=== PATIENT | male | born 1955 | race African-American/Black ===

== ENCOUNTER 2021-05-31 16:57 | Emergency (ER) | payer SELFPAY ==
--- OUTSIDE RECORDS SUMMARY | 2021-05-31 16:58 | XMS REPORT | Continuity of Care Document ---
:1955 Author Organization [facility] t Address [address] [place] [address] Care Team Providers Name Role Phone Brielle An Attending Clinician Problems This patient has no known problems. Allergies, Adverse Reactions, Alerts This patient has no known allergies or adverse reactions. Medications This patient has no known medications. Procedures This patient has no known procedures. Encounters Start End Encounter Admission Attending Care Care Encounter Source Date/Time Date/Time Type Type Clinicians Facility Department ID 2020-11-25 2020-11-25 Office JOHANNY Owens [id number] 09:11:35 09:46:46 Visit [facility] [id number] [place] [id number] Sheila [id number] nal 044 Office [address] [facility] Results This patient has no known results.
[2021-05-31] MEDS ORDERED: cloNIDine HCL 0.1 MG TAB ONE ×2 (18:03→19:19)
[2021-05-31] MEDS ORDERED: lisinopriL 20 MG TAB ONE (18:03)
[2021-05-31 19:25] LABS: SARS-COV-2 RT PCR POSITIVE (NEGATIVE)
--- NOTE | 2021-05-31 19:40 | EDPHYS ---
Physician Documentation [facility] Name: Don Connolly Age: 65 yrs Sex: Male : 1955 Arrival Date: 05/31/2021 Time: 16:59 Bed 24 Private MD: ED Physician Curt Anaya HPI: 05/31 19:36 This 65 yrs old Black Male presents to ER via Ambulatory with complaints of Cough. jr8 19:36 The patient or guardian reports cough, that is intermittent, described as moderate, jr8 with no sputum. Onset: The symptoms/episode began/occurred gradually. Severity of symptoms: At their worst the symptoms were moderate, in the emergency department the symptoms are unchanged. Modifying factors: The symptoms are alleviated by nothing, the symptoms are aggravated by exertion. Associated signs and symptoms: Pertinent positives: fever. The patient has not experienced similar symptoms in the past. The patient has not recently seen a physician. Historical: - Allergies: 17:08 No Known Allergies; jl7 - PMHx: 17:08 Hypertensive disorder; jl7 - Immunization history:: Adult Immunizations unknown, Client reports receiving the 2nd dose of the Covid vaccine, Date received: December 23, 2020 [employer]. - Social history:: Smoking status: Patient denies any tobacco usage or history of. ROS: 19:36 Constitutional: Positive for fever. jr8 19:36 Respiratory: Positive for cough, Negative for shortness of breath, sputum production, wheezing. 19:36 All other systems are negative. Exam: 19:36 Constitutional: This is a well developed, well nourished patient who is awake, alert, jr8 and in no acute distress. Eyes: Pupils equal round and reactive to light, extra-ocular motions intact. Lids and lashes normal. Conjunctiva and sclera are non-icteric and not injected. Cornea within normal limits. Periorbital areas with no swelling, redness, or edema. ENT: Nares patent. No nasal discharge, no septal abnormalities noted. Tympanic membranes are normal and external auditory canals are clear. Oropharynx with no redness, swelling, or masses, exudates, or evidence of obstruction, uvula midline. Mucous membranes moist. Neck: Trachea midline, no thyromegaly or masses palpated, and no cervical lymphadenopathy. Supple, full range of motion without nuchal rigidity, or vertebral point tenderness. No Meningismus. Cardiovascular: Regular rate and rhythm with a normal S1 and S2. No gallops, murmurs, or rubs. Normal PMI, no JVD. No pulse deficits. Respiratory: Lungs have equal breath sounds bilaterally, clear to auscultation and percussion. No rales, rhonchi or wheezes noted. No increased work of breathing, no retractions or nasal flaring. Abdomen/GI: Soft, non-tender, with normal bowel sounds. No distension or tympany. No guarding or rebound. No evidence of tenderness throughout. Back: No spinal tenderness. No costovertebral tenderness. Full range of motion. Skin: Warm, dry with normal turgor. Normal color with no rashes, no lesions, and no evidence of cellulitis. MS/ Extremity: Pulses equal, no cyanosis. Neurovascular intact. Full, normal range of motion. Neuro: Awake and alert, GCS 15, oriented to person, place, time, and situation. Cranial nerves II-XII grossly intact. Motor strength 5/5 in all extremities. Sensory grossly intact. Vital Signs: 17:06 BP 221 / 135; Pulse 100; Resp 19; Temp 100; Pulse Ox 94% ; Weight 140.61 kg; Height 5 jl7 ft. 11 in. (180.34 cm); Pain 0/10; 17:37 BP 233 / 139; Pulse 99; Resp 32; Temp 100(O); Pulse Ox 95% on R/A; Weight 140 kg; ld1 Height 5 ft. 9 in. (175.26 cm); Pain 5/10; 18:00 BP 229 / 136; Pulse 94; Resp 23; Pulse Ox 94% on R/A; ld1 18:15 BP 225 / 134; Pulse 95; Resp 31; Pulse Ox 93% on R/A; ld1 18:38 BP 232 / 123; Pulse 97; Resp 27; Pulse Ox 93% on R/A; ld1 17:37 Body Mass Index 45.58 (140.00 kg, 175.26 cm) ld1 MDM: 19:24 Patient medically screened. jr8 19:36 Data reviewed: vital signs, nurses notes, lab test result(s). Data interpreted: Pulse jr8 oximetry: on room air is 95 %. Interpretation: acceptable. Counseling: I had a detailed discussion with the patient and/or guardian regarding: the historical points, exam findings, and any diagnostic results supporting the discharge/admit diagnosis, lab results, the need for outpatient follow up, a family practitioner, to return to the emergency department if symptoms worsen or persist or if there are any questions or concerns that arise at home. ED course: Patient has persistent elevated blood pressure which she is noncompliant with his medications. Patient denies chest pain, shortness of breath, headache, dizziness, visual changes. Patient has been medicated 3 times her blood pressure medicine here. Blood pressure is now starting to decrease. Counseled patient and about need for continued compliance with blood pressure medicine. As far as his cough and fever patient has Covid 19. [address] patient on therapy for this. Needs to follow-up with primary care in the next couple days. Discussed with them that they need to continue to watch his respiratory status and if he gets worse to come back for further evaluation. Patient and good with this plan at this time.. 05/31 19:25 Order name: COVID-19/FLU A+B; Complete Time: 19:27 EDMS Administered Medications: 17:43 Drug: Lisinopril 20 mg Route: PO; ld1 18:17 Follow up: Response: No adverse reaction ld1 17:43 Drug: cloNIDine 0.1 mg Route: PO; ld1 18:17 Follow up: Response: No adverse reaction ld1 18:59 Drug: cloNIDine 0.2 mg Route: PO; ld1 19:37 Follow up: Response: No adverse reaction ld1 19:20 Drug: Tylenol 1000 mg Route: PO; ld1 19:37 Follow up: Response: No adverse reaction ld1 Disposition: 06/01 07:18 Co-signature as Attending Physician, Curt Anaya MD I agree with the assessment and kdr plan of care. Disposition Summary: 05/31/21 19:39 Discharge Ordered Location: Home jr8 Problem: new jr8 Symptoms: have improved jr8 Condition: Stable jr8 Diagnosis - Essential (primary) hypertension jr8 - SARS-associated coronavirus as the cause of diseases classified elsewhere jr8 Followup: jr8 - With: Private Physician - When: 2 - 3 days - Reason: Recheck today's complaints, Continuance of care, Re-evaluation by your physician Discharge Instructions: - Discharge Summary Sheet jr8 - Hypertension, Adult jr8 - COVID-19 jr8 Forms: - Medication Reconciliation Form jr8 - Thank You Letter jr8 - Antibiotic Education jr8 - Prescription Opioid Use jr8 Prescriptions: - ivermectin 3 mg Oral tablet - take 6 tablet by ORAL route once daily for 3 days; 18 tablet; Refills: 0, jr8 Product Selection Permitted Signatures: Dispatcher [employer] EDMS Curt Anaya MD MD kdr Roszak, Josh, PA PA jr8 Mookie Cotto RN RN jl7 Leydi Pablo RN RN ld1 Corrections: (The following items were deleted from the chart) 05/31 18:34 17:20 CORONAVIRUS+MR.LAB.BRZ ordered. EDMS EDMS 18:35 17:20 Influenza Screen (A \T\ B)+BA.LAB.BRZ ordered. EDMS EDMS
--- NOTE | 2021-05-31 19:40 | ER ---
Nurse's Notes [facility] Name: Don Connolly Age: 65 yrs Sex: Male : 1955 Arrival Date: 05/31/2021 Time: 16:59 Bed 24 Private MD: Diagnosis: Essential (primary) hypertension;SARS-associated coronavirus as the cause of diseases classified elsewhere Presentation: 05/31 17:06 Chief complaint: Patient states: Body aches and cough x 2 days; hx of htn and has not jl7 taken meds in about 3 days. Coronavirus screen: Client denies travel out of the [place] in the last 14 days. cough unrelated to allergies, muscle pain, Client presents with at least one sign or symptom that may indicate coronavirus-19. Standard/surgical mask placed on the client. Provider contacted for isolation considerations. Ebola Screen: No symptoms or risks identified at this time. Initial Sepsis Screen: Does the patient meet any 2 criteria? No. Patient's initial sepsis screen is negative. Does the patient have a suspected source of infection? No. Patient's initial sepsis screen is negative. Risk Assessment: Do you want to hurt yourself or someone else? Patient reports no desire to harm self or others. Onset of symptoms was May 29, 2021. Care prior to arrival: None. 17:06 Method Of Arrival: Ambulatory [facility] 17:06 Acuity: JITENDRA 2 jl7 Historical: - Allergies: 17:08 No Known Allergies; jl7 - PMHx: 17:08 Hypertensive disorder; jl7 - Immunization history:: Adult Immunizations unknown, Client reports receiving the 2nd dose of the Covid vaccine, Date received: December 23, 2020 [employer]. - Social history:: Smoking status: Patient denies any tobacco usage or history of. Screenin:37 Abuse screen: Denies threats or abuse. Denies injuries from another. Nutritional ld1 screening: No deficits noted. Tuberculosis screening: No symptoms or risk factors identified. Fall Risk None identified. Assessment: 17:37 General: Appears in no apparent distress. comfortable, Behavior is calm, cooperative, ld1 appropriate for age. Pain: Complains of pain in right upper quadrant and left upper quadrant Pain does not radiate. Pain currently is 5 out of 10 on a pain scale. Quality of pain is described as squeezing, Pain began 1 day ago. Is intermittent. Neuro: Level of Consciousness is awake, alert, obeys commands, Oriented to person, place, time, situation. Cardiovascular: Capillary refill < 3 seconds Patient's skin is warm and dry. Rhythm is sinus rhythm. Respiratory: Reports cough that is non-productive, Airway is patent Respiratory effort is even, unlabored, Respiratory pattern is regular, symmetrical. GI: Abdomen is non-distended, obese, Reports upper abdominal pain. : No signs and/or symptoms were reported regarding the genitourinary system. EENT: No signs and/or symptoms were reported regarding the EENT system. Derm: No signs and/or symptoms reported regarding the dermatologic system. Musculoskeletal: No signs and/or symptoms reported regarding the musculoskeletal system. 19:00 Reassessment: Patient appears in no apparent distress at this time. No changes from ld1 previously documented assessment. Patient and/or family updated on plan of care and expected duration. Pain level reassessed. Patient is alert, oriented x 3, equal unlabored respirations, skin warm/dry/pink. Vital Signs: 17:06 BP 221 / 135; Pulse 100; Resp 19; Temp 100; Pulse Ox 94% ; Weight 140.61 kg; Height 5 jl7 ft. 11 in. (180.34 cm); Pain 0/10; 17:37 BP 233 / 139; Pulse 99; Resp 32; Temp 100(O); Pulse Ox 95% on R/A; Weight 140 kg; ld1 Height 5 ft. 9 in. (175.26 cm); Pain 5/10; 18:00 BP 229 / 136; Pulse 94; Resp 23; Pulse Ox 94% on R/A; ld1 18:15 BP 225 / 134; Pulse 95; Resp 31; Pulse Ox 93% on R/A; ld1 18:38 BP 232 / 123; Pulse 97; Resp 27; Pulse Ox 93% on R/A; ld1 17:37 Body Mass Index 45.58 (140.00 kg, 175.26 cm) ld1 ED Course: 16:59 Patient arrived in ED. as 17:08 Triage completed. jl7 17:08 Arm band placed on right wrist. jl7 17:33 Leydi Pablo RN is Primary Nurse. ld1 17:36 Curt Anaya MD is Attending Physician. kdr 17:37 Patient has correct armband on for positive identification. Placed in gown. Bed in low ld1 position. Call light in reach. Side rails up X2. youth nutritional monitor on. Pulse ox on. NIBP on. Door closed. Noise minimized. Warm blanket given. 17:37 No provider procedures requiring assistance completed. ld1 19:23 Erik Estrella PA is PHCP. jr8 20:00 Patient did not have IV access during this emergency room visit. ld1 Administered Medications: 17:43 Drug: Lisinopril 20 mg Route: PO; ld1 18:17 Follow up: Response: No adverse reaction ld1 17:43 Drug: cloNIDine 0.1 mg Route: PO; ld1 18:17 Follow up: Response: No adverse reaction ld1 18:59 Drug: cloNIDine 0.2 mg Route: PO; ld1 19:37 Follow up: Response: No adverse reaction ld1 19:20 Drug: Tylenol 1000 mg Route: PO; ld1 19:37 Follow up: Response: No adverse reaction ld1 Outcome: 19:39 Discharge ordered by . jr8 19:45 Discharged to home ambulatory. ld1 19:45 Condition: stable 19:45 Discharge instructions given to patient, Instructed on discharge instructions, follow ld1 up and referral plans. medication usage, Demonstrated understanding of instructions, follow-up care, medications. 20:00 Patient left the ED. ld1 Signatures: Curt Anaya MD MD kdr Martinez, Amelia as Erik Estrella PA PA jr8 Mookie Cotto RN RN jl7 Leydi Pablo RN RN ld1 Corrections: (The following items were deleted from the chart) 18:34 18:17 CORONAVIRUS+MR.LAB.BRZ drawn and sent. ld1 EDMS 18:35 18:17 Influenza Screen (A \T\ B)+BA.LAB.BRZ drawn and sent. ld1 EDMS
[2021-05-31] MEDS ORDERED: ACETAMINOPHEN 500 MG TAB ONE (19:55)
[2021-05-31 20:05] VITALS: TEMP 100
[2021-05-31 20:11] VITALS: O2SAT 93
[2021-05-31 20:13] VITALS: BP 232/123
== END 2021-05-31 20:00 | disposition home or self-care (01) ==
LOC: ER 16:57
DX: U07.1 COVID-19 (principal); I10 Essential (primary) hypertension
CPT/HCPCS: 0240U; 99284

== ENCOUNTER 2023-04-08 09:52 | Inpatient (IN) | payer OTHER ==
--- OUTSIDE RECORDS SUMMARY | 2023-04-08 10:21 | XMS REPORT | Continuity of Care Document ---
:[address] [facility] t Address [address] [place] [address] [place] [id number] Care Team Providers Name Role Phone Rubina An Primary Care Physician MILLER CANO K.HBrendon Attending Clinician Unavailable Rachael MYRICK, Miller K.H. Attending Clinician Doctor Unassigned, [place] Attending Clinician Unavailable RUBINA FRANCISCO Attending Clinician Unavailable Vaccine, [facility] Family [facility] Attending Clinician Unavailable Carlito Lane MD Attending Clinician [address] L[address] Attending Clinician Unavailable Ayaan MYRICK, Saranya Attending Clinician Pob, [facility] Lab Main Attending Clinician Unavailable JOURDAN COYLE Attending Clinician Unavailable Nurse, [facility] Pob Immunization Attending Clinician Unavailable Jourdan Coyle DO Attending Clinician Barry HEALTH INSPECTOR FOODTaina DUKE Attending Clinician Rubina An Attending Clinician Flora MONTENEGRO, Peg Mera Attending Clinician Unavailable Cindy ARRIETA, Karoline Pinzon Attending Clinician Manuel Akers DO Attending Clinician Therapy, Ang [facility] Covid Attending Clinician Unavailable Vanita Shetty Attending Clinician RADHA CARRANZA Attending Clinician Unavailable PATRICIA BILLY Attending Clinician Unavailable OBED LOUIS Attending Clinician Unavailable MILLER CANO Admitting Clinician Unavailable Manuel Akers DO Admitting Clinician Payers Payer Name Policy Type Policy Number Effective Date Expiration Date S yemi [employer] [id number] 2020 00:00:00 GROUP AND PENSION [id number] 2018 ADMINISTRATORS 00:00:00 Problems Condition Condition Condition Status Onset Resolution Last Treating Co mments Source Name Details Category Date Date Treatment Clinician Date Paroxysmal Paroxysmal Disease Active [facility] atrial atrial 9-19 [facility] [place] 00 Medical RVR RVR Branch Acute on Acute on Disease Active [facility] chronic chronic 9-19 [place] congestive congestive [place] Me dical heart heart Branch failure failure Troponin I Troponin I Disease Active [facility] above above 9-19 [place] range 00 [facility] COVID-19 COVID-19 Disease Active [facility] virus virus 9-19 [place] [place] infection [place] Morbid Morbid Disease Active [facility] obesity obesity 9-18 [place] of with body with body 00:[place] mass index mass index 00 Me dical of of Branch 40.0-49.9 40.0-49.9 Hypertensi Hypertensi Disease Active [facility] ve ve 9-18 [facility] [place] emergency emergency [place] [facility] [place] Rash Rash Disease Active [facility] 2-21 ity of 00:00: [place] 00 Medical Branch Uncontroll Uncontroll Disease Active 2017-10 [facility] ed ed 0-05 it[facility] of hypertensi hypertensi [place] CANALES CANALES Disease Active 2017-10 Univers (dyspnea (dyspnea 0-05 ity of on on 00:00: [place] exertion) exertion) [address] [facility] brianne Branch Abnormal Abnormal Disease Active 2017-10 Unive rs EKG EKG 0-05 ity of 00:00: [place] 00 Medical Branch Bilateral Bilateral Disease Active 2017-10 Uni vers lower lower 0-05 ity of extremity extremity 00:00: [facility] s edema edema Medical Branch History of History of Disease Active 2017-10 U nivers asbestosis asbestosis 0-05 it y of 00:00: [place] [facility] Snoring Snoring Disease Active 2017-10 Univers 0-05 ity of 00:00: [place] [facility] Obesity Obesity Disease Active 2017-10 Univers (BMI (BMI 0-05 ity of 30-39.9) 30-39.9) 00:00: [place] [facility] Allergies, Adverse Reactions, Alerts Allergy Allergy Status Severity Reaction(s) Onset Inactive Treating Comm ents Source Name Type Date Date Clinician NO KNOWN Drug Active Univers ALLERGIE Class ity of S [facility] Social History Social Habit Start Date Stop Date Quantity Comments Source History SDOH University o f Alcohol Frequency [place] M edical Branch History SDOH University o f Alcohol Std [place] Medical Drinks Branch History SDOH University o f Alcohol Binge [place] Medic al Branch Exposure to 2023-02-22 2023-03-04 Not sure [facility] SARS-CoV-2 00:00:00 14:11:00 [facility] (event) Branch Tobacco use and 2023-03-04 2023-03-04 Smokeless tobacco Un iversity of exposure 00:00:00 00:00:00 non-user [facility] Alcohol intake 2023-03-04 2023-03-04 Current drinker Unive rsity of 00:00:00 00:00:00 of alcohol [facility] (finding) Branch Alcohol Comment 2018-07-25 2018-07-25 socially Universit y of 00:00:00 00:00:00 [facility] Sex Ass[birth year] Universit y of 00:00:00 00:00:00 [facility] Smoking Status Start Date Stop Date Source Never smoked tobacco [facility] Medications Ordered Filled Start Stop Current Ordering Indication Dosage Frequency Signature Comments Components Source Medication Medication Date Date Medication? Clinician (SIG) Name Name apixaban 0 Yes 5mg Take 1 Univers (ELIQUIS) 5 5-15 tablet by ity of mg tablet 15:03: mouth in [facility] the Medical morning Branch and 1 tablet in the evening. apixaban Yes 5mg Take 1 Univers (ELIQUIS) 5 5-15 tablet by [facility] mg tablet 15:03[facility] Branch and 1 tablet in the evening. apixaban 2022-0 Yes 5mg Take 1 Univers (ELIQUIS) 5 5-15 tablet by ity of mg tablet 15:03: [place] the Medical morning Branch and 1 tablet in the evening. atorvastati 2022-0 Yes [id number] 40mg Take 1 Univers n 40 mg 5-15 tablet by ity of tablet 00:00: mouth at [place] 00 bedtime. Medical Branch carvediloL 2022-0 Yes [id number] 25mg Take 1 U nivers 25 mg 5-15 tablet by ity of tablet 00:00: mouth in [place] 00 the Medical morning Branch and 1 tablet in the evening. Take with meals. lisinopriL 2022-0 Yes [id number] 40mg Take 1 U nivers 40 mg 5-15 tablet by ity of tablet 00:00: mouth in [place] 00 the Medical morning. Branch spironolact 2022-0 Yes [id number] 25mg Take 1 Univers one 25 mg 5-15 tablet by ity o f tablet 00:00: mouth [place] 00 every Medical morning. Branch amLODIPine 2022-0 Yes [id number] 10mg Take 1 U nivers 10 mg 5-15 tablet by ity of tablet 00:00: mouth in [place] 00 the Medical morning. Branch isosorbide 2022-0 Yes [id number] 30mg Take 1 U nivers mononitrate 5-15 tablet by ity of 30 mg 24 hr 00:00: [place] 00 the Medical morning. Branch hydrALAZINE 2022-0 Yes [id number] 50mg Take 1 Univers 50 mg 5-15 tablet by ity of tablet 00:00: mouth [place] 00 every 8 Medical (eight) Branch hours. atorvastati 2022-0 Yes [id number] 40mg Take 1 Univers n 40 mg 5-15 tablet by ity of tablet 00:00: mouth at [place] 00 bedtime. Medical Branch carvediloL 2022-0 Yes [id number] 25mg Take 1 U nivers 25 mg 5-15 tablet by ity of tablet 00:00: mouth in [place] 00 the Medical morning Branch and 1 tablet in the evening. Take with meals. lisinopriL 2023-0 Yes [id number] 40mg Take 1 U nivers 40 mg 5-15 tablet by ity of tablet 00:00: mouth in [place] 00 the Medical morning. Branch spironolact 3-0 Yes [id number] 25mg Take 1 Univers one 25 mg 5-15 tablet by ity o f tablet 00:00: mouth [place] 00 every Medical morning. Branch amLODIPine 3-0 Yes [id number] 10mg Take 1 U nivers 10 mg 5-15 tablet by ity of tablet 00:00: mouth in [place] 00 the Medical morning. Branch isosorbide 3-0 Yes [id number] 30mg Take 1 U nivers mononitrate 5-15 tablet by ity of 30 mg 24 hr 00:00: [place] 00 the Medical morning. Branch hydrALAZINE 3-0 Yes [id number] 50mg Take 1 Univers 50 mg 5-15 tablet by ity of tablet 00:00: mouth [place] 00 every 8 Medical (eight) Branch hours. atorvastati 3-0 Yes [id number] 40mg Take 1 Univers n 40 mg 5-15 tablet by ity of tablet 00:00: mouth at [place] 00 bedtime. Medical Branch carvediloL 3-0 Yes [id number] 25mg Take 1 U nivers 25 mg 5-15 tablet by ity of tablet 00:00: mouth in [place] 00 the Medical morning Branch and 1 tablet in the evening. Take with meals. lisinopriL 3-0 Yes [id number] 40mg Take 1 U nivers 40 mg 5-15 tablet by ity of tablet 00:00: mouth in [place] 00 the Medical morning. Branch spironolact 3-0 Yes [id number] 25mg Take 1 Univers one 25 mg 5-15 tablet by ity o f tablet 00:00: mouth [place] 00 every Medical morning. Branch amLODIPine 3-0 Yes [id number] 10mg Take 1 U nivers 10 mg 5-15 tablet by ity of tablet 00:00: mouth in [place] 00 the Medical morning. Branch isosorbide 3-0 Yes [id number] 30mg Take 1 U nivers mononitrate 5-15 tablet by ity of 30 mg 24 hr 00:00: [place] 00 the Medical morning. Branch hydrALAZINE 0 Yes [id number] 50mg Take 1 Univers 50 mg 5-15 tablet by ity of tablet 00:00: mouth [place] 00 every 8 Medical (eight) Branch hours. ATORVASTATI 2021-10 Yes [id number] 40mg TAKE 1 Univers N 40 mg 2-30 TABLET BY ity of tablet 00:00: [facility] [place] BEDTIME Medical Branch SPIRONOLACT 2021-10 Yes [id number] TAKE 1 Univers ONE 25 mg 2-30 TABLET BY ity o f tablet 00:00: MOUTH [place] DAILY Medical Branch LISINOPRIL 2021-10 Yes [id number] 40mg TAKE 1 U nivers 40 mg 2-30 TABLET BY ity of tablet 00:00: [facility] DAILY Medical Branch CARVEDILOL 2021-10 Yes [id number] TAKE 1 U nivers 25 mg 2-30 TABLET BY ity of tablet 00:00: [facility] TWICE Medical DAILY WITH Branch MEALS ATORVASTATI 2021-10 Yes [id number] 40mg TAKE 1 Univers N 40 mg 2-30 TABLET BY ity of tablet 00:00: [facility] [place] BEDTIME Medical Branch SPIRONOLACT 2021-10 Yes [id number] TAKE 1 Univers ONE 25 mg 2-30 TABLET BY ity o f tablet 00:00: [facility] DAILY Medical Branch LISINOPRIL 2021-10 Yes [id number] 40mg TAKE 1 U nivers 40 mg 2-30 TABLET BY ity of tablet 00:00: [facility] DAILY Medical Branch CARVEDILOL 2021-10 Yes [id number] TAKE 1 U nivers 25 mg 2-30 TABLET BY ity of tablet 00:00: MOUTH [place] TWICE Medical DAILY WITH Branch MEALS ATORVASTATI 2021-10 Yes [id number] 40mg TAKE 1 Univers N 40 mg 2-30 TABLET BY ity of tablet 00:00: [facility] [place] BEDTIME Medical Branch SPIRONOLACT 2021-10 Yes [id number] TAKE 1 Univers ONE 25 mg 2-30 TABLET BY ity o f tablet 00:00: [facility] DAILY Medical Branch LISINOPRIL 2021-10 Yes [id number] 40mg TAKE 1 U nivers 40 mg 2-30 TABLET BY ity of tablet 00:00: [facility] DAILY Medical Branch CARVEDILOL 2021-10 Yes [id number] TAKE 1 U nivers 25 mg 2-30 TABLET BY ity of tablet 00:00: [facility] TWICE Medical DAILY WITH Branch MEALS ATORVASTATI 2021-10 Yes [id number] 40mg TAKE 1 Univers N 40 mg 2-30 TABLET BY ity of tablet 00:00: [place] [facility] 00 BEDTIME Medical Branch SPIRONOLACT 2021-10 Yes [id number] TAKE 1 Univers ONE 25 mg 2-30 TABLET BY ity o f tablet 00:00: [facility] 00 DAILY Medical Branch LISINOPRIL 2021-10 Yes [id number] 40mg TAKE 1 U nivers 40 mg 2-30 TABLET BY ity of tablet 00:00: [facility] DAILY Medical Branch CARVEDILOL 2021-10 Yes [id number] TAKE 1 U nivers 25 mg 2-30 TABLET BY ity of tablet 00:00: [facility] 00 TWICE Medical DAILY WITH Branch MEALS SPIRONOLACT 2021-10- No [id number] TAKE 1 Univers ONE 25 mg 2-30 05-15 TABLET BY ity of tablet 00:00: 00:00 [facility] 00 :00 DAILY Medical Branch LISINOPRIL 2021-10- No [id number] 40mg TAKE 1 Univers 40 mg 2-30 05-15 TABLET BY ity of tablet 00:00: 00:00 [facility] 00 :00 DAILY Medical Branch CARVEDILOL 2021-10- No [id number] TAKE 1 Univers 25 mg 2-30 05-15 TABLET BY ity of tablet 00:00: 00:00 [facility] 00 :00 TWICE Medical DAILY WITH Branch MEALS ATORVASTATI 2021-10- No [id number] 40mg TAKE 1 Univers N 40 mg 2-30 05-15 TABLET BY ity of tablet 00:00: 00:00 [place] [facility] 00 :00 BEDTIME Medical Branch SPIRONOLACT 2021-10- No [id number] TAKE 1 Univers ONE 25 mg 2-30 05-15 TABLET BY ity of tablet 00:00: 00:00 [facility] 00 :00 DAILY Medical Branch LISINOPRIL 2021-10- No [id number] 40mg TAKE 1 Univers 40 mg 2-30 05-15 TABLET BY ity of tablet 00:00: 00:00 [facility] 00 :00 DAILY Medical Branch CARVEDILOL 2021-10- No [id number] TAKE 1 Univers 25 mg 2-30 05-15 TABLET BY ity of tablet 00:00: 00:00 [facility] 00 :00 TWICE Medical DAILY WITH Branch MEALS ATORVASTATI 2021-10- No [id number] 40mg TAKE 1 Univers N 40 mg 2-30 05-15 TABLET BY ity of tablet 00:00: 00:00 [facility] [place] 00 :00 BEDTIME Medical Branch SPIRONOLACT 2021-10- No [id number] TAKE 1 Univers ONE 25 mg 2-30 05-15 TABLET BY ity of tablet 00:00: 00:00 [facility] 00 :00 DAILY Medical Branch LISINOPRIL 2021-10- No [id number] 40mg TAKE 1 Univers 40 mg 2-30 05-15 TABLET BY ity of tablet 00:00: 00:00 [facility] 00 :00 DAILY Medical Branch CARVEDILOL 2021-10- No [id number] TAKE 1 Univers 25 mg 2-30 05-15 TABLET BY ity of tablet 00:00: 00:00 [facility] 00 :00 TWICE Medical DAILY WITH Branch MEALS ATORVASTATI 2021-10- No [id number] 40mg TAKE 1 Univers N 40 mg 2-30 05-15 TABLET BY ity of tablet 00:00: 00:00 [facility] [place] 00 :00 BEDTIME Medical Branch lisinopriL 2021-10 Yes [id number] 40mg TAKE 1 U nivers 40 mg 2-01 TABLET BY ity of tablet 00:00: [facility] DAILY Medical Branch spironolact 2021-10 Yes TAKE 1 Univ ers one 25 mg 2-01 TABLET BY ity o f tablet 00:00: MOUTH [place] 00 DAILY Medical Branch atorvastati 2021-10 Yes [id number] 40mg TAKE 1 Univers n 40 mg 2-01 TABLET BY ity of tablet 00:00: [place] [facility] 00 BEDTIME Medical Branch carvediloL 2021-10 Yes [id number] TAKE 1 U nivers 25 mg 2-01 TABLET BY ity of tablet 00:00: MOUTH [place] TWICE Medical DAILY WITH Branch MEALS lisinopriL 2021-10 Yes [id number] 40mg TAKE 1 U nivers 40 mg 2-01 TABLET BY ity of tablet 00:00: MOUTH [place] 00 DAILY Medical Branch spironolact 2021-10 Yes TAKE 1 Univ ers one 25 mg 2-01 TABLET BY ity o f tablet 00:00: MOUTH [place] DAILY Medical Branch atorvastati 2021-10 Yes [id number] 40mg TAKE 1 Univers n 40 mg 2-01 TABLET BY ity of tablet 00:00: MOUTH AT [place] 00 BEDTIME Medical Branch carvediloL 2021-10 Yes [id number] TAKE 1 U nivers 25 mg 2-01 TABLET BY ity of tablet 00:00: MOUTH [place] 00 TWICE Medical DAILY WITH Branch MEALS isosorbide 2021-10 Yes [id number] 30mg TAKE 1 U nivers mononitrate 1-29 TABLET BY ity of 30 mg 24 hr 00:00: MOUTH [place] tablet 00 DAILY Medical Branch amLODIPine 2021-10 Yes [id number] 10mg TAKE 1 U nivers 10 mg 1-29 TABLET BY ity of tablet 00:00: MOUTH [place] DAILY Medical Branch isosorbide 2021-10 Yes [id number] 30mg TAKE 1 U nivers mononitrate 1-29 TABLET BY ity of 30 mg 24 hr 00:00: MOUTH [place] tablet 00 DAILY Medical Branch amLODIPine 2021-10 Yes [id number] 10mg TAKE 1 U nivers 10 mg 1-29 TABLET BY ity of tablet 00:00: MOUTH [place] DAILY Medical Branch isosorbide 2021-10 Yes [id number] 30mg TAKE 1 U nivers mononitrate 1-29 TABLET BY ity of 30 mg 24 hr 00:00: MOUTH [place] tablet 00 DAILY Medical Branch amLODIPine 2021-10 Yes [id number] 10mg TAKE 1 U nivers 10 mg 1-29 TABLET BY ity of tablet 00:00: MOUTH [place] 00 DAILY Medical Branch isosorbide 2021-10 Yes [id number] 30mg TAKE 1 U nivers mononitrate 1-29 TABLET BY ity of 30 mg 24 hr 00:00: MOUTH [place] tablet 00 DAILY Medical Branch amLODIPine 2021-10 Yes [id number] 10mg TAKE 1 U nivers 10 mg 1-29 TABLET BY ity of tablet 00:00: MOUTH [place] DAILY Medical Branch isosorbide 2021-10 Yes [id number] 30mg TAKE 1 U nivers mononitrate 1-29 TABLET BY ity of 30 mg 24 hr 00:00: MOUTH [place] tablet 00 DAILY Medical Branch amLODIPine 2021-10 Yes [id number] 10mg TAKE 1 U nivers 10 mg 1-29 TABLET BY ity of tablet 00:00: MOUTH [place] 00 DAILY Medical Branch isosorbide 2021-10 Yes [id number] 30mg TAKE 1 U nivers mononitrate 1-29 TABLET BY ity of 30 mg 24 hr 00:00: MOUTH [place] tablet 00 DAILY Medical Branch amLODIPine 2021-10 Yes [id number] 10mg TAKE 1 U nivers 10 mg 1-29 TABLET BY ity of tablet 00:00: MOUTH [place] 00 DAILY Medical Branch isosorbide 2021-2022- No [id number] 30mg TAKE 1 Univers mononitrate 1-29 05-15 TABLET BY it y of 30 mg 24 hr 00:00: 00:00 [place]TH [place] 00 :00 DAILY Medical Branch amLODIPine 2021-10- No [id number] 10mg TAKE 1 Univers 10 mg 1-29 05-15 TABLET BY ity of tablet 00:00: 00:00 MOUTH [place] 00 :00 DAILY Medical Branch isosorbide 2021-2022- No [id number] 30mg TAKE 1 Univers mononitrate 1-29 05-15 TABLET BY it y of 30 mg 24 hr 00:00: 00:00 [place]TH [place] 00 :00 DAILY Medical Branch amLODIPine 2021-2022- No [id number] 10mg TAKE 1 Univers 10 mg 1-29 05-15 TABLET BY ity of tablet 00:00: 00:00 MOUTH [place] 00 :00 DAILY Medical Branch isosorbide 2021-3- No [id number] 30mg TAKE 1 Univers mononitrate 1-29 05-15 TABLET BY it y of 30 mg 24 hr 00:00: 00:00 [place]OUTH [place] 00 :00 DAILY Medical Branch amLODIPine 2021-2022- No [id number] 10mg TAKE 1 Univers 10 mg 1-29 05-15 TABLET BY ity of tablet 00:00: 00:00 MOUTH [place] 00 :00 DAILY Medical Branch ISOSORBIDE 2-0 Yes [id number] 30mg TAKE 1 U nivers MONONITRATE 5-23 TABLET BY ity of 30 mg 24 hr 00:00: MOUTH [place] tablet 00 DAILY Medical Branch LISINOPRIL 2021-0 Yes [id number] 40mg TAKE 1 U nivers 40 mg 5-23 TABLET BY ity of tablet 00:00: MOUTH [place] DAILY Medical Branch SPIRONOLACT 2021-0 Yes TAKE 1 Univ ers ONE 25 mg 5-23 TABLET BY ity o f tablet 00:00: MOUTH [place] DAILY Medical Branch ATORVASTATI 2021-0 Yes [id number] 40mg TAKE 1 Univers N 40 mg 5-23 TABLET BY ity of tablet 00:00: MOUTH AT [place] BEDTIME Medical Branch CARVEDILOL 2021-0 Yes [id number] TAKE 1 U nivers 25 mg 5-23 TABLET BY ity of tablet 00:00: MOUTH [place] TWICE Medical DAILY WITH Branch MEALS AMLODIPINE 2021-0 Yes [id number] 10mg TAKE 1 U nivers 10 mg 5-23 TABLET BY ity of tablet 00:00: MOUTH [place] DAILY Medical Branch ISOSORBIDE 2021-0 Yes [id number] 30mg TAKE 1 U nivers MONONITRATE 5-23 TABLET BY ity of 30 mg 24 hr 00:00: MOUTH [place] tablet 00 DAILY Medical Branch LISINOPRIL 2021-0 Yes [id number] 40mg TAKE 1 U nivers 40 mg 5-23 TABLET BY ity of tablet 00:00: MOUTH [place] DAILY Medical Branch SPIRONOLACT 2021-0 Yes TAKE 1 Univ ers ONE 25 mg 5-23 TABLET BY ity o f tablet 00:00: MOUTH [place] DAILY Medical Branch ATORVASTATI 2021-0 Yes [id number] 40mg TAKE 1 Univers N 40 mg 5-23 TABLET BY ity of tablet 00:00: MOUTH AT [place] BEDTIME Medical Branch CARVEDILOL 2021-0 Yes [id number] TAKE 1 U nivers 25 mg 5-23 TABLET BY ity of tablet 00:00: MOUTH [place] 00 TWICE Medical DAILY WITH Branch MEALS AMLODIPINE 2021-0 Yes [id number] 10mg TAKE 1 U nivers 10 mg 5-23 TABLET BY ity of tablet 00:00: MOUTH [place] 00 DAILY Medical Branch ISOSORBIDE 2021-0 Yes [id number] 30mg TAKE 1 U nivers MONONITRATE 5-23 TABLET BY ity of 30 mg 24 hr 00:00: MOUTH [place] tablet 00 DAILY Medical Branch LISINOPRIL 0 Yes [id number] 40mg TAKE 1 U nivers 40 mg 5-23 TABLET BY ity of tablet 00:00: [facility] DAILY Medical Branch SPIRONOLACT 0 Yes TAKE 1 Univ ers ONE 25 mg 5-23 TABLET BY ity o f tablet 00:00: [facility] 00 DAILY Medical Branch ATORVASTATI 2021-0 Yes [id number] 40mg TAKE 1 Univers N 40 mg 5-23 TABLET BY ity of tablet 00:00: [facility] 00 BEDTIME Medical Branch CARVEDILOL 0 Yes [id number] TAKE 1 U nivers 25 mg 5-23 TABLET BY ity of tablet 00:00: [facility] 00 TWICE Medical DAILY WITH Branch MEALS AMLODIPINE Yes [id number] 10mg TAKE 1 U nivers 10 mg 5-23 TABLET BY ity of tablet 00:00: [facility] 00 DAILY Medical Branch LISINOPRIL 2021-0 2021- No [id number] 40mg TAKE 1 Univers 40 mg 5-23 12- TABLET BY ity of tablet 00:00: 00:00 [facility] 00 :00 DAILY Medical Branch SPIRONOLACT 2021-0 2021- No TAKE 1 Uni vers ONE 25 mg 5-23 12- TABLET BY ity of tablet 00:00: 00:00 [facility] 00 : DAILY Medical Branch ATORVASTATI 2021-0 2021- No [id number] 40mg TAKE 1 Univers N 40 mg 5-23 12- TABLET BY ity of tablet 00:00: 00:00 [place] [facility] 00 :00 BEDTIME Medical Branch CARVEDILOL 2021-0 2021- No [id number] TAKE 1 Univers 25 mg 5-23 12- TABLET BY ity of tablet 00:00: 00:00 [facility] 00 :00 TWICE Medical DAILY WITH Branch MEALS ISOSORBIDE 2021-0 2021- No [id number] 30mg TAKE 1 [facility] MONONITRATE 5-23 11-29 TABLET BY it y of 30 mg 24 hr 00:00: 00:[place] 00 :00 DAILY Medical Branch AMLODIPINE 2021-0 2021- No [id number] 10mg TAKE 1 Univers 10 mg 5-23 11-29 TABLET BY ity of tablet 00:00: 00:00 [facility] 00 :00 DAILY Medical Branch hydrALAZINE 2-0 Yes [id number] 50mg Take 1 Univers 50 mg 1-04 tablet by ity of tablet 00:00: mouth [place] 00 every 8 Medical (eight) Branch hours. hydrALAZINE 2-0 Yes [id number] 50mg Take 1 Univers 50 mg 1-04 tablet by ity of tablet 00:00: mouth [place] 00 every 8 Medical (eight) Branch hours. hydrALAZINE 2-0 Yes [id number] 50mg Take 1 Univers 50 mg 1-04 tablet by ity of tablet 00:00: mouth [place] 00 every 8 Medical (eight) Branch hours. hydrALAZINE 2021-0 Yes [id number] 50mg Take 1 Univers 50 mg 1-04 tablet by ity of tablet 00:00: mouth [place] 00 every 8 Medical (eight) Branch hours. hydrALAZINE 2021-0 Yes [id number] 50mg Take 1 Univers 50 mg 1-04 tablet by ity of tablet 00:00: mouth [place] 00 every 8 Medical (eight) Branch hours. hydrALAZINE 2021-0 Yes [id number] 50mg Take 1 Univers 50 mg 1-04 tablet by ity of tablet 00:00: mouth [place] 00 every 8 Medical (eight) Branch hours. hydrALAZINE 2021-0 Yes [id number] 50mg Take 1 Univers 50 mg 1-04 tablet by ity of tablet 00:00: mouth [place] 00 every 8 Medical (eight) Branch hours. hydrALAZINE 2021-0 Yes [id number] 50mg Take 1 Univers 50 mg 1-04 tablet by ity of tablet 00:00: mouth [place] 00 every 8 Medical (eight) Branch hours. hydrALAZINE 2-0 Yes [id number] 50mg Take 1 Univers 50 mg 1-04 tablet by ity of tablet 00:00: mouth [place] 00 every 8 Medical (eight) Branch hours. hydrALAZINE 2-0 Yes [id number] 50mg Take 1 [facility] 50 mg 1-04 tablet by ity of tablet 00:00: mouth [place] 00 every 8 Medical (eight) Branch hours. hydrALAZINE 2-0 Yes [id number] 50mg Take 1 [facility] 50 mg 1-04 tablet by ity of tablet 00:00: mouth [place] 00 every 8 Medical (eight) Branch hours. hydrALAZINE 2-0 Yes [id number] 50mg Take 1 [facility] 50 mg 1-04 tablet by ity of tablet 00:00: mouth [place] 00 every 8 Medical (eight) Branch hours. hydrALAZINE 0 Yes [id number] 50mg Take 1 [facility] 50 mg 1-04 tablet by ity of tablet 00:00: mouth [place] 00 every 8 Medical (eight) Branch hours. hydrALAZINE 0 3- No [id number] 50mg Take 1 Univers 50 mg 1-04 05-15 tablet by ity of tablet 00:00: 00:00 mouth [place] 00 :00 every 8 Medical (eight) Branch hours. hydrALAZINE 2021-0 3- No [id number] 50mg Take 1 Univers 50 mg 1-04 05-15 tablet by ity of tablet 00:00: 00:00 mouth [place] 00 :00 every 8 Medical (eight) Branch hours. hydrALAZINE 3- No [id number] 50mg Take 1 Univers 50 mg 1-04 05-15 tablet by ity of tablet 00:00: 00:00 mouth [place] 00 :00 every 8 Medical (eight) Branch hours. spironolact 2020-10 Yes 25mg Take 25 mg Univers one 25 mg 2-21 by mouth ity of tablet 00:00: every [place] 00 morning. Medical Branch spironolact 2020-10 Yes 25mg Take 25 mg Univers one 25 mg 2-21 by mouth ity of tablet 00:00: every [place] 00 morning. Medical Branch spironolact 2020-10 Yes 25mg Take 25 mg Univers one 25 mg 2-21 by mouth ity of tablet 00:00: every [place] 00 morning. Medical Branch spironolact 2020-10 Yes 25mg Take 25 mg Univers one 25 mg 2-21 by mouth ity of tablet 00:00: every [place] 00 morning. Medical Branch spironolact 2020-10- No 25mg Take 25 mg Univers one 25 mg 2-21 -23 by mouth ity o f tablet 00:00: 00:00 every [place] 00 :00 morning. Medical Branch carvediloL 2020-10 Yes [id number] 25mg Take 1 U nivers 25 mg 1-11 tablet by ity of tablet 00:00: mouth 2 [place] 00 (two) Medical times Branch daily with meals. amLODIPine 2020-10 Yes [id number] 10mg Take 1 U nivers 10 mg 1-11 tablet by ity of tablet 00:00: mouth [place] 00 daily. Medical Branch atorvastati 2020-10 Yes [id number] 40mg Take 1 Univers n 40 mg 1-11 tablet by ity of tablet 00:00: mouth at [place] 00 bedtime. Medical Branch isosorbide 2020-10 Yes [id number] 30mg Take 1 U nivers mononitrate 1-11 tablet by ity of 30 mg 24 hr 00:00: mouth [place] tablet 00 daily. Medical Branch lisinopriL 2020-10 Yes [id number] 40mg Take 1 U nivers 40 mg 1-11 tablet by ity of tablet 00:00: mouth [place] 00 daily. Medical Branch carvediloL 2020-10 Yes [id number] 25mg Take 1 U nivers 25 mg 1-11 tablet by ity of tablet 00:00: mouth 2 [place] 00 (two) Medical times Branch daily with meals. amLODIPine 2020-10 Yes [id number] 10mg Take 1 U nivers 10 mg 1-11 tablet by ity of tablet 00:00: mouth [place] 00 daily. Medical Branch atorvastati 2020-10 Yes [id number] 40mg Take 1 Univers n 40 mg 1-11 tablet by ity of tablet 00:00: mouth at [place] 00 bedtime. Medical Branch isosorbide 2020-10 Yes [id number] 30mg Take 1 U nivers mononitrate 1-11 tablet by ity of 30 mg 24 hr 00:00: mouth [place] tablet 00 daily. Medical Branch lisinopriL 2020-10 Yes [id number] 40mg Take 1 U nivers 40 mg 1-11 tablet by ity of tablet 00:00: mouth [place] 00 daily. Medical Branch carvediloL 2020-10 Yes [id number] 25mg Take 1 U nivers 25 mg 1-11 tablet by ity of tablet 00:00: mouth 2 [place] 00 (two) Medical times Branch daily with meals. amLODIPine 2020-10 Yes [id number] 10mg Take 1 U nivers 10 mg 1-11 tablet by ity of tablet 00:00: mouth [place] 00 daily. Medical Branch atorvastati 2020-10 Yes [id number] 40mg Take 1 Univers n 40 mg 1-11 tablet by ity of tablet 00:00: mouth at [place] 00 bedtime. Medical Branch isosorbide 2020-10 Yes [id number] 30mg Take 1 U nivers mononitrate 1-11 tablet by ity of 30 mg 24 hr 00:00: mouth [place] tablet 00 daily. Medical Branch lisinopriL 2020-10 Yes [id number] 40mg Take 1 U nivers 40 mg 1-11 tablet by ity of tablet 00:00: mouth [place] 00 daily. Medical Branch carvediloL 2020-10 Yes [id number] 25mg Take 1 U nivers 25 mg 1-11 tablet by ity of tablet 00:00: mouth 2 [place] 00 (two) Medical times Branch daily with meals. amLODIPine 2020-10 Yes [id number] 10mg Take 1 U nivers 10 mg 1-11 tablet by ity of tablet 00:00: mouth [place] 00 daily. Medical Branch atorvastati 2020-10 Yes [id number] 40mg Take 1 Univers n 40 mg 1-11 tablet by ity of tablet 00:00: mouth at [place] 00 bedtime. Medical Branch isosorbide 2020-10 Yes [id number] 30mg Take 1 U nivers mononitrate 1-11 tablet by ity of 30 mg 24 hr 00:00: mouth [place] tablet 00 daily. Medical Branch lisinopriL 2020-10 Yes [id number] 40mg Take 1 U nivers 40 mg 1-11 tablet by ity of tablet 00:00: mouth [place] 00 daily. Medical Branch carvediloL 2020-10- No [id number] 25mg Take 1 Univers 25 mg 1-11 05-23 tablet by ity of tablet 00:00: 00:00 mouth 2 [place] 00 :00 (two) Medical times Branch daily with meals. amLODIPine 2020-10- No [id number] 10mg Take 1 Univers 10 mg 1-11 05-23 tablet by ity of tablet 00:00: 00:00 mouth [place] 00 :00 daily. Medical Branch atorvastati 2020-10- No [id number] 40mg Take 1 Univers n 40 mg 1-11 05-23 tablet by ity of tablet 00:00: 00:00 mouth at [place] 00 :00 bedtime. Medical Branch isosorbide 2020-10- No [id number] 30mg Take 1 Univers mononitrate 10-31 tablet by it y of 30 mg 24 hr 00:00[place] :00 daily. [facility] lisinopriL 2020-10- No [id number] 40mg Take 1 Univers 40 mg 10-31 tablet by ity of tablet 00:00: 00:00 mouth [place] 00 :00 daily. Medical Branch apixaban 2020-10- No 5mg Take 1 Univer s (ELIQUIS) 5 10-25 tablet by it y of mg tablet 00:00: 05:59 [place] (two[place] Medical times Branch daily for 90 days. Indication s: PAF apixaban 2020-10- No 5mg Take 1 Univer s (ELIQUIS) 5 10-25 tablet by it y of mg tablet 00:00: 05:59 [place] :[place] (two) Medical times Branch daily for 90 days. Indication s: PAF aspirin 81 2020-0 Yes [id number] 81mg Take 1 U nivers mg EC 9-23 tablet by ity of tablet 00:00: mouth [place] 00 daily. Medical Branch aspirin 81 2020-0 Yes [id number] 81mg Take 1 U nivers mg EC 9-23 tablet by ity of tablet 00:00: mouth [place] 00 daily. Medical Branch aspirin 81 0 Yes [id number] 81mg Take 1 U nivers mg EC 9-23 tablet by ity of tablet 00:00: mouth [place] 00 daily. Medical Branch aspirin 81 2020-0 Yes [id number] 81mg Take 1 U nivers mg EC 9-23 tablet by ity of tablet 00:00: mouth [place] 00 daily. Medical Branch aspirin 81 2020-0 Yes [id number] 81mg Take 1 U nivers mg EC 9-23 tablet by ity of tablet 00:00: mouth [place] 00 daily. Medical Branch aspirin 81 2020-0 Yes [id number] 81mg Take 1 U nivers mg EC 9-23 tablet by ity of tablet 00:00: mouth [place] 00 daily. Medical Branch aspirin 81 2020-0 Yes [id number] 81mg Take 1 U nivers mg EC 9-23 tablet by ity of tablet 00:00: mouth [place] 00 daily. Medical Branch aspirin 81 2020-0 Yes [id number] 81mg Take 1 U nivers mg EC 9-23 tablet by ity of tablet 00:00: mouth [place] 00 daily. Medical Branch aspirin 81 2020-0 Yes [id number] 81mg Take 1 U nivers mg EC 9-23 tablet by ity of tablet 00:00: mouth [place] 00 daily. Medical Branch aspirin 81 2020-0 Yes [id number] 81mg Take 1 U nivers mg EC 9-23 tablet by ity of tablet 00:00: mouth [place] 00 daily. Medical Branch aspirin 81 2020-0 Yes [id number] 81mg Take 1 U nivers mg EC 9-23 tablet by ity of tablet 00:00: mouth [place] 00 daily. Medical Branch aspirin 81 2020-0 Yes [id number] 81mg Take 1 U nivers mg EC 9-23 tablet by ity of tablet 00:00: mouth [place] 00 daily. Medical Branch aspirin 81 2020-0 Yes [id number] 81mg Take 1 U nivers mg EC 9-23 tablet by ity of tablet 00:00: mouth [place] 00 daily. Medical Branch aspirin 81 2020-0 Yes [id number] 81mg Take 1 U nivers mg EC 9-23 tablet by ity of tablet 00:00: mouth [place] 00 daily. Medical Branch aspirin 81 2020-0 Yes [id number] 81mg Take 1 U nivers mg EC 9-23 tablet by ity of tablet 00:00: mouth [place] 00 daily. Medical Branch aspirin 81 2020-0 Yes [id number] 81mg Take 1 U nivers mg EC 9-23 tablet by ity of tablet 00:00: mouth [place] 00 daily. Medical Branch cholecalcif 2021- No [id number] 2000U Take 2 Univers mg, 9-23 -21 tablets by ity of vitamin D3, 00:00: 00:[place] 25 mcg 00 :00 daily. Medical (1,000 Branch unit) tablet cholecalcif 2021- No [id number] 2000U Take 2 Univers mg, 9-23 -21 tablets by ity of vitamin D3, 00:00: 00:00 [place] 25 mcg 00 :00 daily. Medical (1,000 Branch unit) tablet Immunizations Ordered Filled Immunization Date Status Comments [facility] e Immunization Name Name SARS-COV-2 COVID-19 2022-07-13 Completed Unive rsity of JEANIE-SUCROSE 00:00:00 [place] Medica l VACCINE 12 YRS+, Branch BIVALENT 0.3ML, IM, (PFIZER LEON TOP) SARS-COV-2 COVID-19 2022-07-13 Completed Unive rsity of JEANIE-SUCROSE 00:00:00 [place] Medica l VACCINE 12 YRS+, Branch BIVALENT 0.3ML, IM, (PFIZER LEON TOP) SARS-COV-2 COVID-19 2022-07-13 Completed Unive rsity of JEANIE-SUCROSE 00:00:00 [place] [facility] VACCINE 12 YRS+, Branch BIVALENT 0.3ML, IM, (PFIZER LEON TOP) SARS-COV-2 COVID-19 2022-07-13 Completed Unive rsity of JEANIE-SUCROSE 00:00:00 [place] [facility]ica l VACCINE 12 YRS+, Branch BIVALENT 0.3ML, IM, (PFIZER LEON TOP BOOSTER) SARS-COV-2 COVID-19 2022-07-13 Completed Unive rsity of JEANIE-SUCROSE 00:00:00 [place] [facility] l VACCINE 12 YRS+, Branch BIVALENT 0.3ML, IM, (PFIZER LEON TOP BOOSTER) SARS-COV-2 COVID-19 2022-07-13 Completed Unive rsity of JEANIE-SUCROSE 00:00:00 [place] Medica l VACCINE 12 YRS+, Branch BIVALENT 0.3ML, IM, (PFIZER LEON TOP BOOSTER) SARS-COV-2 COVID-19 2022-07-13 Completed Unive rsity of JEANIE-SUCROSE 00:00:00 [place] Medica l VACCINE 12 YRS+, Branch BIVALENT 0.3ML, IM, (PFIZER LEON TOP BOOSTER) SARS-COV-2 COVID-19 2022-07-13 Completed Unive rsity of JEANIE-SUCROSE 00:00:00 [place] Medica l VACCINE 12 YRS+, Branch BIVALENT 0.3ML, IM, (PFIZER LEON TOP BOOSTER) SARS-COV-2 COVID-19 2022-07-13 Completed Unive rsity of JEANIE-SUCROSE 00:00:00 [place] Medica l VACCINE 12 YRS+, Branch BIVALENT 0.3ML, IM, (PFIZER LEON TOP BOOSTER) SARS-COV-2 COVID-19 2022-07-13 Completed Unive rsity of JEANIE-SUCROSE 00:00:00 [place] Medica l VACCINE 12 YRS+, Branch BIVALENT 0.3ML, IM, (PFIZER LEON TOP BOOSTER) SARS-COV-2 COVID-19 2022-07-13 Completed Unive rsity of JEANIE-SUCROSE 00:00:00 [place] Medica l VACCINE 12 YRS+, Branch BIVALENT 0.3ML, IM, (PFIZER LEON TOP) SARS-COV-2 COVID-19 2021-08-25 Completed Unive rsity of PFIZER VACCINE 00:00:00 [facility] Branch SARS-COV-2 COVID-19 2021-08-25 Completed Unive rsity of PFIZER VACCINE 00:00:00 [facility] Branch SARS-COV-2 COVID-19 2021-08-25 Completed Unive rsity of PFIZER VACCINE 00:00:00 [facility] Branch SARS-COV-2 COVID-19 2021-08-25 Completed Unive rsity of PFIZER VACCINE 00:00:00 [facility] Branch SARS-COV-2 COVID-19 2021-08-25 Completed Unive rsity of PFIZER VACCINE 00:00:00 [facility] Branch SARS-COV-2 COVID-19 2021-08-25 Completed Unive rsity of PFIZER VACCINE 00:00:00 [facility] Branch SARS-COV-2 COVID-19 2021-08-25 Completed Unive rsity of PFIZER VACCINE 00:00:00 [facility] Branch SARS-COV-2 COVID-19 2021-08-25 Completed Unive rsity of PFIZER VACCINE 00:00:00 [facility] Branch SARS-COV-2 COVID-19 2021-08-25 Completed Unive rsity of PFIZER VACCINE 00:00:00 [facility] Branch SARS-COV-2 COVID-19 2021-08-25 Completed Unive rsity of PFIZER VACCINE 00:00:00 [facility] Branch SARS-COV-2 COVID-19 2021-08-25 Completed Unive rsity of PFIZER VACCINE 00:00:00 [facility] Branch SARS-COV-2 COVID-19 2021-08-25 Completed Unive rsity of PFIZER VACCINE 00:00:00 [facility] Branch SARS-COV-2 COVID-19 2021-08-25 Completed Unive rsity of PFIZER VACCINE 00:00:00 [facility] Branch SARS-COV-2 COVID-19 2021-08-25 Completed Unive rsity of PFIZER VACCINE 00:00:00 [facility] Branch SARS-COV-2 COVID-19 2021-08-25 Completed Unive rsity of PFIZER VACCINE 00:00:00 [facility] Branch SARS-COV-2 COVID-19 2021-08-25 Completed Unive rsity of PFIZER VACCINE 00:00:00 [facility] Branch SARS-COV-2 COVID-19 2020-12-23 Completed Unive rsity of PFIZER VACCINE 00:00:00 [facility] Branch SARS-COV-2 COVID-19 2020-12-23 Completed Unive rsity of PFIZER VACCINE 00:00:00 [facility] Branch SARS-COV-2 COVID-19 2020-12-23 Completed Unive rsity of PFIZER VACCINE 00:00:00 [facility] Branch SARS-COV-2 COVID-19 2020-12-23 Completed Unive rsity of PFIZER VACCINE 00:00:00 [facility] Branch SARS-COV-2 COVID-19 2020-12-23 Completed Unive rsity of PFIZER VACCINE 00:00:00 [facility] Branch SARS-COV-2 COVID-19 2020-12-23 Completed Unive rsity of PFIZER VACCINE 00:00:00 [facility] Branch SARS-COV-2 COVID-19 2020-12-23 Completed Unive rsity of PFIZER VACCINE 00:00:00 [facility] Branch SARS-COV-2 COVID-19 2020-12-23 Completed Unive rsity of PFIZER VACCINE 00:00:00 [facility] Branch SARS-COV-2 COVID-19 2020-12-23 Completed Unive rsity of PFIZER VACCINE 00:00:00 [facility] Branch SARS-COV-2 COVID-19 2020-12-23 Completed Unive rsity of PFIZER VACCINE 00:00:00 [facility] Branch SARS-COV-2 COVID-19 2020-12-23 Completed Unive rsity of PFIZER VACCINE 00:00:00 [facility] Branch SARS-COV-2 COVID-19 2020-12-23 Completed Unive rsity of PFIZER VACCINE 00:00:00 [facility] Branch SARS-COV-2 COVID-19 2020-12-23 Completed Unive rsity of PFIZER VACCINE 00:00:00 [facility] Branch SARS-COV-2 COVID-19 2020-12-23 Completed Unive rsity of PFIZER VACCINE 00:00:00 [facility] Branch SARS-COV-2 COVID-19 2020-12-23 Completed Unive rsity of PFIZER VACCINE 00:00:00 [facility] Branch SARS-COV-2 COVID-19 2020-12-23 Completed Unive rsity of PFIZER VACCINE 00:00:00 [facility] Branch SARS-COV-2 COVID-19 2020-12-02 Completed Unive rsity of PFIZER VACCINE 00:00:00 [facility] Branch SARS-COV-2 COVID-19 2020-12-02 Completed Unive rsity of PFIZER VACCINE 00:00:00 [facility] Branch SARS-COV-2 COVID-19 2020-12-02 Completed Unive rsity of PFIZER VACCINE 00:00:00 [facility] Branch SARS-COV-2 COVID-19 2020-12-02 Completed Unive rsity of PFIZER VACCINE 00:00:00 [facility] Branch SARS-COV-2 COVID-19 2020-12-02 Completed Unive rsity of PFIZER VACCINE 00:00:00 [facility] Branch SARS-COV-2 COVID-19 2020-12-02 Completed Unive rsity of PFIZER VACCINE 00:00:00 [facility] Branch SARS-COV-2 COVID-19 2020-12-02 Completed Unive rsity of PFIZER VACCINE 00:00:00 [facility] Branch SARS-COV-2 COVID-19 2020-12-02 Completed Unive rsity of PFIZER VACCINE 00:00:00 [facility] Branch SARS-COV-2 COVID-19 2020-12-02 Completed Unive rsity of PFIZER VACCINE 00:00:00 [facility] Branch SARS-COV-2 COVID-19 2020-12-02 Completed Unive rsity of PFIZER VACCINE 00:00:00 [facility] Branch SARS-COV-2 COVID-19 2020-12-02 Completed Unive rsity of PFIZER VACCINE 00:00:00 [facility] [place] [facility] SARS-COV-2 COVID-19 2020-12-02 Completed Unive rsity of PFIZER VACCINE 00:00:00 [facility] [place] [facility] SARS-COV-2 COVID-19 2020-12-02 Completed Unive rsity of PFIZER VACCINE 00:00:00 [facility] [place] [facility] SARS-COV-2 COVID-19 2020-12-02 Completed Unive rsity of PFIZER VACCINE 00:00:00 [facility] [place] [facility] SARS-COV-2 COVID-19 2020-12-02 Completed Unive rsity of PFIZER VACCINE 00:00:00 [facility] [place] [facility] SARS-COV-2 COVID-19 2020-12-02 Completed Unive rsity of PFIZER VACCINE 00:00:00 [facility] [place] [facility] Vital Signs Vital Name Observation Time Observation Value Comments Source Systolic blood 2023-03-04 19:37:00 138 mm[Hg] Univer sity of pressure [facility] Diastolic blood 2023-03-04 19:37:00 84 mm[Hg] Unive rsity of [facility] Heart rate 2023-03-04 19:37:00 87 /min Universi ty of [facility] Respiratory rate 2023-03-04 19:37:00 19 /min Univ ersity of [facility] Body height 2023-03-04 19:37:00 180.3 cm Universi ty of [facility] Body weight 2023-03-04 19:37:00 148.825 kg Universi ty [facility] BMI 2023-03-04 19:37:00 45.76 kg/m2 Universi ty [facility] Oxygen saturation in 2023-03-04 19:37:00 95 /min University of Arterial blood by [facility] Pulse oximetry Branch Systolic blood 2021-11-10 15:27:00 123 mm[Hg] Univer sity of pressure [facility] Diastolic blood 2021-11-10 15:27:00 68 mm[Hg] Unive rsity of pressure [facility] Heart rate 2021-11-10 15:27:00 73 /min Universi ty of [facility] Body height 2021-11-10 15:27:00 180.3 cm Universi ty of [facility] Body weight 2021-11-10 15:27:00 138.347 kg Universi ty [facility] BMI 2021-11-10 15:27:00 42.54 kg/m2 Universi ty [facility] Procedures Procedure Date / Time Performing Clinician Source Performed HB ECG ROUTINE & RHYTHM 2023-03-04 19:40:15 Miller Cano [facility] ASSIGNMENT OF BENEFITS 2023-03-04 19:12:42 [facility] 2022-08-27 06:01:00 Doctor Gonzáles, [facility] [place] SARS-COV-2 COVID-19 2022-07-13 19:27:[address] [facility] JEANIE-SUCROSE VACCINE 12 [facility] YRS+, BIVALENT 0.3ML, IM, (PFIZER LEON TOP BOOSTER) DME/SUPPLY JUSTIFICATION 2021-11-10 06:01:00 Doctor Eliecer [facility] [place] Encounters Start End Encounter Admission Attending Care Care Encounter Source Date/Time Date/Time Type Type Clinicians Facility Department ID 2021-08-21 Emergency [facility] [id number] Univers 23:37:17 ity [facility] 2023-03-04 2023-03-04 Outpatient R RACHAEL [facility] [id number] Univers 14:00:00 15:55:42 SENDIL fransisca [facility] 2023-03-04 2023-03-04 Office Rachael RIEMPERATRIZ 1.2.840.114 [id number] Univers 14:00:00 15:55:42 Visit Miller ROBERT [id number] ity of [id number] [phone] In dical [facility] 059 Branch BUILDING 2023-03-04 2023-03-04 Orders Doctor SALGUERO 1.2.840.114 [id number] Univers 00:00:00 00:00:00 Only Unassigned, LEOPOLDO [id number] ity of [facility] [id number] Di[place] as [phone] [address] 2023-01-18 2023-01-18 Outpatient R RACHAEL [facility] [id number] Univers 09:00:00 09:00:00 SENDIL fransisca [facility] 2022-10-26 2022-10-26 Telephone Rachael [facility] [id number] Univers 00:00:00 00:00:00 Miller ROBERT [id number] ity of [facility] [id number] [phone] In dicmn NAL 9 [facility] 2022-10-19 2022-10-19 [facility] 1.2.840.114 [id number] Univers 00:00:00 00:00:00 Miller ROBERT [id number] ity of [facility] [id number] [phone] In dicmn NAL [address] [place] [address] 2022-09-20 2022-09-20 [facility] 1.2.840.114 [id number] Univers 00:00:00 00:00:00 [place] ROBERT [id number] [place]y [id number] [phone] [address] 2022-09-16 2022-09-16 [facility] 1.2.840.114 [id number] Univers 00:00:00 00:00:00 Miller ROBERT [id number] ity of [facility] [id number] [phone] [address] 2022-08-27 2022-08-27 Orders Doctor JOSE M 1.2.840.114 [id number] Univers 00:00:00 00:00:00 Only Unassigned, LEOPOLDO [id number] ity of [place] [facility] 4.2.7.2.686 Diogo as [phone] [place] [address] Branch 2022-07-13 2022-07-13 Imm/Inj Vaccine, Adc Family Medicine [facility] 1.2.840.114 [id number] Univers 14:00:00 14:10:[address] [id number] ity of [facility] [id number] [phone] In dical NAL 044 [facility] 2022-07-13 2022-07-13 Outpatient R HIPOLITOKENDRATONJA [facility] [id number] Univers 14:00:00 14:00:00 PETER ity [facility] 2022-03-12 2022-03-12 Refill Rachael [facility] 1.2.840.114 [id number] Univers 00:00:00 00:00:00 Sendcyndie ROBERT [id number] ity [id number] [id number] In dical NAL 059 [facility] 2022-01-21 2022-01-21 Telephone JOSE M Cano [id number] Univers 00:00:00 00:00:00 Sendcyndie MINA [id number] ity [facility] [id number] Di[place] as [phone] [address] 2022-01-19 2022-01-19 [facility] [id number] Univers 10:00:00 10:00:00 SENDIL ity [facility] 2022-01-19 2022-01-19 [facility] [id number] Univers 10:00:00 10:00:00 [facility]-11[facility]10 2021-11-10 [facility] [id number] Univers 09:00:00 09:52:02 SENDIL [facility] [place] [facility] 2021-11-10 2021-11-10 [facility] 1.2.840.114 [id number] Univers 09:00:00 09:52:02 Visit Miller ROBERT 350.1.13.10 ity [facility] 4[place]7.2.[place] [phone] In dical NAL 059 [facility] 2021-11-10 2021-11-10 Orders Doctor SALGUERO 1.2.840.114 [id number] Univers 00:00:00 00:00:00 Only UnassignedLEOPOLDO [id number] ity of [place] [facility] 4.2.7.2.686 Di[place] as [phone] [address] 2021-10-24 2021-10-24 Telephone [facility] 1.2.041.721 [id number] Univers 00:00:00 00:00:00 Sendcyndie ROBERT 350.1.13.10 it[place] of [place] 4[place] [phone] [facility] 059 [facility] 2021-10-24 2021-10-24 [facility] [id number] Univers 00:00:00 00:00:00 Saranya ROBERT [id number] ity [place] 4[place] [phone] [address] 2021-10-05 2021-10-05 [facility] [id number] Univers 14:47:27 23:59:00 SENDIL ity of [facility] 2021-10-05 2021-10-05 [facility] 1.2.840.114 [id number] Univers 14:47:27 23:59:00 Encounter Miller ROBERT 350.1.13.10 it[place] 4[place] [phone] [facility] 843 [facility] 2021-09-27 2021-09-27 [facility] 1.2.084.935 [id number] Univers 00:00:00 00:00:00 Miller ROBERT [id number] ity of [place] 4[place] [phone] In dicmn NAL 059 [facility] 2021-09-24 2021-09-24 Refill [facility] 1.2.840.114 [id number] Univers 00:00:00 00:00:00 Sendcyndie ROBERT 350.1.13.10 ity of [place] 4[place] [phone] In dical NAL 059 [facility] 2021-08-31 2021-08-31 Outpatient R RACHAEL [facility] [id number] Univers 14:00:00 14:32:22 SENDIL ity [facility] 2021-08-31 2021-08-31 [facility] 1.2.840.114 [id number] Univers 13:45:53 14:32:22 Visit Miller ROBERT 350.1.13.10 ity [facility] 4[place].2.[place] [phone] In dical NAL [address] [place] [address] 2021-08-31 2021-08-31 Outpatient R RACHAEL [facility] [id number] Univers 14:00:00 14:00:00 SENDIL [facility] [place] [facility] 2021-08-30 2021-08-30 Telephone [facility] [id number] Univers 00:00:00 00:00:00 Sendil Marty ROBERT 350.1.13.10 ity [place] [phone] In dical NAL [address] [place] [address] 2021-08-25 2021-08-25 Logging Assistant Jeny, Adc Lab Main [facility] 1.2.8 [id number] Univers 14:17:20 14:32:20 Visit Miller Cano 350.1.13. 10 ity [facility] 4[place]2.7.[place] [id number] In dical NAL 353 [facility] 2021-08-25 2021-08-25 Outpatient R RACHAEL [facility] [id number] Univers 14:15:00 14:15:00 [facility] 2021-08-25 2021-08-25 Outpatient R JONNA [facility] [id number] Univers 10:40:00 10:21:07 [facility] 2021-08-25 2021-08-25 Imm/Inj Nurse, Adc Pob Immunization [facility] 1.2.840.114 [id number] Univers 10:20:41 10:21:07 Visit Jourdan Coyle 350.1.13 .10 ity of [place] 4[place] [phone] In dical NAL 421 [facility] 2021-08-25 2021-08-25 Telephone JOSE M Cano [id number] Univers 00:00:00 00:00:00 Sendcyndie MINA 350.1.13.10 ity of H[facility]PITAL 4.2.7.2.686 Diogo as [phone] [facility] [address] [place] 2021-08-25 2021-08-25 Orders Doctor JOSE M 1.2.840.114 [id number] Univers 00:00:00 00:00:00 Only Unassigned, LEOPOLDO 350.1.13.10 ity of [place] [facility] 4.2.7.2.686 Diogo as [phone] [facility] [address] [place] 2021-08-02 2021-08-02 Office Rachael [facility] 1.2.840.114 [id number] Univers 13:38:33 14:09:24 Visit Miller ROEBRT 350.1.13.10 ity [place] [phone] In dical NAL 059 [facility] 2021-08-02 2021-08-02 Outpatient R RACHAEL [facility] [id number] Univers 13:30:00 14:09:24 SENDIL itlissette [facility] 2021-08-02 2021-08-02 Outpatient R RACHAEL [facility] [id number] Univers 13:30:00 13:30:00 SENDIL itlissette [facility] 2021-08-02 2021-08-02 Patient Barry [facility] [id number] [facility] 00:00:00 00:00:00 Outreach Taina Robert [id number] [id number] [phone] Me dical nal 059 [facility] 2021-08-02 2021-08-02 Patient Barry [facility] [id number] Univers 00:00:00 00:00:00 Outreach Taina Robert [id number] [facility] [id number] [phone] [facility] 059 [facility] 2021-07-27 2021-07-27 Office Maryam [facility] [id number] Univers 10:49:45 13:13:58 Visit Rubina Hannah [facility] [id number] i ty of [place] [id number] [place] as Bro?Blea [phone] [facility] 044 [facility] Office [facility] 2021-07-27 2021-07-27 Outpatient R MARYAM [facility] [id number] Univers 11:00:00 11:00:00 RUBINA gongora [facility] 2021-07-27 2021-07-27 Orders Doctor JOSE M [id number] Univers 00:00:00 00:00:00 Only Unassigned, LEOPOLDO [id number] ity of [place] [facility] [id number] Diogo as [phone] [facility] [address] 2021-07-14 2021-07-14 Transition Gail Hines 1.2.840.114 [id number] Univers 00:00:00 00:00:00 of Care Peg Cain [id number] i [id number] [phone] [facility] [address] 2021-07-08 2021-07-12 [facility] Karoline White [facility] 1.2.840. [id number] Univers 12:53:00 16:30:00 Encounter Manuel Akers [id number] [place]y [id number] [phone] [facility] [address] 2021-06-13 2021-06-13 Nurse Therapy, Everette Zarate [facility] 1.2. [id number] Univers 11:24:52 12:24:52 Visit Vanita Nolen [id number] ity of [place] [id number] Diogo as Bro?Blea [phone] [address] Medical Office Building 2021-06-13 2021-06-13 Outpatient R [facility] [id number] Univers 11:30:00 11:30:00 ity [facility] 2021-06-13 2021-06-13 Orders Doctor JOSE M 1.2.840.114 [id number] Univers 00:00:00 00:00:00 Only Unassigned, LEOPOLDO [id number] ity of [facility] [id number] [place] as [phone] [address] 2021-06-11 2021-06-11 Outpatient R [facility] [id number] Univers 17:30:00 [facility]05 2021-06-05 Outpatient R [facility] [id number] Univers 09:10:00 09:10:00 [facility] 2020-12-23 2020-12-23 [facility] [id number] Univers 10:15:00 10:15:00 RADHA [facility] 2020-12-02 2020-12-02 Outpatient [facility] [id number] Univers 10:20:00 10:20:00 PATRICIA [facility] 2020-11-25 2020-11-25 [facility] 1.2.840.114 [id number] 09:11:35 09:46:46 Visit Rubina Paul [id number] [place] [id number] Sheila [phone] n[place] [address] 2020-11-25 2020-11-25 [facility] [id number] Univers 09:00:00 09:00:00 RUBINA [facility] 2020-05-05 2020-05-05 Outpatient [facility] [id number] Univers 14:00:00 14:00:00 MILLER gongora [facility] 2020-05-03 2020-05-03 Outpatient Margarette LOUIS [facility] [id number] [facility] 13:15:00 13:15:00 OBED [facility] Results This patient has no known results.
[2023-04-08 10:40] LABS: Absolute Lymphocytes (CBC) 0.9 K/uL (0.7-4.9); Hematocrit 38.4 % (39.6-49.0); Lymphocytes % 11.6 % (15.3-44.8); MCV 92.2 fL (80-100); MPV 8.1 fL (7.6-11.3); RBC Red Blood Cell Count 4.17 M/uL (4.33-5.43)
[2023-04-08] MEDS ORDERED: CEFAZOLIN SODIUM 1 GM/VIAL ONE (10:54)
[2023-04-08] MEDS ORDERED: VANCOMYCIN 1 GM/VIAL ONE (10:55)
[2023-04-08] MEDS ORDERED: MORPHINE 4 MG/ML SYR ONE (10:55)
[2023-04-08] MEDS ORDERED: NA CHLORIDE 0.9% 250 ML ONE (10:55)
[2023-04-08] MEDS ORDERED: ONDANSETRON 4 MG/2 ML VIAL ONE (10:55)
[2023-04-08] MEDS ORDERED: FAMOTIDINE 20 MG/2 ML VIAL IV ONE (10:56)
[2023-04-08] MEDS ORDERED: NA CHLORIDE 0.9% 100 ML ONE (10:56)
[2023-04-08] MEDS ORDERED: NA CHLORIDE 0.9% 1,000 ML ONE (10:56)
[2023-04-08 10:59] LABS: SARS-CoV-2 Antigen Rapid Res Negative (Negative)
--- NOTE | 2023-04-08 11:00 | RAD REPORT ---
EXAM DESCRIPTION: USExtrem Venous W Compress Bil04/08/2023 10:54 am CLINICAL HISTORY: Leg swelling COMPARISON: none FINDINGS: The common femoral, superficial femoral, greater saphenous, popliteal and posterior tibial veins bilaterally are compressible and demonstrate augmentation. Doppler demonstrates good flow. Edema within subcutaneous tissues Grayscale, color and spectral analysis performed on all vessels IMPRESSION: No evidence of deep venous thrombosis involving either lower extremity.
[2023-04-08 11:01] LABS: Bilirubin Direct 0.5 mg/dL (0-0.2); Bilirubin Indirect, Calculated 1.5 mg/dL (0.2-0.8); Magnesium 2.4 mg/dL (1.6-2.4); Potassium 4.2 mEq/L (3.5-5.1); Protein, Total 7.9 g/dL (6.4-8.2); Troponin High Sensitivity 12.9 pg/mL (<58.9)
[2023-04-08 11:03] LABS: Protime INR 1.73
--- NOTE | 2023-04-08 11:45 | RAD REPORT ---
EXAM DESCRIPTION: Ana Single View04/08/2023 11:39 am CLINICAL HISTORY: Shortness of breath COMPARISON: 2011 FINDINGS: The lungs appear clear of acute infiltrate. The heart is moderately enlarged IMPRESSION: No acute abnormalities displayed
--- NOTE | 2023-04-08 12:35 | ER ---
Nurse's Notes [facility] Name: Don Connolly Age: 67 yrs Sex: Male : 1955 Arrival Date: 04/08/2023 Time: 09:52 Bed 13 Private MD: Diagnosis: Obesity, unspecified;Cellulitis and acute lymphangitis of other parts of limb-left lower extremity;Dyspnea, unspecified;Chronic atrial fibrillation;retirement (current) use of anticoagulants Presentation: 04/08 10:04 Chief complaint: Patient states: SOB this morning and increased ever leg swelling. aa5 Coronavirus screen: shortness of breath. Ebola Screen: Patient denies travel to an Ebola-affected area in the 21 days before illness onset. Initial Sepsis Screen: Does the patient meet any 2 criteria? HR > 90 bpm. Does the patient have a suspected source of infection? No. Patient's initial sepsis screen is negative. Risk Assessment: Do you want to hurt yourself or someone else? Patient reports no desire to harm self or others. Onset of symptoms was April 08, 2023. 10:04 Acuity: JITENDRA 3 aa5 10:04 Method Of Arrival: Ambulatory aa5 Triage Assessment: 10:10 General: Appears uncomfortable, Behavior is calm, cooperative, appropriate for age. bp Pain: Complains of pain in right foot. EENT: No deficits noted. Neuro: No deficits noted. Cardiovascular: Rhythm is sinus rhythm. Respiratory: Reports shortness of breath Onset: The symptoms/episode began/occurred at an unknown time. the patient has mild shortness of breath. GI: No signs and/or symptoms were reported involving the gastrointestinal system. : No signs and/or symptoms were reported regarding the genitourinary system. Derm: No deficits noted. Musculoskeletal: Swelling present in right foot and left foot. Historical: - Allergies: 10:04 No Known Allergies; aa5 - PMHx: 10:04 Hypertensive disorder; aa5 - Immunization history:: Adult Immunizations unknown. - Social history:: Smoking status: Patient denies any tobacco usage or history of. Screenin:40 [facility] ED Fall Risk Assessment (Adult) History of falling in the last 3 months, bp including since admission No falls in past 3 months (0 pts). Abuse screen: Denies threats or abuse. Denies injuries from another. Nutritional screening: No deficits noted. Tuberculosis screening: No symptoms or risk factors identified. Assessment: 10:10 General: SEE TRIAGE NOTE. bp 11:01 Reassessment: PT RETURNED FROM CT. bp 11:36 Reassessment: Patient appears in no apparent distress at this time. Patient is alert, bp oriented x 3, equal unlabored respirations, skin warm/dry/pink. Pain: Denies pain. Cardiovascular: Rhythm is sinus rhythm. Respiratory: Airway is patent Respiratory effort is even, unlabored, Breath sounds are coarse. 13:00 Reassessment: ADMIT INITIATED. bp Vital Signs: 10:04 BP 107 / 72; Pulse 95; Resp 20 S; Temp 98(O); Pulse Ox 96% on R/A; Weight 145.15 kg aa5 (R); Height 5 ft. 11 in. (R); 11:35 BP 122 / 62; Pulse 84; Resp 17; Pulse Ox 97% ; bp 13:00 BP 113 / 62; Pulse 95; Resp 19; Pulse Ox 96% ; bp 14:12 BP 108 / 80; Pulse 78; Resp 20; Pulse Ox 97% ; bp 10:04 Body Mass Index 44.63 (145.15 kg, 180.34 cm) aa5 ED Course: 09:56 Patient arrived in ED. im 09:57 Ovidio Perez MD is Attending Physician. matthew 10:04 Arm band placed on Patient placed in an exam room, on a stretcher. aa5 10:05 Jaun Infante, LAN is Primary Nurse. bp 10:05 Triage completed. aa5 10:23 US Extremity Venous W Compression Ever Sent. bp 10:25 Inserted saline lock: 20 gauge in right antecubital area, using aseptic technique. bp 10:40 Patient has correct armband on for positive identification. Bed in low position. Call bp light in reach. Side rails up X2. Adult w/ patient. 10:56 US Extremity Venous W Compression Ever In Process Unspecified. EDMS 11:41 XRAY Chest (1 view) In Process Unspecified. EDMS 12:34 Angelito Villarreal MD is Hospitalizing Provider. matthew 12:52 Raul Beckett MD is Hospitalizing Provider. matthew 14:12 No provider procedures requiring assistance completed. Patient admitted, IV remains in bp place. Administered Medications: 11:01 Drug: NS 0.9% IV 1000 ml Route: IV; Rate: 1 bolus; Site: right antecubital; bp 14:13 Follow up: IV Status: Completed infusion; IV Intake: 1000ml bp 11:01 Drug: morphine IVP or IV 2 mg Route: IVP; Infused Over: 4 mins; Site: right antecubital;bp 13:13 Follow up: Response: No adverse reaction bp 11:01 Drug: morphine IVP or IV 2 mg Route: IVP; Infused Over: 4 mins; Site: right antecubital;bp 13:13 Follow up: Response: No adverse reaction bp 11:01 Drug: Ondansetron IVP 4 mg Route: IVP; Site: right antecubital; bp 13:13 Follow up: Response: No adverse reaction bp 11:01 Drug: ceFAZolin IVPB 2 grams Route: IVPB; Infused Over: 30 mins; Site: right bp antecubital; 13:12 Follow up: IV Status: Completed infusion; IV Intake: 100ml bp 11:01 Drug: vancoMYCIN IVPB 2 grams Route: IVPB; Rate: calculated rate; Site: right bp antecubital; 13:12 Follow up: IV Status: Completed infusion; IV Intake: 250ml bp 11:01 Drug: Famotidine IVP 20 mg Route: IVP; Site: right antecubital; bp 13:12 Follow up: Response: No adverse reaction bp Medication: 14:13 VIS not applicable for this client. bp Intake: 13:12 IV: 250ml; Total: 250ml. bp 13:12 IV: 100ml; Total: 350ml. bp 14:13 IV: 1000ml; Total: 1350ml. bp Outcome: 12:35 Decision to Hospitalize by Provider. matthew 14:12 Admitted to Med/surg accompanied by tech, via wheelchair, room 230, Report called to bp ASIA MONTENEGRO 14:12 Condition: stable 14:12 Instructed on the need for admit. 14:35 Patient left the ED. bp Signatures: Dispatcher [employer] EDOvidio Ferrara MD MD cha Calderon, Audri, RN RN aaJaun Nino, RN RN bp Brittany Saleh
--- NOTE | 2023-04-08 12:35 | EDPHYS ---
Physician Documentation [facility] Name: Don Connolly Age: 67 yrs Sex: Male : 1955 Arrival Date: 04/08/2023 Time: 09:52 Bed 13 Private MD: ED Physician Ovidio Perez HPI: 04/08 12:29 This 67 yrs old Black Male presents to ER via Ambulatory with complaints of Breathing matthew Difficulty, Foot Pain. 12:29 The patient has shortness of breath with light activity. Onset: The symptoms/episode matthew began/occurred 2 day(s) ago. Duration: The symptoms are continuous, and are steadily getting worse. The patient's shortness of breath is aggravated by nothing. Associated signs and symptoms: Pertinent positives: non-productive cough. Severity of symptoms: At their worst the symptoms were moderate in the emergency department the symptoms are unchanged. The patient has experienced similar episodes in the past. Historical: - Allergies: 10:04 No Known Allergies; aa5 - PMHx: 10:04 Hypertensive disorder; aa5 - Immunization history:: Adult Immunizations unknown. - Social history:: Smoking status: Patient denies any tobacco usage or history of. ROS: 12:30 Constitutional: Negative for fever, chills, and weight loss, Eyes: Negative for injury, matthew pain, redness, and discharge, ENT: Negative for injury, pain, and discharge, Neck: Negative for injury, pain, and swelling, Cardiovascular: Negative for chest pain, palpitations, and edema, Abdomen/GI: Negative for abdominal pain, nausea, vomiting, diarrhea, and constipation, Back: Negative for injury and pain, : Negative for injury, bleeding, discharge, and swelling, Skin: Negative for injury, rash, and discoloration, Neuro: Negative for headache, weakness, numbness, tingling, and seizure, Psych: Negative for depression, anxiety, suicide ideation, homicidal ideation, and hallucinations, Allergy/Immunology: Negative for hives, rash, and allergies, Endocrine: Negative for neck swelling, polydipsia, polyuria, polyphagia, and marked weight changes, Hematologic/Lymphatic: Negative for swollen nodes, abnormal bleeding, and unusual bruising. 12:30 Respiratory: Positive for shortness of breath. 12:30 MS/extremity: Positive for erythema, pain, of the lateral aspect of left calf, left lateral ankle, left calf, left Achilles, medial aspect of left calf, left reed and anterior aspect of left ankle. Exam: 12:30 Constitutional: This is a well developed, well nourished patient who is awake, alert, matthew and in no acute distress. Head/Face: Normocephalic, atraumatic. Eyes: Pupils equal round and reactive to light, extra-ocular motions intact. Lids and lashes normal. Conjunctiva and sclera are non-icteric and not injected. Cornea within normal limits. Periorbital areas with no swelling, redness, or edema. ENT: Nares patent. No nasal discharge, no septal abnormalities noted. Tympanic membranes are normal and external auditory canals are clear. Oropharynx with no redness, swelling, or masses, exudates, or evidence of obstruction, uvula midline. Mucous membranes moist. Neck: Trachea midline, no thyromegaly or masses palpated, and no cervical lymphadenopathy. Supple, full range of motion without nuchal rigidity, or vertebral point tenderness. No Meningismus. Chest/axilla: Normal chest wall appearance and motion. Nontender with no deformity. No lesions are appreciated. Cardiovascular: Regular rate and rhythm with a normal S1 and S2. No gallops, murmurs, or rubs. Normal PMI, no JVD. No pulse deficits. Respiratory: Lungs have equal breath sounds bilaterally, clear to auscultation and percussion. No rales, rhonchi or wheezes noted. No increased work of breathing, no retractions or nasal flaring. Abdomen/GI: Soft, non-tender, with normal bowel sounds. No distension or tympany. No guarding or rebound. No evidence of tenderness throughout. Back: No spinal tenderness. No costovertebral tenderness. Full range of motion. Male : Normal genitalia with no discharge or lesions. Neuro: Awake and alert, GCS 15, oriented to person, place, time, and situation. Cranial nerves II-XII grossly intact. Motor strength 5/5 in all extremities. Sensory grossly intact. Cerebellar exam normal. Normal gait. Psych: Awake, alert, with orientation to person, place and time. Behavior, mood, and affect are within normal limits. 12:30 Musculoskeletal/extremity: ROM: intact in all extremities, full active range of motion, full passive range of motion, Circulation is intact in all extremities. Sensation intact. DVT Exam: pain, swelling, tenderness, that is moderate, of the left leg, of the lateral aspect of left calf, left lateral ankle, left calf, left Achilles, medial aspect of left calf, left medial ankle, left reed and anterior aspect of left ankle. 12:30 Skin: cellulitis, that is moderate, on the lateral aspect of left calf, left lateral ankle, left calf, left Achilles, medial aspect of left calf, left medial ankle, left reed and anterior aspect of left ankle. 12:35 ECG was reviewed by the Attending Physician. matthew Vital Signs: 10:04 BP 107 / 72; Pulse 95; Resp 20 S; Temp 98(O); Pulse Ox 96% on R/A; Weight 145.15 kg aa5 (R); Height 5 ft. 11 in. (R); 11:35 BP 122 / 62; Pulse 84; Resp 17; Pulse Ox 97% ; bp 13:00 BP 113 / 62; Pulse 95; Resp 19; Pulse Ox 96% ; bp 14:12 BP 108 / 80; Pulse 78; Resp 20; Pulse Ox 97% ; bp 10:04 Body Mass Index 44.63 (145.15 kg, 180.34 cm) aa5 MDM: 09:57 Patient medically screened. [facility] 12:32 Antibiotic administration: ancef, vanco. Differential Diagnosis sepsis. Immunization matthew status: Pneumococcal vaccine: within last 5 years. Influenza vaccine: within last 5 years. Data reviewed: vital signs, nurses notes, EMS record, lab test result(s), EKG, radiologic studies, doppler, plain films. Consideration of Admission/Observation Patient was admitted/placed on observation. Escalation of care including admission/observation considered. I considered the following discharge prescriptions or medication management in the emergency department Medications were administered in the Emergency Department. See MAR. Test considered but Not performed: CT: no ct chest ro pe. Care significantly affected by the following chronic conditions: Diabetes, Hypertension, Obesity. 04/08 10:09 Order name: Basic Metabolic Panel; Complete Time: 11:56 [facility] 04/08 10:09 Order name: CBC with Diff; Complete Time: :56 [facility] 04/08 10:09 Order name: LFT's; Complete Time: 11:56 [facility] 04/08 10:09 Order name: Magnesium; Complete Time: :56 [facility] 04/08 10:09 Order name: NT PRO-BNP; Complete Time: 11:56 [facility] 04/08 10:09 Order name: PT-INR; Complete Time: 11:56 [facility] 04/08 10:09 Order name: Troponin HS; Complete Time: 11:56 [facility] 04/08 10:09 Order name: Lipase; Complete Time: 11:56 [facility] 04/08 10:09 Order name: Blood Culture Adult (2) [facility] 04/08 10:09 Order name: Lactate w/ 2H reflex if indic.; Complete Time: 11:56 [facility] 04/08 10:09 Order name: Urinalysis w/ reflexes [facility] 04/08 10:09 Order name: SARS RAPID; Complete Time: 11:56 [facility] 04/08 10:09 Order name: Flu; Complete Time: 11:56 [facility] 04/08 10:09 Order name: XRAY Chest (1 view); Complete Time: 11:56 [facility] 04/08 10:09 Order name: US Extremity Venous W Compression Adriano; Complete Time: 11:56 [facility] 04/08 10:09 Order name: EKG; Complete Time: 10:10 [facility] 04/08 13:26 Order name: [facility] 04/08 10:09 Order name: Cardiac monitoring; Complete Time: 10:23 [facility] 04/08 10:09 Order name: EKG - Nurse/Tech; Complete Time: 11:28 [facility] 04/08 10:09 Order name: IV Saline Lock; Complete Time: 10:23 [facility] 04/08 10:09 Order name: Labs collected and sent; Complete Time: 10:22 [facility] 04/08 10:09 Order name: O2 Per Protocol; Complete Time: 10:22 [facility] 04/08 10:09 Order name: O2 Sat Monitoring; Complete Time: 10:22 [facility] EC:35 Rate is 81 beats/min. Rhythm is irregularly irregular. QRS [place] is Normal. DE interval matthew is normal. QRS interval is normal. QT interval is normal. No Q waves. T waves are Normal. No ST changes noted. Clinical impression: Abnormal EKG without significant change, Atrial Fibrillation, and No evidence of ischemia. Interpreted by me. Reviewed by me. Administered Medications: 11:01 Drug: NS 0.9% IV 1000 ml Route: IV; Rate: 1 bolus; Site: right antecubital; bp 14:13 Follow up: IV Status: Completed infusion; IV Intake: 1000ml bp 11:01 Drug: morphine IVP or IV 2 mg Route: IVP; Infused Over: 4 mins; Site: right antecubital;bp 13:13 Follow up: Response: No adverse reaction bp 11:01 Drug: morphine IVP or IV 2 mg Route: IVP; Infused Over: 4 mins; Site: right antecubital;bp 13:13 Follow up: Response: No adverse reaction bp 11:01 Drug: Ondansetron IVP 4 mg Route: IVP; Site: right antecubital; bp 13:13 Follow up: Response: No adverse reaction bp 11:01 Drug: ceFAZolin IVPB 2 grams Route: IVPB; Infused Over: 30 mins; Site: right bp antecubital; 13:12 Follow up: IV Status: Completed infusion; IV Intake: 100ml bp 11:01 Drug: vancoMYCIN IVPB 2 grams Route: IVPB; Rate: calculated rate; Site: right bp antecubital; 13:12 Follow up: IV Status: Completed infusion; IV Intake: 250ml bp 11:01 Drug: Famotidine IVP 20 mg Route: IVP; Site: right antecubital; bp 13:12 Follow up: Response: No adverse reaction bp Disposition Summary: 04/08/23 12:35 Hospitalization Ordered Hospitalization Status: Inpatient Admission matthew 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
[2023-04-08] MEDS ORDERED: HYDROCODONE/APAP 10/325 TAB PO PRN (13:23)
[2023-04-08] MEDS ORDERED: ACETAMINOPHEN 325 MG TABLET PO PRN (13:23)
[2023-04-08] MEDS ORDERED: ONDANSETRON 4 MG/2 ML VIAL IV PRN (14:40)
--- NOTE | 2023-04-08 14:44 | P.HP ---
Certification for Inpatient Patient admitted to: Inpatient With expected LOS: >2 Midnights Patient will require the following post-hospital care: None Practitioner: I am a practitioner with admitting privileges, knowledge of patient current condition, hospital course, and medical plan of care. Services: Services provided to patient in accordance with Admission requirements found in Title 42 Section 412.3 of the Code of Federal Regulations <Jamie Bolanos - Last Filed: 04/08/23 16:41> Patient History Date of Service: 04/08/23 Reason for admission: LLE cellulitis History of Present Illness: Patient is a 67-year-old male with a past medical history significant for hypertension, morbid obesity, A-fib, hyperlipidemia who presents with complaint of left lower extremity swelling\redness\pain onset 3 days ago. Patient rated pain as sharp in quality. Patient reported associated signs and symptoms of dizziness. Patient denies any other signs and symptoms. Symptoms are aggravated or relieved by nothing. Patient decided to present to the hospital for medical evaluation. - Past Medical/Surgical History -: HTN -: HLD -: Afib -: Morbid Obeisty Past Surgical History: Reviewed- Non-Contributory - Family History Family History: Reviewed- Non-Contributory - Social History Smoking Status: Never smoker Alcohol use: Yes CD- Drugs: No Caffeine use: Yes Place of Residence: Home <Jamie Bolanos - Last Filed: 04/08/23 16:41> Date of Service: 04/09/23 <Raul Beckett - Last Filed: 04/09/23 05:29> Allergies No Known Allergies Allergy (Verified 05/08/12 05:40) Home Medications: Amlodipine Besylate 10 mg PO DAILY 04/08/23 Apixaban [Eliquis] 5 mg PO DAILY 04/08/23 Atorvastatin Calcium 40 mg PO BEDTIME 04/08/23 Carvedilol [Coreg] 25 mg PO BID 04/08/23 Hydralazine HCl 50 mg PO TID 04/08/23 Isosorbide Mononitrate [Isosorbide Mononitrate ER] 30 mg PO DAILY 04/08/23 Lisinopril [Zestril] 40 mg PO DAILY 04/08/23 Spironolactone 25 mg PO DAILY 04/08/23 Review of Systems General: Unremarkable Eyes: Unremarkable ENT: Unremarkable Respiratory: Unremarkable Cardiovascular: Unremarkable Gastrointestinal: Unremarkable Genitourinary: Unremarkable Musculoskeletal: Leg Pain, Pedal edema Integumentary: Other (LLE redness) Neurological: Unremarkable Lymphatics: Unremarkable <Jamie Bolanos - Last Filed: 04/08/23 16:41> Physical Examination - Physical Exam General: Alert, In no apparent distress, Oriented x3, Cooperative HEENT: Atraumatic, PERRLA, Mucous membr. moist/pink, EOMI, Sclerae nonicteric Neck: Supple, 2+ carotid pulse no bruit, No LAD, Without JVD or thyroid abnormality Respiratory: Clear to auscultation bilaterally, Normal air movement Cardiovascular: No edema, Normal S1 S2, Edema, Irregular heart rate/rhythm Capillary refill: <2 Seconds Gastrointestinal: Normal bowel sounds, Soft and benign, Non-distended, No tenderness Musculoskeletal: No tenderness, Swelling Integumentary: No rashes Neurological: Normal gait, Normal speech, Normal strength at 5/5 x4 extr, Normal tone, Normal affect Lymphatics: No axilla or inguinal lymphadenopathy - Studies Laboratory Data (last 24 hrs) 04/08/23 10:25: PT 19.0 H, INR 1.73 04/08/23 10:25: WBC 7.80, Hgb 12.3 L, Hct 38.4 L, Plt Count 284 04/08/23 10:25: Sodium 136, Potassium 4.2, BUN 21 H, Creatinine 1.58 H, Glucose 114 H, Magnesium 2.4, Total Bilirubin 2.0 H, AST 12 L, ALT 13 L, Alkaline Phosphatase 56, Lipase 16 Microbiology Data (last 24 hrs): 04/08/23 10:25 Nasopharnyx Influenza Type A Antigen Screen - Final 04/08/23 10:25 Nasopharnyx Influenza Type B Antigen Screen - Final <Luis MiguelRejishashi Smallwood - Last Filed: 04/08/23 16:41> - Studies Laboratory Data (last 24 hrs) 04/08/23 10:25: PT 19.0 H, INR 1.73 04/08/23 10:25: WBC 7.80, Hgb 12.3 L, Hct 38.4 L, Plt Count 284 04/08/23 10:25: Sodium 136, Potassium 4.2, BUN 21 H, Creatinine 1.58 H, Glucose 114 H, Magnesium 2.4, Total Bilirubin 2.0 H, AST 12 L, ALT 13 L, Alkaline Phosphatase 56, Lipase 16 Microbiology Data (last 24 hrs): 04/08/23 10:25 Nasopharnyx Influenza Type A Antigen Screen - Final 04/08/23 10:25 Nasopharnyx Influenza Type B Antigen Screen - Final <Raul Beckett - Last Filed: 04/09/23 05:29> Assessment and Plan - Plan --Left lower extremity cellulitis. Left lower extremity Doppler negative for DVT. Blood cultures pending. Continue antibiotics. -- Acute pain. We will manage pain with current pain medication regimen. --Atrial fibrillation. Continue Eliquis. -- Elevated BNP. Echocardiogram pending for further evaluation. Continue supportive care. --Hyperlipidemia. Continue statin. --Hypertension. Stable. Continue home medications. --Morbid obesity. Likely secondary to excess calories intake. Patient counseled on weight reduction, diet and excise therapy. --CKD 3A. Baseline functions unknown. We will continue to monitor renal functions. --Anemia of chronic disease. H&H stable. We will Continue to monitor hemoglobin and transfuse if less than 7.0. --DVT prophylaxis with Eliquis. Discharge Plan: Home Plan to discharge in: Greater than 2 days - Advance Directives Does patient have a Living Will: No Does patient have a Durable POA for Healthcare: No - Code Status/Comfort Care Code Status Assessed: Yes Physician Review: Patient Assessed, Agree with Above Assessment and Plan Critical Care: No <Jamie Bolanos - Last Filed: 04/08/23 16:41> Date of Service: 04/08/23 patient will be treated for cellulitis with IV antibiotics. Will continue to m onitor patient's hemodynamics and improvement with antibiotic therapy. Will consult Infectious Disease as well. Patient will be admitted for inpatient hospitalization for treatment of his cellulitis. <Raul Beckett - Last Filed: 04/09/23 05:29>
[2023-04-08 15:23] LABS: Magnesium 2.4 mg/dL (1.6-2.4); Phosphorus 3.2 mg/dL (2.5-4.9)
[2023-04-08] MEDS: CLINDAMYCIN 900MG/D5W 900 MG/50 ML IVPB IV SCH ×2 (17:09→23:41)
[2023-04-08] MEDS: ATORVASTATIN 40 MG TAB PO SCH (20:34)
[2023-04-08] MEDS: HYDRALAZINE HCL 25 MG TABLET PO SCH (20:35)
[2023-04-08] MEDS: APIXABAN 5 MG TABLET PO SCH (20:35)
[2023-04-08] MEDS: carvediloL 25 MG TAB PO SCH (20:35)
[2023-04-08] MEDS ORDERED: HOME MED 1 EA UNK (Hydralazine Hcl [Hydralazine Hcl] 50 MG Tablet) PO SCH (21:00)
[2023-04-09 03:40] LABS: Absolute Lymphocytes (CBC) 1.6 K/uL (0.7-4.9); Hematocrit 34.5 % (39.6-49.0); Lymphocytes % 23.6 % (15.3-44.8); MCV 92.4 fL (80-100); MPV 8.2 fL (7.6-11.3); RBC Red Blood Cell Count 3.74 M/uL (4.33-5.43)
[2023-04-09 04:00] LABS: Albumin 2.7 g/dL (3.4-5.0); Bilirubin Total 1.2 mg/dL (0.2-1.0); Potassium 4.1 mEq/L (3.5-5.1); Protein, Total 7.1 g/dL (6.4-8.2)
[2023-04-09] MEDS: CLINDAMYCIN 900MG/D5W 900 MG/50 ML IVPB IV SCH ×2 (05:04→12:03)
[2023-04-09] MEDS ORDERED: PNEUMOCOCCAL VACCINE 0.5 ML IMVAC ONE ×2 (08:00→17:00)
[2023-04-09] MEDS: HYDRALAZINE HCL 25 MG TABLET PO SCH ×3 (09:40→21:48)
[2023-04-09] MEDS: ASPIRIN 81 MG CHEWABLE TABLET PO SCH (09:40)
[2023-04-09] MEDS: SPIRONOLACTONE 25 MG TABLET PO SCH (09:40)
[2023-04-09] MEDS: APIXABAN 5 MG TABLET PO SCH ×2 (09:41→21:48)
[2023-04-09] MEDS: ISOSORBIDE MONO SR 30 MG TAB PO SCH (09:41)
[2023-04-09] MEDS: carvediloL 25 MG TAB PO SCH ×2 (09:42→21:49)
[2023-04-09] MEDS: AMLODIPINE 10 MG TAB PO SCH (09:42)
--- NOTE | 2023-04-09 10:37 | P.CNS ---
Date of Consult: 04/09/23 Reason for Consult: LLE Cellulitis Chief Complaint: LLE cellulitis History of Present Illness: Patient is a 67-year-old male with a past medical history significant for hypertension, morbid obesity, Atrial fibrillation and hyperlipidemia who presented to the ED with complaints of left lower extremity swelling, redness and pain which began 3 days ago. Patient decided to present to the hospital for medical evaluation and ID was consulted for LLE Cellulitis. Allergies No Known Allergies Allergy (Verified 05/08/12 05:40) Home medications list reviewed: Yes Home Medications: Amlodipine Besylate 10 mg PO DAILY 04/08/23 Apixaban [Eliquis] 5 mg PO DAILY 04/08/23 Atorvastatin Calcium 40 mg PO BEDTIME 04/08/23 Carvedilol [Coreg] 25 mg PO BID 04/08/23 Hydralazine HCl 50 mg PO TID 04/08/23 Isosorbide Mononitrate [Isosorbide Mononitrate ER] 30 mg PO DAILY 04/08/23 Lisinopril [Zestril] 40 mg PO DAILY 04/08/23 Spironolactone 25 mg PO DAILY 04/08/23 - Past Medical/Surgical History Diabetic: No -: HTN -: HLD -: Afib -: Morbid Obeisty - Social History Smoking Status: Never smoker Alcohol use: Yes CD- Drugs: No Caffeine use: Yes Place of Residence: Home Review of Systems 10-point ROS is otherwise unremarkable Musculoskeletal: Leg Pain (left ankle pain) Integumentary: As per HPI Physical Examination Temp Pulse Resp BP Pulse Ox 97.3 F 75 16 137/83 100 04/09/23 08:00 04/09/23 09:42 04/09/23 08:00 04/09/23 09:42 04/09/23 08:00 General: Alert, In no apparent distress, Oriented x3, Obese HEENT: Atraumatic, Normocephalic Neck: Supple, JVD not distended Respiratory: Clear to auscultation bilaterally, Normal air movement Cardiovascular: Normal pulses, Edema (BLE non-pitting), Irregular heart rate/rhythm Gastrointestinal: Normal bowel sounds, No tenderness Musculoskeletal: No clubbing Integumentary: Warmth (LLE), Other (onychomycosis) Neurological: Normal speech, Normal tone, Normal affect Laboratory Data - Reviewed Microbiology Data - Reviewed Medications List Reviewed: Yes Imagings Data: - XR Chest 04/08: FINDINGS: The lungs appear clear of acute infiltrate. The heart is moderately enlarged. IMPRESSION: No acute abnormalities displayed Conclusions/Impression: Problem List Hypertension Hyperlipidemia Atrial Fibrillation Morbid Obesity Anemia Cellulitis, Left Lower Extremity Cellulitis of LLE - Venous study 04/08: "No evidence of deep venous thrombosis involving either lower extremity." - No leukocytosis. Afebrile. - No known drug allergies - Currently on Clindamycin Recommendations - Started patient on Doxycycline (04/09) - Continue antibiotic therapy for 10 days total - Please keep left leg elevated - Follow up with PCP in 1-2 weeks ID will follow patient as needed. Case discussed with Yu Aragon
--- NOTE | 2023-04-09 18:19 | P.PN ---
Subjective Date of Service: 04/09/23 Chief Complaint: LLE cellulitis No acute events overnight. He reports that his left lower extremity is still quite painful. He grades his pain a 78/10 in severity. He states this is mildly improved compared to admission. He denies any fevers, chills, chest pain, palpitations, or shortness of breath. Review of Systems 10-point ROS is otherwise unremarkable Musculoskeletal: Leg Pain (left lower extremity) Physical Examination - Vital Signs Temperature: 97.6 F Blood Pressure: 100/57 Pulse: 62 Respirations: 16 Pulse Ox (%): 96 - Physical Exam General: Alert, In no apparent distress, Oriented x3 HEENT: Atraumatic, Sclerae nonicteric Neck: JVD not distended Respiratory: Clear to auscultation bilaterally, Normal air movement Cardiovascular: Regular rate/rhythm, Normal S1 S2, No gallops, No rubs, No murmurs, Edema (1+ LLE pitting edema) Gastrointestinal: Normal bowel sounds, Soft and benign, Non-distended, No tenderness, No rebound, No guarding Musculoskeletal: No clubbing Integumentary: Tenderness/swelling (LLE), Erythema (LLE), Warmth (LLE) Neurological: Normal speech, Normal affect Assessment And Plan - Plan # Nonpurulent Left Lower Extremity Cellulitis - Does not currently meet sepsis criteria - Bilateral lower extremity Doppler = "No evidence of deep venous thrombosis involving either lower extremity." - Lactate = 1.2 - Infectious Diseases consulted - recommendations appreciated - Currently on IV clindamycin - Anticipate discharge tomorrow if cellulitis continues to improve # KDIGO Stage I Acute Kidney Injury - improved - Creatinine = 1.58 -> 1.27 - Urinalysis = pending - Monitor creatinine and urine output - If worsening, obtain renal ultrasound - Renally dose medications' # Hyperbilirubinemia - improving - Possibly due to infection. Denies abdominal pain. Levels improving. Monitor. # Chronic Atrial Fibrillation - Chest x-ray = "no acute abnormalities displayed." - Continue home carvedilol, apixaban # Hypertension - Continue home amlodipine, hydralazine, carvedilol, isosorbide mononitrate, spironolactone # Hyperlipidemia - Continue home atorvastatin # Morbid Obesity - BMI 44.6 kg/m2 - Lifestyle modifications Angelito Villarreal M.D.
[2023-04-09 19:25] VITALS: BMI 44.6
[2023-04-09] MEDS: DOXYCYCLINE 100 MG CAP PO SCH (21:48)
[2023-04-09] MEDS: ATORVASTATIN 40 MG TAB PO SCH (21:51)
[2023-04-09] MEDS ORDERED: MORPHINE 2 MG/ML SYR IV PRN (22:57)
[2023-04-10 06:26] LABS: Absolute Lymphocytes (CBC) 1.5 K/uL (0.7-4.9); Lymphocytes % 26.5 % (15.3-44.8); MCV 92.6 fL (80-100); MPV 7.5 fL (7.6-11.3); RBC Red Blood Cell Count 3.88 M/uL (4.33-5.43)
[2023-04-10 06:45] LABS: Magnesium 2.3 mg/dL (1.6-2.4); Phosphorus 3.7 mg/dL (2.5-4.9); Potassium 4.6 mEq/L (3.5-5.1); Protein, Total 7.8 g/dL (6.4-8.2)
--- NOTE | 2023-04-10 08:07 | P.DS ---
Admission Date: 04/08/23 Discharge Date: 04/10/23 Disposition: ROUTINE DISCHARGE Discharge Condition: GOOD Reason for Admission: LLE cellulitis Consultations: 1. Infectious Diseases Hospital Course: DIAGNOSES: # Nonpurulent Left Lower Extremity Cellulitis - improved # KDIGO Stage I Acute Kidney Injury - improved # Hyperbilirubinemia - improving # Chronic Atrial Fibrillation # Hypertension # Hyperlipidemia # Morbid Obesity - BMI 44.6 kg/m2 HOSPITAL COURSE: Mr. Don Connolly is a pleasant 67 year old male with a past medical history significant for chronic atrial fibrillation, hypertension, and hyperlipidemia who was admitted to the [facility] on 04/08/2023 for left lower extremity cellulitis. He was admitted to the Medicine service. Upon further evaluation, he was found to have an acute kidney injury as well as left lower extremity nonpurulent cellulitis. Bilateral lower extremity Doppler revealed, "no evidence of deep v enous thrombosis involving either lower extremity." He was started on IV fluids and IV antibiotics. Infectious Diseases was consulted and he was evaluated by Dr. Wells. It was recommended that he be transitioned to PO doxycycline. Over the course of his hospitalization, his symptoms improved significantly. He stated that he felt well this morning and would like to be discharged home. On 04/10/2023, he was seen on morning rounds and deemed medically stable for discharge. He was discharged with instructions to schedule follow-up appointments with his PCP ([facility]). He was provided a prescription for doxycycline. He was given the opportunity to ask questions and reported no further questions. Furthermore, all questions were answered to the best of my ability. A copy of this discharge summary will be sent to the above providers to facilitate continuity of care. Today, I personally spent 25 minutes on his case, of which greater than 50% of the time was spent in patient education, counseling, and coordination of care as described above. - Physical Exam General: Alert, In no apparent distress, Oriented x3 HEENT: Atraumatic, Sclerae nonicteric Neck: JVD not distended Respiratory: Clear to auscultation bilaterally, Normal air movement Cardiovascular: Regular rate/rhythm, No murmurs, Edema (1+ LLE pitting edema) Gastrointestinal: Normal bowel sounds, Soft, Non-distended, No tenderness Musculoskeletal: No clubbing Integumentary: Minimal left lower extremity tenderness/swelling, erythema, and warmth Neurological: Normal speech, Normal affect Vital Signs/Physical Exam: Temp Pulse Resp BP Pulse Ox 97.6 F 73 18 117/67 97 04/10/23 04:00 04/10/23 04:00 04/10/23 04:00 04/10/23 04:00 04/10/23 04:00 Laboratory Data at Discharge: WBC 5.60 thou/uL (4.3-10.9) 04/10/23 06:16 Hgb 11.4 g/dL (13.6-17.9) L 04/10/23 06:16 Hct 36.0 % (39.6-49.0) L 04/10/23 06:16 Plt Count 285 thou/uL (152-406) 04/10/23 06:16 PT 19.0 SECONDS (9.5-12.5) H 04/08/23 10:25 INR 1.73 04/08/23 10:25 Sodium 140 mEq/L (136-145) 04/10/23 06:16 Potassium 4.6 mEq/L (3.5-5.1) 04/10/23 06:16 BUN 25 mg/dL (7-18) H 04/10/23 06:16 Creatinine 1.26 mg/dL (0.70-1.30) 04/10/23 06:16 Glucose 105 mg/dL (74-106) 04/10/23 06:16 Phosphorus 3.7 mg/dL (2.5-4.9) 04/10/23 06:16 Magnesium 2.3 mg/dL (1.6-2.4) 04/10/23 06:16 Total Bilirubin 1.0 mg/dL (0.2-1.0) 04/10/23 06:16 AST 14 U/L (15-37) L 04/10/23 06:16 ALT 11 U/L (16-61) L 04/10/23 06:16 Alkaline Phosphatase 61 U/L (45-117) 04/10/23 06:16 Triglycerides 63 mg/dL (<150) 04/09/23 02:44 Cholesterol 108 mg/dL (<200) 04/09/23 02:44 HDL Cholesterol 41 mg/dL (40-60) 04/09/23 02:44 Cholesterol/HDL Ratio 2.63 04/09/23 02:44 Lipase 16 U/L (13-75) 04/08/23 10:25 Home Medications: Amlodipine Besylate 10 mg PO DAILY 04/08/23 Apixaban [Eliquis] 5 mg PO DAILY 04/08/23 Atorvastatin Calcium 40 mg PO BEDTIME 04/08/23 Carvedilol [Coreg] 25 mg PO BID 04/08/23 Hydralazine HCl 50 mg PO TID 04/08/23 Isosorbide Mononitrate [Isosorbide Mononitrate ER] 30 mg PO DAILY 04/08/23 Lisinopril [Zestril] 40 mg PO DAILY 04/08/23 Spironolactone 25 mg PO DAILY 04/08/23 Aspirin Chewable [Aspirin Chewable*] 81 mg PO DAILY tab.chew 04/10/23 Doxycycline Hyclate 100 mg PO BID 9 Days #18 tab 04/10/23 New Medications: Doxycycline Hyclate 100 mg PO BID 9 Days #18 tab Physician Discharge Instructions: 1. Please call and schedule a follow-up appointment with your PCP (BERNY Dalton) in 3-5 days Diet: AHA Activity: Ad ciarra Followup: Leila Dalton FNP [Primary Care Provider] - Time spent managing pt's care (in minutes): 25
[2023-04-10] MEDS: ASPIRIN 81 MG CHEWABLE TABLET PO SCH (08:42)
[2023-04-10] MEDS: SPIRONOLACTONE 25 MG TABLET PO SCH (08:43)
[2023-04-10] MEDS: HYDRALAZINE HCL 25 MG TABLET PO SCH (08:43)
[2023-04-10] MEDS: AMLODIPINE 10 MG TAB PO SCH (08:43)
[2023-04-10] MEDS: APIXABAN 5 MG TABLET PO SCH (08:43)
[2023-04-10] MEDS: DOXYCYCLINE 100 MG CAP PO SCH (08:43)
[2023-04-10] MEDS: ISOSORBIDE MONO SR 30 MG TAB PO SCH (08:43)
[2023-04-10] MEDS: carvediloL 25 MG TAB PO SCH (08:43)
[2023-04-10 08:44] VITALS: BP 128/87
[2023-04-10 08:52] VITALS: TEMP 98.7
[2023-04-10 09:34] VITALS: O2SAT 96
--- NOTE | 2023-04-10 19:16 | EKG ---
Test Date: 2023-04-08 Test Time: 11:03:56 Elevator Technician: BLAISE MEASUREMENT RESULTS: Intervals: Rate: 81 DE: QRSD: 130 QT: 390 QTc: 453 [place]: P: DE: QRS: -39 T: -50 INTERPRETIVE STATEMENTS: Atrial fibrillation Left axis deviation Nonspecific intraventricular block T wave abnormality, consider inferolateral ischemia or digitalis effect Abnormal ECG Compared to ECG 10/23/2015 20:14:10 Left-axis deviation now present T-wave abnormality now present Sinus rhythm no longer present Left ventricular hypertrophy no longer present ST (T wave) deviation no longer present Possible ischemia still present Electronically Signed On 04-10-23 19:11:50 CDT by Jamar Ferguson
--- NOTE | 2023-04-11 07:07 | ECHO ---
HEIGHT: 5 ft 11 in WEIGHT: 320 lb 0 oz DATE OF STUDY: 04/09/[address]: Jamie Bolanos 2-DIMENSIONAL: YES M.MODE: YES DOPPLER: YES COLOR FLOW: YES TDS: PORTABLE: YES DEFINITY: BUBBLE STUDY: DIAGNOSIS: ELEVATED BNP CARDIAC HISTORY: CATHERIZATION: NO SURGERY: NO PROSTHETIC VALVE: NO PACEMAKER: NO MEASUREMENTS (cm) DIASTOLIC (NORMALS) SYSTOLIC (NORMALS) IVSd 1.2 (0.6-1.2) LA Diam 4.3 (1.9-4.0) LVEF 50% LVIDd 5.4 (3.5-5.7) LVIDs 4.6 (2.0-3.5) %FS 15% LVPWd 1.4 (0.6-1.2) Ao Diam 2.9 (2.0-3.7) 2 DIMENSIONAL ASSESSMENT: RIGHT ATRIUM: NOT WELL SEEN LEFT ATRIUM: ENLARGED RIGHT VENTRICLE: NOT WELL SEEN LEFT VENTRICLE: LEFT VENTRICULAR HYPERTROPHY TRICUSPID VALVE: TRACE TRICUSPID REGURGITATION MITRAL VALVE: MILD MITRAL REGURGITATION PULMONIC VALVE: NOT WELL SEEN AORTIC VALVE: NORMAL PERICARDIAL EFFUSION: NONE AORTIC ROOT: NORMAL LEFT VENTRICULAR WALL MOTION: NOT WELL SEEN DOPPLER/COLOR FLOW: SEE BELOW COMMENTS: 1. POOR WINDOWS 2. OVERALL LEFT VENTRICULAR EJECTION FRACTION APPEARS NORMAL BUT WINDOWS ARE POOR, RECOMMEND CONTRAST ECHOCARDIOGRAM. TECHNOLOGIST: MARÍA MYERS
== END 2023-04-10 09:41 | disposition home or self-care (01) | DRG 603 ==
LOC: ER 09:52 → ERHOLD 13:22 → 2ND 14:16
PROVIDERS: ADMIT Hospitalist; ATTEND Internal Medicine
DX: L03.116 Cellulitis of left lower limb (principal); N17.9 Acute kidney failure, unspecified; I48.19 Other persistent atrial fibrillation; Z68.41 Body mass index [BMI] 40.0-44.9, adult; E80.6 Other disorders of bilirubin metabolism; I12.9 Hypertensive chronic kidney disease with stage 1 through stage 4 chronic kidney disease, or unspecified chronic kidney disease; N18.31 Chronic kidney disease, stage 3a; D63.8 Anemia in other chronic diseases classified elsewhere; E78.5 Hyperlipidemia, unspecified; R52 Pain, unspecified; E66.01 Morbid (severe) obesity due to excess calories; Z71.3 Dietary counseling and surveillance; Z79.01 Long term (current) use of anticoagulants; Z79.899 Other long term (current) drug therapy
CPT/HCPCS: 36415; 71045; 80048; 80053; 80061; 80076; 83036; 83605; 83690; 83735; 83880; 84100; 84145; 84484; 85025; 85610; 87040; 87804; 87811; 93005; 93306; 93970; 96361; 96365; 96366; 96368; 96375; 99285; J0690; J2270; J2405; J7030; J7050

== ENCOUNTER 2023-08-10 20:22 | Inpatient (IN) | payer OTHER ==
--- OUTSIDE RECORDS SUMMARY | 2023-08-10 20:28 | XMS REPORT | Continuity of Care Document ---
:1955 Author Organization [facility] t Address [address] [place] [address] [place] [id number] Care Team Providers Name Role Phone Rubina An Primary Care Physician Delia Cano MD Attending Clinician Rubina An Attending Clinician [facility] - Clear Attending Clinician Unavailable Paul Montenegro MD Attending Clinician PAUL MONTENEGRO Attending Clinician Unavailable Lab, Ang - Db Attending Clinician Unavailable RUBINA FRANCISCO Attending Clinician Unavailable Kenzie Alanis Attending Clinician KENZIE JUARES Attending Clinician Unavailable Doctor Unassigned, [place] Attending Clinician Unavailable DELIA CANO.HBrendon Attending Clinician Unavailable Vaccine, [facility] Family [facility] Attending Clinician Unavailable Carlito Lane MD Attending Clinician [address] Attending Clinician Unavailable Ayaan MYRICK, Saranya Attending Clinician Pob, Adc Lab Main Attending Clinician Unavailable JOURDAN COYLE Attending Clinician Unavailable Nurse, Adc Pob Immunization Attending Clinician Unavailable Jourdan Coyle DO Attending Clinician Taina Reddy LMSW Attending Clinician Flora MONTENEGRO, Peg Mera Attending Clinician Unavailable Cindy SPEECH LANGUAGE PATHOLOGY ASSISTANT, Karoline Pinzon Attending Clinician Manuel Akers DO Attending Clinician Therapy, Ang U[facility] Covid Attending Clinician Unavailable Vanita Shetty Attending Clinician RADHA CARRANZA Attending Clinician Unavailable PATRICIA BILYL Attending Clinician Unavailable OBED [place] Attending Clinician Unavailable PAUL MONTENEGRO Admitting Clinician Unavailable DELIA CANO Admitting Clinician Unavailable Manuel Akers DO Admitting Clinician Payers Payer Name Policy Type Policy Number Effective Date Expiration Date S yemi [employer] [id number] 2020 00:00:00 GROUP AND PENSION [id number] 2018 ADMINISTRATORS 00:00:00 Problems Condition Condition Condition Status Onset Resolution Last Treating Co mments Source Name Details Category Date Date Treatment Clinician Date Hospital Hospital Disease Active [facility]ive rs discharge discharge 6- [place] Cellulitis Cellulitis Disease Active U nivers of left of left 6 ity of lower lower 00:00: [place] extremity extremity 00 [facility] Branch Paroxysmal Paroxysmal Disease Active U nivers atrial atrial 07-09 [place] fibrillati fibr[place] 00 Medical RVR RVR Branch Acute on Acute on Disease Active [place] chronic chronic 9 [place] of diastolic diastolic 00:[place] [...] 40.0-49.9 40.0-49.9 Hypertensi Hypertensi Disease Active U masha ve ve 9-18 [place] emergency emergency [place] Rash Rash Disease Active Univers 2-21 ity of 00:00: [place] 00 Medical Branch Uncontroll Uncontroll Disease Active 2017-10 U nivers ed ed 0-05 ity of hypertensi hypertensi [place] CANALES CANALES Disease Active 2017-10 Univers (dyspnea (dyspnea 0-05 ity of on on 00:00: [place] exertion) exertion) 00 [facility]rianne Branch Abnormal Abnormal Disease Active 2017-10 Unive rs EKG EKG 0-05 ity of 00:00: [place] 00 Medical Branch Bilateral Bilateral Disease Active 2017-10 Uni vers lower lower 0-05 [place] extremity extremity [place] 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 asbestosis 0-05 it y of 00:00: [place] 00 Medical Branch Snoring Snoring Disease Active 2017-10 Univers 0-05 ity of 00:00: [place] 00 Medical Branch Obesity Obesity Disease Active 2017-10 Univers (BMI (BMI 0-05 ity of 30-39.9) 30-39.9) 00:00: [place] 00 Medical Branch Allergies, Adverse Reactions, Alerts Allergy Allergy Status Severity Reaction(s) Onset Inactive Treating Comm ents Source Name Type Date Date Clinician NO KNOWN Drug Active Univers ALLERGIE Class ity of S [facility] Social History Social Habit Start Date Stop Date Quantity Comments Source Gender identity Universit y of [facility] Sexual orientation Univer sity of [facility] History SDHI University o f Alcohol Frequency [facility] edical Branch History SDOH University o f Alcohol Std Drinks [place] [facility] [place] History SDHI University o f Alcohol Binge [place] [facility] Alcohol intake 2023-05-05 2023-05-05 Ex-drinker University of 00:00:00 00:00:00 (finding) [facility] Exposure to 2023-02-22 2023-03-04 Not sure University of SARS-CoV-2 (event) 00:00:00 14:11:00 [facility] History of Social 2023-03-04 2023-03-04 Univers ity of function 00:00:00 00:00:00 [facility] Tobacco use and 2023-03-04 2023-03-04 Smokeless Universit y of exposure 00:00:00 00:00:00 tobacco non-user [facility] Alcohol Comment 2018-07-25 2018-07-25 socially Universit y of 00:00:00 00:00:00 [facility] Sex [birth year] Universit y of 00:00:00 00:00:00 [facility] Smoking Status Start Date Stop Date Source Never smoked tobacco [facility] [place] [facility] Medications Ordered Filled Start Stop Current Ordering Indication Dosage Frequency Signature Comments Components Source Medication Medication Date Date Medication? Clinician (SIG) Name Name ISOSORBIDE 2022-0 Yes [id number] 30mg TAKE 1 U nivers MONONITRATE 8-10 TABLET BY ity of 30 mg 24 hr 00:00: [place] 00 THE Medical MORNING Branch HYDRALAZINE 2022-0 Yes [id number] 50mg TAKE 1 Univers 50 mg 8-10 TABLET BY ity of tablet 00:00: MOUTH [place] 00 EVERY 8 Medical HOURS Branch isosorbide 2022-0 Yes [id number] 30mg Take 1 U nivers mononitrate 8-10 tablet by ity of 30 mg 24 hr 00:00: [place] 00 the Medical morning. Branch hydrALAZINE 2022-0 Yes [id number] 50mg Take 1 Univers 50 mg 8-10 tablet by ity of tablet 00:00: mouth [place] 00 every 8 Medical (eight) Branch hours. isosorbide 2022-0 Yes [id number] 30mg Take 1 U nivers mononitrate 8-10 tablet by ity of 30 mg 24 hr 00:00: [place] 00 the Medical morning. Branch hydrALAZINE 2022-0 Yes [id number] 50mg Take 1 Univers 50 mg 8-10 tablet by ity of tablet 00:00: mouth [place] 00 every 8 Medical (eight) Branch hours. isosorbide 3-0 Yes [id number] 30mg Take 1 U nivers mononitrate 8-10 tablet by ity of 30 mg 24 hr 00:00: [place] 00 the Medical morning. Branch hydrALAZINE 2022-0 Yes [id number] 50mg Take 1 Univers 50 mg 8-10 tablet by ity of tablet 00:00: mouth [place] 00 every 8 Medical (eight) Branch hours. ISOSORBIDE 2022-0 2022- No [id number] 30mg TAKE 1 Univers MONONITRATE 8-10 08-10 TABLET BY it y of 30 mg 24 hr 00:00: 00:00 [place]TH [place] 00 :00 THE Medical MORNING Branch HYDRALAZINE 2022-0 2022- No [id number] 50mg TAKE 1 Univers 50 mg 8-10 08-10 TABLET BY ity of tablet 00:00: 00:00 MOUTH [place] 00 :00 EVERY 8 Medical HOURS Branch ISOSORBIDE 2022-0 2022- No [id number] 30mg TAKE 1 Univers MONONITRATE 8-10 08-10 TABLET BY it y of 30 mg 24 hr 00:00: 00:00 [place] tablet 00 :00 THE Medical MORNING Branch HYDRALAZINE 2022-0 2022- No [id number] 50mg TAKE 1 Univers 50 mg 8-10 08-10 TABLET BY ity of tablet 00:00: 00:00 MOUTH [place] 00 :00 EVERY 8 Medical HOURS Branch isosorbide 2022-0 2022- No [id number] 30mg Take 1 Univers mononitrate 8-10 08-10 tablet by it y of 30 mg 24 hr 00:00: 00:00 mouth [place] 00 :00 the Medical morning. Branch hydrALAZINE 2022-0 2022- No [id number] 50mg Take 1 Univers 50 mg 8-10 08-10 tablet by ity of tablet 00:00: 00:00 mouth [place] 00 :00 every 8 Medical (eight) Branch hours. furosemide 2022-0 Yes [id number] 40mg Take 1 Univers (LASIX) 40 7-16 tablet by ity of mg tablet 00:00: [place] the [place] morning. Branch potassium 3-0 Yes [id number] 10meq Take 1 Univers chloride 10 7-16 tablet by ity of mEq CR 00:00: mouth in [place] tablet 00 the Medical morning. Branch furosemide 3-0 Yes [id number] 40mg Take 1 Univers (LASIX) 40 7-16 tablet by ity of mg tablet 00:00: [place] the Medical morning. Branch potassium 3-0 Yes [id number] 10meq Take 1 Univers chloride 10 7-16 tablet by ity of mEq CR 00:00: mouth in [place] tablet 00 the Medical morning. Branch furosemide 3-0 Yes [id number] 40mg Take 1 Univers (LASIX) 40 7-16 tablet by ity of mg tablet 00:00: [place] the [place] morning. Branch potassium 3-0 Yes [id number] 10meq Take 1 Univers chloride 10 7-16 tablet by ity of mEq CR 00:00: mouth in [place] tablet 00 the Medical morning. Branch furosemide 2022-0 Yes [id number] 40mg Take 1 Univers (LASIX) 40 7-16 tablet by ity of mg tablet 00:00: [place] the Medical morning. Branch potassium 3-0 Yes [id number] 10meq Take 1 Univers chloride 10 7-16 tablet by ity of mEq CR 00:00: mouth in [place] tablet 00 the Medical morning. Branch furosemide 2022-0 Yes [id number] 40mg Take 1 Univers (LASIX) 40 7-16 tablet by ity of mg tablet 00:00: [place] the Medical morning. Branch potassium 3-0 Yes [id number] 10meq Take 1 Univers chloride 10 7-16 tablet by ity of mEq CR 00:00: mouth in [place] tablet 00 the Medical morning. Branch furosemide 2022-0 Yes [id number] 40mg Take 1 Univers (LASIX) 40 7-16 tablet by ity of mg tablet 00:00: [place] the Medical morning. Branch potassium 3-0 Yes [id number] 10meq Take 1 Univers chloride 10 7-16 tablet by ity of mEq CR 00:00: mouth in [place] tablet 00 the Medical morning. Branch furosemide 3-0 Yes [id number] 40mg Take 1 Univers (LASIX) 40 7-16 tablet by ity of mg tablet 00:00: [place] the Medical morning. Branch potassium 3-0 Yes [id number] 10meq Take 1 Univers chloride 10 7-16 tablet by ity of mEq CR 00:00: mouth in [place] tablet 00 the Medical morning. Branch furosemide 3-0 Yes [id number] 40mg Take 1 Univers (LASIX) 40 7-16 tablet by ity of mg tablet 00:00: [place] the Medical morning. Branch potassium 3-0 Yes [id number] 10meq Take 1 Univers chloride 10 7-16 tablet by ity of mEq CR 00:00: mouth in [place] tablet 00 the Medical morning. Branch furosemide 3-0 Yes [id number] 40mg Take 1 Univers (LASIX) 40 7-16 tablet by ity of mg tablet 00:00: [place] the Medical morning. Branch potassium 3-0 Yes [id number] 10meq Take 1 Univers chloride 10 7-16 tablet by ity of mEq CR 00:00: mouth in [place] tablet 00 the Medical morning. Branch furosemide 3-0 Yes [id number] 40mg Take 1 Univers (LASIX) 40 7-16 tablet by ity of mg tablet 00:00: [place] the Medical morning. Branch potassium 3-0 Yes [id number] 10meq Take 1 Univers chloride 10 7-16 tablet by ity of mEq CR 00:00: mouth in [place] tablet 00 the Medical morning. Branch furosemide 2022-0 Yes [id number] 40mg Take 1 Univers (LASIX) 40 7-16 tablet by ity of mg tablet 00:00: [place] the Medical morning. Branch potassium 3-0 Yes [id number] 10meq Take 1 Univers chloride 10 7-16 tablet by ity of mEq CR 00:00: mouth in [place] tablet 00 the Medical morning. Branch furosemide 3-0 Yes [id number] 40mg Take 1 Univers (LASIX) 40 7-16 tablet by ity of mg tablet 00:00: [place] the Medical morning. Branch potassium 3-0 Yes [id number] 10meq Take 1 Univers chloride 10 7-16 tablet by ity of mEq CR 00:00: mouth in [place] tablet 00 the Medical morning. Branch econazole 3-0 Yes [id number] Apply Univ ers nitrate 1 % 7-14 daily x 4 ity of cream 00:00: weeks Medical Branch econazole 3-0 Yes [id number] Apply Univ ers nitrate 1 % 7-14 daily x 4 ity of cream 00:00: weeks Medical Branch econazole 3-0 Yes [id number] Apply Univ ers nitrate 1 % 7-14 daily x 4 ity of cream 00:00: weeks Medical Branch econazole 2023-0 Yes [id number] Apply Univ ers nitrate 1 % 7-14 daily x 4 ity of cream 00:00: [facility] Branch econazole 3-0 Yes [id number] Apply Univ ers nitrate 1 % 7-14 daily x 4 ity of cream 00:00: [facility] Branch econazole 3-0 Yes [id number] Apply Univ ers nitrate 1 % 7-14 daily x 4 ity of cream 00:00: [facility] Branch econazole 3-0 Yes [id number] Apply Univ ers nitrate 1 % 7-14 daily x 4 ity of cream 00:00: [place] [facility] econazole 2022-0 Yes [id number] Apply Univ ers nitrate 1 % 7-14 daily x 4 ity of cream 00:00: [place] [facility] econazole 2022-0 Yes [id number] Apply Univ ers nitrate 1 % 7-14 daily x 4 ity of cream 00:00: [facility] Branch econazole 2022-0 Yes [id number] Apply Univ ers nitrate 1 % 7-14 daily x 4 ity of cream 00:00: [facility] Branch econazole 3-0 Yes [id number] Apply Univ ers nitrate 1 % 7-14 daily x 4 ity of cream 00:00: [place] [facility] econazole 3-0 Yes [id number] Apply Univ ers nitrate 1 % 7-14 daily x 4 ity of cream 00:00: [place] [facility] econazole 3-0 Yes [id number] Apply Univ ers nitrate 1 % 7-14 daily x 4 ity of cream 00:00: [place] [facility] econazole 3-0 Yes [id number] Apply Univ ers nitrate 1 % 7-14 daily x 4 ity of cream 00:00: [place] [facility] furosemide 3-0 Yes [id number] BID for 5 Univers (LASIX) 40 6-30 days, then ity of mg tablet 00:00: daily [place] [facility] potassium 3-0 Yes [id number] 10meq Take 1 Univers chloride 10 6-30 tablet by ity of mEq CR 00:00: mouth in [place] [facility] 00 the Medical morning. Branch furosemide 2022-0 Yes [id number] BID for 5 Univers (LASIX) 40 6-30 days, then ity of mg tablet 00:00: daily [place] [facility] potassium 2022-0 Yes [id number] 10meq Take 1 Univers chloride 10 6-30 tablet by ity of mEq CR 00:00: mouth in [place] tablet 00 the Medical morning. [place] furosemide 2022-0 Yes [id number] BID for 5 Univers (LASIX) 40 6-30 days, then ity of mg tablet 00:00: daily [place] 00 [facility] potassium 2022-0 Yes [id number] 10meq Take 1 Univers chloride 10 6-30 tablet by ity of mEq CR 00:00: mouth in [place] tablet 00 the Medical morning. [place] furosemide 2022-0 Yes [id number] BID for 5 Univers (LASIX) 40 6-30 days, then ity of mg tablet 00:00: daily [place] 00 [facility] potassium 2022-0 Yes [id number] 10meq Take 1 Univers chloride 10 6-30 tablet by ity of mEq CR 00:00: mouth in [place] tablet 00 the Medical morning. [place] furosemide 2022-0 Yes [id number] BID for 5 Univers (LASIX) 40 6-30 days, then ity of mg tablet 00:00: daily [place] 00 [facility] potassium 2022-0 Yes [id number] 10meq Take 1 Univers chloride 10 6-30 tablet by ity of mEq CR 00:00: mouth in [place] tablet 00 the Medical morning. [place] furosemide 2022-0 Yes [id number] BID for 5 Univers (LASIX) 40 6-30 days, then ity of mg tablet 00:00: daily [place] 00 [facility] potassium 2022-0 Yes [id number] 10meq Take 1 Univers chloride 10 6-30 tablet by ity of mEq CR 00:00: mouth in [place] tablet 00 the Medical morning. [place] furosemide 2022-0 3- No [id number] BID for 5 Univers (LASIX) 40 6-30 07-16 days, then it y of mg tablet 00:00: 00:00 daily [place] 00 :00 [facility] potassium 2022-0 2023- No [id number] 10meq Take 1 Univers chloride 10 6-30 07-16 tablet by it y of mEq CR 00:00: 00:00 mouth in [place] tablet 00 :00 the Medical morning. Branch furosemide 2022-0 3- No [id number] BID for 5 Univers (LASIX) 40 6-30 07-16 days, then it y of mg tablet 00:00: 00:00 daily [place] 00 :00 Medical Branch potassium 2022-0 2022- No [id number] 10meq Take 1 Univers chloride 10 6-30 -16 tablet by it y of mEq CR 00:00: 00:00 mouth in [place] tablet 00 :00 the Medical morning. Branch furosemide 2022-2022- No [id number] BID for 5 Univers (LASIX) 40 6-30 07-16 days, then it y of mg tablet 00:00: 00:00 daily [place] 00 :00 Medical Branch potassium 2022-0 2022- No [id number] 10meq Take 1 Univers chloride 10 6-30 -16 tablet by it y of mEq CR 00:00: 00:00 mouth in [place] tablet 00 :00 the Medical morning. Branch furosemide 2022-0 2022- No [id number] 40mg Take 1 Univers (LASIX) 40 6-30 06-30 tablet by ity of mg tablet 00:00: 00:00 mouth in [place] [facility] as 00 :00 the Medical morning. Branch furosemide 2022-2022- No [id number] 40mg Take 1 Univers (LASIX) 40 6-30 06-30 tablet by ity of mg tablet 00:00: 00:00 mouth in [facility] as 00 :00 the Medical morning. Branch apixaban 5 3-0 Yes 5mg Take 1 Unive rs mg tablet 6-26 tablet by ity o f 09:43: mouth in [place] [address] the Medical morning Branch and 1 tablet in the evening. apixaban 5 3-0 Yes 5mg Take 1 Unive rs mg tablet 6-26 tablet by ity o f 09:43: mouth in [place] [address] the Medical morning Branch and 1 tablet in the evening. apixaban 5 2023-0 Yes 5mg Take 1 Unive rs mg tablet 6-26 tablet by ity o f 09:43: mouth in [place] [address] the Medical morning Branch and 1 tablet in the evening. apixaban 5 2023-0 Yes 5mg Take 1 Unive rs mg tablet 6-26 tablet by ity o f 09:43: mouth in [place] [address] the Medical morning Branch and 1 tablet in the evening. apixaban 5 2023-0 Yes 5mg Take 1 Unive rs mg tablet 6-26 tablet by ity o f 09:43: mouth in [place] [address] the Medical morning Branch and 1 tablet in the evening. apixaban 5 2023-0 Yes 5mg Take 1 Unive rs mg tablet 6-26 tablet by ity o f 09:43: mouth in [place] [address] the Medical morning Branch and 1 tablet in the evening. apixaban 5 2023-0 Yes 5mg Take 1 Unive rs mg tablet 6-26 tablet by ity o f 09:43: mouth in [place] [address] the Medical morning Branch and 1 tablet in the evening. apixaban 5 2023-0 Yes 5mg Take 1 Unive rs mg tablet 6-26 tablet by ity o f 09:43: mouth in [place] [address] the Medical morning Branch and 1 tablet in the evening. apixaban 5 2023-0 Yes 5mg Take 1 Unive rs mg tablet 6-26 tablet by ity o f 09:43: mouth in [place] [address] the Medical morning Branch and 1 tablet in the evening. apixaban 5 2023-0 Yes 5mg Take 1 Unive rs mg tablet 6-26 tablet by ity o f 09:43: mouth in [place] [address] the Medical morning Branch and 1 tablet in the evening. apixaban 5 2023-0 Yes 5mg Take 1 Unive rs mg tablet 6-26 tablet by ity o f 09:43: mouth in [place] [address] the Medical morning Branch and 1 tablet in the evening. apixaban 5 2023-0 Yes 5mg Take 1 Unive rs mg tablet 6-26 tablet by ity o f 09:43: mouth in [place] [address] the Medical morning Branch and 1 tablet in the evening. apixaban 5 2023-0 Yes 5mg Take 1 Unive rs mg tablet 6-26 tablet by ity o f 09:43: mouth in [place] [address] the Medical morning Branch and 1 tablet in the evening. apixaban 5 2023-0 Yes 5mg Take 1 Unive rs mg tablet 6-26 tablet by ity o f 09:43: mouth in [place] [address] the Medical morning Branch and 1 tablet in the evening. apixaban 5 2023-0 Yes 5mg Take 1 Unive rs mg tablet 6-26 tablet by ity o f 09:43: mouth in [place] [address] the Medical morning Branch and 1 tablet in the evening. apixaban 5 2023-0 Yes 5mg Take 1 Unive rs mg tablet 6-26 tablet by ity o f 09:43: mouth in [place] [address] the Medical morning Branch and 1 tablet in the evening. apixaban 5 2023-0 Yes 5mg Take 1 Unive rs mg tablet 6-26 tablet by ity o f 09:43: mouth in [place] [address] the Medical morning Branch and 1 tablet in the evening. apixaban 5 2023-0 Yes 5mg Take 1 Unive rs mg tablet 6-26 tablet by ity o f 09:43: mouth in [place] [address] the Medical morning Branch and 1 tablet in the evening. apixaban 5 2023-0 Yes 5mg Take 1 Unive rs mg tablet 6-26 tablet by ity o f 09:43: mouth in [place] [address] the Medical morning Branch and 1 tablet in the evening. apixaban 5 2023-0 Yes 5mg Take 1 Unive rs mg tablet 6-26 tablet by ity o f 09:43: mouth in [place] [address] the Medical morning Branch and 1 tablet in the evening. apixaban 5 2023-0 Yes 5mg Take 1 Unive rs mg tablet 6-26 tablet by ity o f 09:43: mouth in [place] [address] the Medical morning Branch and 1 tablet in the evening. apixaban 5 2023-0 Yes 5mg Take 1 Unive rs mg tablet 6-26 tablet by ity o f 09:43: mouth in [place] [address] the Medical morning Branch and 1 tablet in the evening. apixaban 5 2023-0 Yes 5mg Take 1 Unive rs mg tablet 6-26 tablet by ity o f 09:43: mouth in [place] [address] the Medical morning [place] and 1 tablet in the evening. apixaban 5 2023-0 Yes 5mg Take 1 Unive rs mg tablet 6-26 tablet by ity o f 09:43: mouth in [place] [address] the Medical morning Branch and 1 tablet in the evening. apixaban 5 2023-0 Yes 5mg Take 1 Unive rs mg tablet 6-26 tablet by ity o f 09:43: mouth in [place] [address] [facility] morning Branch and 1 tablet in the evening. furosemide 2023-0 Yes [id number] 20mg Take 1 Univers (LASIX) 20 6-26 tablet by ity of mg tablet 00:00: mouth in [facility] 00 the Medical morning. Branch furosemide 2023-0 Yes [id number] 20mg Take 1 Univers (LASIX) 20 6-26 tablet by ity of mg tablet 00:[place] the [place] morning. Branch furosemide 3-0 Yes [id number] 20mg Take 1 Univers (LASIX) 20 6-26 tablet by ity of mg tablet 00:00[place] the Medical morning. Branch furosemide 3-0 Yes [id number] 20mg Take 1 Univers (LASIX) 20 6-26 tablet by ity of mg tablet 00:00[place] the Medical morning. Branch furosemide 2022-0 Yes [id number] 20mg Take 1 Univers (LASIX) 20 6-26 tablet by ity of mg tablet 00:00[place] the Medical morning. Branch furosemide 2022-0 2023- No [id number] 20mg Take 1 Univers (LASIX) 20 6-26 06-30 tablet by ity of mg tablet 00:00: 00:00 mouth in [place] 00 :00 the Medical morning. Branch furosemide 2022-0 2023- No [id number] 20mg Take 1 Univers (LASIX) 20 6-26 06-30 tablet by ity of mg tablet 00:00: 00:00 mouth in [place] 00 :00 the Medical morning. Branch doxycycline 2023-0 Yes 100mg Take 1 Uni vers hyclate 100 6-21 capsule by it y of mg capsule 00:00: mouth in [place] 00 the Medical morning Branch and 1 capsule in the evening. doxycycline 2023-0 Yes 100mg Take 1 Uni vers hyclate 100 6-21 capsule by it y of mg capsule 00:00: mouth in [place] 00 the Medical morning Branch and 1 capsule in the evening. doxycycline 2023-0 Yes 100mg Take 1 Uni vers hyclate 100 6-21 capsule by it y of mg capsule 00:00: mouth in [place] 00 the Medical morning Branch and 1 capsule in the evening. doxycycline 2023-0 Yes 100mg Take 1 Uni vers hyclate 100 6-21 capsule by it y of mg capsule 00:00: mouth in [place] 00 the Medical morning Branch and 1 capsule in the evening. doxycycline 2023-0 Yes 100mg Take 1 Uni vers hyclate 100 6-21 capsule by it y of mg capsule 00:00: mouth in [place] 00 the Medical morning Branch and 1 capsule in the evening. doxycycline 2023-0 Yes 100mg Take 1 Uni vers hyclate 100 6-21 capsule by it y of mg capsule 00:00: mouth in [place] 00 the Medical morning Branch and 1 capsule in the evening. doxycycline 2023-0 Yes 100mg Take 1 Uni vers hyclate 100 6-21 capsule by it y of mg capsule 00:00: mouth in [place] 00 the Medical morning Branch and 1 capsule in the evening. doxycycline 2023-0 Yes 100mg Take 1 Uni vers hyclate 100 6-21 capsule by it y of mg capsule 00:00: mouth in [place] 00 the Medical morning Branch and 1 capsule in the evening. doxycycline 2023-0 Yes 100mg Take 1 Uni vers hyclate 100 6-21 capsule by it y of mg capsule 00:00: mouth in [place] 00 the Medical morning Branch and 1 capsule in the evening. doxycycline 2023-0 Yes 100mg Take 1 Uni vers hyclate 100 6-21 capsule by it y of mg capsule 00:00: mouth in [place] 00 the Medical morning Branch and 1 capsule in the evening. doxycycline 2023-0 Yes 100mg Take 1 Uni vers hyclate 100 6-21 capsule by it y of mg capsule 00:00: mouth in [place] 00 the Medical morning Branch and 1 capsule in the evening. doxycycline 2023-0 Yes 100mg Take 1 Uni vers hyclate 100 6-21 capsule by it y of mg capsule 00:00: mouth in [place] 00 the Medical morning Branch and 1 capsule in the evening. doxycycline 2023-0 Yes 100mg Take 1 Uni vers hyclate 100 6-21 capsule by it y of mg capsule 00:00: mouth in [place] 00 the Medical morning Branch and 1 capsule in the evening. doxycycline 2023-0 Yes 100mg Take 1 Uni vers hyclate 100 6-21 capsule by it y of mg capsule 00:00: mouth in [place] 00 the Medical morning Branch and 1 capsule in the evening. doxycycline 2023-0 Yes 100mg Take 1 Uni vers hyclate 100 6-21 capsule by it y of mg capsule 00:00: mouth in [place] 00 the Medical morning Branch and 1 capsule in the evening. doxycycline 2023-0 Yes 100mg Take 1 [facility] hyclate 100 6-21 capsule by it y of mg capsule 00:00: mouth in [place] 00 the Medical morning Branch and 1 capsule in the evening. doxycycline 2023-0 Yes 100mg Take 1 [facility] vers hyclate 100 6-21 capsule by it y of mg capsule 00:00: mouth in [place] 00 the Medical morning Branch and 1 capsule in the evening. doxycycline 2023-0 Yes 100mg Take 1 [facility] vers hyclate 100 6-21 capsule by it y of mg capsule 00:00: mouth in [place] 00 the Medical morning Branch and 1 capsule in the evening. doxycycline 2023-0 Yes 100mg Take 1 [facility] vers hyclate 100 6-21 capsule by it y of mg capsule 00:00: mouth in [place] 00 the Medical morning Branch and 1 capsule in the evening. doxycycline 2023-0 Yes 100mg Take 1 [facility] vers hyclate 100 6-21 capsule by it y of mg capsule 00:00: mouth in [place] 00 the Medical morning Branch and 1 capsule in the evening. doxycycline 2023-0 Yes 100mg Take 1 [facility] vers hyclate 100 6-21 capsule by it y of mg capsule 00:00: mouth in [place] 00 the Medical morning Branch and 1 capsule in the evening. doxycycline 2023-0 Yes 100mg Take 1 [facility] vers hyclate 100 6-21 capsule by it y of mg capsule 00:00: mouth in [place] 00 the Medical morning Branch and 1 capsule in the evening. doxycycline 2023-0 Yes 100mg Take 1 [facility] vers hyclate 100 6-21 capsule by it y of mg capsule 00:00: mouth in [place] 00 the Medical morning Branch and 1 capsule in the evening. doxycycline 2023-0 Yes 100mg Take 1 [facility] vers hyclate 100 6-21 capsule by it y of mg capsule 00:00: mouth in [place] 00 the Medical morning Branch and 1 capsule in the evening. apixaban 2023-0 Yes 5mg Take 1 [facility] (ELIQUIS) 5 5-15 tablet by [facility] mg tablet 15:03: mouth [place] 01 the Medical morning Branch and 1 tablet in the evening. apixaban 2023-0 Yes 5mg Take 1 [facility] (ELIQUIS) 5 5-15 tablet by [facility] mg tablet 15:03: mouth in [place] 01 the Medical morning Branch and 1 tablet in the evening. apixaban 2023-0 Yes 5mg Take 1 [facility] (ELIQUIS) 5 5-15 tablet by ity of mg tablet 15:03: mouth in [facility] 01 the Medical morning Branch and 1 tablet in the evening. apixaban 2022-0 Yes 5mg Take 1 [facility] (ELIQUIS) 5 5-15 tablet by ity of mg tablet 15:03: mouth in [facility] s 01 the Medical morning Branch and 1 tablet in the evening. apixaban 2022-0 Yes 5mg Take 1 [facility] (ELIQUIS) 5 5-15 tablet by ity of mg tablet 15:03: mouth in [facility] 01 the Medical morning Branch and 1 tablet in the evening. atorvastati 2022-0 Yes [id number] 40mg Take 1 [facility] n 40 mg 5-15 tablet by it[facility] of tablet 00:00: mouth at [place] 00 bedtime. Medical Branch carvediloL 2022-0 Yes [id number] 25mg Take 1 [facility] n[facility] 25 mg 5-15 tablet by it[facility] of tablet 00:00: mouth in [place] 00 the Medical morning Branch and 1 tablet in the evening. Take with meals. lisinopriL 2022-0 Yes [id number] 40mg Take 1 [facility] n[facility] 40 mg 5-15 tablet by it[facility] of tablet 00:00: mouth in [place] 00 the Medical morning. Branch spironolact 2022-0 Yes [id number] 25mg Take 1 [facility] one 25 mg 5-15 tablet by ity o f tablet 00:00: mouth [place] 00 every Medical morning. Branch amLODIPine 2022-0 Yes [id number] 10mg Take 1 [facility] nivers 10 mg 5-15 tablet by it[facility] of tablet 00:00: mouth in [place] 00 the Medical morning. Branch isosorbide 2022-0 Yes [id number] 30mg Take 1 [facility] nivers mononitrate 5-15 tablet by ity of 30 mg 24 hr 00:00: mouth in [place] tablet 00 the Medical morning. Branch hydrALAZINE 2022-0 Yes [id number] 50mg Take 1 [facility] 50 mg 5-15 tablet by it[facility] of tablet 00:00: mouth [place] 00 every 8 Medical (eight) Branch hours. atorvastati 2022-0 Yes [id number] 40mg Take 1 [facility] n 40 mg 5-15 tablet by ity of tablet 00:00: mouth at [place] [address] bedtime. Medical Branch carvediloL 2022-0 Yes [id number] 25mg Take 1 [facility] n[facility] 25 mg 5-15 tablet by it[facility] of tablet 00:00: mouth in [place] 00 the Medical morning Branch and 1 tablet in the evening. Take with meals. lisinopriL 3-0 Yes [id number] 40mg Take 1 [facility] n[facility] 40 mg 5-15 tablet by it[facility] of tablet 00:00: mouth in [place] 00 the Medical morning. Branch spironolact 3-0 Yes [id number] 25mg Take 1 [facility] one 25 mg 5-15 tablet by ity o f tablet 00:00: mouth [place] 00 every Medical morning. Branch amLODIPine 2022-0 Yes [id number] 10mg Take 1 [facility] nivers 10 mg 5-15 tablet by it[facility] of tablet 00:00: mouth in [place] 00 the Medical morning. Branch isosorbide 3-0 Yes [id number] 30mg Take 1 [facility] nivers mononitrate 5-15 tablet by ity of 30 mg 24 hr 00:00: mouth in [place] tablet 00 the Medical morning. Branch hydrALAZINE 2022-0 Yes [id number] 50mg Take 1 [facility] 50 mg 5-15 tablet by it[facility] of tablet 00:00: mouth [place] 00 every 8 Medical (eight) Branch hours. atorvastati 2022-0 Yes [id number] 40mg Take 1 [facility] n 40 mg 5-15 tablet by it[facility] of tablet 00:00: mouth at [place] 00 bedtime. Medical Branch carvediloL 2022-0 Yes [id number] 25mg Take 1 [facility] nivers 25 mg 5-15 tablet by ity of tablet 00:00: mouth in [place] 00 the Medical morning Branch and 1 tablet in the evening. Take with meals. lisinopriL 3-0 Yes [id number] 40mg Take 1 [facility] nivers 40 mg 5-15 tablet by ity of tablet 00:00: mouth in [place] 00 the Medical morning. Branch spironolact 3-0 Yes [id number] 25mg Take 1 [facility] one 25 mg 5-15 tablet by ity o f tablet 00:00: mouth [place] 00 every Medical morning. Branch amLODIPine 3-0 Yes [id number] 10mg Take 1 [facility] nivers 10 mg 5-15 tablet by ity of tablet 00:00: mouth in [place] 00 the Medical morning. Branch isosorbide 3-0 Yes [id number] 30mg Take 1 [facility] nivers mononitrate 5-15 tablet by ity of 30 mg 24 hr 00:00: mouth in [place] tablet 00 the Medical morning. Branch hydrALAZINE 2022-0 Yes [id number] 50mg Take 1 [facility] 50 mg 5-15 tablet by ity of tablet 00:00: mouth [place] 00 every 8 Medical (eight) Branch hours. atorvastati 3-0 Yes [id number] 40mg Take 1 [facility] n 40 mg 5-15 tablet by ity of tablet 00:00: mouth at [place] 00 bedtime. Medical Branch carvediloL 2022-0 Yes [id number] 25mg Take 1 [facility] nivers 25 mg 5-15 tablet by ity of tablet 00:00: mouth in [place] 00 the Medical morning Branch and 1 tablet in the evening. Take with meals. lisinopriL 2022-0 Yes [id number] 40mg Take 1 [facility] nivers 40 mg 5-15 tablet by ity of tablet 00:00: mouth in [place] 00 the Medical morning. Branch spironolact 2022-0 Yes [id number] 25mg Take 1 [facility] one 25 mg 5-15 tablet by ity o f tablet 00:00: mouth [place] 00 every Medical morning. Branch amLODIPine 2022-0 Yes [id number] 10mg Take 1 [facility] nivers 10 mg 5-15 tablet by ity of tablet 00:00: mouth in [place] 00 the Medical morning. Branch isosorbide 2022-0 Yes [id number] 30mg Take 1 [facility] nivers mononitrate 5-15 tablet by ity of 30 mg 24 hr 00:00: mouth in [place] tablet 00 the Medical morning. Branch hydrALAZINE 2022-0 Yes [id number] 50mg Take 1 [facility] 50 mg 5-15 tablet by ity of tablet 00:00: mouth [place] 00 every 8 Medical (eight) Branch hours. atorvastati 3-0 Yes [id number] 40mg Take 1 [facility] n 40 mg 5-15 tablet by ity of tablet 00:00: mouth at [place] [address] bedtime. Medical Branch carvediloL 3-0 Yes [id number] 25mg Take 1 [facility] nivers 25 mg 5-15 tablet by ity of tablet 00:00: mouth in [place] 00 the Medical morning Branch and 1 tablet in the evening. Take with meals. lisinopriL 2023-0 Yes [id number] 40mg Take 1 [facility] nivers 40 mg 5-15 tablet by it[facility] of tablet 00:00: mouth in [place] 00 the Medical morning. Branch spironolact 3-0 Yes [id number] 25mg Take 1 [facility] one 25 mg 5-15 tablet by ity o f tablet 00:00: mouth [place] 00 every Medical morning. Branch amLODIPine 3-0 Yes [id number] 10mg Take 1 [facility] nivers 10 mg 5-15 tablet by ity of tablet 00:00: mouth in [place] 00 the Medical morning. Branch isosorbide 3-0 Yes [id number] 30mg Take 1 [facility] nivers mononitrate 5-15 tablet by ity of 30 mg 24 hr 00:00: mouth in [place] tablet 00 the Medical morning. Branch hydrALAZINE 3-0 Yes [id number] 50mg Take 1 [facility] 50 mg 5-15 tablet by ity of tablet 00:00: mouth [place] 00 every 8 Medical (eight) Branch hours. atorvastati 3-0 Yes [id number] 40mg Take 1 [facility] n 40 mg 5-15 tablet by ity of tablet 00:00: mouth at [place] 00 bedtime. Medical Branch carvediloL 3-0 Yes [id number] 25mg Take 1 [facility] nivers 25 mg 5-15 tablet by ity of tablet 00:00: mouth in [place] 00 the Medical morning Branch and 1 tablet in the evening. Take with meals. lisinopriL 3-0 Yes [id number] 40mg Take 1 [facility] nivers 40 mg 5-15 tablet by ity of tablet 00:00: mouth in [place] 00 the Medical morning. Branch spironolact 3-0 Yes [id number] 25mg Take 1 [facility] one 25 mg 5-15 tablet by ity o f tablet 00:00: mouth [place] 00 every Medical morning. Branch amLODIPine 3-0 Yes [id number] 10mg Take 1 [facility] nivers 10 mg 5-15 tablet by ity of tablet 00:00: mouth in [place] 00 the Medical morning. Branch isosorbide 3-0 Yes [id number] 30mg Take 1 [facility] nivers mononitrate 5-15 tablet by ity of 30 mg 24 hr 00:00: mouth in [place] tablet 00 the Medical morning. Branch hydrALAZINE 2022-0 Yes [id number] 50mg Take 1 [facility] 50 mg 5-15 tablet by ity of tablet 00:00: mouth [place] 00 every 8 Medical (eight) Branch hours. atorvastati 3-0 Yes [id number] 40mg Take 1 [facility] n 40 mg 5-15 tablet by ity of tablet 00:00: mouth at [place] 00 bedtime. Medical Branch carvediloL 3-0 Yes [id number] 25mg Take 1 [facility] nivers 25 mg 5-15 tablet by ity of tablet 00:00: mouth in [place] 00 the Medical morning Branch and 1 tablet in the evening. Take with meals. lisinopriL 3-0 Yes [id number] 40mg Take 1 [facility] nivers 40 mg 5-15 tablet by ity of tablet 00:00: mouth in [place] 00 the Medical morning. Branch spironolact 2022-0 Yes [id number] 25mg Take 1 [facility] one 25 mg 5-15 tablet by ity o f tablet 00:00: mouth [place] 00 every Medical morning. Branch amLODIPine 2022-0 Yes [id number] 10mg Take 1 [facility] nivers 10 mg 5-15 tablet by ity of tablet 00:00: mouth in [place] 00 the Medical morning. Branch isosorbide 3-0 Yes [id number] 30mg Take 1 [facility] nivers mononitrate 5-15 tablet by ity of 30 mg 24 hr 00:00: mouth in [place] tablet 00 the Medical morning. Branch hydrALAZINE 2022-0 Yes [id number] 50mg Take 1 [facility] 50 mg 5-15 tablet by ity of tablet 00:00: mouth [place] 00 every 8 Medical (eight) Branch hours. atorvastati 3-0 Yes [id number] 40mg Take 1 [facility] n 40 mg 5-15 tablet by ity of tablet 00:00: mouth at [place] [address] bedtime. Medical Branch carvediloL 3-0 Yes [id number] 25mg Take 1 [facility] nivers 25 mg 5-15 tablet by ity of tablet 00:00: mouth in [place] 00 the Medical morning Branch and 1 tablet in the evening. Take with meals. lisinopriL 3-0 Yes [id number] 40mg Take 1 [facility] nivers 40 mg 5-15 tablet by ity of tablet 00:00: mouth in [place] 00 the Medical morning. Branch spironolact 3-0 Yes [id number] 25mg Take 1 [facility] one 25 mg 5-15 tablet by ity o f tablet 00:00: mouth [place] 00 every Medical morning. Branch amLODIPine 3-0 Yes [id number] 10mg Take 1 [facility] nivers 10 mg 5-15 tablet by ity of tablet 00:00: mouth in [place] 00 the Medical morning. Branch isosorbide 3-0 Yes [id number] 30mg Take 1 [facility] nivers mononitrate 5-15 tablet by ity of 30 mg 24 hr 00:00: mouth in [place] tablet 00 the Medical morning. Branch hydrALAZINE 3-0 Yes [id number] 50mg Take 1 [facility] 50 mg 5-15 tablet by ity of tablet 00:00: mouth [place] 00 every 8 Medical (eight) Branch hours. atorvastati 3-0 Yes [id number] 40mg Take 1 [facility] n 40 mg 5-15 tablet by ity of tablet 00:00: mouth at [place] 00 bedtime. Medical Branch carvediloL 3-0 Yes [id number] 25mg Take 1 [facility] nivers 25 mg 5-15 tablet by ity of tablet 00:00: mouth in [place] 00 the Medical morning Branch and 1 tablet in the evening. Take with meals. lisinopriL 3-0 Yes [id number] 40mg Take 1 [facility] nivers 40 mg 5-15 tablet by ity of tablet 00:00: mouth in [place] 00 the Medical morning. Branch spironolact 3-0 Yes [id number] 25mg Take 1 [facility] one 25 mg 5-15 tablet by ity o f tablet 00:00: mouth [place] 00 every Medical morning. Branch amLODIPine 3-0 Yes [id number] 10mg Take 1 [facility] nivers 10 mg 5-15 tablet by ity of tablet 00:00: mouth in [place] 00 the Medical morning. Branch isosorbide 3-0 Yes [id number] 30mg Take 1 [facility] nivers mononitrate 5-15 tablet by ity of 30 mg 24 hr 00:00: mouth in [place] tablet 00 the Medical morning. Branch hydrALAZINE 3-0 Yes [id number] 50mg Take 1 [facility] 50 mg 5-15 tablet by ity of tablet 00:00: mouth [place] 00 every 8 Medical (eight) Branch hours. atorvastati 2022-0 Yes [id number] 40mg Take 1 [facility] n 40 mg 5-15 tablet by ity of tablet 00:00: mouth at [place] 00 bedtime. Medical Branch carvediloL 2022-0 Yes [id number] 25mg Take 1 [facility] nivers 25 mg 5-15 tablet by ity of tablet 00:00: mouth in [place] 00 the Medical morning Branch and 1 tablet in the evening. Take with meals. lisinopriL 3-0 Yes [id number] 40mg Take 1 [facility] nivers 40 mg 5-15 tablet by ity of tablet 00:00: mouth in [place] 00 the Medical morning. Branch spironolact 2022-0 Yes [id number] 25mg Take 1 [facility] one 25 mg 5-15 tablet by ity o f tablet 00:00: mouth [place] 00 every Medical morning. Branch amLODIPine 2022-0 Yes [id number] 10mg Take 1 [facility] nivers 10 mg 5-15 tablet by ity of tablet 00:00: mouth in [place] 00 the Medical morning. Branch isosorbide 2022-0 Yes [id number] 30mg Take 1 [facility] nivers mononitrate 5-15 tablet by ity of 30 mg 24 hr 00:00: mouth in [place] tablet 00 the Medical morning. Branch hydrALAZINE 2022-0 Yes [id number] 50mg Take 1 [facility] 50 mg 5-15 tablet by ity of tablet 00:00: mouth [place] 00 every 8 Medical (eight) Branch hours. atorvastati 2022-0 Yes [id number] 40mg Take 1 [facility] n 40 mg 5-15 tablet by ity of tablet 00:00: mouth at [place] [address] bedtime. Medical Branch carvediloL 2022-0 Yes [id number] 25mg Take 1 [facility] nivers 25 mg 5-15 tablet by ity of tablet 00:00: mouth in [place] 00 the Medical morning Branch and 1 tablet in the evening. Take with meals. lisinopriL 3-0 Yes [id number] 40mg Take 1 [facility] nivers 40 mg 5-15 tablet by ity of tablet 00:00: mouth in [place] 00 the Medical morning. Branch spironolact 3-0 Yes [id number] 25mg Take 1 [facility] one 25 mg 5-15 tablet by ity o f tablet 00:00: mouth [place] 00 every Medical morning. Branch amLODIPine 3-0 Yes [id number] 10mg Take 1 [facility] nivers 10 mg 5-15 tablet by ity of tablet 00:00: mouth in [place] 00 the Medical morning. Branch isosorbide 3-0 Yes [id number] 30mg Take 1 U nivers mononitrate 5-15 tablet by ity of 30 mg 24 hr 00:00: mouth in [place] tablet 00 the Medical morning. Branch hydrALAZINE 2022-0 Yes [id number] 50mg Take 1 [facility] 50 mg 5-15 tablet by ity of tablet 00:00: mouth [place] 00 every 8 Medical (eight) Branch hours. atorvastati 3-0 Yes [id number] 40mg Take 1 [facility] n 40 mg 5-15 tablet by ity of tablet 00:00: mouth at [place] 00 bedtime. Medical Branch carvediloL 2022-0 Yes [id number] 25mg Take 1 [facility] nivers 25 mg 5-15 tablet by ity of tablet 00:00: mouth in [place] 00 the Medical morning Branch and 1 tablet in the evening. Take with meals. lisinopriL 2022-0 Yes [id number] 40mg Take 1 [facility] nivers 40 mg 5-15 tablet by ity of tablet 00:00: mouth in [place] 00 the Medical morning. Branch spironolact 2022-0 Yes [id number] 25mg Take 1 [facility] one 25 mg 5-15 tablet by ity o f tablet 00:00: mouth [place] 00 every Medical morning. Branch amLODIPine 2022-0 Yes [id number] 10mg Take 1 [facility] nivers 10 mg 5-15 tablet by ity of tablet 00:00: mouth in [place] 00 the Medical morning. Branch isosorbide 3-0 Yes [id number] 30mg Take 1 [facility] nivers mononitrate 5-15 tablet by ity of 30 mg 24 hr 00:00: mouth in [place] tablet 00 the Medical morning. Branch hydrALAZINE 3-0 Yes [id number] 50mg Take 1 [facility] 50 mg 5-15 tablet by ity of tablet 00:00: mouth [place] 00 every 8 Medical (eight) Branch hours. atorvastati 3-0 Yes [id number] 40mg Take 1 [facility] n 40 mg 5-15 tablet by ity of tablet 00:00: mouth at [place] [address] bedtime. Medical Branch carvediloL 3-0 Yes [id number] 25mg Take 1 [facility] nivers 25 mg 5-15 tablet by ity of tablet 00:00: mouth in [place] 00 the Medical morning Branch and 1 tablet in the evening. Take with meals. lisinopriL 3-0 Yes [id number] 40mg Take 1 [facility] nivers 40 mg 5-15 tablet by ity of tablet 00:00: mouth in [place] 00 the Medical morning. Branch spironolact 3-0 Yes [id number] 25mg Take 1 [facility] one 25 mg 5-15 tablet by ity o f tablet 00:00: mouth [place] 00 every Medical morning. Branch amLODIPine 2022-0 Yes [id number] 10mg Take 1 [facility] nivers 10 mg 5-15 tablet by ity of tablet 00:00: mouth in [place] 00 the Medical morning. Branch isosorbide 3-0 Yes [id number] 30mg Take 1 [facility] nivers mononitrate 5-15 tablet by ity of 30 mg 24 hr 00:00: mouth in [place] tablet 00 the Medical morning. Branch hydrALAZINE 2022-0 Yes [id number] 50mg Take 1 [facility] 50 mg 5-15 tablet by ity of tablet 00:00: mouth [place] 00 every 8 Medical (eight) Branch hours. atorvastati 2022-0 Yes [id number] 40mg Take 1 [facility] n 40 mg 5-15 tablet by ity of tablet 00:00: mouth at [place] [address] bedtime. Medical Branch carvediloL 2022-0 Yes [id number] 25mg Take 1 [facility] nivers 25 mg 5-15 tablet by ity of tablet 00:00: mouth in [place] 00 the Medical morning Branch and 1 tablet in the evening. Take with meals. lisinopriL 3-0 Yes [id number] 40mg Take 1 [facility] nivers 40 mg 5-15 tablet by ity of tablet 00:00: mouth in [place] 00 the Medical morning. Branch spironolact 3-0 Yes [id number] 25mg Take 1 [facility] one 25 mg 5-15 tablet by ity o f tablet 00:00: mouth [place] 00 every Medical morning. Branch amLODIPine 2022-0 Yes [id number] 10mg Take 1 [facility] nivers 10 mg 5-15 tablet by ity of tablet 00:00: mouth in [place] 00 the Medical morning. Branch isosorbide 2022-0 Yes [id number] 30mg Take 1 [facility] nivers mononitrate 5-15 tablet by ity of 30 mg 24 hr 00:00: mouth in [place] tablet 00 the Medical morning. Branch hydrALAZINE 2022-0 Yes [id number] 50mg Take 1 [facility] 50 mg 5-15 tablet by ity of tablet 00:00: mouth [place] 00 every 8 Medical (eight) Branch hours. atorvastati 2022-0 Yes [id number] 40mg Take 1 [facility] n 40 mg 5-15 tablet by ity of tablet 00:00: mouth at [place] 00 bedtime. Medical Branch carvediloL 2022-0 Yes [id number] 25mg Take 1 [facility] n[facility] 25 mg 5-15 tablet by ity of tablet 00:00: mouth in [place] 00 the Medical morning Branch and 1 tablet in the evening. Take with meals. lisinopriL 2022-0 Yes [id number] 40mg Take 1 [facility] n[facility] 40 mg 5-15 tablet by it[facility] of tablet 00:00: mouth in [place] 00 the Medical morning. Branch spironolact 2022-0 Yes [id number] 25mg Take 1 [facility] one 25 mg 5-15 tablet by ity o f tablet 00:00: mouth [place] 00 every Medical morning. Branch amLODIPine 2022-0 Yes [id number] 10mg Take 1 [facility] nivers 10 mg 5-15 tablet by it[facility] of tablet 00:00: mouth in [place] 00 the Medical morning. Branch isosorbide 2022-0 Yes [id number] 30mg Take 1 [facility] nivers mononitrate 5-15 tablet by ity of 30 mg 24 hr 00:00: mouth in [place] tablet 00 the Medical morning. Branch hydrALAZINE 2022-0 Yes [id number] 50mg Take 1 [facility] 50 mg 5-15 tablet by ity of tablet 00:00: mouth [place] 00 every 8 Medical (eight) Branch hours. atorvastati 3-0 Yes [id number] 40mg Take 1 [facility] n 40 mg 5-15 tablet by it[facility] of tablet 00:00: mouth at [place] [address] bedtime. Medical Branch carvediloL 3-0 Yes [id number] 25mg Take 1 [facility] n[facility] 25 mg 5-15 tablet by it[facility] of tablet 00:00: mouth in [place] 00 the Medical morning Branch and 1 tablet in the evening. Take with meals. lisinopriL 3-0 Yes [id number] 40mg Take 1 [facility] n[facility] 40 mg 5-15 tablet by ity of tablet 00:00: mouth in [place] 00 the Medical morning. Branch spironolact 3-0 Yes [id number] 25mg Take 1 [facility] one 25 mg 5-15 tablet by ity o f tablet 00:00: mouth [place] 00 every Medical morning. Branch amLODIPine 2022-0 Yes [id number] 10mg Take 1 [facility] n[facility] 10 mg 5-15 tablet by ity of tablet 00:00: mouth in [place] 00 the Medical morning. Branch isosorbide 3-0 Yes [id number] 30mg Take 1 [facility] nivers mononitrate 5-15 tablet by ity of 30 mg 24 hr 00:00: mouth in [place] tablet 00 the Medical morning. Branch hydrALAZINE 2022-0 Yes [id number] 50mg Take 1 [facility] 50 mg 5-15 tablet by ity of tablet 00:00: mouth [place] 00 every 8 Medical (eight) Branch hours. atorvastati 2022-0 Yes [id number] 40mg Take 1 [facility] n 40 mg 5-15 tablet by ity of tablet 00:00: mouth at [place] 00 bedtime. Medical Branch carvediloL 2022-0 Yes [id number] 25mg Take 1 [facility] 25 mg 5-15 tablet by [facility] of tablet 00:00: mouth in [place] 00 the Medical morning Branch and 1 tablet in the evening. Take with meals. lisinopriL 3-0 Yes [id number] 40mg Take 1 [facility] 40 mg 5-15 tablet by [facility] of tablet 00:00: mouth in [place] 00 the Medical morning. Branch spironolact 3-0 Yes [id number] 25mg Take 1 [facility] one 25 mg 5-15 tablet by it[facility] o f tablet 00:00: mouth [place] 00 every Medical morning. Branch amLODIPine 3-0 Yes [id number] 10mg Take 1 [facility] n[facility] 10 mg 5-15 tablet by [facility] of tablet 00:00: mouth in [place] 00 the Medical morning. Branch isosorbide 3-0 Yes [id number] 30mg Take 1 [facility] nivers mononitrate 5-15 tablet by it[facility] of 30 mg 24 hr 00:00: mouth in [place] tablet 00 the Medical morning. Branch hydrALAZINE 2022-0 Yes [id number] 50mg Take 1 [facility] 50 mg 5-15 tablet by it[facility] of tablet 00:00: mouth [place] 00 every 8 Medical (eight) Branch hours. atorvastati 2022-0 Yes [id number] 40mg Take 1 [facility] n 40 mg 5-15 tablet by [facility] of tablet 00:00: mouth at [place] 00 bedtime. Medical Branch carvediloL 2022-0 Yes [id number] 25mg Take 1 [facility] 25 mg 5-15 tablet by [facility] of tablet 00:00: mouth in [place] 00 the Medical morning Branch and 1 tablet in the evening. Take with meals. lisinopriL 2022-0 Yes [id number] 40mg Take 1 [facility] n[facility] 40 mg 5-15 tablet by [facility] of tablet 00:00: mouth in [place] 00 the Medical morning. Branch spironolact 2022-0 Yes [id number] 25mg Take 1 [facility] one 25 mg 5-15 tablet by it[facility] o f tablet 00:00: mouth [place] 00 every Medical morning. Branch amLODIPine 2022-0 Yes [id number] 10mg Take 1 [facility] 10 mg 5-15 tablet by [facility] of tablet 00:00: mouth in [place] 00 the Medical morning. Branch isosorbide 2022-0 Yes [id number] 30mg Take 1 [facility] nivers mononitrate 5-15 tablet by ity of 30 mg 24 hr 00:00: mouth in [place] tablet 00 the Medical morning. Branch hydrALAZINE 2022-0 Yes [id number] 50mg Take 1 [facility] 50 mg 5-15 tablet by ity of tablet 00:00: mouth [place] 00 every 8 Medical (eight) Branch hours. atorvastati 3-0 Yes [id number] 40mg Take 1 [facility] n 40 mg 5-15 tablet by ity of tablet 00:00: mouth at [place] [address] bedtime. Medical Branch carvediloL 2022-0 Yes [id number] 25mg Take 1 [facility] 25 mg 5-15 tablet by [facility] of tablet 00:00: mouth in [place] 00 the Medical morning Branch and 1 tablet in the evening. Take with meals. lisinopriL 2023-0 Yes [id number] 40mg Take 1 [facility] 40 mg 5-15 tablet by [facility] of tablet 00:00: mouth in [place] 00 the Medical morning. Branch spironolact 3-0 Yes [id number] 25mg Take 1 [facility] one 25 mg 5-15 tablet by ity o f tablet 00:00: mouth [place] 00 every Medical morning. Branch amLODIPine 2022-0 Yes [id number] 10mg Take 1 [facility] 10 mg 5-15 tablet by [facility] of tablet 00:00: mouth in [place] 00 the Medical morning. Branch isosorbide 3-0 Yes [id number] 30mg Take 1 [facility] nivers mononitrate 5-15 tablet by it[facility] of 30 mg 24 hr 00:00: mouth in [place] tablet 00 the Medical morning. Branch hydrALAZINE 2022-0 Yes [id number] 50mg Take 1 [facility] 50 mg 5-15 tablet by [facility] of tablet 00:00: mouth [place] 00 every 8 Medical (eight) Branch hours. atorvastati 2022-0 Yes [id number] 40mg Take 1 [facility] n 40 mg 5-15 tablet by it[facility] of tablet 00:00: mouth at [place] 00 bedtime. Medical Branch carvediloL 2022-0 Yes [id number] 25mg Take 1 [facility] 25 mg 5-15 tablet by [facility] of tablet 00:00: mouth in [place] 00 the Medical morning Branch and 1 tablet in the evening. Take with meals. lisinopriL 3-0 Yes [id number] 40mg Take 1 [facility] 40 mg 5-15 tablet by [facility] of tablet 00:00: mouth in [place] 00 the Medical morning. Branch spironolact 3-0 Yes [id number] 25mg Take 1 [facility] one 25 mg 5-15 tablet by it[facility] o f tablet 00:00: mouth [place] 00 every Medical morning. Branch amLODIPine 3-0 Yes [id number] 10mg Take 1 [facility] 10 mg 5-15 tablet by [facility] of tablet 00:00: mouth in [place] 00 the Medical morning. Branch isosorbide 3-0 Yes [id number] 30mg Take 1 [facility] nivers mononitrate 5-15 tablet by [facility] of 30 mg 24 hr 00:00: mouth in [place] tablet 00 the Medical morning. Branch hydrALAZINE 2022-0 Yes [id number] 50mg Take 1 [facility] 50 mg 5-15 tablet by [facility] of tablet 00:00: mouth [place] 00 every 8 Medical (eight) Branch hours. atorvastati 2022-0 Yes [id number] 40mg Take 1 [facility] n 40 mg 5-15 tablet by [facility] of tablet 00:00: mouth at [place] [address] bedtime. Medical Branch carvediloL 3-0 Yes [id number] 25mg Take 1 [facility] 25 mg 5-15 tablet by [facility] of tablet 00:00: mouth in [place] 00 the Medical morning Branch and 1 tablet in the evening. Take with meals. lisinopriL 3-0 Yes [id number] 40mg Take 1 [facility] 40 mg 5-15 tablet by [facility] tablet 00:00: mouth in [place] 00 the Medical morning. Branch spironolact 2022-0 Yes [id number] 25mg Take 1 [facility] one 25 mg 5-15 tablet by [facility] f tablet 00:00: mouth [place] 00 every Medical morning. Branch amLODIPine 2022-0 Yes [id number] 10mg Take 1 [facility] 10 mg 5-15 tablet by [facility] tablet 00:00: mouth in [place] 00 the Medical morning. Branch isosorbide 2022-0 Yes [id number] 30mg Take 1 [facility] mononitrate 5-15 tablet by [facility] 30 mg 24 hr 00:00: mouth in [place] tablet 00 the Medical morning. Branch hydrALAZINE 2022-0 Yes [id number] 50mg Take 1 [facility] 50 mg 5-15 tablet by [facility] tablet 00:00: mouth [place] 00 every 8 Medical (eight) Branch hours. atorvastati 2022-0 Yes [id number] 40mg Take 1 [facility] n 40 mg 5-15 tablet by [facility] tablet 00:00: mouth at [place] [address] bedtime. Medical Branch carvediloL 3-0 Yes [id number] 25mg Take 1 [facility] 25 mg 5-15 tablet by [facility] tablet 00:00: mouth in [place] 00 the Medical morning Branch and 1 tablet in the evening. Take with meals. lisinopriL 3-0 Yes [id number] 40mg Take 1 [facility] 40 mg 5-15 tablet by [facility] tablet 00:00: mouth in [place] 00 the Medical morning. Branch spironolact 2023-0 Yes [id number] 25mg Take 1 [facility] one 25 mg 5-15 tablet by [facility] f tablet 00:00: mouth [place] 00 every Medical morning. Branch amLODIPine 3-0 Yes [id number] 10mg Take 1 [facility] 10 mg 5-15 tablet by [facility] tablet 00:00: mouth in [place] 00 the Medical morning. Branch isosorbide 3-0 Yes [id number] 30mg Take 1 [facility] mononitrate 5-15 tablet by [facility] 30 mg 24 hr 00:00: mouth in [place] tablet 00 the Medical morning. Branch hydrALAZINE 3-0 Yes [id number] 50mg Take 1 [facility] 50 mg 5-15 tablet by [facility] tablet 00:00: mouth [place] 00 every 8 Medical (eight) Branch hours. atorvastati 3-0 Yes [id number] 40mg Take 1 [facility] n 40 mg 5-15 tablet by [facility] tablet 00:00: mouth at [place] 00 bedtime. Medical Branch carvediloL 3-0 Yes [id number] 25mg Take 1 [facility] 25 mg 5-15 tablet by [facility] tablet 00:00: mouth in [place] 00 the Medical morning Branch and 1 tablet in the evening. Take with meals. lisinopriL 3-0 Yes [id number] 40mg Take 1 [facility] 40 mg 5-15 tablet by [facility] tablet 00:00: mouth in [place] 00 the Medical morning. Branch spironolact 3-0 Yes [id number] 25mg Take 1 [facility] 25 mg 5-15 tablet by [facility] tablet 00:00: mouth [place] 00 every Medical morning. Branch amLODIPine 3-0 Yes [id number] 10mg Take 1 [facility] 10 mg 5-15 tablet by [facility] tablet 00:00: mouth in [place] 00 the Medical morning. Branch isosorbide 3-0 Yes [id number] 30mg Take 1 [facility] mononitrate 5-15 tablet by [facility] 30 mg 24 hr 00:00: mouth in [place] tablet 00 the Medical morning. Branch hydrALAZINE 3-0 Yes [id number] 50mg Take 1 [facility] 50 mg 5-15 tablet by [facility] tablet 00:00: mouth [place] 00 every 8 Medical (eight) Branch hours. atorvastati 2022-0 Yes [id number] 40mg Take 1 [facility] 40 mg 5-15 tablet by [facility] tablet 00:00: mouth at [place] 00 bedtime. Medical Branch carvediloL 2022-0 Yes [id number] 25mg Take 1 [facility] 25 mg 5-15 tablet by [facility] tablet 00:00: mouth in [place] 00 the Medical morning Branch and 1 tablet in the evening. Take with meals. lisinopriL 2022-0 Yes [id number] 40mg Take 1 [facility] 40 mg 5-15 tablet by [facility] tablet 00:00: mouth in [place] 00 the Medical morning. Branch spironolact 2022-0 Yes [id number] 25mg Take 1 [facility] 25 mg 5-15 tablet by [facility] f tablet 00:00: mouth [place] 00 every Medical morning. Branch amLODIPine 2022-0 Yes [id number] 10mg Take 1 [facility] 10 mg 5-15 tablet by [facility] tablet 00:00: mouth in [place] 00 the Medical morning. Branch isosorbide 2022-0 Yes [id number] 30mg Take 1 [facility] mononitrate 5-15 tablet by [facility] 30 mg 24 hr 00:00: mouth in [place] tablet 00 the Medical morning. Branch hydrALAZINE 2022-0 Yes [id number] 50mg Take 1 [facility] 50 mg 5-15 tablet by [facility] tablet 00:00: mouth [place] 00 every 8 Medical (eight) Branch hours. atorvastati 2022-0 Yes [id number] 40mg Take 1 [facility] n 40 mg 5-15 tablet by [facility] tablet 00:00: mouth at [place] 00 bedtime. Medical Branch carvediloL 2022-0 Yes [id number] 25mg Take 1 [facility] 25 mg 5-15 tablet by [facility] tablet 00:00: mouth in [place] 00 the Medical morning Branch and 1 tablet in the evening. Take with meals. lisinopriL 3-0 Yes [id number] 40mg Take 1 [facility] 40 mg 5-15 tablet by [facility] tablet 00:00: mouth in [place] 00 the Medical morning. Branch spironolact 2022-0 Yes [id number] 25mg Take 1 [facility] 25 mg 5-15 tablet by [facility] f tablet 00:00: mouth [place] 00 every Medical morning. Branch amLODIPine 2022-0 Yes [id number] 10mg Take 1 [facility] 10 mg 5-15 tablet by [facility] tablet 00:00: mouth in [place] 00 the Medical morning. Branch isosorbide 3-0 Yes [id number] 30mg Take 1 [facility] mononitrate 5-15 tablet by [facility] 30 mg 24 hr 00:00: mouth in [place] tablet 00 the Medical morning. Branch hydrALAZINE 2022-0 Yes [id number] 50mg Take 1 [facility] 50 mg 5-15 tablet by [facility] tablet 00:00: mouth [place] 00 every 8 Medical (eight) Branch hours. atorvastati 2022-0 Yes [id number] 40mg Take 1 [facility] n 40 mg 5-15 tablet by [facility] tablet 00:00: mouth at [place] [address] bedtime. Medical Branch carvediloL 2022-0 Yes [id number] 25mg Take 1 [facility] 25 mg 5-15 tablet by [facility] tablet 00:00: mouth in [place] 00 the Medical morning Branch and 1 tablet in the evening. Take with meals. lisinopriL 2022-0 Yes [id number] 40mg Take 1 [facility] 40 mg 5-15 tablet by [facility] tablet 00:00: mouth in [place] 00 the Medical morning. Branch spironolact 2022-0 Yes [id number] 25mg Take 1 [facility] 25 mg 5-15 tablet by [facility] f tablet 00:00: mouth [place] 00 every Medical morning. Branch amLODIPine 2022-0 Yes [id number] 10mg Take 1 [facility] 10 mg 5-15 tablet by [facility] tablet 00:00: mouth in [place] 00 the Medical morning. Branch isosorbide 2022-0 Yes [id number] 30mg Take 1 [facility] mononitrate 5-15 tablet by [facility] 30 mg 24 hr 00:00: mouth in [place] tablet 00 the Medical morning. Branch hydrALAZINE 3-0 Yes [id number] 50mg Take 1 [facility] 50 mg 5-15 tablet by [facility] tablet 00:00: mouth [place] 00 every 8 Medical (eight) Branch hours. atorvastati 3-0 Yes [id number] 40mg Take 1 [facility] n 40 mg 5-15 tablet by [facility] tablet 00:00: mouth at [place] [address] bedtime. Medical Branch carvediloL 2022-0 Yes [id number] 25mg Take 1 [facility] 25 mg 5-15 tablet by [facility] tablet 00:00: mouth in [place] 00 the Medical morning Branch and 1 tablet in the evening. Take with meals. lisinopriL 3-0 Yes [id number] 40mg Take 1 [facility] 40 mg 5-15 tablet by [facility] tablet 00:00: mouth in [place] 00 the Medical morning. Branch spironolact 2022-0 Yes [id number] 25mg Take 1 [facility] 25 mg 5-15 tablet by [facility] f tablet 00:00: mouth [place] 00 every Medical morning. Branch amLODIPine 2022-0 Yes [id number] 10mg Take 1 [facility] 10 mg 5-15 tablet by [facility] tablet 00:00: mouth in [place] 00 the Medical morning. Branch atorvastati 2022-0 Yes [id number] 40mg Take 1 [facility] n 40 mg 5-15 tablet by [facility] tablet 00:00: mouth at [place] [address] bedtime. Medical Branch carvediloL 2022-0 Yes [id number] 25mg Take 1 [facility] 25 mg 5-15 tablet by [facility] tablet 00:00: mouth in [place] the Medical morning Branch and 1 tablet in the evening. Take with meals. lisinopriL 3-0 Yes [id number] 40mg Take 1 [facility] 40 mg 5-15 tablet by [facility] tablet 00:00: mouth in [place] 00 the Medical morning. Branch spironolact 2022-0 Yes [id number] 25mg Take 1 [facility] 25 mg 5-15 tablet by [facility] o f tablet 00:00: mouth [place] 00 every Medical morning. Branch amLODIPine 2022-0 Yes [id number] 10mg Take 1 [facility] 10 mg 5-15 tablet by [facility] tablet 00:00: mouth in [place] 00 the Medical morning. Branch atorvastati 3-0 Yes [id number] 40mg Take 1 [facility] n 40 mg 5-15 tablet by [facility] tablet 00:00: mouth at [place] [address] bedtime. Medical Branch carvediloL 2022-0 Yes [id number] 25mg Take 1 [facility] 25 mg 5-15 tablet by [facility] tablet 00:00: mouth in [place] 00 the Medical morning Branch and 1 tablet in the evening. Take with meals. lisinopriL 2022-0 Yes [id number] 40mg Take 1 [facility] 40 mg 5-15 tablet by [facility] tablet 00:00: mouth in [place] 00 the Medical morning. Branch spironolact 2022-0 Yes [id number] 25mg Take 1 [facility] one 25 mg 5-15 tablet by [facility] o f tablet 00:00: mouth [place] 00 every Medical morning. Branch amLODIPine 2022-0 Yes [id number] 10mg Take 1 [facility] 10 mg 5-15 tablet by [facility] tablet 00:00: mouth in [place] 00 the Medical morning. Branch atorvastati 2022-0 Yes [id number] 40mg Take 1 [facility] n 40 mg 5-15 tablet by [facility] tablet 00:00: mouth at [place] [address] bedtime. Medical Branch carvediloL 2022-0 Yes [id number] 25mg Take 1 [facility] 25 mg 5-15 tablet by [facility] tablet 00:00: mouth in [place] 00 the Medical morning Branch and 1 tablet in the evening. Take with meals. lisinopriL 2022-0 Yes [id number] 40mg Take 1 [facility] 40 mg 5-15 tablet by [facility] tablet 00:00: mouth in [place] 00 the Medical morning. Branch spironolact 2022-0 Yes [id number] 25mg Take 1 [facility] one 25 mg 5-15 tablet by [facility] o f tablet 00:00: mouth [place] [address] every Medical morning. Branch amLODIPine 2022-0 Yes [id number] 10mg Take 1 [facility] 10 mg 5-15 tablet by [facility] tablet 00:00: mouth in [place] 00 the Medical morning. Branch isosorbide 2022-0 2022- No [id number] 30mg Take 1 [facility] mononitrate 5-15 08-10 tablet by it y of 30 mg 24 hr 00:00: 00:00 mouth in [place] tablet 00 :00 the Medical morning. Branch hydrALAZINE 2022-0 2022- No [id number] 50mg Take 1 [facility] 50 mg 5-15 08-10 tablet by [facility] tablet 00:00: 00:00 mouth [place] 00 :00 every 8 Medical (eight) Branch hours. isosorbide 2022022- No [id number] 30mg Take 1 [facility] mononitrate 5-15 08-10 tablet by it y of 30 mg 24 hr 00:00: 00:00 mouth in [place] tablet 00 :00 the Medical morning. Branch hydrALAZINE 2022- No [id number] 50mg Take 1 [facility] 50 mg 5-15 08-10 tablet by [facility] of tablet 00:00: 00:00 mouth [place] 00 :00 every 8 Medical (eight) Branch hours. isosorbide 2022- No [id number] 30mg Take 1 [facility] mononitrate 5-15 08-10 tablet by it y of 30 mg 24 hr 00:00: 00:00 mouth in [place] tablet 00 :00 the Medical morning. Branch hydrALAZINE 2022- No [id number] 50mg Take 1 [facility] 50 mg 5-15 08-10 tablet by [facility] of tablet 00:00: 00:00 mouth [place] 00 :00 every 8 Medical (eight) Branch hours. ATORVASTATI 2021-10 Yes [id number] 40mg TAKE 1 [facility] N 40 mg 2-30 TABLET BY [facility] of tablet 00:00: MOUTH AT [place] [address] BEDTIME Medical Branch SPIRONOLACT 2021-10 Yes [id number] TAKE 1 [facility] ONE 25 mg 2-30 TABLET BY ity o f tablet 00:00: MOUTH [place] DAILY Medical Branch LISINOPRIL 2021-10 Yes [id number] 40mg TAKE 1 [facility] 40 mg 2-30 TABLET BY ity of tablet 00:00: [facility] DAILY Medical Branch CARVEDILOL 2021-10 Yes [id number] TAKE 1 [facility] 25 mg 2-30 TABLET BY ity of tablet 00:00: MOUTH [place] 00 TWICE Medical DAILY WITH Branch MEALS ATORVASTATI 2021-10 Yes [id number] 40mg TAKE 1 [facility] N 40 mg 2-30 TABLET BY ity of tablet 00:00: MOUTH AT [place] [address] BEDTIME Medical Branch SPIRONOLACT 2021-10 Yes [id number] TAKE 1 [facility] ONE 25 mg 2-30 TABLET BY ity o f tablet 00:00: MOUTH [place] DAILY Medical Branch LISINOPRIL 2021-10 Yes [id number] 40mg TAKE 1 [facility] 40 mg 2-30 TABLET BY it[facility] of tablet 00:00: MOUTH [place] DAILY Medical Branch CARVEDILOL 2021-10 Yes [id number] TAKE 1 [facility] 25 mg 2-30 TABLET BY ity of tablet 00:00: [facility] TWICE Medical DAILY WITH Branch MEALS ATORVASTATI 2021-10 Yes [id number] 40mg TAKE 1 [facility] N 40 mg 2-30 TABLET BY ity of tablet 00:00: [facility] BEDTIME Medical Branch SPIRONOLACT 2021-10 Yes [id number] TAKE 1 [facility] ONE 25 mg 2-30 TABLET BY ity o f tablet 00:00: [facility] DAILY Medical Branch LISINOPRIL 2021-10 Yes [id number] 40mg TAKE 1 [facility] 40 mg 2-30 TABLET BY ity of tablet 00:00: [facility] DAILY Medical Branch CARVEDILOL 2021-10 Yes [id number] TAKE 1 [facility] 25 mg 2-30 TABLET BY ity of tablet 00:00: [facility] TWICE Medical DAILY WITH Branch MEALS ATORVASTATI 2021-10 Yes [id number] 40mg TAKE 1 [facility] N 40 mg 2-30 TABLET BY ity of tablet 00:00: [facility] BEDTIME Medical Branch SPIRONOLACT 2021-10 Yes [id number] TAKE 1 [facility] ONE 25 mg 2-30 TABLET BY ity o f tablet 00:00: [facility] DAILY Medical Branch LISINOPRIL 2021-10 Yes [id number] 40mg TAKE 1 [facility] 40 mg 2-30 TABLET BY ity of tablet 00:00: [facility] DAILY Medical Branch CARVEDILOL 2021-10 Yes [id number] TAKE 1 [facility] 25 mg 2-30 TABLET BY ity of tablet 00:00: [facility] TWICE Medical DAILY WITH Branch MEALS SPIRONOLACT 2021-10- No [id number] TAKE 1 [facility] ONE 25 mg 2-30 05-15 TABLET BY ity of tablet 00:00: 00:00 [facility] 00 :00 DAILY Medical Branch LISINOPRIL 2021-10- No [id number] 40mg TAKE 1 [facility] 40 mg 2-30 05-15 TABLET BY ity of tablet 00:00: 00:00 [facility] 00 :00 DAILY Medical Branch CARVEDILOL 2021-10- No [id number] TAKE 1 [facility] 25 mg 2-30 05-15 TABLET BY ity of tablet 00:00: 00:00 MOUTH [place] 00 :00 TWICE Medical DAILY WITH Branch MEALS ATORVASTATI 2021-10- No [id number] 40mg TAKE 1 [facility] N 40 mg 2-30 05-15 TABLET BY ity of tablet 00:00: 00:00 MOUTH AT [place] 00 :00 BEDTIME Medical Branch SPIRONOLACT 2021-10- No [id number] TAKE 1 [facility] ONE 25 mg 2-30 05-15 TABLET BY ity of tablet 00:00: 00:00 MOUTH [place] 00 :00 DAILY Medical Branch LISINOPRIL 2021-10- No [id number] 40mg TAKE 1 [facility] 40 mg 2-30 05-15 TABLET BY it[facility] of tablet 00:00: 00:00 MOUTH [place] 00 :00 DAILY Medical Branch CARVEDILOL 2021-10- No [id number] TAKE 1 [facility] 25 mg 2-30 05-15 TABLET BY it[facility] of tablet 00:00: 00:00 MOUTH [place] 00 :00 TWICE Medical DAILY WITH Branch MEALS ATORVASTATI 2021-10- No [id number] 40mg TAKE 1 [facility] N 40 mg 2-30 05-15 TABLET BY ity of tablet 00:00: 00:00 MOUTH AT [place] 00 :00 BEDTIME Medical Branch SPIRONOLACT 2021-10- No [id number] TAKE 1 [facility] ONE 25 mg 2-30 05-15 TABLET BY it[facility] of tablet 00:00: 00:00 MOUTH [place] 00 :00 DAILY Medical Branch LISINOPRIL 2021-10- No [id number] 40mg TAKE 1 [facility] 40 mg 2-30 05-15 TABLET BY it[facility] of tablet 00:00: 00:00 MOUTH [place] 00 :00 DAILY Medical Branch CARVEDILOL 2021-10- No [id number] TAKE 1 [facility] 25 mg 2-30 05-15 TABLET BY it[facility] of tablet 00:00: 00:00 MOUTH [place] 00 :00 TWICE Medical DAILY WITH Branch MEALS ATORVASTATI 2021-10- No [id number] 40mg TAKE 1 [facility] N 40 mg 2-30 05-15 TABLET BY ity of tablet 00:00: 00:00 MOUTH AT [place] 00 :00 BEDTIME Medical Branch SPIRONOLACT 2021-10- No [id number] TAKE 1 [facility] ONE 25 mg 2-30 05-15 TABLET BY ity of tablet 00:00: 00:00 MOUTH [place] 00 :00 DAILY Medical Branch LISINOPRIL 2021-10- No [id number] 40mg TAKE 1 [facility] 40 mg 2-30 05-15 TABLET BY ity of tablet 00:00: 00:00 MOUTH [place] 00 :00 DAILY Medical Branch CARVEDILOL 2021-10- No [id number] TAKE 1 [facility] 25 mg 2-30 05-15 TABLET BY ity of tablet 00:00: 00:00 MOUTH [place] 00 :00 TWICE Medical DAILY WITH Branch MEALS ATORVASTATI 2021-10- No [id number] 40mg TAKE 1 [facility] N 40 mg 2-30 05-15 TABLET BY ity of tablet 00:00: 00:00 MOUTH AT [place] 00 :00 BEDTIME Medical Branch lisinopriL 2021-10 Yes [id number] 40mg TAKE 1 [facility] 40 mg 2-01 TABLET BY ity of tablet 00:00: MOUTH [place] DAILY Medical Branch spironolact 2021-10 Yes TAKE 1 [facility] ers one 25 mg 2-01 TABLET BY ity o f tablet 00:00: MOUTH [place] DAILY Medical Branch atorvastati 2021-10 Yes [id number] 40mg TAKE 1 [facility] n 40 mg 2-01 TABLET BY ity of tablet 00:00: MOUTH AT [place] BEDTIME Medical Branch carvediloL 2021-10 Yes [id number] TAKE 1 [facility] 25 mg 2-01 TABLET BY ity of tablet 00:00: MOUTH [place] TWICE Medical DAILY WITH Branch MEALS lisinopriL 2021-10 Yes [id number] 40mg TAKE 1 [facility] 40 mg 2-01 TABLET BY ity of tablet 00:00: MOUTH [place] DAILY Medical Branch spironolact 2021-10 Yes TAKE 1 [facility] ers one 25 mg 2-01 TABLET BY ity o f tablet 00:00: MOUTH [place] DAILY Medical Branch atorvastati 2021-10 Yes [id number] 40mg TAKE 1 [facility] n 40 mg 2-01 TABLET BY ity of tablet 00:00: MOUTH AT [place] BEDTIME Medical Branch carvediloL 2021-10 Yes [id number] TAKE 1 [facility] 25 mg 2-01 TABLET BY it[facility] of tablet 00:00: MOUTH [place] 00 TWICE Medical DAILY WITH Branch MEALS isosorbide 2021-10 Yes [id number] 30mg TAKE 1 [facility] mononitrate 1-29 TABLET BY ity of 30 mg 24 hr 00:00: MOUTH [place] tablet 00 DAILY Medical Branch amLODIPine 2021-10 Yes [id number] 10mg TAKE 1 [facility] 10 mg 1-29 TABLET BY it[facility] of tablet 00:00: MOUTH [place] DAILY Medical Branch isosorbide 2021-10 Yes [id number] 30mg TAKE 1 [facility] mononitrate 1-29 TABLET BY ity of 30 mg 24 hr 00:00: MOUTH [place] tablet 00 DAILY Medical Branch amLODIPine 2021-10 Yes [id number] 10mg TAKE 1 [facility] 10 mg 1-29 TABLET BY ity of tablet 00:00: MOUTH [place] DAILY Medical Branch isosorbide 2021-10 Yes [id number] 30mg TAKE 1 [facility] mononitrate 1-29 TABLET BY ity of 30 mg 24 hr 00:00: MOUTH [place] tablet DAILY Medical Branch amLODIPine 2021-10 Yes [id number] 10mg TAKE 1 [facility] 10 mg 1-29 TABLET BY ity of tablet 00:00: MOUTH [place] DAILY Medical Branch isosorbide 2021-10 Yes [id number] 30mg TAKE 1 [facility] mononitrate 1-29 TABLET BY ity of 30 mg 24 hr 00:00: MOUTH [place] tablet 00 DAILY Medical Branch amLODIPine 2021-10 Yes [id number] 10mg TAKE 1 [facility] 10 mg 1-29 TABLET BY ity of tablet 00:00: MOUTH [place] DAILY Medical Branch isosorbide 2021-10 Yes [id number] 30mg TAKE 1 [facility] mononitrate 1-29 TABLET BY ity of 30 mg 24 hr 00:00: MOUTH [place] tablet 00 DAILY Medical Branch amLODIPine 2021-10 Yes [id number] 10mg TAKE 1 [facility] 10 mg 1-29 TABLET BY ity of tablet 00:00: MOUTH [place] DAILY Medical Branch isosorbide 2021-10 Yes [id number] 30mg TAKE 1 [facility] mononitrate 1-29 TABLET BY ity of 30 mg 24 hr 00:00: MOUTH [place] tablet 00 DAILY Medical Branch amLODIPine 2021-10 Yes [id number] 10mg TAKE 1 [facility] 10 mg 1-29 TABLET BY ity of tablet 00:00: MOUTH [place] 00 DAILY Medical Branch isosorbide 2021-10- No [id number] 30mg TAKE 1 [facility] mononitrate 1-29 05-15 TABLET BY it y of 30 mg 24 hr 00:00: 00:00 MOUTH [place] tablet 00 :00 DAILY Medical Branch amLODIPine 2021-10- No [id number] 10mg TAKE 1 [facility] 10 mg 1-29 05-15 TABLET BY ity of tablet 00:00: 00:00 MOUTH [place] 00 :00 DAILY Medical Branch isosorbide 2021-10- No [id number] 30mg TAKE 1 [facility] mononitrate 1-29 05-15 TABLET BY it y of 30 mg 24 hr 00:00: 00:00 MOUTH [place] tablet 00 :00 DAILY Medical Branch amLODIPine 2021-10- No [id number] 10mg TAKE 1 [facility] 10 mg 1-29 05-15 TABLET BY ity of tablet 00:00: 00:00 MOUTH [place] 00 :00 DAILY Medical Branch isosorbide 2021-10- No [id number] 30mg TAKE 1 [facility] mononitrate 1-29 05-15 TABLET BY it y of 30 mg 24 hr 00:00: 00:00 MOUTH [place] tablet 00 :00 DAILY Medical Branch amLODIPine 2021-10- No [id number] 10mg TAKE 1 [facility] 10 mg 1-29 05-15 TABLET BY ity of tablet 00:00: 00:00 MOUTH [place] 00 :00 DAILY Medical Branch isosorbide 2021-10- No [id number] 30mg TAKE 1 [facility] mononitrate 1-29 05-15 TABLET BY it y of 30 mg 24 hr 00:00: 00:00 MOUTH [place] tablet 00 :00 DAILY Medical Branch amLODIPine 2021-10- No [id number] 10mg TAKE 1 [facility] 10 mg 1-29 05-15 TABLET BY ity of tablet 00:00: 00:00 MOUTH [place] 00 :00 DAILY Medical Branch ISOSORBIDE Yes [id number] 30mg TAKE 1 [facility] MONONITRATE 5-23 TABLET BY ity of 30 mg 24 hr 00:00: MOUTH [place] tablet 00 DAILY Medical Branch LISINOPRIL Yes [id number] 40mg TAKE 1 [facility] 40 mg 5-23 TABLET BY ity of tablet 00:00: MOUTH [place] DAILY Medical Branch SPIRONOLACT 2021-0 Yes TAKE 1 [facility] ers ONE 25 mg 5-23 TABLET BY ity o f tablet 00:00: MOUTH [place] DAILY Medical Branch ATORVASTATI 2021-0 Yes [id number] 40mg TAKE 1 [facility] N 40 mg 5-23 TABLET BY ity of tablet 00:00: MOUTH AT [place] 00 BEDTIME Medical Branch CARVEDILOL 2021-0 Yes [id number] TAKE 1 [facility] 25 mg 5-23 TABLET BY ity of tablet 00:00: MOUTH [place] TWICE Medical DAILY WITH Branch MEALS AMLODIPINE 2021-0 Yes [id number] 10mg TAKE 1 [facility] 10 mg 5-23 TABLET BY ity of tablet 00:00: MOUTH [place] DAILY Medical Branch ISOSORBIDE 2021-0 Yes [id number] 30mg TAKE 1 [facility] MONONITRATE 5-23 TABLET BY ity of 30 mg 24 hr 00:00: MOUTH [place] tablet 00 DAILY Medical Branch LISINOPRIL 2021-0 Yes [id number] 40mg TAKE 1 [facility] 40 mg 5-23 TABLET BY ity of tablet 00:00: MOUTH [place] DAILY Medical Branch SPIRONOLACT 2021-0 Yes TAKE 1 [facility] ers ONE 25 mg 5-23 TABLET BY ity o f tablet 00:00: MOUTH [place] DAILY Medical Branch ATORVASTATI 2021-0 Yes [id number] 40mg TAKE 1 [facility] N 40 mg 5-23 TABLET BY ity of tablet 00:00: MOUTH AT [place] 00 BEDTIME Medical Branch CARVEDILOL 2021-0 Yes [id number] TAKE 1 [facility] 25 mg 5-23 TABLET BY ity of tablet 00:00: MOUTH [place] TWICE Medical DAILY WITH Branch MEALS AMLODIPINE 2021-0 Yes [id number] 10mg TAKE 1 [facility] 10 mg 5-23 TABLET BY ity of tablet 00:00: MOUTH [place] 00 DAILY Medical Branch ISOSORBIDE 2021-0 Yes [id number] 30mg TAKE 1 [facility] MONONITRATE 5-23 TABLET BY ity of 30 mg 24 hr 00:00: MOUTH [place] tablet 00 DAILY Medical Branch LISINOPRIL 2021-0 Yes [id number] 40mg TAKE 1 [facility] 40 mg 5-23 TABLET BY ity of tablet 00:00: MOUTH [place] 00 DAILY Medical Branch SPIRONOLACT Yes TAKE 1 [facility] ers ONE 25 mg 5-23 TABLET BY ity o f tablet 00:00: [facility] 00 DAILY Medical Branch ATORVASTATI Yes [id number] 40mg TAKE 1 [facility] N 40 mg 5-23 TABLET BY ity of tablet 00:00: [facility] AT [place] 00 BEDTIME Medical Branch CARVEDILOL Yes [id number] TAKE 1 [facility] nivers 25 mg 5-23 TABLET BY ity of tablet 00:00: MOUTH [place] 00 TWICE Medical DAILY WITH Branch MEALS AMLODIPINE Yes [id number] 10mg TAKE 1 [facility] 10 mg 5-23 TABLET BY ity of tablet 00:00: [facility] 00 DAILY Medical Branch LISINOPRIL 2021- No [id number] 40mg TAKE 1 [facility] 40 mg 5-23 - TABLET BY ity of tablet 00:00: 00:00 [facility] 00 : DAILY Medical Branch SPIRONOLACT 2021- No TAKE 1 [facility] vers ONE 25 mg 5-23 09-20 TABLET BY ity of tablet 00:00: 00:00 [facility] 00 :00 DAILY Medical Branch ATORVASTATI 0 2021- No [id number] 40mg TAKE 1 [facility] N 40 mg 5-23 09-20 TABLET BY ity of tablet 00:00: 00:00 [facility] 00 :00 BEDTIME Medical Branch CARVEDILOL 0 2021- No [id number] TAKE 1 [facility] 25 mg 5-23 09-20 TABLET BY ity of tablet 00:00: 00:00 [facility] 00 :00 TWICE Medical DAILY WITH Branch MEALS ISOSORBIDE 2021- No [id number] 30mg TAKE 1 [facility] MONONITRATE 5-23 -29 TABLET BY it y of 30 mg 24 hr 00:00: 00:00 MOUTH [place] [facility] tablet [facility] :00 DAILY Medical Branch AMLODIPINE 0 2021- No [id number] 10mg TAKE 1 [facility] 10 mg 5-23 -29 TABLET BY ity of tablet 00:00: 00:00 [facility] 00 :00 DAILY Medical Branch hydrALAZINE 0 Yes [id number] 50mg Take 1 [facility] 50 mg 1-04 tablet by ity of tablet 00:00: mouth [place] 00 every 8 Medical (eight) Branch hours. hydrALAZINE 2-0 Yes [id number] 50mg Take 1 [facility] 50 mg 1-04 tablet by [facility] of tablet 00:00: mouth [place] 00 every 8 Medical (eight) Branch hours. hydrALAZINE 2-0 Yes [id number] 50mg Take 1 [facility] 50 mg 1-04 tablet by [facility] of tablet 00:00: mouth [place] 00 every 8 Medical (eight) Branch hours. hydrALAZINE 2021-0 Yes [id number] 50mg Take 1 [facility] 50 mg 1-04 tablet by [facility] of tablet 00:00: mouth [place] 00 every 8 Medical (eight) Branch hours. hydrALAZINE 2021-0 Yes [id number] 50mg Take 1 [facility] 50 mg 1-04 tablet by [facility] of tablet 00:00: mouth [place] 00 every 8 Medical (eight) Branch hours. hydrALAZINE 2021-0 Yes [id number] 50mg Take 1 [facility] 50 mg 1-04 tablet by [facility] of tablet 00:00: mouth [place] 00 every 8 Medical (eight) Branch hours. hydrALAZINE 2021-0 Yes [id number] 50mg Take 1 [facility] 50 mg 1-04 tablet by [facility] of tablet 00:00: mouth [place] 00 every 8 Medical (eight) Branch hours. hydrALAZINE 2021-0 Yes [id number] 50mg Take 1 [facility] 50 mg 1-04 tablet by [facility] of tablet 00:00: mouth [place] 00 every 8 Medical (eight) Branch hours. hydrALAZINE 2021-0 Yes [id number] 50mg Take 1 [facility] 50 mg 1-04 tablet by [facility] of tablet 00:00: mouth [place] 00 every 8 Medical (eight) Branch hours. hydrALAZINE 2021-0 Yes [id number] 50mg Take 1 [facility] 50 mg 1-04 tablet by [facility] of tablet 00:00: mouth [place] 00 every 8 Medical (eight) Branch hours. hydrALAZINE 2-0 Yes [id number] 50mg Take 1 [facility] 50 mg 1-04 tablet by [facility]y of tablet 00:00: mouth [place] 00 every 8 Medical (eight) Branch hours. hydrALAZINE 2-0 Yes [id number] 50mg Take 1 [facility] 50 mg 1-04 tablet by ity of tablet 00:00: mouth [place] 00 every 8 Medical (eight) Branch hours. hydrALAZINE Yes [id number] 50mg Take 1 Univers 50 mg 1-04 tablet by ity of tablet 00:00: mouth [place] 00 every 8 Medical (eight) Branch hours. hydrALAZINE 2022- No [id number] 50mg Take 1 Univers 50 mg 1-04 05-15 tablet by ity of tablet 00:00: 00:00 mouth [place] 00 :00 every 8 Medical (eight) Branch hours. hydrALAZINE 2022- No [id number] 50mg Take 1 Univers 50 mg 1-04 05-15 tablet by ity of tablet 00:00: 00:00 mouth [place] 00 :00 every 8 Medical (eight) Branch hours. hydrALAZINE 2022- No [id number] 50mg Take 1 Univers 50 mg 1-04 05-15 tablet by ity of tablet 00:00: 00:00 mouth [place] 00 :00 every 8 Medical (eight) Branch hours. hydrALAZINE 2022- No [id number] 50mg Take 1 Univers 50 mg 1-04 05-15 tablet by ity of tablet 00:00: 00:00 mouth [place] 00 :00 every 8 Medical (eight) Branch hours. spironolact 2020-10 Yes 25mg Take 25 mg Univers one 25 mg 2-21 by mouth ity of tablet 00:00: every [place] 00 morning. Medical Branch spironolact 2020-10 Yes 25mg Take 25 mg Univers one 25 mg 2-21 by mouth ity of tablet 00:00: every [place] 00 morning. Medical Branch spironolact 2020-10 Yes 25mg Take 25 mg Univers one 25 mg 2-21 by mouth ity of tablet 00:00: every [place] 00 morning. Medical Branch spironolact 2020-10 Yes 25mg Take 25 mg Univers one 25 mg 2-21 by mouth ity of tablet 00:00: every [place] 00 morning. Medical Branch spironolact 2020-10- No 25mg Take 25 mg Univers one 25 mg 2-21 05-23 by mouth ity o f tablet 00:00: 00:00 every [place] 00 :00 morning. Medical Branch carvediloL 2020-10 Yes [id number] 25mg Take 1 U nivers 25 mg 1-11 tablet by ity of tablet 00:00: mouth 2 [place] 00 (two) Medical times Branch daily with meals. amLODIPine 2020-10 Yes [id number] 10mg Take 1 U nivers 10 mg 1-11 tablet by ity of tablet 00:00: mouth [place] 00 daily. Medical Branch atorvastati 2020-10 Yes [id number] 40mg Take 1 Univers n 40 mg 1-11 tablet by ity of tablet 00:00: mouth at [place] 00 bedtime. Medical Branch isosorbide 2020-10 Yes [id number] 30mg Take 1 U nivers mononitrate 1-11 tablet by ity of 30 mg 24 hr 00:00: mouth [place] tablet 00 daily. Medical Branch lisinopriL 2020-10 Yes [id number] 40mg Take 1 U nivers 40 mg 1-11 tablet by ity of tablet 00:00: mouth [place] 00 daily. Medical Branch carvediloL 2020-10 Yes [id number] 25mg Take 1 U nivers 25 mg 1-11 tablet by ity of tablet 00:00: mouth 2 [place] 00 (two) Medical times Branch daily with meals. amLODIPine 2020-10 Yes [id number] 10mg Take 1 U nivers 10 mg 1-11 tablet by ity of tablet 00:00: mouth [place] 00 daily. Medical Branch atorvastati 2020-10 Yes [id number] 40mg Take 1 Univers n 40 mg 1-11 tablet by ity of tablet 00:00: mouth at [place] 00 bedtime. Medical Branch isosorbide 2020-10 Yes [id number] 30mg Take 1 U nivers mononitrate 1-11 tablet by ity of 30 mg 24 hr 00:00: mouth [place] tablet 00 daily. Medical Branch lisinopriL 2020-10 Yes [id number] 40mg Take 1 U nivers 40 mg 1-11 tablet by ity of tablet 00:00: mouth [place] 00 daily. Medical Branch carvediloL 2020-10 Yes [id number] 25mg Take 1 U nivers 25 mg 1-11 tablet by ity of tablet 00:00: mouth 2 [place] 00 (two) Medical times Branch daily with meals. amLODIPine 2020-10 Yes [id number] 10mg Take 1 U nivers 10 mg 1-11 tablet by ity of tablet 00:00: mouth [place] 00 daily. Medical Branch atorvastati 2020-10 Yes [id number] 40mg Take 1 Univers n 40 mg 1-11 tablet by ity of tablet 00:00: mouth at [place] 00 bedtime. Medical Branch isosorbide 2020-10 Yes [id number] 30mg Take 1 U nivers mononitrate 1-11 tablet by ity of 30 mg 24 hr 00:00: mouth [place] tablet 00 daily. Medical Branch lisinopriL 2020-10 Yes [id number] 40mg Take 1 U nivers 40 mg 1-11 tablet by ity of tablet 00:00: mouth [place] 00 daily. Medical Branch carvediloL 2020-10 Yes [id number] 25mg Take 1 U nivers 25 mg 1-11 tablet by ity of tablet 00:00: mouth 2 [place] 00 (two) Medical times Branch daily with meals. amLODIPine 2020-10 Yes [id number] 10mg Take 1 U nivers 10 mg 1-11 tablet by ity of tablet 00:00: mouth [place] 00 daily. Medical Branch atorvastati 2020-10 Yes [id number] 40mg Take 1 Univers n 40 mg 1-11 tablet by ity of tablet 00:00: mouth at [place] 00 bedtime. Medical Branch isosorbide 2020-10 Yes [id number] 30mg Take 1 U nivers mononitrate 1-11 tablet by ity of 30 mg 24 hr 00:00: mouth [place] tablet 00 daily. Medical Branch lisinopriL 2020-10 Yes [id number] 40mg Take 1 U nivers 40 mg 1-11 tablet by ity of tablet 00:00: mouth [place] 00 daily. Medical Branch carvediloL 2020-10- No [id number] 25mg Take 1 Univers 25 mg 1-11 05-23 tablet by ity of tablet 00:00: 00:00 mouth 2 [place] 00 :00 (two) Medical times Branch daily with meals. amLODIPine 2020-10- No [id number] 10mg Take 1 Univers 10 mg 1-11 05-23 tablet by ity of tablet 00:00: 00:00 mouth [place] 00 :00 daily. Medical Branch atorvastati 2020-10- No [id number] 40mg Take 1 Univers n 40 mg 1-11 05-23 tablet by ity of tablet 00:00: 00:00 mouth at [place] 00 :00 bedtime. Medical Branch isosorbide 2020-10- No [id number] 30mg Take 1 Univers mononitrate 10-31 tablet by it y of 30 mg 24 hr 00:00: 00:00 [place] tablet 00 :00 daily. Medical Branch lisinopriL 2020-10- No [id number] 40mg Take 1 Univers 40 mg 10-31 [...] Indication s: PAF aspirin 81 2020-0 Yes [id number] 81mg Take 1 U nivers mg EC 9-23 tablet by ity of tablet 00:00: mouth [place] 00 daily. Medical Branch aspirin 81 2020-0 Yes [id number] 81mg Take 1 U nivers mg EC 9-23 tablet by ity of tablet 00:00: mouth [place] 00 daily. Medical Branch aspirin 81 2020-0 Yes [id number] 81mg Take 1 U nivers mg EC 9-23 tablet by ity of tablet 00:00: mouth [place] 00 daily. Medical Branch aspirin 81 2020-0 Yes [id number] 81mg Take 1 U nivers mg EC 9-23 tablet by ity of tablet 00:00: mouth [place] 00 daily. Medical Branch aspirin 81 2020-0 Yes [id number] 81mg Take 1 U nivers mg EC 9-23 tablet by ity of tablet 00:00: mouth [place] 00 daily. Medical Branch aspirin 81 2020-0 Yes [id number] 81mg Take 1 U nivers mg EC 9-23 tablet by ity of tablet 00:00: mouth [place] 00 daily. Medical Branch aspirin 81 2020-0 Yes [id number] 81mg Take 1 U nivers mg EC 9-23 tablet by ity of tablet 00:00: mouth [place] 00 daily. Medical Branch aspirin 81 2020-0 Yes [id number] 81mg Take 1 U nivers mg EC 9-23 tablet by ity of tablet 00:00: mouth [place] 00 daily. Medical Branch aspirin 81 2020-0 Yes [id number] 81mg Take 1 U nivers mg EC 9-23 tablet by ity of tablet 00:00: mouth [place] 00 daily. Medical Branch aspirin 81 2020-0 Yes [id number] 81mg Take 1 U nivers mg EC 9-23 tablet by ity of tablet 00:00: mouth [place] 00 daily. Medical Branch aspirin 81 2020-0 Yes [id number] 81mg Take 1 U nivers mg EC 9-23 tablet by ity of tablet 00:00: mouth [place] 00 daily. Medical Branch aspirin 81 2020-0 Yes [id number] 81mg Take 1 U nivers mg EC 9-23 tablet by ity of tablet 00:00: mouth [place] 00 daily. Medical Branch aspirin 81 2020-0 Yes [id number] 81mg Take 1 U nivers mg EC 9-23 tablet by ity of tablet 00:00: mouth [place] 00 daily. Medical Branch aspirin 81 2020-0 Yes [id number] 81mg Take 1 U nivers mg EC 9-23 tablet by ity of tablet 00:00: mouth [place] 00 daily. Medical Branch aspirin 81 2020-0 Yes [id number] 81mg Take 1 U nivers mg EC 9-23 tablet by ity of tablet 00:00: mouth [place] 00 daily. Medical Branch aspirin 81 2020-0 Yes [id number] 81mg Take 1 U nivers mg EC 9-23 tablet by ity of tablet 00:00: mouth [place] 00 daily. Medical Branch aspirin 81 2020-0 Yes [id number] 81mg Take 1 U nivers mg EC 9-23 tablet by ity of tablet 00:00: mouth [place] 00 daily. Medical Branch aspirin 81 2020-0 Yes [id number] 81mg Take 1 U nivers mg EC 9-23 tablet by ity of tablet 00:00: mouth [place] 00 daily. Medical Branch aspirin 81 2020-0 Yes [id number] 81mg Take 1 U nivers mg EC 9-23 tablet by ity of tablet 00:00: mouth [place] 00 daily. Medical Branch aspirin 81 2020-0 Yes [id number] 81mg Take 1 U nivers mg EC 9-23 tablet by ity of tablet 00:00: mouth [place] 00 daily. Medical Branch aspirin 81 2020-0 Yes [id number] 81mg Take 1 U nivers mg EC 9-23 tablet by ity of tablet 00:00: mouth [place] 00 daily. Medical Branch aspirin 81 2020-0 Yes [id number] 81mg Take 1 U nivers mg EC 9-23 tablet by ity of tablet 00:00: mouth [place] 00 daily. Medical Branch aspirin 81 2020-0 Yes [id number] 81mg Take 1 U nivers mg EC 9-23 tablet by ity of tablet 00:00: mouth [place] 00 daily. Medical Branch aspirin 81 2020-0 Yes [id number] 81mg Take 1 U nivers mg EC 9-23 tablet by ity of tablet 00:00: mouth [place] 00 daily. Medical Branch aspirin 81 2020-0 Yes [id number] 81mg Take 1 U nivers mg EC 9-23 tablet by ity of tablet 00:00: mouth [place] 00 daily. Medical Branch aspirin 81 2020-0 Yes [id number] 81mg Take 1 U nivers mg EC 9-23 tablet by ity of tablet 00:00: mouth [place] 00 daily. Medical Branch aspirin 81 2020-0 Yes [id number] 81mg Take 1 U nivers mg EC 9-23 tablet by ity of tablet 00:00: mouth [place] 00 daily. Medical Branch aspirin 81 2020-0 Yes [id number] 81mg Take 1 U nivers mg EC 9-23 tablet by ity of tablet 00:00: mouth [place] 00 daily. Medical Branch aspirin 81 2020-0 Yes [id number] 81mg Take 1 U nivers mg EC 9-23 tablet by ity of tablet 00:00: mouth [place] 00 daily. Medical Branch aspirin 81 2020-0 Yes [id number] 81mg Take 1 U nivers mg EC 9-23 tablet by ity of tablet 00:00: mouth [place] 00 daily. Medical Branch aspirin 81 2020-0 Yes [id number] 81mg Take 1 U nivers mg EC 9-23 tablet by ity of tablet 00:00: mouth [place] 00 daily. Medical Branch aspirin 81 2020-0 Yes [id number] 81mg Take 1 U nivers mg EC 9-23 tablet by ity of tablet 00:00: mouth [place] 00 daily. Medical Branch aspirin 81 2020-0 Yes [id number] 81mg Take 1 U nivers mg EC 9-23 tablet by ity of tablet 00:00: mouth [place] 00 daily. Medical Branch aspirin 81 2020-0 Yes [id number] 81mg Take 1 U nivers mg EC 9-23 tablet by ity of tablet 00:00: mouth [place] 00 daily. Medical Branch aspirin 81 2020-0 Yes [id number] 81mg Take 1 U nivers mg EC 9-23 tablet by ity of tablet 00:00: mouth [place] 00 daily. Medical Branch aspirin 81 2020-0 Yes [id number] 81mg Take 1 U nivers mg EC 9-23 tablet by ity of tablet 00:00: mouth [place] 00 daily. Medical Branch aspirin 81 2020-0 Yes [id number] 81mg Take 1 U nivers mg EC 9-23 tablet by ity of tablet 00:00: mouth [place] 00 daily. Medical Branch aspirin 81 2020-0 Yes [id number] 81mg Take 1 U nivers mg EC 9-23 tablet by ity of tablet 00:00: mouth [place] 00 daily. Medical Branch aspirin 81 2020-0 Yes [id number] 81mg Take 1 U nivers mg EC 9-23 tablet by ity of tablet 00:00: mouth [place] 00 daily. Medical Branch aspirin 81 2020-0 Yes [id number] 81mg Take 1 U nivers mg EC 9-23 tablet by ity of tablet 00:00: mouth [place] 00 daily. Medical Branch aspirin 81 2020-0 Yes [id number] 81mg Take 1 U nivers mg EC 9-23 tablet by ity of tablet 00:00: mouth [place] 00 daily. Medical Branch aspirin 81 2020-0 Yes [id number] 81mg Take 1 U nivers mg EC 9-23 tablet by ity of tablet 00:00: mouth [place] 00 daily. Medical Branch aspirin 81 2020-0 Yes [id number] 81mg Take 1 U nivers mg EC 9-23 tablet by ity of tablet 00:00: mouth [place] 00 daily. Medical Branch cholecalcif 2020-0 202- No [id number] Take 2 Univers mg, 07-13 tablets by ity of vitamin D3, 00:00: 00:00 [place] 25 mcg 00 :00 daily. Medical (1,000 Branch unit) tablet cholecalcif 2021- No [id number] Take 2 Univers mg, 07-13 tablets by ity of vitamin D3, 00:00: 00:00 [place] 25 mcg 00 :00 daily. Medical (1,000 Branch unit) tablet Vital Signs Vital Name Observation Time Observation Value Comments Source Systolic blood 2023-05-03 16:36:00 130 mm[Hg] Univer sity of [facility] Diastolic blood 2023-05-03 16:36:00 80 [facility]-03 16:36:00 72 /min Universi ty [facility] [place] [facility] Body temperature 2023-05-03 16:36:00 36.89 Laly [facility] Body height 2023-05-03 16:36:00 180.3 cm Universi ty [facility] [place] [facility] Body weight 2023-05-03 16:36:00 143.881 kg Universi ty [facility] [place] [facility] BMI 2023-05-03 16:36:00 44.24 kg/m2 Universi ty [facility] [place] [facility] Oxygen saturation in 2023-05-03 16:36:00 96 /min [facility] Arterial blood by [facility] Pulse oximetry Branch Systolic blood 2023-04-19 15:35:00 125 [facility]Hg[facility] 2023-04-19 15:35:00 79 mm[Hg] Unive rsity [facility] Heart rate 2023-04-19 15:35:00 81 /min Universi ty [facility] [place] [facility] Respiratory rate 2023-04-19 15:35:00 18 /min [facility] Body height 2023-04-19 15:35:00 180.3 cm Universi ty [facility] [place] [facility] Body weight 2023-04-19 15:35:00 147.238 kg Universi ty [facility] [place] [facility] BMI 2023-04-19 15:35:00 45.27 kg/m2 Universi ty of [place] [facility] Oxygen saturation in 2023-04-19 15:35:00 97 /min University of Arterial blood by [facility] Pulse oximetry Branch Systolic blood 2023-04-15 14:31:00 132 mm[Hg] Univer sity of pressure [place] [facility] Diastolic blood 2023-04-15 14:31:00 67 mm[Hg] Unive rsity of pressure [place] [facility] Heart rate 2023-04-15 14:31:00 75 /min Universi ty of [place] [facility] Body temperature 2023-04-15 14:31:00 36.89 Laly Univ ersity of [place] [facility] Body height 2023-04-15 14:31:00 180.3 cm Universi ty of [place] [facility] Body weight 2023-04-15 14:31:00 142.883 kg Universi ty of [place] [facility] BMI 2023-04-15 14:31:00 43.93 kg/m2 Universi ty of [place] [facility] Oxygen saturation in 2023-04-15 14:31:00 96 /min University of Arterial blood by [facility] Pulse oximetry Branch Systolic blood 2023-03-04 19:37:00 138 mm[Hg] Univer sity of pressure [place] [facility] Diastolic blood 2023-03-04 19:37:00 84 mm[Hg] Unive rsity of pressure [place] [facility] Heart rate 2023-03-04 19:37:00 87 /min Universi ty of [place] [facility] Respiratory rate 2023-03-04 19:37:00 19 /min Univ ersity of [place] [facility] Body height 2023-03-04 19:37:00 180.3 cm Universi ty of [place] [facility] Body weight 2023-03-04 19:37:00 148.825 kg Universi ty of [place] [facility] BMI 2023-03-04 19:37:00 45.76 kg/m2 Universi ty of [place] [facility] Oxygen saturation in 2023-03-04 19:37:00 95 /min University of Arterial blood by [facility] Pulse oximetry Branch Systolic blood 2021-11-10 15:27:00 123 mm[Hg] Univer sity of pressure [place] [facility] Diastolic blood 2021-11-10 15:27:00 68 mm[Hg] Unive rsity of pressure [place] [facility] Heart rate 2021-11-10 15:27:00 73 /min [facility] Body height 2021-11-10 15:27:00 180.3 cm [facility] Body weight 2021-11-10 15:27:00 138.347 kg [facility] BMI 2021-11-10 15:27:00 42.54 kg/m2 [facility] Procedures Procedure Date / Time Performing Clinician Source Performed BASIC METABOLIC PANEL 2023-05-03 17:46:00 Rubina Francisco [facility] (NA, K, CL, CO2, GLUCOSE, Medica l Branch BUN, CREATININE, CA) N-TERMINAL PRO-BNP 2023-05-03 17:46:00 Rubina Francisco [facility] RADIOLOGY DOCUMENTATION 2023-04-12 05:01:00 Doctor Unajohn, [facility] Name [facility] ECG ROUTINE & RHYTHM 2023-03-04 19:40:15 Delia Cano [facility] ASSIGNMENT OF BENEFITS 2023-03-04 19:12:42 Doctor Unassandre, [facility] MEDICATION CORRESPONDENCE 2022-08-27 06:01:00 Doctor Eliecer, [facility] SARS-COV-2 COVID-19 2022-07-13 19:27:21 Doctor Eliecer, [facility] JEANIE-SUCROSE VACCINE 12 [facility] YRS+, BIVALENT 0.3ML, IM, (PFIZER LEON TOP BOOSTER) DME/SUPPLY JUSTIFICATION 2021-11-10 06:01:00 Doctor Eliecer, [facility] Encounters Start End Encounter Admission Attending Care Care Encounter Source Date/Time Date/Time Type Type Clinicians Facility Department ID 2021-08-21 Emergency [facility] [id number] Univers 23:37:17 ity [facility] [place] [facility] 2023-05-30 2023-05-30 Telephone JOHANNY Cano [id number] [facility] 00:00:00 00:00:00 Delia ROBERT 350.1.13.[address] 4.2.7.2.686 Cara PARADA [id number] [place] [id number] [facility] 2023-05-30 2023-05-30 [facility] 1.2.840.114 [id number] Univers 00:00:00 00:00:00 Delia Ferguson VICKITON 350.1.13.10 ity [facility] 4.2.7.2.686 [place] [id number] [place] 088029 [facility] 2023-05-14 2023-05-14 [facility] [id number] Univers 00:00:00 00:00:00 Rubina A HEALTH 350.1.13.10 i ty of [place] 4.2.7.2.686 Diogo as BRO?BLEA [id number] [address] MEDICAL OFFICE BUILDING 2023-05-10 2023-05-10 Mitzi [facility] 1.2.884.145 [id number] Univers 00:00:00 00:00:00 Rubina A HEALTH 350.1.13.10 i ty of [place] 4.2.7.2.686 Diogo as BRO?BLEA [id number] [address] MEDICAL OFFICE [facility] 2023-05-08 2023-05-08 Raymond [facility] 1.2.840.114 [id number] Univers 00:00:00 00:00:00 (Out) Cardiology HEALTH 350.1.13.10 ity of - [place]2.[place] [id number] [place] [address] Branch OFFICE BUILDING 2023-05-06 2023-05-06 [facility] LEA Montenegro 1.2.840.114 [id number] Univers 10:36:00 23:59:00 Encounter Paul Casper 350.1.13.10 ity of BUILDING 4.2.7.2.686 [place] as [id number] [address] 2023-05-06 2023-05-06 Outpatient R MONI [facility] ACO [id number] Univers 00:00:00 23:59:00 PAUL gongora of [facility] 2023-05-06 2023-05-06 Telephone [facility] [id number] Univers 00:00:00 00:00:00 Rubina A HEALTH 350.1.13.10 i ty of [place] 4.2.7.2.686 Diogo as BRO?BLEA [id number] [address] OFFICE [facility] 2023-05-05 2023-05-05 Refill [facility] 1.2.840.114 [id number] Univers 00:00:00 00:00:00 Rubina A HEALTH 350.1.13.10 i ty of [place] 4.2.7.2.686 Diogo as BRO?BLEA [id number] [address] OFFICE [facility] 2023-05-03 2023-05-03 Manager Credit Lab, Ang - Db [facility] 1.2.840.1 [id number] Univers 13:30:00 13:30:00 Visit Roman Rubina Hannah HEALTH 350.1.13.10 ity of [place] 4.2.7.2.686 Diogo as BRO?BLEA [id number] [address] OFFICE [facility] 2023-05-03 2023-05-03 [facility] [id number] Univers 13:30:00 12:59:00 RUBINA ity of [facility] 2023-05-03 2023-05-03 Office [facility] 1.2.840.114 [id number] Univers 11:30:00 12:58:21 Visit Rubina Hannah HEALTH 350.1.13.10 i ty of [place] 4.2.7.2.686 Diogo as BRO?BLEA [id number] [address] OFFICE [facility] 2023-04-22 2023-04-22 Manager Credit Lab, Ang - Db [facility] 1.2.840.1 [id number] Univers 11:30:00 11:45:00 Visit Kenzie Juares HEALTH 350.1.13.10 ity of [place] 4.2.7.2.686 Diogo as BRO?BLEA [id number] [address] OFFICE [facility] 2023-04-22 2023-04-22 Outpatient R MOR [facility] [id number] Univers 11:30:00 11:30:00 KENZIE gongora [facility] [place] [facility] 2023-04-20 2023-04-20 Telephone [facility] [id number] Univers 00:00:00 00:00:00 Kenzie HEALTH 350.1.13.10 it y of [facility] 4.2.7.2.686 Diogo as BRO?BLEA [id number] [address] OFFICE [facility] 2023-04-19 2023-04-19 Outpatient R MOR [facility] [id number] Univers 10:30:00 10:57:29 KENZIE gongora [facility] [place] [facility] 2023-04-19 2023-04-19 Office [facility] 1.2.840.114 [id number] Univers 10:30:00 10:57:29 Visit Kenzie [facility] 350.1.13.10 it y of [facility] 4.2.7.2.686 Diogo as BRO?BLEA [id number] [address] OFFICE [facility] 2023-04-18 2023-04-18 Telephone Rachael [facility] 1.2.994.571 [id number] Univers 00:00:00 00:00:00 Delia COHENSAURABH 350.1.13.10 ity [address] [facility] 4.2.7.2.[place] PROF[place] [id number] Hi tracey [facility] 059 [facility] 2023-04-16 2023-04-16 Telephone [facility] 1.2.276.000 [id number] Univers 00:00:00 00:00:00 Kenzie HEALTH 350.1.13.10 it y of [facility] 4.2.7.2.686 Diogo as BRO?BLEA [id number] [address] OFFICE [facility] 2023-04-15 2023-04-15 Manager Credit Lab, Ang - Db [facility] 1.2.840.1 14 [id number] Univers 10:15:00 10:30:00 Visit Mor Kenzie HEALTH 350.1.13.10 ity of [place] 4.2.7.2.686 Diogo as BRO?BLEA [id number] Hi tracey BRANDON [address] [facility] OFFICE [facility] 2023-04-15 2023-04-15 Outpatient R MOR [facility] [id number] Univers 09:30:00 10:05:42 KENZIE ity [facility] [place] [facility] 2023-04-15 2023-04-15 Office [facility] 1.2.840.114 [id number] Univers 09:30:00 10:05:42 Visit Kenzie [facility] 350.1.13.10 it y of [place] 4.2.7.2.686 Diogo as BRO?BLEA [id number] [facility] 044 [facility] OFFICE [facility] 2023-04-12 2023-04-12 Orders Doctor SALGUERO 1.2.840.114 [id number] Univers 00:00:00 00:00:00 Only Unassigned, LEOPOLDO 350.1.13.10 ity of [place] [facility] 4.2.7.2.686 Diogo as [id number] [address] 2023-04-12 2023-04-12 Telephone [facility] [id number] Univers 00:00:00 00:00:00 Rubina A HEALTH 350.1.13.10 i ty of [place] 4.2.7.2.686 Diogo as BRO?BLEA [id number] [facility] 044 [facility] OFFICE [facility] 2023-03-04 2023-03-04 Outpatient R RACHAEL [facility] [id number] Univers 14:00:00 15:55:42 SENDIL ity [facility] [place] [facility] 2023-03-04 2023-03-04 Office [facility] 1.2.840.114 [id number] Univers 14:00:00 15:55:42 Visit Delia ROBERT 350.1.13.10 ity of [place] 4[place] [id number] Hi tracey [facility] 059 [facility] 2023-03-04 2023-03-04 Orders Doctor SALGUERO 1.2.840.114 [id number] Univers 00:00:00 00:00:00 Only Unassigned, LEOPOLDO 350.1.13.10 [facility] 4.2.7.2.686 [place] as [id number] [address] 2023-01-18 2023-01-18 Outpatient R RACHAEL [facility] [id number] Univers 09:00:00 09:00:00 SENDIL ity of [facility] 2022-10-26 2022-10-26 Telephone [facility] [id number] Univers 00:00:00 00:00:00 Sendil Marty ROBERT 350.1.13.10 ity of [place] [id number] [address] 2022-10-19 2022-10-19 [facility] 1.2.840.114 [id number] Univers 00:00:00 00:00:00 Delia ROBERT 350.1.13.10 ity of [place] 4[place]2.[place] [id number] Hi dicky NAL 9 [facility] 2022-09-20 2022-09-20 [facility] 1.2.840.114 [id number] Univers 00:00:00 00:00:00 Delia ROBERT 350.1.13.10 ity of [place] 4[place]7.2.[place] [id number] Hi dicky NAL 9 [facility] 2022-09-16 2022-09-16 Refill [facility] 1.2.840.114 [id number] Univers 00:00:00 00:00:00 Delia ROBERT 350.1.13.10 ity of [place] 4[place]2.7.2.[place] [id number] Hi dicky NAL 9 [facility] 2022-08-27 2022-08-27 Orders Doctor JOSE M 1.2.840.114 [id number] Univers 00:00:00 00:00:00 Only Unassigned, LEOPOLDO 350.1.13.10 ity of [place] [facility] 4.2.7.2.686 Diogo as [id number] [facility] 009 Branch 2022-07-13 2022-07-13 Imm/Inj Vaccine, [facility] 1.2.840.114 [id number] Univers 14:00:00 14:10:[address] 350.1.13.10 ity of [place] 4[place].2.[place] PROFESSIO [phone] Hi dical NAL 044 [facility] 2022-07-13 2022-07-13 Outpatient R BYRON [facility] [id number] Univers 14:00:00 14:00:00 CARLITO gongora [facility] 2022-03-12 2022-03-12 Refill Rachael [facility] 1.2.840.114 [id number] Univers 00:00:00 00:00:00 Sendil Marty ROBERT [id number] ity [id number] [phone] Hi dical NAL 059 [facility] 2022-01-21 2022-01-21 Telephone JOSE M Cano [id number] [id number] Univers 00:00:00 00:00:00 Sendil Marty MINA [id number] ity of [facility] [id number] Diogo as [phone] [facility] [address] [place] 2022-01-19 2022-01-19 Outpatient R RACHAEL [facility] [id number] Univers 10:00:00 10:00:00 SENDIL itlissette [facility] 2022-01-19 2022-01-19 Outpatient R RACHAEL [facility] [id number] Univers 10:00:00 10:00:00 SENDIL itlissette [facility] 2021-11-10 2021-11-10 Outpatient R RACHAEL [facility] [id number] Univers 09:00:00 09:52:02 SENDIL itlissette [facility] 2021-11-10 2021-11-10 Office Rachael KYEMPERATRIZ 1.2.840.114 [id number] Univers 09:00:00 09:52:02 Visit Delia ROBERT [id number] ity [facility] [place] [phone] [facility] 059 [facility] 2021-11-10 2021-11-10 Orders Doctor JOSE M 1.2.840.114 [id number] Univers 00:00:00 00:00:00 Only Unassigned, LEOPOLDO [id number] ity of [place] [facility] 4.2.7.2.686 Diogo as [phone] [address] 2021-10-24 2021-10-24 Telephone [facility] [id number] Univers 00:00:00 00:00:00 Delia ROBERT [id number] ity of [place] [phone] [place] 088029 [facility] 2021-10-24 2021-10-24 [facility] [id number] [facility] 00:00:00 00:00:00 Saranya ROBERT [id number] ity of [place] [phone] [place] 088029 [facility] 2021-10-05 2021-10-05 Outpatient R RACHAEL [facility] [id number] Univers 14:47:27 23:59:00 SENDIL ity of [facility] 2021-10-05 2021-10-05 [facility] 1.2.840.114 [id number] Univers 14:47:27 23:59:00 Encounter Delia ROBERT [id number] it[place] [phone] [facility] 843 [facility] 2021-09-27 2021-09-27 Telephone [facility] [id number] Univers 00:00:00 00:00:00 Sendil [facility] [id number] ity of [place] [phone] Hi dicky NAL [address] [place] [address] 2021-09-24 2021-09-24 [facility] 1.2.840.114 [id number] Univers 00:00:00 00:00:00 Sendil Marty ROBERT [id number] ity of [place] [phone] [facility] NAL [address] [place] [address] 2021-08-31 2021-08-31 [facility] [id number] Univers 14:00:00 14:32:22 SENDIL ity of [facility] 2021-08-31 2021-08-31 Office [facility] 1.2.840.114 [id number] Univers 13:45:53 14:32:22 Visit Delia ROBERT [id number] ity [facility] 4.[place].2.[place] [phone] [address] 2021-08-31 2021-08-31 [facility] [id number] Univers 14:00:00 14:00:00 SENDIL ity of [facility] 2021-08-30 2021-08-30 Telephone [facility] [id number] Univers 00:00:00 00:00:00 Delia ROBERT [id number] ity of [place] [phone] Hi dicky NAL [address] [place] [address] 2021-08-25 2021-08-25 Manager Credit Jeny, [facility] 1.2.8 40.114 [id number] Univers 14:17:20 14:32:20 Visit Delia Cano 350.1.13. 10 ity of [place] [phone] Me dical NAL 353 [facility] 2021-08-25 2021-08-25 Outpatient R RACHAEL [facility] [id number] Univers 14:15:00 14:15:00 SENDIL fransisca [facility] 2021-08-25 2021-08-25 Outpatient R JONNA [facility] [id number] Univers 10:40:00 10:21:07 JOURDAN gongora [facility] 2021-08-25 2021-08-25 Imm/Inj Nurse, Adc Pob Immunization [facility] 1.2.840.114 [id number] Univers 10:20:41 10:21:07 Visit Jourdan Coyle 350.1.13 .10 ity of [place] [phone] [facility] 421 [facility] 2021-08-25 2021-08-25 Telephone JOSE M Cano 1.2.319.290 [id number] Univers 00:00:00 00:00:00 Sendcyndie MINA 350.1.13.10 ity of [facility] 4.2.7.2.686 [place] as [phone] [facility] [address] [place] 2021-08-25 2021-08-25 Orders Doctor JOSE M 1.2.840.114 [id number] Univers 00:00:00 00:00:00 Only Unassigned, LEOPOLDO 350.1.13.10 ity of [place] [facility] 4.2.7.2.686 Diogo as [phone] [facility] [address] [place] 2021-08-02 2021-08-02 Office Rachael [facility] 1.2.840.114 [id number] Univers 13:38:33 14:09:24 Visit Delia ROBERT 350.1.13.10 ity of [place] [phone] Hi dicky NAL 059 [facility] 2021-08-02 2021-08-02 Outpatient R RACHAEL [facility] [id number] Univers 13:30:00 14:09:24 SENDIL itlissette [facility] 2021-08-02 2021-08-02 Outpatient R RACHAEL [facility] [id number] Univers 13:30:00 13:30:00 SENDIL ity of [facility] 2021-08-02 2021-08-02 Patient [facility] 1.2.840.114 [id number] Univers 00:00:00 00:00:00 Outreach Taina Robert 350.1.13.10 ity of [place] Profess[place] [phone] [place] [address]189 [facility] 2021-08-02 2021-08-02 Patient [facility] 1.2.840.114 [id number] Univers 00:00:00 00:00:00 Outreach Taina Robert 350.1.13.10 ity of [place] Profess[place] [phone] [address] 2021-07-27 2021-07-27 Office [facility] 1.2.840.114 [id number] Univers 10:49:45 13:13:58 Visit Rubina Hannah [facility] 350.1.13.10 i ty of [place] 4.2.7.2.686 [place] as Bro?Blea [phone] [address] Office [facility] 2021-07-27 2021-07-27 Outpatient [facility] [id number] Univers 11:00:00 11:00:00 RUBINA gongora of [facility] 2021-07-27 2021-07-27 Orders Doctor JOSE M 1.2.840.114 [id number] Univers 00:00:00 00:00:00 Only Unassigned, LEOPOLDO 350.1.13.10 ity of [place] [facility] 4.2.7.2.686 Di[place] as [phone] [facility] [address] [place] 2021-07-14 2021-07-14 Transition Gail Hines 1.2.840.114 [id number] Univers 00:00:00 00:00:00 of Care Peg Varghesey 350.1.13.10 i ty of [place] [id number] [facility] [address] 2021-07-08 2021-07-12 Hospital Karoline White [facility] 1.2.840. 114 [id number] Univers 12:53:00 16:30:00 Encounter Manuel Akers 350.1.13.10 ity of [place] [phone] [facility] [address] 2021-06-13 2021-06-13 Nurse Therapy, Everette Zarate [facility] 1.2. 840.114 [id number] Univers 11:24:52 12:24:52 [facility] 350.1.13.10 ity of [place] 4.2.7.2.686 [place] Bro?Blea [phone] [address] Medical Office [facility] 2021-06-13 2021-06-13 Outpatient R [facility] [id number] Univers 11:30:00 11:30:00 ity [facility] 2021-06-13 2021-06-13 Orders Doctor SALGUERO 1.2.840.114 [id number] Univers 00:00:00 00:00:00 Only Unassigned, LEOPOLDO 350.1.13.10 ity of [place] [facility] 4.2.7.2.686 Diogo as [phone] [facility] [address] 2021-06-11 2021-06-11 Outpatient R [facility] [id number] Univers 17:30:00 17:30:00 ity [facility] 2021-06-05 2021-06-05 Outpatient R [facility] [id number] Univers 09:10:00 09:10:00 ity [facility] 2020-12-23 2020-12-23 [facility] [id number] Univers 10:15:00 10:15:00 RADHA [facility] 2020-12-02 2020-12-02 Out[facility] [id number] Univers 10:20:00 10:20:00 PATRICIA [facility] 2020-11-25 2020-11-25 Office [facility] 1.2.840.114 [id number] 09:11:35 09:46:46 Visit Rubina Hannah NemeriX 350.1.13.10 [place] 4.2.7.2.686 karonfito [phone] nal [address] 2020-11-25 2020-11-25 Outpatient Margarette FRANCISCO, [facility] [id number] Univers 09:00:00 09:00:00 RUBINA [facility] 2020-05-05 2020-05-05 Outpatient Margarette CANO, [facility] [id number] Univers 14:00:00 14:00:00 MIRIANCYNDIE [facility] 2020-05-03 2020-05-03 Outpatient Margarette HERIBERTO, [facility] [id number] Univers 13:15:00 13:15:00 OBED [facility] Results Test Description Test Time Test Comments Results Result Comments Source BASIC METABOLIC PANEL (NA, K, CL, CO2, GLUCOSE, BUN, 2023-04 22:17:27 CREATININE, CA) Test Item Value Reference Range Interpretation Comme nts NA (test code = 3308348489) 142 mmol/L 135-145 K (test code = 0940312898) 4.4 mmol/L 3.5-5.0 CL (test code = 0025571286) 106 mmol/L 98-108 CO2 TOTAL (test code = 4841269404) 26 mmol/L 23-31 AGAP (test code = 7054737614) 10 2-16 BUN (test code = 5033870607) 25 mg/dL 7-23 H GLUCOSE (test code = 4209913571) 80 mg/dL 70-110 CREATININE (test code = 1.40 mg/dL 0.60-1.25 H 5649514512) CALCIUM (test code = 8943770056) 9.1 mg/dL 8.6-10.6 eGFR (test code = 4173008280) 50.9 mL/min/1.73m2 JUANITO (test code = JUANITO) Association of Glomerular Filtration Rate (GFR) and Staging of Kidney Disease* + +-------- + ------+| GFR (mL/min/1.73 m2) ?| With Kidney Damage ?| ?Without Kidney Damage+ +-- + +| ?>90 ?| ?Stage one ?| ? Normal ?+ +------- + -------+| ?60-89 ?| ?Stage two ?| ? Decreased GFR ? + +-------- + ------+| ?30-59 ?| ?Stage three ?| ? Stage three ? + +-------- + ------+| ?15-29 ?| ?Stage four ? | ? Stage four ?+ +------- + -------+| ?<15 (or dialysis) ? ?| ?Stage five ? | ? Stage five ?+ +------- + -------+ *Each stage assumes the associated GFR level has been in effect for at least three months. ?Stages 1 to 5, with or without kidney disease, indicate chronic kidney disease. Notes: Determination of stages one and two (with eGFR >59mL/min/1.73 m2) requires estimation of kidney damage for at least three months as defined by structural or functional abnormalities of the kidney, manifested by either:Pathological abnormalities or Markers of kidney damage (including abnormalities in the composition of the blood or urine or abnormalities in imaging tests). Lab Interpretation (test code = Abnormal 09193-9) [facility] [id number] 22:17:27 Test Item Value Reference Range Interpretation Comments NT-proBNP (test code = 435 pg/mL <=125 72217-0) JUANITO (test code = JUANITO) Result Indeterminate-Consid er causes of NT-proBNP elevation other than Heart failure such as acute coronary syndrome, pulmonary embolism, pulmonary hypertension, sepsis, stroke, and renal dysfunction. Lab Interpretation (test Abnormal code = 74034-1) [facility] MET[facility]OLIC PANEL (NA, K, CL, CO2, GLUCOSE, BUN, CREATININE, CA)2023-05-03 22:17:27 Test Item Value Reference Range Interpretation Comments NA (test code = 142 mmol/L 135-145 3999110077) K (test code = 4.4 mmol/L 3.5-5.0 6648806279) CL (test code = 106 mmol/L 98-108 0084002745) CO2 TOTAL (test code = 26 mmol/L 23-31 6254652118) AGAP (test code = 10 2-16 2782591660) BUN (test code = 25 mg/dL 7-23 H 0419143160) GLUCOSE (test code = 80 mg/dL 70-110 5602890710) CREATININE (test code = 1.40 mg/dL 0.60-1.25 H 4391035138) CALCIUM (test code = 9.1 mg/dL 8.6-10.6 6442371364) eGFR (test code = 50.9 mL/min/1.73m2 8118596451) JUANITO (test code = JUANITO) Association of Glomerular Filtration Rate (GFR) and Staging of Kidney Disease* + --+ --+ ------+| GFR (mL/min/1.73 m2) ?| With Kidney Damage ?| ?Without Kidney Damage+ --------+ --------+ +| ?>90 ?| ?Stage one ?| ? Normal ?+ ---+ ---+ -------+| ?60-89 ?| ?Stage two ?| ? Decreased GFR ? + --+ --+ ------+| ?30-59 ?| ?Stage three ?| ? Stage three ? + --+ --+ ------+| ?15-29 ?| ?Stage four ? | ? Stage four ?+ ---+ ---+ -------+| ?<15 (or dialysis) ? ?| ?Stage five ? | ? Stage five ?+ ---+ ---+ -------+ *Each stage assumes the associated GFR level has been in effect for at least three months. ?Stages 1 to 5, with or without kidney disease, indicate chronic kidney disease. Notes: Determination of stages one and two (with eGFR >59mL/min/1.73 m2) requires estimation of kidney damage for at least three months as defined by structural or functional abnormalities of the kidney, manifested by either:Pathological abnormalities or Markers of kidney damage (including abnormalities in the composition of the blood or urine or abnormalities in imaging tests). Lab Interpretation Abnormal (test code = 24568-0) [facility] [id number] 22:17:27 Test Item Value Reference Range Interpretation Comments NT-proBNP (test code = 435 pg/mL <=125 32583-4) JUANITO (test code = JUANITO) Result Indeterminate-Consid er causes of NT-proBNP elevation other than Heart failure such as acute coronary syndrome, pulmonary embolism, pulmonary hypertension, sepsis, stroke, and renal dysfunction. Lab Interpretation (test Abnormal code = 43760-5) [facility]"
[2023-08-10 21:14] LABS: Absolute Lymphocytes (CBC) 1.1 K/uL (0.7-4.9); Hematocrit 37.5 % (39.6-49.0); Lymphocytes % 12.5 % (15.3-44.8); MCV 95.3 fL (80-100); MPV 8.3 fL (7.6-11.3); Platelets 269 thou/uL (152-406); RBC Red Blood Cell Count 3.94 M/uL (4.33-5.43)
[2023-08-10] MEDS ORDERED: dilTIAZem HCL 25 MG/5 ML VIAL IV ONE (21:17)
[2023-08-10 21:19] LABS: Protime INR 1.46
[2023-08-10 21:45] LABS: Albumin 3.2 g/dL (3.4-5.0); Bilirubin Direct 0.4 mg/dL (0-0.2); Bilirubin Indirect, Calculated 1.5 mg/dL (0.2-0.8); Bilirubin Total 1.9 mg/dL (0.2-1.0); Magnesium 2.3 mg/dL (1.6-2.4); Potassium 3.7 mEq/L (3.5-5.1); Protein, Total 7.7 g/dL (6.4-8.2); Troponin High Sensitivity 26.9 pg/mL (<58.9)
--- NOTE | 2023-08-10 22:24 | ER ---
Nurse's Notes [facility] Name: Don Connolly Age: 67 yrs Sex: Male : 1955 Arrival Date: 08/10/2023 Time: 20:22 Bed 15 Private MD: Diagnosis: Heart failure, unspecified;Atrial Fibrillation with RVR;Essential (primary) hypertension Presentation: 08/10 20:42 Chief complaint: Patient states: he has been experiencing shortness of breath today. ap3 at the bedside reports the patient has also been "very sweaty". Coronavirus screen: At this time, the client does not indicate any symptoms associated with coronavirus-19. Ebola Screen: No symptoms or risks identified at this time. Initial Sepsis Screen: Does the patient meet any 2 criteria? HR > 90 bpm. Does the patient have a suspected source of infection? No. Patient's initial sepsis screen is negative. Risk Assessment: Do you want to hurt yourself or someone else? Patient reports no desire to harm self or others. Onset of symptoms was August 10, 2023. 20:42 Method Of Arrival: Wheelchair ap3 20:42 Acuity: JITENDRA 2 ap3 Triage Assessment: 20:44 General: Appears distressed, Behavior is calm, cooperative, appropriate for age. Pain: ap3 Denies pain. Neuro: Level of Consciousness is awake, alert, obeys commands, Oriented to person, place, time, situation. Cardiovascular:. Cardiovascular: Rhythm is atrial fibrillation with rapid ventricular response. Respiratory: Reports shortness of breath Onset: The symptoms/episode began/occurred today, the patient has moderate shortness of breath. Derm: Skin is diaphoretic. Historical: - Allergies: 20:44 No Known Allergies; ap3 - Home Meds: 20:44 Eliquis oral [Active]; ap3 - PMHx: 20:44 Hypertensive disorder; Atrial fibrillation; ap3 - Immunization history:: Client reports receiving the 2nd dose of the Covid vaccine, Flu vaccine is not up to date. - Social history:: Smoking status: Patient denies any tobacco usage or history of. Screenin:45 [facility] ED Fall Risk Assessment (Adult) History of falling in the last 3 months, ap3 including since admission No falls in past 3 months (0 pts). Abuse screen: Denies threats or abuse. Nutritional screening: No deficits noted. Tuberculosis screening: No symptoms or risk factors identified. Assessment: 20:45 Respiratory: Airway is patent. ap3 21:00 Cardiovascular: Rhythm is atrial fibrillation with rapid ventricular response. nw1 Respiratory: Respiratory effort is labored, Breath sounds are diminished. 23:43 Reassessment: Report attempted, called [id number] for Roman x2, no answer. Will call nw1 back and attempt report. Vital Signs: 20:30 BP 225 / 114; Pulse 118; Resp 19; Pulse Ox 93% ; nw1 20:42 BP 191 / 130; Pulse 126; Resp 22; Temp 98.4(O); Pulse Ox 99% ; Weight 145.15 kg; ap3 21:00 BP 184 / 107; Pulse 108; Resp 19; Pulse Ox 94% ; nw1 21:30 BP 159 / 91; Pulse 80; Pulse Ox 94% ; nw1 21:57 BP 177 / 107; Pulse 96; Pulse Ox 94% ; nw1 22:15 BP 154 / 96; Pulse 85; Resp 23; Pulse Ox 95% ; nw1 22:38 BP 175 / 96; Pulse 95; Resp 22; Pulse Ox 95% ; nw1 23:00 BP 205 / 129; Pulse 84; Resp 15; nw1 23:30 BP 169 / 87; Pulse 84; Resp 21; Pulse Ox 95% ; nw1 08/11 00:00 BP 173 / 98; Pulse 88; Resp 21; Pulse Ox 96% ; nw1 00:00 vs given in report to roman malloy ED Course: 08/10 20:23 Patient arrived in ED. ag3 20:36 Levi Eli DO is Attending Physician. ms3 20:42 Kathy An, RN is Primary Nurse. nw1 20:42 EKG done, by ED staff, reviewed by Levi Eli DO. ap3 20:44 Triage completed. ap3 20:45 Arm band placed on right wrist. ap3 20:45 Patient has correct armband on for positive identification. Bed in low position. Call ap3 light in reach. electro mechanical assembler on. Pulse ox on. NIBP on. 20:47 Inserted saline lock: 20 gauge in right antecubital area, using aseptic technique. km8 Blood collected. 20:58 Basic Metabolic Panel Sent. nw1 20:58 LFT's Sent. nw1 20:58 Magnesium Sent. nw1 20:58 NT PRO-BNP Sent. nw1 20:58 Troponin HS Sent. nw1 20:58 PT-INR Sent. nw1 21:26 Basic Metabolic Panel Sent. nw1 21:27 LFT's Sent. nw1 21:27 Magnesium Sent. nw1 22:12 XRAY Chest (1 view) In Process Unspecified. EDMS 22:23 Marlon Guthrie is Hospitalizing Provider. ms3 22:39 Provided Education on: plan of care and medication administration information. nw1 23:09 No provider procedures requiring assistance completed. nw1 08/11 00:02 pt being admitted. No discontinuation of IV warranted at this time. nw1 Administered Medications: 08/10 21:27 Drug: Diltiazem IVP 20 mg IVP once; Over 2 minutes Route: IVP; Site: left antecubital; nw1 23:09 Follow up: Response: No adverse reaction nw1 22:36 Drug: Furosemide IVP 40 mg IVP once; give over 2 minutes Route: IVP; Site: right nw antecubital; 23:09 Follow up: Response: No adverse reaction nw1 Medication: 22:00 VIS not applicable for this client. nw1 Output: 22:41 Urine: 900ml; Total: 900ml. nw1 23:45 Urine: 900ml; Total: 1800ml. nw1 08/11 00:00 Urine: 950ml; Total: 2750ml. nw1 Outcome: 08/10 22:23 Decision to Hospitalize by Provider. ms3 23:10 Condition: improved nw1 08/11 00:01 Admitted to Tele accompanied by [facility], room 225, Report called to Roman, 225 nurse nw1 Instructed on the need for admit, Demonstrated understanding of instructions, 00:07 Patient left the ED. nw1 Signatures: Dispatcher [employer] EDMS María Rollins, RN RN [email or web address] Anna Dennison ag3 Levi Eli DO DO ms3 Stephie Puga, LAN RN km8 Kathy nA, RN RN nw1
--- NOTE | 2023-08-10 22:24 | EDPHYS ---
Physician Documentation [facility] Name: Don Connolly Age: 67 yrs Sex: Male : 1955 Arrival Date: 08/10/2023 Time: 20:22 Bed 15 Private MD: ED Physician Levi Eli HPI: 08/10 22:23 This 67 yrs old Black Male presents to ER via Wheelchair with complaints of Shortness ms3 Of Breath. 22:23 67-year-old male with past medical history of hypertension and atrial fibrillation ms3 presents for shortness of breath, diaphoresis that has been ongoing all day. Patient denies pain, nausea, vomiting. Patient denies any alleviating or inciting factors. Historical: - Allergies: 20:44 No Known Allergies; ap3 - Home Meds: 20:44 Eliquis oral [Active]; ap3 - PMHx: 20:44 Hypertensive disorder; Atrial fibrillation; ap3 - Immunization history:: Client reports receiving the 2nd dose of the Covid vaccine, Flu vaccine is not up to date. - Social history:: Smoking status: Patient denies any tobacco usage or history of. ROS: 22:23 Constitutional: Negative for fever, and chills. Neck: Negative for injury, pain, and ms3 swelling, Cardiovascular: Negative for chest pain, and palpitations. 22:23 Respiratory: Positive for shortness of breath, 22:23 MS/extremity: Positive for swelling, 22:23 All other systems are negative, Exam: 22:23 Constitutional: This is a well developed, well nourished patient who is awake, alert, ms3 and in no acute distress. Head/Face: Normocephalic, atraumatic. Chest/axilla: Normal chest wall appearance and motion. Nontender with no deformity. Cardiovascular: Regular rate and rhythm with a normal S1 and S2. No gallops, murmurs, or rubs. Normal PMI, no JVD. No pulse deficits. Respiratory: Lungs have equal breath sounds bilaterally, clear to auscultation and percussion. No rales, rhonchi or wheezes noted. No increased work of breathing, no retractions or nasal flaring. Abdomen/GI: Soft, non-tender, with normal bowel sounds. No distension or tympany. No guarding or rebound. No evidence of tenderness throughout. Skin: Warm, dry with normal turgor. Normal color with no rashes, no lesions, and no evidence of cellulitis. 22:23 Cardiovascular: Edema: 2+ edema to level of left midcalf, left ankle, right midcalf and right ankle, 22:23 Musculoskeletal/extremity: 22:29 ECG was reviewed by the Attending Physician. ms3 Vital Signs: 20:30 BP 225 / 114; Pulse 118; Resp 19; Pulse Ox 93% ; nw1 20:42 BP 191 / 130; Pulse 126; Resp 22; Temp 98.4(O); Pulse Ox 99% ; Weight 145.15 kg; ap3 21:00 BP 184 / 107; Pulse 108; Resp 19; Pulse Ox 94% ; nw1 21:30 BP 159 / 91; Pulse 80; Pulse Ox 94% ; nw1 21:57 BP 177 / 107; Pulse 96; Pulse Ox 94% ; nw1 22:15 BP 154 / 96; Pulse 85; Resp 23; Pulse Ox 95% ; nw1 22:38 BP 175 / 96; Pulse 95; Resp 22; Pulse Ox 95% ; nw1 23:00 BP 205 / 129; Pulse 84; Resp 15; nw1 23:30 BP 169 / 87; Pulse 84; Resp 21; Pulse Ox 95% ; nw1 08/11 00:00 BP 173 / 98; Pulse 88; Resp 21; Pulse Ox 96% ; nw1 00:00 vs given in report to roman malloy MDM: 08/10 20:36 Patient medically screened. ms3 22:23 Differential diagnosis: CHF exacerbation, Myocardial Infarction pneumonia. Antibiotic ms3 administration: Not indicated. Data reviewed: vital signs, nurses notes, lab test result(s), EKG, radiologic studies, and as a result, I will admit patient. Consideration of Admission/Observation Patient was admitted/placed on observation. Management of patient was discussed with the following: Hospitalist: Discussed case with Donny Danielle NP on behalf of Dr Guthrie. I considered the following discharge prescriptions or medication management in the emergency department Medications were administered in the Emergency Department. See MAR. Independent interpretation of the following test(s) in the Emergency Department EKG: See my EKG interpretation above X-Ray: My interpretation is CXR image reviewed shows pulmonary edema. Historians other than the Patient: Spouse/Significant Other: Patient's . Care significantly affected by the following chronic conditions: Hypertension, Atrial Fibrillation. Counseling: I had a detailed discussion with the patient and/or guardian regarding the historical points, exam findings, and any diagnostic results supporting the discharge/admit diagnosis, lab results, radiology results, the need for further work-up and treatment in the hospital. Response to treatment: the patient's symptoms have markedly improved after treatment. ED course: Patient heart rate improved after 20 mg Cardizem IV. Patient's shortness of breath improved with decrease in patient's heart rate. Chest x-ray shows pulmonary edema and 40 mg Lasix IV ordered. Discussed case with Tressa Danielle, nurse practitioner and she accepts patient on behalf of Dr. Guthrie. 08/10 20:48 Order name: Basic Metabolic Panel; Complete Time: 21:49 ms3 08/10 20:48 Order name: CBC with Diff; Complete Time: 21:49 ms3 08/10 20:48 Order name: LFT's; Complete Time: 21:49 ms3 08/10 20:48 Order name: Magnesium; Complete Time: 21:49 ms3 08/10 20:48 Order name: NT PRO-BNP; Complete Time: 21:49 ms3 08/10 20:48 Order name: PT-INR; Complete Time: 21:49 ms3 08/10 20:48 Order name: Troponin HS; Complete Time: 21:49 ms3 08/10 20:48 Order name: XRAY Chest (1 view); Complete Time: 22:42 ms3 08/10 20:48 Order name: EKG; Complete Time: 20:49 ms3 08/10 22:55 Order name: CONS Physician Consult EDMS 08/10 20:48 Order name: Cardiac monitoring; Complete Time: 20:58 ms3 08/10 20:48 Order name: EKG - Nurse/Tech; Complete Time: 21:26 ms3 08/10 20:48 Order name: IV Saline Lock; Complete Time: 20:58 ms3 08/10 20:48 Order name: Labs collected and sent; Complete Time: 20:58 ms3 08/10 20:48 Order name: O2 Per Protocol; Complete Time: 20:58 ms3 08/10 20:48 Order name: O2 Sat Monitoring; Complete Time: 21:26 ms3 EC:29 Rate is 116 beats/min. Rhythm is irregularly irregular. Right axis deviation noted. QRS ms3 interval is prolonged. Clinical impression: Atrial fibrillation with RVR. Interpreted by me. Reviewed by me. Administered Medications: 21:27 Drug: Diltiazem IVP 20 mg IVP once; Over 2 minutes Route: IVP; Site: left antecubital; nw1 23:09 Follow up: Response: No adverse reaction nw1 22:36 Drug: Furosemide IVP 40 mg IVP once; give over 2 minutes Route: IVP; Site: right nw1 antecubital; 23:09 Follow up: Response: No adverse reaction nw1 Disposition: 22:29 Critical Care:. ms3 Disposition Summary: 08/10/23 22:23 Hospitalization Ordered Notes: Hospitalization Status: Inpatient Admission ms3 Provider: Marlon Guthrie ms3 Location: Telemetry/MedSurg (Inpatient) ms3 Condition: Stable ms3 Problem: new ms3 Symptoms: are unchanged ms3 Bed/Room Type: Standard ms3 Room Assignment: 225(08/10/23 23:01) mw Diagnosis - Heart failure, unspecified ms3 - Atrial Fibrillation with RVR ms3 - Essential (primary) hypertension ms3 Forms: - Medication Reconciliation Form ms3 - SBAR form ms3 - Leadership Thank You Letter ms3 Critical care time excluding procedures: 22:29 Critical care time: Bedside Care: 30 minutes, Consultation: 5 minutes, Family ms3 Intervention: 5 minutes. Total time: 40 minutes Signatures: Dispatcher [employer] Yulissa Delgado RN RN María Jacob RN RN ap3 Levi Eli DO DO ms3 Kathy An, LAN RN nw1 Corrections: (The following items were deleted from the chart) 23:01 22:23 ms3 mw
--- NOTE | 2023-08-10 22:33 | P.HP ---
Certification for Inpatient Patient admitted to: Inpatient With expected LOS: <2 Midnights Patient will require the following post-hospital care: None Practitioner: I am a practitioner with admitting privileges, knowledge of patient current condition, hospital course, and medical plan of care. Services: Services provided to patient in accordance with Admission requirements found in Title 42 Section 412.3 of the Code of Federal Regulations Patient History Date of Service: 08/10/23 Reason for admission: Shortness of breath History of Present Illness: 67-year-old male with hypertension, atrial fibrillation, presents to the emergency room with shortness of breath. Shortness of breath worse over the last 2 days. Reports associated bilateral lower extremity edema that is chronic. He denies palpitations, chest pain, dizziness, fever, nausea vomiting diarrhea. ER evaluation hypertensive urgencyBP 225 / 114; Pulse 118; Resp 19; Pulse Ox 93% ; patient was treated with diltiazem 20 mg IV push x1, EKG A-fib RVR rate 116 ST abnormality no STEMI laboratory evaluation no leukocytosis normocytic anemia 12.3 37.5, blood glucose 27 acute kidney injury unknown baseline BUN 20, creatinine 1.29, estimated GFR 62 hyperal albumin 3.2 elevated BNP 2890, troponin normal 26.9CXR IMPRESSION: Findings compatible with pulmonary edema or CHF. Plan to admit for A-fib RVR uncontrolled rate, acute on chronic heart failure, Allergies No Known Allergies Allergy (Verified 05/08/12 05:40) Home Medications: Amlodipine Besylate 10 mg PO DAILY 04/08/23 Apixaban [Eliquis] 5 mg PO DAILY 04/08/23 Atorvastatin Calcium 40 mg PO BEDTIME 04/08/23 Carvedilol [Coreg] 25 mg PO BID 04/08/23 Hydralazine HCl 50 mg PO TID 04/08/23 Isosorbide Mononitrate [Isosorbide Mononitrate ER] 30 mg PO DAILY 04/08/23 Lisinopril [Zestril] 40 mg PO DAILY 04/08/23 Spironolactone 25 mg PO DAILY 04/08/23 Aspirin Chewable [Aspirin Chewable*] 81 mg PO DAILY tab.chew 04/10/23 Doxycycline Hyclate 100 mg PO BID 9 Days #18 tab 04/10/23 - Past Medical/Surgical History Diabetic: No -: HTN -: HLD -: Afib -: Morbid Obeisty - Social History Alcohol use: Yes CD- Drugs: No Caffeine use: Yes Review of Systems 10-point ROS is otherwise unremarkable Physical Examination - Physical Exam General: Alert, In no apparent distress, Oriented x3, Acute distress HEENT: Atraumatic, Normocephalic, PERRLA Neck: Supple, 2+ carotid pulse no bruit Respiratory: Normal air movement, Diminished, Crackles/rales Cardiovascular: Normal pulses, Other (A-fib RVR rate 116, 3+ lower extremity edema), Edema, Irregular heart rate/rhythm Capillary refill: <2 Seconds Gastrointestinal: Normal bowel sounds, Soft and benign, Other (Obese) Musculoskeletal: No clubbing, No swelling Integumentary: No rashes, No breakdown Neurological: Normal speech, Normal strength at 5/5 x4 extr, Normal tone - Studies Laboratory Data (last 24 hrs) 08/10/23 08/10/23 08/10/23 20:56 20:56 20:56 WBC 9.10 Hgb 12.3 L Hct 37.5 L Plt Count 269 PT 16.1 H INR 1.46 Sodium 141 Potassium 3.7 BUN 20 H Creatinine 1.29 Glucose 127 H Magnesium 2.3 Total Bilirubin 1.9 H AST 19 ALT 15 L Alkaline Phosphatase 70 Assessment and Plan - Plan Assessment and plan Hypertensive urgency A-fib RVR Acute on chronic heart failure Elevated BNP. Cardiology consult, telemetry, diuretics, daily weight I& O Resume appropriate home meds, as needed antihypertensives BP 225 / 114; Pulse 118; Resp 19; Pulse Ox 93% ; patient was treated with diltiazem 20 mg IV push x1, EKG A-fib RVR rate 116 ST abnormality no STEMI elevated BNP 2890, troponin normal 26.9CXR IMPRESSION: Findings compatible with pulmonary edema or CHF. CKD 3A Trend kidney function BUN 20, creatinine 1.29, estimated GFR 62 Hyperlipidemia. Hypertension. Morbid obesity. Likely secondary to excess calories intake. Patient counseled on weight reduction, diet and excise therapy. Resume appropriate home meds Anemia of chronic disease. H&H stable. We will Continue to monitor hemoglobin and transfuse if less than 7.0. normocytic anemia 12.3 37.5, DVT prophylaxis with Eliquis. Diet cardiac Full code Discharge Plan: Home Plan to discharge in: 48 Hours - Advance Directives Does patient have a Living Will: No Does patient have a Durable POA for Healthcare: No - Code Status/Comfort Care Code Status: Full Code Physician Review: Patient Assessed, Agree with Above Assessment and Plan Critical Care: No Time Spent Managing Pts Care (In Minutes): 50
--- NOTE | 2023-08-10 22:37 | RAD REPORT ---
EXAM DESCRIPTION: RADChest Single View08/10/2023 10:11 pm CLINICAL HISTORY: DYSPNEA COMPARISON: Chest Single View dated 04/08/2023; CHEST SINGLE VIEW dated 05/08/2012 TECHNIQUE: Portable AP view of the chest. FINDINGS: Central interstitial prominence and perihilar streaky opacities with hazy opacification. S uggestion of trace bilateral effusions. No pneumothorax or effusion. Stable cardiomegaly. Mediastina l contours are unremarkable. IMPRESSION: Findings compatible with pulmonary edema or CHF.
[2023-08-10] MEDS ORDERED: FUROSEMIDE 100 MG/10 ML VIAL IV ONE (22:42)
[2023-08-11] MEDS ORDERED: ONDANSETRON 4 MG/2 ML VIAL IV PRN (00:14)
[2023-08-11] MEDS ORDERED: METOPROLOL TARTRATE 5 MG/5 ML INJ IV PRN (00:14)
[2023-08-11] MEDS ORDERED: ALPRAZOLAM 0.25 MG TABLET PO PRN (00:14)
[2023-08-11] MEDS: carvediloL 25 MG TAB PO SCH ×3 (00:55→20:10)
[2023-08-11] MEDS: APIXABAN 5 MG TABLET PO SCH ×2 (00:55→08:26)
[2023-08-11] MEDS: HYDRALAZINE HCL 25 MG TABLET PO SCH ×4 (00:55→20:11)
[2023-08-11 03:59] LABS: Absolute Lymphocytes (CBC) 1.1 K/uL (0.7-4.9); Hematocrit 36.8 % (39.6-49.0); Lymphocytes % 14.3 % (15.3-44.8); MPV 8.9 fL (7.6-11.3); Platelets 275 thou/uL (152-406); RBC Red Blood Cell Count 3.87 M/uL (4.33-5.43)
[2023-08-11 04:11] LABS: Magnesium 2.4 mg/dL (1.6-2.4); Potassium 3.5 mEq/L (3.5-5.1)
[2023-08-11] MEDS ORDERED: POTASSIUM 25 MEQ EFFERV TAB PO ONE (05:57)
[2023-08-11] MEDS: AMLODIPINE 10 MG TAB PO SCH (08:25)
[2023-08-11] MEDS: ACETAMINOPHEN 500 MG TAB PO PRN ×2 (08:25→20:10)
[2023-08-11] MEDS: ISOSORBIDE MONO SR 30 MG TAB PO SCH (08:26)
[2023-08-11] MEDS: ASPIRIN 81 MG CHEWABLE TABLET PO SCH (08:26)
[2023-08-11] MEDS: SPIRONOLACTONE 25 MG TABLET PO SCH (08:26)
--- NOTE | 2023-08-11 13:50 | EKG ---
Test Date: 2023-08-10 Test Time: 20:38:59 [employer] Manager: ALP MEASUREMENT RESULTS: Intervals: Rate: 116 NE: QRSD: 124 QT: 306 QTc: 425 [place]: P: NE: QRS: 245 T: 115 INTERPRETIVE STATEMENTS: Atrial fibrillation with rapid ventricular response Right superior axis deviation Nonspecific intraventricular conduction delay Nonspecific ST and T wave abnormality Abnormal ECG Compared to ECG 04/08/2023 11:03:56 Right superior axis now present Intraventricular conduction delay now present ST (T wave) deviation now present Left-axis deviation no longer present T-wave abnormality no longer present Possible ischemia no longer present Electronically Signed On 08-11-23 13:49:42 CDT by Jamar Ferguson
--- NOTE | 2023-08-11 14:07 | P.PN ---
Subjective Date of Service: 08/11/23 Chief Complaint: Shortness of breath Patient states he feels much better today. He has been tolerating room air. Lower extremity edema has improved. Blood pressure readings have also improved. Physical Examination - Vital Signs Temperature: 98.1 F Blood Pressure: 134/80 Pulse: 76 Respirations: 20 Pulse Ox (%): 95 - Studies Laboratory Data (last 24 hrs) 08/10/23 08/10/23 08/10/23 20:56 20:56 20:56 WBC 9.10 Hgb 12.3 L Hct 37.5 L Plt Count 269 PT 16.1 H INR 1.46 Sodium 141 Potassium 3.7 BUN 20 H Creatinine 1.29 Glucose 127 H Magnesium 2.3 Total Bilirubin 1.9 H AST 19 ALT 15 L Alkaline Phosphatase 70 Assessment And Plan - Plan Physical Exam General: Alert, In no apparent distress, Oriented x3. Obese. Neck: Supple, no elevated JVD. Respiratory: Normal air movement, Diminished, mild bibasilar crackles/rales Cardiovascular: Normal pulses, Other (A-fib RVR rate 116, 3+ lower extremity edema), Edema, Irregular heart rate/rhythm Capillary refill: <2 Seconds Gastrointestinal: Normal bowel sounds, Soft and benign, Obese abdomen. Musculoskeletal: No clubbing, No swelling Neurological: Normal speech, Normal strength at 5/5 x4 extr. Diagnosis Hypertensive urgency A-fib RVR Acute on chronic heart failure Elevated BNP. Continue IV Lasix, daily weight I& O Aggressive blood pressure control. Resume home antihypertensives. Hydralazine as needed for BP spikes. Continue Eliquis for A-fib anticoagulation. CKD 3A Trend kidney function BUN 20, creatinine 1.29, estimated GFR 62 Hyperlipidemia. Morbid obesity. Likely secondary to excess calories intake. Patient counseled on weight reduction, diet and excise therapy. Resume appropriate home meds DVT prophylaxis with Eliquis. Diet cardiac Full code Discharge Plan: Home
--- NOTE | 2023-08-11 14:50 | CON ---
Date of Consultation: 08/11/2023 Reason For Consultation: Shortness of breath. History Of Present Illness: A 67-year-old male, history of atrial fibrillation, diastolic heart fail ure, hypertension, dyslipidemia, presented to the emergency room with worsening shortness of breath, lower extremity edema. No orthopnea. No chest pain. No nausea, vomiting, diarrhea. Follows up benjamin Sanchez at [place]. Past Medical History: As outlined above in the HPI. Medications: Refer reconciliation sheet for detailed list. Allergies: NO KNOWN DRUG ALLERGIES. Family History: No premature coronary artery disease or cancer. Social History: He does not smoke or drink. Does not abuse any drugs. Review of Systems: All systems reviewed and they were negative except as mentioned in the HPI. Physical Examination: Vital Signs: Reviewed. Head and Neck: Pupils are equal, reactive to light. Intact eye movements. No JVD. No cervical lym phadenopathy. Neck: Supple. Thyroid is not enlarged. Lungs: Clear to auscultation bilaterally. No rhonchi, rales, or crackles. No accessory muscle use. Heart: Regular rate and rhythm. No extra sounds. Abdomen: Soft, nontender. Bowel sounds positive. No organomegaly. No masses or hernia. No rigidi ty or rebound. Extremities: No clubbing, cyanosis. Positive edema 1+. Neurologic: Alert, awake, oriented x3. No focal deficits appreciated. Lymph Nodes: No cervical or axillary lymphadenopathy. Investigations: Labs reviewed. BUN 16, creatinine 1.08. NT-proBNP is 3235. Hemoglobin is 12.1. Assessment/recommendation: 1.Acute on chronic congestive heart failure exacerbation, unknown ejection fraction. Obtain an echo tomorrow. Agree with IV diuresis. Apparently, he just received one dose in the emergency room. I will put him on Lasix 20 mg IV q.12 hours. Monitor BUN, creatinine, electrolytes, and obtain echo to anjali. 2.Atrial fibrillation, rate is controlled. Continue current management including anticoagulant. 3.Dyslipidemia. Continue statin. 4.Hypertension. Blood pressure is controlled. SR/MODL Voice ID: [id number] Report ID: [id number]
[2023-08-11] MEDS: FUROSEMIDE 20 MG/ 2ML VIAL IV SCH (16:34)
[2023-08-11] MEDS ORDERED: ATORVASTATIN 40 MG TAB PO SCH (21:00)
[2023-08-12 03:25] LABS: Absolute Lymphocytes (CBC) 1.5 K/uL (0.7-4.9); MCV 95.8 fL (80-100); MPV 8.6 fL (7.6-11.3); Platelets 266 thou/uL (152-406); RBC Red Blood Cell Count 3.65 M/uL (4.33-5.43)
[2023-08-12 03:33] LABS: Magnesium 2.5 mg/dL (1.6-2.4); Potassium 4.2 mEq/L (3.5-5.1)
[2023-08-12] MEDS ORDERED: lisinopriL 20 MG TAB PO SCH (09:00)
[2023-08-12] MEDS: SPIRONOLACTONE 25 MG TABLET PO SCH (09:23)
[2023-08-12] MEDS: carvediloL 25 MG TAB PO SCH (09:23)
[2023-08-12] MEDS: APIXABAN 5 MG TABLET PO SCH (09:24)
[2023-08-12] MEDS: AMLODIPINE 10 MG TAB PO SCH (09:24)
[2023-08-12] MEDS: HYDRALAZINE HCL 25 MG TABLET PO SCH (09:24)
[2023-08-12] MEDS: ASPIRIN 81 MG CHEWABLE TABLET PO SCH (09:25)
[2023-08-12] MEDS: FUROSEMIDE 20 MG/ 2ML VIAL IV SCH (09:25)
[2023-08-12] MEDS: ISOSORBIDE MONO SR 30 MG TAB PO SCH (09:29)
--- NOTE | 2023-08-12 11:08 | P.DS ---
Admission Date: 08/10/23 Discharge Date: 08/12/23 Disposition: ROUTINE DISCHARGE Reason for Admission: Shortness of breath Brief History of Present Illness: 67-year-old male with hypertension, atrial fibrillation, presented to the emergency room with shortness of breath. Shortness of breath worse over 2 days. He reported associated bilateral lower extremity edema that is chronic. He denied palpitations, chest pain, dizziness, fever, nausea vomiting diarrhea. ER evaluation hypertensive urgencyBP 225 / 114; Pulse 118; Resp 19; Pulse Ox 93% ; patient was treated with diltiazem 20 mg IV push x1, EKG A-fib RVR rate 116 ST abnormality no STEMI laboratory evaluation no leukocytosis normocytic anemia 12.3 37.5, blood glucose 27 acute kidney injury unknown baseline BUN 20, creatinine 1.29, estimated GFR 62 hyperal albumin 3.2 elevated BNP 2890, t roponin normal 26.9CXR IMPRESSION: Findings compatible with pulmonary edema or CHF. Patient admitted for further management of CHF exacerbation and rapid atrial fibrillation. Hospital Course: Diagnosis Hypertensive urgency A-fib RVR Acute on chronic heart failure Elevated BNP. Chronic kidney disease stage III Patient admitted to the medical floor and treated with IV Lasix for CHF exacerbation. His home antihypertensives were also resumed. Blood pressure was controlled on his home antihypertensives. Heart rate was also controlled. Continued Eliquis for A-fib anticoagulation. Patient respiratory status improved, he tolerated room air with ambulation. Vitals are stable, patient is deemed stable for discharge. Continued Aldactone and prescribed maintenance Lasix. Vital Signs/Physical Exam: Temp Pulse Resp BP Pulse Ox 97.0 F 81 18 139/85 97 08/12/23 08:00 08/12/23 09:25 08/12/23 08:00 08/12/23 09:25 08/12/23 08:00 General: Alert, In no apparent distress, Oriented x3, Obese HEENT: Mucous membr. moist/pink Neck: Supple, JVD not distended Respiratory: Clear to auscultation bilaterally, Normal air movement Cardiovascular: Normal S1 S2, Edema (1+ bilateral lower extremity pitting edema and lymphedema), Irregular heart rate/rhythm Gastrointestinal: Normal bowel sounds, Soft and benign, Non-distended, No tenderness Integumentary: No cyanosis Neurological: Normal strength at 5/5 x4 extr Laboratory Data at Discharge: WBC 6.80 thou/uL (4.3-10.9) 08/12/23 02:06 Hgb 11.5 g/dL (13.6-17.9) L 08/12/23 02:06 Hct 35.0 % (39.6-49.0) L 08/12/23 02:06 Plt Count 266 thou/uL (152-406) 08/12/23 02:06 PT 16.1 SECONDS (9.5-12.5) H 08/10/23 20:56 INR 1.46 08/10/23 20:56 Sodium 143 mEq/L (136-145) 08/12/23 02:06 Potassium 4.2 mEq/L (3.5-5.1) 08/12/23 02:06 BUN 31 mg/dL (7-18) H 08/12/23 02:06 Creatinine 1.53 mg/dL (0.70-1.30) H 08/12/23 02:06 Glucose 123 mg/dL (74-106) H 08/12/23 02:06 Magnesium 2.5 mg/dL (1.6-2.4) H 08/12/23 02:06 Total Bilirubin 1.9 mg/dL (0.2-1.0) H 08/10/23 20:56 AST 19 U/L (15-37) 08/10/23 20:56 ALT 15 U/L (16-61) L 08/10/23 20:56 Alkaline Phosphatase 70 U/L (45-117) 08/10/23 20:56 Home Medications: Amlodipine Besylate 10 mg PO DAILY 04/08/23 Apixaban [Eliquis] 5 mg PO DAILY 04/08/23 Atorvastatin Calcium 40 mg PO BEDTIME 04/08/23 Carvedilol [Coreg] 25 mg PO BID 04/08/23 Hydralazine HCl 50 mg PO TID 04/08/23 Isosorbide Mononitrate [Isosorbide Mononitrate ER] 30 mg PO DAILY 04/08/23 Lisinopril [Zestril] 40 mg PO DAILY 04/08/23 Spironolactone 25 mg PO DAILY 04/08/23 Doxycycline Hyclate 100 mg PO BID 9 Days #18 tab 04/10/23 Aspirin Chewable [Aspirin Chewable*] 81 mg PO DAILY #30 tab.chew 08/12/23 Furosemide [Lasix] 40 mg PO DAILY #30 tab 08/12/23 New Medications: Aspirin Chewable [Aspirin Chewable*] 81 mg PO DAILY #30 tab.chew Furosemide [Lasix] 40 mg PO DAILY #30 tab Diet: AHA Activity: Ad ciarra Followup: Jamar Ferguson MD [ACTIVE - CAN ADMIT] - (Within 1 to 2 months) Unknown,U [Primary Care Provider] - 1-2 Weeks (Call for appointment.) Time spent managing pt's care (in minutes): 32
[2023-08-15 13:01] VITALS: BP 139/85; TEMP 97; O2SAT 96; BMI 45.0
== END 2023-08-12 12:15 | disposition home or self-care (01) | DRG 291 ==
LOC: ER 20:22 → 2ND 22:51
PROVIDERS: ADMIT Internal Medicine; ATTEND Internal Medicine
DX: I13.0 Hypertensive heart and chronic kidney disease with heart failure and stage 1 through stage 4 chronic kidney disease, or unspecified chronic kidney disease (principal); I50.33 Acute on chronic diastolic (congestive) heart failure; N17.9 Acute kidney failure, unspecified; Z68.42 Body mass index [BMI] 45.0-49.9, adult; E66.01 Morbid (severe) obesity due to excess calories; N18.31 Chronic kidney disease, stage 3a; D63.1 Anemia in chronic kidney disease; D50.9 Iron deficiency anemia, unspecified; I16.0 Hypertensive urgency; I48.91 Unspecified atrial fibrillation; E78.5 Hyperlipidemia, unspecified; Z71.3 Dietary counseling and surveillance; Z79.01 Long term (current) use of anticoagulants; Z79.82 Long term (current) use of aspirin; Z79.899 Other long term (current) drug therapy
CPT/HCPCS: 36415; 71045; 80048; 80076; 83735; 83880; 84132; 84484; 85025; 85610; 93005; 99285; J1940

== ENCOUNTER 2023-10-14 23:35 | Inpatient (IN) | payer OTHER ==
--- OUTSIDE RECORDS SUMMARY | 2023-10-14 23:39 | XMS REPORT | Continuity of Care Document ---
Author Name Unknown Address [address] [facility] [address] [place] [address] Organization [facility] Address [address] [place] [address] Care Team Providers Care Soil Science Professor Name Role Phone Rubina An Attending Clinician Encounters Start Date/Time End Date/Time Encounter Type Admission Type Attending Clinicians Care Facility Care Department Encounter ID Source 2020-11-25 09:11:35 2020-11-25 09:46:46 Office Visit Rubina Owens [facility] Office [facility] [id number]
[2023-10-15 01:50] LABS: Hematocrit 41.1 % (39.6-49.0); Lymphocytes % 19.6 % (15.3-44.8); MCV 92.1 fL (80-100); MPV 8.4 fL (7.6-11.3); Platelets 295 thou/uL (152-406); RBC Red Blood Cell Count 4.46 M/uL (4.33-5.43)
[2023-10-15 02:02] LABS: Albumin 3.1 g/dL (3.4-5.0); Bilirubin Direct 0.5 mg/dL (0-0.2); Bilirubin Indirect, Calculated 1.2 mg/dL (0.2-0.8); Bilirubin Total 1.7 mg/dL (0.2-1.0); Magnesium 2.2 mg/dL (1.6-2.4); Potassium 3.7 mEq/L (3.5-5.1); Protein, Total 7.6 g/dL (6.4-8.2); Protime INR 1.45; Troponin High Sensitivity 47.4 pg/mL (<58.9)
[2023-10-15] MEDS ORDERED: ONDANSETRON 4 MG/2 ML VIAL ONE (02:09)
[2023-10-15] MEDS ORDERED: HYDRALAZINE HCL 20 MG/ML VIAL ONE (02:10)
[2023-10-15] MEDS ORDERED: MORPHINE 4 MG/ML SYR ONE (02:10)
[2023-10-15] MEDS ORDERED: FUROSEMIDE 40 MG/4 ML VIAL ONE ×3 (04:40→17:59)
[2023-10-15] MEDS ORDERED: dilTIAZem HCL 25 MG/5 ML VIAL IV ONE (04:40)
--- NOTE | 2023-10-15 04:45 | ER ---
Nurse's Notes [facility] Name: Don Connolly Age: 68 yrs Sex: Male : 1955 Arrival Date: 10/14/2023 Time: 23:35 Bed 19 Private MD: Diagnosis: Acute diastolic (congestive) heart failure;Pulmonary edema, acute generalized edema,;Chronic atrial fibrillation Presentation: 10/14 23:52 Chief complaint: Spouse and/or significant other states: shortness of breath, coughing, as6 generalized not feeling well that started . Coronavirus screen: At this time, the client does not indicate any symptoms associated with coronavirus-19. Ebola Screen: No symptoms or risks identified at this time. Initial Sepsis Screen: Does the patient meet any 2 criteria? No. Patient's initial sepsis screen is negative. Does the patient have a suspected source of infection? No. Patient's initial sepsis screen is negative. Risk Assessment: Do you want to hurt yourself or someone else? Patient reports no desire to harm self or others. Onset of symptoms was October 10, 2023. 23:52 Method Of Arrival: Wheelchair as6 23:52 Acuity: JITENDRA 3 as6 Historical: - Allergies: 23:55 No Known Allergies; as6 - PMHx: 23:55 Atrial fibrillation; Hypertensive disorder; Congestive heart failure; as6 - PSHx: 23:55 Appendectomy; as6 - Immunization history:: Adult Immunizations up to date. - Social history:: Smoking status: Patient denies any tobacco usage or history of. - Code Status:: Full code. Screenin/26 02:00 [facility] ED Fall Risk Assessment (Adult) History of falling in the last 3 months, la4 including since admission No falls in past 3 months (0 pts) Confusion or Disorientation No (0 pts) Intoxicated or Sedated No (0 pts) Impaired Gait No (0 pts) Mobility Assist Device Used No (0 pt) Altered Elimination No (0 pt) Score/Fall Risk Level 0 - 2 = Low Risk. Abuse screen: Denies threats or abuse. Denies injuries from another. Nutritional screening: No deficits noted. Tuberculosis screening: No symptoms or risk factors identified. Assessment: 03:50 Reassessment: No changes from previously documented assessment. Patient and/or family la4 updated on plan of care and expected duration. Pain level reassessed. No report given, pt found sitting on side of bed in room tachypneic and not on monitor. Changed into hospital gown, placed on monitor and supplemental O2 at 3LNC due to afib on monitor and elevated HR, tachypneic. Cardiovascular: Rhythm is atrial fibrillation. Respiratory: Airway is patent Respiratory effort is labored, Respiratory pattern is regular, symmetrical. 03:50 Neuro: No deficits noted. Hughes Agitation-Sedation Scale (RASS): 0 - Alert and Calm la4 Level of Consciousness is awake, alert, obeys commands, Oriented to person, place, time, situation. Respiratory: Breath sounds with wheezes bilaterally. GI: No deficits noted. : No deficits noted. 20:30 Reassessment: report given to LAN Carvalho. ha1 Vital Signs: 10/14 23:52 Pulse 95; Resp 20 S; Temp 97.9(O); Pulse Ox 95% on R/A; Weight 147.42 kg (R); Height 5 as6 ft. 11 in. (R); Pain 4/10; 23:56 BP 184 / 119; as6 10/15 02:00 BP 182 / 120; Pulse 106; Resp 22; Pulse Ox 100% ; la4 02:30 BP 163 / 88; Pulse 92; Resp 20; Pulse Ox 100% ; la4 02:30 BP 168 / 104; Pulse 107; Resp 23; Pulse Ox 100% ; Pain 2/10; la4 02:30 BP 163 / 88; Pulse 92; Pulse Ox 100% ; la4 03:00 BP 140 / 83; Pulse 94; Resp 20; Pulse Ox 99% ; la4 03:30 BP 156 / 97; Pulse 93; Resp 20; Pulse Ox 98% ; la4 03:30 BP 125 / 80; Pulse 67; Resp 24; Pulse Ox 99% ; la4 04:00 BP 127 / 87; Pulse 76; Pulse Ox 99% ; la4 04:30 BP 114 / 59; Pulse 74; Pulse Ox 93% ; la4 05:00 BP 160 / 86; Pulse 86; Pulse Ox 98% ; la4 06:58 BP 144 / 90; Pulse 84; Resp 22; Pulse Ox 97% on R/A; la4 10/14 23:52 Body Mass Index 45.33 (147.42 kg, 180.34 cm) as6 10/14 23:52 Pain Scale: Adult as6 02:30 Pain Scale: Adult la4 [place] Coma Score: 02:00 Eye Response: spontaneous(4). Motor Response: obeys commands(6). Verbal Response: la4 oriented(5). Total: 15. 03:30 Eye Response: spontaneous(4). Motor Response: obeys commands(6). Verbal Response: la4 oriented(5). Total: 15. 06:58 Eye Response: spontaneous(4). Motor Response: obeys commands(6). Verbal Response: la4 oriented(5). Total: 15. ED Course: 10/14 23:48 Patient arrived in ED. gm2 23:55 Triage completed. as6 23:55 Arm band placed on. as6 10/15 00:16 Jv Reyes MD is Attending Physician. sp4 00:33 XRAY Chest (1 view) In Process Unspecified. EDMS 01:09 Jovi Olivera, RN is Primary Nurse. la4 01:45 CT Abd/Pelvis - Without Contrast In Process Unspecified. EDMS 01:57 Troponin HS Sent. la4 01:57 PT-INR Sent. la4 01:57 NT PRO-BNP Sent. la4 01:57 Magnesium Sent. la4 01:57 LFT's Sent. la4 01:57 CBC with Diff Sent. la4 01:57 Basic Metabolic Panel Sent. la4 01:57 Lipase Sent. la4 01:57 Influenza Screen (a \T\ B) Sent. la4 02:00 Patient has correct armband on for positive identification. Bed in low position. Call la4 light in reach. Side rails up X2. Provided Education on: plan of care . 02:00 Pulse ox on. NIBP on. la4 02:00 No provider procedures requiring assistance completed. Inserted saline lock: 20 gauge la4 in right forearm, using aseptic technique. 04:41 Eugene Waldrop MD is Hospitalizing Provider. sp4 Administered Medications: 02:28 Drug: hydrALAZINE IVP 10 mg IVP once Route: IVP; Site: right forearm; la4 02:30 Follow up: BP 163 / 88; Pulse 92 bpm; Pulse Ox 100% la4 02:28 Drug: morphine IVP or IV 4 mg IVP once over 4 mins Route: IVP; Infused Over: 4 mins; la4 Site: right forearm; 02:30 Follow up: BP 168 / 104; Pulse 107 bpm; Resp 23 bpm; Pulse Ox 100% ; Pain /10 Adult; la4 Response: No adverse reaction; Pain is decreased 04:50 Follow up: Response: No adverse reaction; Pain is decreased la4 02:28 Drug: Ondansetron IVP 4 mg IVP once; over 2 minutes Route: IVP; Site: right forearm; la4 03:43 Follow up: Response: No adverse reaction; Nausea is decreased la4 04:50 Follow up: Response: No adverse reaction la4 04:49 Drug: Furosemide IVP 40 mg IVP once; give over 2 minutes Route: IVP; Site: right la4 forearm; 04:49 Drug: Diltiazem IVP 10 mg IVP once; Over 2 minutes Route: IVP; Site: right forearm; la4 04:49 Drug: Diltiazem PO 30 mg PO once Route: PO; la4 Medication: 02:00 VIS not applicable for this client. la4 Outcome: 04:44 Decision to Hospitalize by Provider. sp4 20:31 Admitted to Tele accompanied by tech, via stretcher, room 416, with chart, Report ha1 called to LAN Carvalho 20:31 Condition: stable 20:31 Discharge instructions given to patient, family, Instructed on the need for admit, Demonstrated understanding of instructions, 20:32 Patient left the ED. ha1 Signatures: Dispatcher [employer] EDMS Clark Vang RN RN as6 Jacki Boss RN RN ha1 Jv Reyes MD MD sp4 Sherly Cardoza gm2 Jovi Olivera RN RN la4 Corrections: (The following items were deleted from the chart) 03:48 02:00 BP 182 / 120; Pulse 106bpm; Resp 22bpm; Pulse Ox 100%; la4 la4 03:50 02:00 No provider procedures requiring assistance completed. la4 la4 03:50 02:00 Inserted saline lock: 20 gauge in right forearm, using aseptic technique. la4 la4
--- NOTE | 2023-10-15 04:45 | EDPHYS ---
Physician Documentation [facility] Name: Don Connolly Age: 68 yrs Sex: Male : 1955 Arrival Date: 10/14/2023 Time: 23:35 Bed 19 Private MD: ED Physician Jv Reyes HPI: 10/15 00:16 This 68 yrs old Black Male presents to ER via Wheelchair with complaints of Shortness sp4 Of Breath, Cough, Congestion. 04:29 8-year-old male presents with 1 week of shortness of breath, dyspnea on exertion, and sp4 also cough and congestion. Patient was admitted last time on 08/10/2023 for shortness of breath. History of hypertension, atrial fibrillation, additional history is morbid obesity.. 04:31 Patient's medications include amlodipine besylate 10 mg p.o. daily, apixaban 5 mg p.o. sp4 daily, atorvastatin 40 mg p.o. bedtime, Coreg 25 mg p.o. twice daily, hydralazine 50 mg p.o. 3 times daily, isosorbide mononitrate 30 mg p.o. daily, lisinopril 40 mg p.o. daily, Aldactone 25 mg p.o. daily, aspirin 81 mg daily, furosemide 40 mg p.o. daily.. Historical: - Allergies: 10/14 23:55 No Known Allergies; as6 - PMHx: 23:55 Atrial fibrillation; Hypertensive disorder; Congestive heart failure; as6 - PSHx: 23:55 Appendectomy; as6 - Immunization history:: Adult Immunizations up to date. - Social history:: Smoking status: Patient denies any tobacco usage or history of. - Code Status:: Full code. ROS: 10/15 04:33 Constitutional: Negative for fever, chills, and weight loss, positive dyspnea on sp4 exertion positive orthopnea positive cough and congestion All other systems are negative, Exam: 04:33 Constitutional: This is a well developed, well nourished patient who is awake, alert, sp4 and in no acute distress. Morbidly overweight male Head/Face: Normocephalic, atraumatic. Eyes: Pupils equal round and reactive to light, extra-ocular motions intact. Lids and lashes normal. Conjunctiva and sclera are not injected. Cornea within normal limits. Periorbital areas with no swelling, redness, or edema. ENT: Nares patent. No nasal discharge, no septal abnormalities noted. Tympanic membranes are normal and external auditory canals are clear. Oropharynx with no redness, swelling, or masses, exudates, or evidence of obstruction, uvula midline. Mucous membranes moist. Neck: Trachea midline, no thyromegaly or masses palpated, and no cervical lymphadenopathy. Supple, full range of motion without nuchal rigidity, or vertebral point tenderness. Chest/axilla: Normal chest wall appearance and motion. Nontender with no deformity. No lesions are appreciated. Cardiovascular: Regular rate and rhythm with a normal S1 and S2. No gallops, murmurs, or rubs. Normal PMI, no JVD. No pulse deficits. Respiratory: Lungs have equal breath sounds bilaterally, clear to auscultation and percussion. No rales, rhonchi or wheezes noted. No increased work of breathing, no retractions or nasal flaring. Abdomen/GI: Soft, non-tender, with normal bowel sounds. No distension or tympany. No guarding or rebound. No evidence of tenderness throughout. Back: No spinal tenderness. No costovertebral tenderness. Skin: Warm, dry with normal turgor. Normal color with no rashes, no lesions, and no evidence of cellulitis. MS/ Extremity: Pulses equal, no cyanosis. Neurovascular intact. Full, normal range of motion. Neuro: Awake and alert, GCS 15, oriented to person, place, time, and situation. Cranial nerves II-XII grossly intact. Motor strength 5/5 in all extremities. Sensory grossly intact. Psych: Awake, alert, with orientation to person, place and time. Behavior, mood, and affect are within normal limits 04:47 ECG was reviewed by the Attending Physician. EKG time 0 422. Atrial fibrillation sp4 with RVR, right superior axis deviation, no ST elevation or depression, heart rate 103 Vital Signs: 10/14 23:52 Pulse 95; Resp 20 S; Temp 97.9(O); Pulse Ox 95% on R/A; Weight 147.42 kg (R); Height 5 as6 ft. 11 in. (R); Pain 4/10; 23:56 BP 184 / 119; as6 10/15 02:00 BP 182 / 120; Pulse 106; Resp 22; Pulse Ox 100% ; la4 02:30 BP 163 / 88; Pulse 92; Resp 20; Pulse Ox 100% ; la4 02:30 BP 168 / 104; Pulse 107; Resp 23; Pulse Ox 100% ; Pain 2/10; la4 02:30 BP 163 / 88; Pulse 92; Pulse Ox 100% ; la4 03:00 BP 140 / 83; Pulse 94; Resp 20; Pulse Ox 99% ; la4 03:30 BP 156 / 97; Pulse 93; Resp 20; Pulse Ox 98% ; la4 03:30 BP 125 / 80; Pulse 67; Resp 24; Pulse Ox 99% ; la4 04:00 BP 127 / 87; Pulse 76; Pulse Ox 99% ; la4 04:30 BP 114 / 59; Pulse 74; Pulse Ox 93% ; la4 05:00 BP 160 / 86; Pulse 86; Pulse Ox 98% ; la4 06:58 BP 144 / 90; Pulse 84; Resp 22; Pulse Ox 97% on R/A; la4 10/14 23:52 Body Mass Index 45.33 (147.42 kg, 180.34 cm) as6 10/14 23:52 Pain Scale: Adult as6 02:30 Pain Scale: Adult la4 [place] Coma Score: 02:00 Eye Response: spontaneous(4). Motor Response: obeys commands(6). Verbal Response: la4 oriented(5). Total: 15. 03:30 Eye Response: spontaneous(4). Motor Response: obeys commands(6). Verbal Response: la4 oriented(5). Total: 15. 06:58 Eye Response: spontaneous(4). Motor Response: obeys commands(6). Verbal Response: la4 oriented(5). Total: 15. MDM: 00:17 Patient medically screened. sp4 04:33 Differential diagnosis: asthma, Bronchitis CHF exacerbation, Chronic Obstructive sp4 Pulmonary Disease Myocardial Infarction pneumonia. Data reviewed: vital signs, nurses notes, old medical records, lab test result(s), EKG, radiologic studies. 04:37 ED course: Chest X ray - EXAM DESCRIPTION: Chest Single View CLINICAL HISTORY: CHEST sp4 PAIN COMPARISON: None. FINDINGS: Single frontal radiograph view of the chest. Cardiomediastinal silhouette: Atherosclerotic calcification of thoracic aorta. Cardiomegaly. Lungs: Pulmonary vascular congestion with diffuse bilateral interstitial opacities. Small pleural effusions. Low lung volumes. No pneumothorax. Bones: No acute osseous abnormality. Degenerative change of the spine and shoulders. Upper abdomen: No abnormality identified. IMPRESSION: Cardiomegaly with pulmonary edema pattern and small pleural effusions.. ED course: CT - TECHNIQUE: Axial computed tomography images of the abdomen and pelvis without intravenous contrast. Sagittal and coronal reformatted images were created and reviewed. This CT exam was performed using one or more of the following dose reduction techniques: automated exposure control, adjustment of the mA and/or kV according to patient size, and/or use of iterative reconstruction technique. COMPARISON: No relevant prior studies available. FINDINGS: Lung bases: Interstitial thickening and patchy groundglass opacities at the lung bases bilaterally. Pleural space: Small bilateral pleural effusions. Heart: The heart is moderately enlarged. ABDOMEN: Liver: Unremarkable. Gallbladder and bile ducts: Unremarkable. No calcified stones. No ductal dilation. Pancreas: Unremarkable. No ductal dilation. Spleen: Unremarkable. No splenomegaly. Adrenals: Unremarkable. No mass. Kidneys and ureters: Unremarkable. No obstructing stones. No hydronephrosis. Stomach and bowel: Unremarkable. No obstruction. No mucosal thickening. PELVIS: Appendix: Normal caliber appendix. No findings to suggest acute appendicitis. Bladder: The urinary bladder is decompressed. No stones. Reproductive: Unremarkable as visualized. ABDOMEN and PELVIS: Intraperitoneal space: Unremarkable. No free air. No significant fluid collection. Bones/joints: Multilevel spondylosis. No acute fracture. No dislocation. Soft tissues: Small bilateral fat-containing ventral hernias. The right testis is partially retracted into the inguinal canal. Vasculature: Unremarkable. No abdominal aortic aneurysm. Lymph nodes: Unremarkable. No enlarged lymph nodes. IMPRESSION: 1. No acute process identified within the abdomen and pelvis. 2. Findings which may be related to mild pulmonary congestion including small bilateral pleural effusions. Superimposed infection not excluded. 3. Other findings as above.. 04:44 ED course: prior cardiology note 1. Acute on chronic congestive heart failure sp4 exacerbation, unknown ejection fraction. Agree with IV diuresis. 2. Atrial fibrillation, rate is controlled. Continue current management including anticoagulant. 3. Dyslipidemia. Continue statin. 4. Hypertension. Blood pressure is controlled. ED course: General warrants admission at this time for CHF exacerbation, acute diastolic heart failure with some degree of pulmonary edema. Patient requires telemetry admit some oxygen support as well. Consult for cardiology placed in the [facility] . 10/15 00:17 Order name: Basic Metabolic Panel; Complete Time: 04:27 sp4 10/15 00:17 Order name: CBC with Diff; Complete Time: 04:27 sp4 10/15 00:17 Order name: LFT's; Complete Time: 04:27 sp4 10/15 00:17 Order name: Magnesium; Complete Time: 04:27 sp4 10/15 00:17 Order name: NT PRO-BNP; Complete Time: 04:27 sp4 10/15 00:17 Order name: PT-INR; Complete Time: 04:27 sp4 10/15 00:17 Order name: Troponin HS; Complete Time: 04:27 sp4 10/15 00:17 Order name: Lipase; Complete Time: 04:27 sp4 10/15 00:17 Order name: Influenza Screen (a \T\ B); Complete Time: 04:27 sp4 10/15 01:39 Order name: SARS-COV-2 RT PCR; Complete Time: 04:27 [facility] 10/15 05:14 Order name: Basic Metabolic Panel [facility] 10/15 05:14 Order name: Basic Metabolic Panel [facility] 10/15 05:14 Order name: CBC with Automated Diff ED[facility] 10/15 05:15 Order name: CBC with Automated Diff ED[facility] 10/15 05:15 Order name: Magnesium [facility] 10/15 05:15 Order name: Magnesium [facility] 10/15 05:15 Order name: Troponin High Sensitivity [facility] 10/15 00:17 Order name: XRAY Chest (1 view) [facility] 10/15 00:50 Order name: CT Abd/Pelvis - Without Contrast [facility] 10/15 00:17 Order name: EKG; Complete Time: 00:17 4 10/15 05:14 Order name: CONS Physician Consult [facility] 10/15 00:17 Order name: Cardiac monitoring; Complete Time: 01:57 sp4 10/15 00:17 Order name: EKG - Nurse/Tech; Complete Time: 04:37 sp4 10/15 00:17 Order name: IV Saline Lock; Complete Time: 01:57 sp4 10/15 00:17 Order name: Labs collected and sent; Complete Time: 01:57 sp4 10/15 00:17 Order name: O2 Per Protocol; Complete Time: 01:57 sp4 10/15 00:17 Order name: O2 Sat Monitoring; Complete Time: sp4 EC:47 Rate is 103 beats/min. Rhythm is irregularly irregular, A fib with Rapid ventricular sp4 response. Right axis deviation noted. QRS interval is prolonged. QT interval is normal. T waves are Normal. No ST changes noted. Clinical impression: No evidence of ischemia. Interpreted by me. Reviewed by me. Administered Medications: 02:28 Drug: hydrALAZINE IVP 10 mg IVP once Route: IVP; Site: right forearm; la4 02:30 Follow up: BP 163 / 88; Pulse 92 bpm; Pulse Ox 100% la4 02:28 Drug: morphine IVP or IV 4 mg IVP once over 4 mins Route: IVP; Infused Over: 4 mins; la4 Site: right forearm; 02:30 Follow up: BP 168 / 104; Pulse 107 bpm; Resp 23 bpm; Pulse Ox 100% ; Pain 2/10 Adult; la4 Response: No adverse reaction; Pain is decreased 04:50 Follow up: Response: No adverse reaction; Pain is decreased la4 02:28 Drug: Ondansetron IVP 4 mg IVP once; over 2 minutes Route: IVP; Site: right forearm; la4 03:43 Follow up: Response: No adverse reaction; Nausea is decreased la4 04:50 Follow up: Response: No adverse reaction la4 04:49 Drug: Furosemide IVP 40 mg IVP once; give over 2 minutes Route: IVP; Site: right la4 forearm; 04:49 Drug: Diltiazem IVP 10 mg IVP once; Over 2 minutes Route: IVP; Site: right forearm; la4 04:49 Drug: Diltiazem PO 30 mg PO once Route: PO; la4 Disposition Summary: 10/15/23 04:44 Hospitalization Ordered Notes: Hospitalization Status: Inpatient Admission sp4 Provider: Eugene Waldrop sp4 Condition: Stable sp4 Problem: new sp4 Symptoms: have improved sp4 Bed/Room Type: Standard sp4 Location: Telemetry/MedSurg (Inpatient)(10/15/23 18:14) [facility] Room Assignment: [facility](10/15/23 18:14) [facility] Diagnosis - Acute diastolic (congestive) heart failure sp4 - Pulmonary edema, acute generalized edema, sp4 - Chronic atrial fibrillation sp4 Forms: - Medication Reconciliation Form sp4 - SBAR form sp4 - Leadership Thank You Letter sp4 Signatures: Dispatcher [employer] [facility] Clark Vang RN RN as6 Caron Klein rv1 Jv Reyes MD MD sp4 Lukas Gallowayah mc5 Jovi Olivera RN RN la4 Corrections: (The following items were deleted from the chart) 01:39 00:18 SARS-COV-2 Antigen Rapid+I.LAB.BRZ ordered. [facility] 06:32 04:44 Telemetry/MedSurg (Inpatient) sp4 rv1 06:32 04:44 sp4 rv1 18:14 06:32 [facility] ER HOLD rv1 mc5 18:14 06:32 ERHOLD- rv1 mc5
[2023-10-15] MEDS ORDERED: DILTIAZEM HCL 60 MG TAB ONE (04:47)
[2023-10-15] MEDS ORDERED: ONDANSETRON 4 MG/2 ML VIAL IV PRN (05:08)
--- NOTE | 2023-10-15 05:21 | P.HP ---
Patient History Date of Service: 10/15/23 Reason for admission: CHF History of Present Illness: 68-year-old male with history of multiple medical problems including chronic diastolic heart failure, paroxysmal atrial fibrillation, hypertension Presented to the emergency department with complaints of shortness of breath. Symptoms started approximately 3 days back. Gradually getting worse. Associated with peripheral edema, orthopnea. Denies cough, fever, chills. Chest pain, palpitations. The patient was evaluated in the ED. Found to be in atrial fibrillation with heart rate around 100/min. Is found to have elevated BNP, pulmonary edema on chest x-ray. Received Lasix 40 mg IV x 1 dose, diltiazem 10 mg IV x 1 dose. Patient is already feeling better by the time of my examination. Allergies No Known Allergies Allergy (Verified 05/08/12 05:40) Home Medications: Amlodipine Besylate 10 mg PO DAILY 04/08/23 Apixaban [Eliquis] 5 mg PO DAILY 04/08/23 Atorvastatin Calcium 40 mg PO BEDTIME 04/08/23 Carvedilol [Coreg] 25 mg PO BID 04/08/23 Hydralazine HCl 50 mg PO TID 04/08/23 Isosorbide Mononitrate [Isosorbide Mononitrate ER] 30 mg PO DAILY 04/08/23 Lisinopril [Zestril] 40 mg PO DAILY 04/08/23 Spironolactone 25 mg PO DAILY 04/08/23 Doxycycline Hyclate 100 mg PO BID 9 Days #18 tab 04/10/23 Aspirin Chewable [Aspirin Chewable*] 81 mg PO DAILY #30 tab.chew 08/12/23 Furosemide [Lasix] 40 mg PO DAILY #30 tab 08/12/23 - Past Medical/Surgical History Diabetic: No -: HTN -: HLD -: Afib -: Morbid Obeisty - Social History Alcohol use: No CD- Drugs: No Caffeine use: No Review of Systems General: Unremarkable Eyes: Unremarkable ENT: Unremarkable Respiratory: Shortness of Breath Cardiovascular: Orthopnea, Edema Gastrointestinal: Unremarkable Genitourinary: Unremarkable Musculoskeletal: Unremarkable Integumentary: Unremarkable Neurological: Unremarkable Physical Examination - Physical Exam General: Alert, Oriented x3 HEENT: Atraumatic, PERRLA Neck: Supple, JVD not distended Respiratory: Clear to auscultation bilaterally, Normal air movement Cardiovascular: Edema, Irregular heart rate/rhythm Gastrointestinal: Soft and benign, Non-distended, No rebound, No guarding Musculoskeletal: Swelling Integumentary: No rashes, No erythema Neurological: Normal speech, Normal strength at 5/5 x4 extr - Studies Laboratory Data (last 24 hrs) 10/15/23 10/15/23 10/15/23 01:27 01:27 01:27 WBC 5.20 Hgb 13.3 L Hct 41.1 Plt Count 295 PT 15.8 H INR 1.45 Sodium 142 Potassium 3.7 BUN 26 H Creatinine 1.37 H Glucose 116 H Magnesium 2.2 Total Bilirubin 1.7 H AST 19 ALT 18 Alkaline Phosphatase 77 Lipase 23 Microbiology Data (last 24 hrs): 10/15/23 01:27 Nasopharnyx Influenza Type A Antigen Screen - Final 10/15/23 01:27 Nasopharnyx Influenza Type B Antigen Screen - Final Assessment and Plan - Problems (Diagnosis) (1) Acute on chronic diastolic (congestive) heart failure Current Visit: Yes Status: Acute (2) AF (paroxysmal atrial fibrillation) Current Visit: Yes Status: Acute (3) Hypertension Current Visit: Yes Status: Acute (4) Obesity Current Visit: Yes Status: Acute - Advance Directives Does patient have a Living Will: No Does patient have a Durable POA for Healthcare: No Assessment/Plan Patient Problems/Diagnoses: Patient Problems: AF (paroxysmal atrial fibrillation) (Acute) I48.0 Acute on chronic diastolic (congestive) heart failure (Acute) I50.33 Hypertension (Acute) I10 Obesity (Acute) E66.9 Plan: ASSESSMENT Acute on chronic diastolic heart failure Atrial fibrillation with rapid ventricular response Acute kidney injury-likely due to decompensated heart failure Hypertension Obesity PLAN The patient will be admitted to the hospital Will monitor the patient on telemetry Continue Lasix 40 mg IV every 12 hours Closely monitor renal function, I's and O's Repeat BMP daily while on IV diuresis Resume carvedilol 25 mg p.o. twice daily, Eliquis 5 mg p.o. twice daily Obtain cardiology consult Obtain home medications, review and reconcile when available Further management will be based on patient hospital course. Discussed treatment plan with the patient and answered all his questions.
[2023-10-15] MEDS: carvediloL 25 MG TAB PO SCH ×2 (06:00→18:00)
[2023-10-15] MEDS ORDERED: carvediloL 6.25 MG TAB ONE ×2 (06:55→17:59)
[2023-10-15] MEDS: FUROSEMIDE 40 MG/4 ML VIAL IV SCH ×2 (09:00→17:00)
[2023-10-15] MEDS: APIXABAN 5 MG TABLET PO SCH ×2 (09:00→22:44)
[2023-10-15] MEDS: ASPIRIN EC 81 MG TAB PO SCH (09:00)
[2023-10-15] MEDS ORDERED: ASPIRIN EC 81 MG TAB PO ONE (09:08)
[2023-10-15] MEDS ORDERED: APIXABAN 5 MG TABLET ONE (09:08)
--- NOTE | 2023-10-15 14:26 | RAD REPORT ---
EXAM DESCRIPTION: CT - Abdomen Pelvis Wo Contrast - 10/15/2023 6:33 am CLINICAL HISTORY: ABD PAIN TECHNIQUE: Axial computed tomography images of the abdomen and pelvis without intravenous contrast. Sagittal and coronal reformatted images were created and reviewed. This CT exam was performed usi ng one or more of the following dose reduction techniques: automated exposure control, adjustment o f the mA and/or kV according to patient size, and/or use of iterative reconstruction technique. COMPARISON: No relevant prior studies available. FINDINGS: Lung bases: Interstitial thickening and patchy groundglass opacities at the lung bases b ilaterally. Pleural space: Small bilateral pleural effusions. Heart: The heart is moderately enlarged. ABDOMEN: Liver: Unremarkable. Gallbladder and bile ducts: Unremarkable. No calcified stones. No ductal dilation. Pancreas: Unremarkable. No ductal dilation. Spleen: Unremarkable. No splenomegaly. Adrenals: Unremarkable. No mass. Kidneys and ureters: Unremarkable. No obstructing stones. No hydronephrosis. Stomach and bowel: Unremarkable. No obstruction. No mucosal thickening. PELVIS: Appendix: Normal caliber appendix. No findings to suggest acute appendicitis. Bladder: The urinary bladder is decompressed. No stones. Reproductive: Unremarkable as visualized. ABDOMEN and PELVIS: Intraperitoneal space: Unremarkable. No free air. No significant fluid collection. Bones/joints: Multilevel spondylosis. No acute fracture. No dislocation. Soft tissues: Small bilateral fat-containing ventral hernias. The right testis is partially retract ed into the inguinal canal. Vasculature: Unremarkable. No abdominal aortic aneurysm. Lymph nodes: Unremarkable. No enlarged lymph nodes. IMPRESSION: 1. No acute process identified within the abdomen and pelvis. 2. Findings which may be related to mild pulmonary congestion including small bilateral pleural eff usions. Superimposed infection not excluded. 3. Other findings as above. Electronically signed by: Geovanny Le MD 10/15/2023 02:11 AM PRODUCTION SOLDERER Due to temporary technical issues with the PACS/Fluency reporting system, reports are being signed by the in house radiologists without review as a courtesy to insure prompt reporting. The interpreting radiologist is fully responsible for the content of the report.
--- NOTE | 2023-10-15 14:39 | RAD REPORT ---
EXAM DESCRIPTION: RAD - Chest Single View - 10/15/2023 12:31 am CLINICAL HISTORY: CHEST PAIN COMPARISON: None. FINDINGS: Single frontal radiograph view of the chest. Cardiomediastinal silhouette: Atherosclerotic calcification of thoracic aorta. Cardiomegaly. Lungs: Pulmonary vascular congestion with diffuse bilateral interstitial opacities. Small pleural eff usions. Low lung volumes. No pneumothorax. Bones: No acute osseous abnormality. Degenerative change of the spine and shoulders. Upper abdomen: No abnormality identified. IMPRESSION: Cardiomegaly with pulmonary edema pattern and small pleural effusions. Electronically signed by: Jerry Bonilla DO 10/15/2023 12:40 AM SEWAGE DISPOSAL ENGINEER M Due to temporary technical issues with the PACS/Fluency reporting system, reports are being signed by the in house radiologists without review as a courtesy to insure prompt reporting. The interpreting radiologist is fully responsible for the content of the report.
--- NOTE | 2023-10-15 18:37 | P.PN ---
Date of Service: 10/15/23 Seen and examined. He is currently tolerating room air at rest but desaturates to the 80s with exertion. Chest x-ray reviewed and demonstrating pulmonary edema. Diagnosis: Acute respiratory failure with hypoxia. Continue IV Lasix. Monitor renal function on diuresis.
[2023-10-15] MEDS ORDERED: HOME MED 1 EA UNK (Hydralazine Hcl [Hydralazine Hcl] 50 MG Tablet) PO SCH (21:00)
[2023-10-15] MEDS: HYDRALAZINE HCL 25 MG TABLET PO SCH (22:44)
[2023-10-16 04:04] LABS: Absolute Lymphocytes (CBC) 1.4 K/uL (0.7-4.9); Hematocrit 37.4 % (39.6-49.0); Lymphocytes % 23.8 % (15.3-44.8); MCV 92.7 fL (80-100); MPV 8.5 fL (7.6-11.3); Platelets 259 thou/uL (152-406); RBC Red Blood Cell Count 4.03 M/uL (4.33-5.43)
[2023-10-16 04:10] LABS: Magnesium 2.2 mg/dL (1.6-2.4); Potassium 3.4 mEq/L (3.5-5.1)
[2023-10-16] MEDS: carvediloL 25 MG TAB PO SCH ×2 (05:25→17:27)
--- NOTE | 2023-10-16 08:28 | P.CNS ---
Date of Consult: 10/16/23 Reason for Consult: Shortness of breath congestive heart failure Chief Complaint: CHF History of Present Illness: Patient is 68 years of age with a history of diastolic heart failure A-fib hypertension presented to the emergency room with a 25 pound weight gain and worsening dyspnea significant peripheral edema with orthopnea denies any fever or chills been taking only Lasix 40 mg a day he does see a supervisor wall mirror department a little better today Allergies No Known Allergies Allergy (Verified 05/08/12 05:40) Home Medications: Amlodipine Besylate 10 mg PO DAILY 04/08/23 Apixaban [Eliquis] 5 mg PO DAILY 04/08/23 Atorvastatin Calcium 40 mg PO BEDTIME 04/08/23 Carvedilol [Coreg] 25 mg PO BID 04/08/23 Hydralazine HCl 50 mg PO TID 04/08/23 Isosorbide Mononitrate [Isosorbide Mononitrate ER] 30 mg PO DAILY 04/08/23 Lisinopril [Zestril] 40 mg PO DAILY 04/08/23 Spironolactone 25 mg PO DAILY 04/08/23 Doxycycline Hyclate 100 mg PO BID 9 Days #18 tab 04/10/23 Aspirin Chewable [Aspirin Chewable*] 81 mg PO DAILY #30 tab.chew 08/12/23 Furosemide [Lasix] 40 mg PO DAILY #30 tab 08/12/23 - Past Medical/Surgical History Diabetic: No -: HTN -: HLD -: Afib -: Morbid Obeisty -: appendectomy - Social History Smoking Status: Never smoker Alcohol use: No CD- Drugs: No Caffeine use: Yes Place of Residence: Home Review of Systems 10-point ROS is otherwise unremarkable General: Weakness Respiratory: Shortness of Breath Cardiovascular: Edema Physical Examination Temp Pulse Resp BP Pulse Ox 97.2 F 85 20 181/95 H 93 10/16/23 04:00 10/16/23 05:25 10/16/23 04:00 10/16/23 05:25 10/16/23 04:00 General: Alert, In no apparent distress, Oriented x3 Respiratory: Clear to auscultation bilaterally, Crackles/rales Cardiovascular: Regular rate/rhythm (3+ edema), Normal S1 S2, Edema Gastrointestinal: Normal bowel sounds, Soft and benign - Problems (1) Acute on chronic diastolic (congestive) heart failure Current Visit: Yes Status: Acute Plan: Patient is 68 years of age admitted with acute on chronic diastolic heart failure significant weight gain of 25 pounds due to fluid and salt indiscretion patient has cardiomegaly. BNP is signs and symptoms of congestive heart failure patient will need aggressive diuresis increase Lasix to 80 mg twice a day add low-dose spironolactone patient has A-fib anticoagulated rate controlled oxygenation satisfactory risk for obstructive sleep apnea may need an outpatient sleep study patient is morbidly obese with heart failure is alone
[2023-10-16] MEDS ORDERED: FUROSEMIDE 40 MG/4 ML VIAL IV SCH (09:00)
[2023-10-16] MEDS: SPIRONOLACTONE 25 MG TABLET PO SCH (09:47)
[2023-10-16] MEDS: ISOSORBIDE MONO SR 30 MG TAB PO SCH (09:47)
[2023-10-16] MEDS: HYDRALAZINE HCL 25 MG TABLET PO SCH ×3 (09:47→21:01)
[2023-10-16] MEDS: ASPIRIN EC 81 MG TAB PO SCH (09:47)
[2023-10-16] MEDS: APIXABAN 5 MG TABLET PO SCH ×2 (09:47→20:56)
--- NOTE | 2023-10-16 16:42 | P.PN ---
Subjective Date of Service: 10/16/23 Chief Complaint: CHF Patient reports significant improvement in his shortness of breath. Leg swelling unchanged. Not much urine output as anticipated. Physical Examination - Vital Signs Temperature: 97 F Blood Pressure: 179/82 Pulse: 71 Respirations: 18 Pulse Ox (%): 94 - Physical Exam General: Alert, In no apparent distress, Oriented x3, Obese HEENT: Mucous membr. moist/pink Neck: Supple, JVD not distended Respiratory: Diminished, Other (Bibasilar crackles) Cardiovascular: Regular rate/rhythm, Edema (3+ bilateral lower extremity pitting edema) Gastrointestinal: Normal bowel sounds, Soft and benign, Non-distended, No tenderness Musculoskeletal: Swelling (Bilateral legs) Integumentary: No rashes, No cyanosis Neurological: Normal speech, Normal strength at 5/5 x4 extr Assessment And Plan - Current Problems (Diagnosis) (1) Acute on chronic diastolic (congestive) heart failure Current Visit: Yes Status: Acute (2) AF (paroxysmal atrial fibrillation) Current Visit: Yes Status: Acute (3) Hypertension Current Visit: Yes Status: Acute (4) Obesity Current Visit: Yes Status: Acute - Plan Acute on chronic diastolic heart failure He desaturated to the 80s with ambulation yesterday Respiratory status improved. He is tolerating room air. Urine output is not as much as expected with current dose of IV Lasix. No howard e in leg edema Patient reports Lasix drip was more efficient for him during his previous hospitalization at [facility]. Trial of Lasix drip and monitor renal function. Nephrology consulted to assist with diuresis Fluid restriction to 1500 ml per day ordered. Continue Aldactone. Malignant hypertension Systolic blood pressure is severely elevated. Hydralazine IV as needed for BP spikes. Resume other home antihypertensives. Paroxysmal atrial fibrillation Continue Coreg and Eliquis. DVT prophylaxis: Eliquis
[2023-10-16] MEDS: FUROSEMIDE 100 MG in NA CHLORIDE 0.9% 90 ML IV SCH (17:00)
[2023-10-16] MEDS: AMLODIPINE 10 MG TAB PO SCH (17:18)
[2023-10-16] MEDS: ATORVASTATIN 40 MG TAB PO SCH (20:56)
[2023-10-16] MEDS ORDERED: HYDRALAZINE HCL 25 MG TABLET PO SCH (21:00)
--- NOTE | 2023-10-16 23:34 | P.CNS ---
Date of Consult: 10/15/23 Reason for Consult: SOB, CHF Requesting Physician: Eugene Waldrop Chief Complaint: SOB, cough, edema History of Present Illness: Mr. Connolly is a 68 yo obese man with a past medical history of hypertension, hyperlipidemia, atrial fibrillation, and congestive heart failure who presented to the emergency room with shortness of breath, cough, and lower extremity edema. His last ECHO was about 6 months ago. His EF appeared normal but the windows were poorly visualized. He is feeling less short of breath today post initiation of a lasix drip. He takes Eliquis. Allergies No Known Allergies Allergy (Verified 05/08/12 05:40) Home medications list reviewed: Yes Home Medications: Amlodipine Besylate 10 mg PO DAILY 04/08/23 Apixaban [Eliquis] 5 mg PO DAILY 04/08/23 Atorvastatin Calcium 40 mg PO BEDTIME 04/08/23 Carvedilol [Coreg] 25 mg PO BID 04/08/23 Hydralazine HCl 50 mg PO TID 04/08/23 Isosorbide Mononitrate [Isosorbide Mononitrate ER] 30 mg PO DAILY 04/08/23 Lisinopril [Zestril] 40 mg PO DAILY 04/08/23 Spironolactone 25 mg PO DAILY 04/08/23 Doxycycline Hyclate 100 mg PO BID 9 Days #18 tab 04/10/23 Aspirin Chewable [Aspirin Chewable*] 81 mg PO DAILY #30 tab.chew 08/12/23 Furosemide [Lasix] 40 mg PO DAILY #30 tab 08/12/23 - Past Medical/Surgical History Diabetic: No -: HTN -: HLD -: Afib -: Morbid Obeisty -: appendectomy - Social History Smoking Status: Never smoker Alcohol use: No CD- Drugs: No Caffeine use: Yes Place of Residence: Home Review of Systems 10-point ROS is otherwise unremarkable General: As per HPI Respiratory: Cough, Shortness of Breath Physical Examination Temp Pulse Resp BP Pulse Ox 97 F 76 18 178/86 H 94 10/16/23 17:00 10/16/23 17:27 10/16/23 17:00 10/16/23 17:27 10/16/23 17:00 General: Alert, Oriented x3, Obese HEENT: Atraumatic, Normocephalic, PERRLA Neck: Supple Respiratory: Crackles/rales, Expiratory wheezes Cardiovascular: Other (3+ pitting edema) Capillary refill: <2 Seconds Gastrointestinal: Normal bowel sounds, Soft and benign Musculoskeletal: No clubbing Neurological: Normal speech, Normal tone Lymphatics: No axilla or inguinal lymphadenopathy External genitalia: Deferred Rectal: Deferred - Problems (1) AF (paroxysmal atrial fibrillation) Current Visit: Yes Status: Acute Plan: Continue Eliquis and carvedilol (2) Acute on chronic diastolic (congestive) heart failure Current Visit: Yes Status: Acute Plan: Continue lasix drip, spironolactone, O2 to keep SpO2 > 95% Monitor and replace electrolytes (3) Hypertension Current Visit: Yes Status: Acute Plan: monitor vital signs Continue antihypertensives
[2023-10-17] MEDS: FUROSEMIDE 100 MG in NA CHLORIDE 0.9% 90 ML IV SCH ×2 (02:10→18:02)
[2023-10-17 02:24] LABS: Albumin 3.2 g/dL (3.4-5.0); Phosphorus 3.6 mg/dL (2.5-4.9); Potassium 3.8 mEq/L (3.5-5.1)
[2023-10-17] MEDS: carvediloL 25 MG TAB PO SCH ×2 (04:49→18:02)
[2023-10-17 07:51] LABS: Magnesium 2.3 mg/dL (1.6-2.4)
[2023-10-17] MEDS: lisinopriL 20 MG TAB PO SCH (08:27)
[2023-10-17] MEDS: ASPIRIN EC 81 MG TAB PO SCH (08:30)
[2023-10-17] MEDS: APIXABAN 5 MG TABLET PO SCH ×2 (08:31→20:52)
[2023-10-17] MEDS: AMLODIPINE 10 MG TAB PO SCH (08:32)
[2023-10-17] MEDS: ISOSORBIDE MONO SR 30 MG TAB PO SCH (08:32)
[2023-10-17] MEDS: HYDRALAZINE HCL 25 MG TABLET PO SCH ×2 (08:40→20:52)
[2023-10-17] MEDS: SPIRONOLACTONE 25 MG TABLET PO SCH ×2 (08:46→20:52)
[2023-10-17] MEDS ORDERED: SPIRONOLACTONE 25 MG TABLET PO SCH (09:00)
[2023-10-17] MEDS ORDERED: HOME MED 1 EA UNK (Lisinopril [Zestril] 40 MG Tablet) PO SCH (09:00)
--- NOTE | 2023-10-17 11:56 | P.CNS ---
Date of Consult: 10/17/23 Reason for Consult: Fluid overload Requesting Physician: khanh pendleton Chief Complaint: SOB, cough, edema History of Present Illness: Pt is a 68-year-old AA male with history of multiple medical problems including reports of chronic diastolic heart failure, obesity, paroxysmal atrial fibrillation, malignant HTN, chronic peripheral edema who presented to the emergency department with complaints of shortness of breath that gradually got worse over days. Associated with peripheral edema, orthopnea. Denied cough, fever, chills. Has diuresed well over the past 24h and feels better, reports leg swelling slowly going down. Allergies No Known Allergies Allergy (Verified 05/08/12 05:40) Home Medications: Amlodipine Besylate 10 mg PO DAILY 04/08/23 Apixaban [Eliquis] 5 mg PO DAILY 04/08/23 Atorvastatin Calcium 40 mg PO BEDTIME 04/08/23 Carvedilol [Coreg] 25 mg PO BID 04/08/23 Hydralazine HCl 50 mg PO TID 04/08/23 Isosorbide Mononitrate [Isosorbide Mononitrate ER] 30 mg PO DAILY 04/08/23 Lisinopril [Zestril] 40 mg PO DAILY 04/08/23 Spironolactone 25 mg PO DAILY 04/08/23 Doxycycline Hyclate 100 mg PO BID 9 Days #18 tab 04/10/23 Aspirin Chewable [Aspirin Chewable*] 81 mg PO DAILY #30 tab.chew 08/12/23 Furosemide [Lasix] 40 mg PO DAILY #30 tab 08/12/23 - Past Medical/Surgical History Diabetic: No -: HTN -: HLD -: Afib -: Morbid Obeisty -: appendectomy - Social History Smoking Status: Never smoker Alcohol use: No CD- Drugs: No Caffeine use: Yes Place of Residence: Home Review of Systems General: As per HPI Eyes: Unremarkable ENT: Unremarkable Respiratory: Shortness of Breath Cardiovascular: Edema, As per HPI Gastrointestinal: Unremarkable Genitourinary: Unremarkable Musculoskeletal: Unremarkable Integumentary: Unremarkable Neurological: Unremarkable Physical Examination Temp Pulse Resp BP Pulse Ox 97.3 F 70 16 205/154 H 100 10/17/23 08:00 10/17/23 08:46 10/17/23 08:00 10/17/23 08:46 10/17/23 08:00 General: Alert, Cooperative HEENT: Atraumatic, Normocephalic Neck: Supple Respiratory: Normal air movement, Other (Non tachypnec, reduced at bases) Cardiovascular: Other (Distant heart sounds, non tachy) Gastrointestinal: Other (Obese, NT) Musculoskeletal: No tenderness, No warmth, Swelling Integumentary: Other (Xerosis) Neurological: Normal speech, Normal tone, Normal affect Conclusions/Impression: A/P) 1. Serum Cr raised above normal limits/reference range but pt has larger body habitus and build. Trend renal function closely on diuretics. 2. Hypertensive urgency, malignant HTN -BP remains accelerated despite diuresis, multiple agents including ACEi and CCB. May need to place on nitro gtt 3. Acute on chronic diastolic CHF, fluid overload, peripheral edema -cont lasix gtt but will lower rate slightly to 7.5 mg/hr to not exceed ~200 cc/hr. Will increase Spironolactone dose 4. Monitor lytes closely. 5. Metab alkalosis with CHF, diuresis -trend closely
[2023-10-17] MEDS ORDERED: POTASSIUM 25 MEQ EFFERV TAB PO ONE (12:00)
--- NOTE | 2023-10-17 12:17 | P.PN ---
Subjective Date of Service: 10/17/23 Chief Complaint: Acute on chronic diastolic heart failure Subjective: Improving (Patient is improving on Lasix drip lost about 6 pounds in weight) Review of Systems Respiratory: Shortness of Breath Cardiovascular: Edema Physical Examination - Vital Signs Temperature: 97.4 F Blood Pressure: 205/154 Pulse: 74 Respirations: 16 Pulse Ox (%): 95 - Physical Exam General: Alert, Oriented x3 Respiratory: Clear to auscultation bilaterally Cardiovascular: Regular rate/rhythm, Edema (3+ edema) Assessment And Plan - Current Problems (Diagnosis) (1) Acute on chronic diastolic (congestive) heart failure Current Visit: Yes Status: Acute Plan: Patient is 68 years of age admitted with worsening heart failure continue on Lasix drip renal function is stable continue with Lasix drip continue with spironolactone labs reviewed
--- NOTE | 2023-10-17 13:28 | EKG ---
Test Date: 2023-10-15 Test Time: 04:41:15 Mine Surveyor: KENNEDY MEASUREMENT RESULTS: Intervals: Rate: 91 [place]: QRSD: 134 QT: 396 QTc: 487 [place]: P: [place]: QRS: 253 T: -39 INTERPRETIVE STATEMENTS: Atrial fibrillation with premature ventricular or aberrantly conducted complexes Right superior axis deviation Nonspecific intraventricular block Nonspecific T wave abnormality Abnormal ECG Compared to ECG 08/10/2023 20:38:59 Ventricular premature complex(es) now present T-wave abnormality now present Intraventricular conduction delay no longer present ST (T wave) deviation no longer present Electronically Signed On 10-17-23 13:22:54 LICENSED NUCLEAR CONTROL ROOM OPERATOR by Jamar Ferguson
--- NOTE | 2023-10-17 13:28 | EKG ---
Test Date: 2023-10-15 Test Time: 04:42:27 Library Services Assistant: KENNEDY MEASUREMENT RESULTS: Intervals: Rate: 103 [place]: QRSD: 134 QT: 342 QTc: 448 [place]: P: [place]: QRS: 257 T: -27 INTERPRETIVE STATEMENTS: Atrial fibrillation with rapid ventricular response Right superior axis deviation Nonspecific intraventricular block Abnormal QRS-T angle, consider primary T wave abnormality Abnormal ECG Compared to ECG 10/15/2023 04:41:15 Ventricular premature complex(es) no longer present T-wave abnormality still present Electronically Signed On 10-17-23 13:22:53 DISASTER RECOVERY SPECIALIST by Jamar Ferguson
[2023-10-17] MEDS ORDERED: HYDRALAZINE HCL 20 MG/ML VIAL IV PRN (13:51)
[2023-10-17] MEDS: ACETAMINOPHEN 325 MG TABLET PO PRN ×2 (14:17→20:52)
--- NOTE | 2023-10-17 15:21 | P.PN ---
Subjective Date of Service: 10/17/23 Chief Complaint: Acute on chronic diastolic heart failure Patient reportsimprovement in shortness of breath Lower extremity swelling significantly improved compared to yesterday Patient with significant urine output with the Lasix drip. Physical Examination - Vital Signs Temperature: 97.4 F Blood Pressure: 115/58 Pulse: 74 Respirations: 16 Pulse Ox (%): 95 - Physical Exam General: Alert, In no apparent distress, Oriented x3 HEENT: Mucous membr. moist/pink Neck: Supple, JVD not distended Respiratory: Clear to auscultation bilaterally, Normal air movement Cardiovascular: Regular rate/rhythm, Normal S1 S2, Edema (Bilateral lower extremities-improved) Gastrointestinal: Soft and benign, Non-distended, No tenderness Musculoskeletal: Swelling (Bilateral legs) Neurological: Normal strength at 5/5 x4 extr Assessment And Plan - Current Problems (Diagnosis) (1) Acute on chronic diastolic (congestive) heart failure Current Visit: Yes Status: Acute (2) AF (paroxysmal atrial fibrillation) Current Visit: Yes Status: Acute (3) Hypertension Current Visit: Yes Status: Acute (4) Obesity Current Visit: Yes Status: Acute - Plan Acute on chronic diastolic heart failure Patient is tolerating room air. Urine output significantly improved with Lasix drip. Neurology input appreciated. Lasix drip dose decreased. Renal function is stable for now. Continue to monitor. Fluid restriction to 1500 ml per day ordered. Continue Aldactone. Malignant hypertension Blood pressure readings have been fluctuating. Partly secondary to inappropriate blood pressure cuff. Nursing staff informed to use an appropriately large blood pressure cuff to measure blood pressure. Continue current home medications. Hydralazine IV as needed for BP spikes. Paroxysmal atrial fibrillation. Continue Coreg and Eliquis. Continue telemetry DVT prophylaxis: Eliquis
[2023-10-17] MEDS: ATORVASTATIN 40 MG TAB PO SCH (20:52)
[2023-10-17] MEDS ORDERED: HYDRALAZINE HCL 25 MG TABLET PO SCH (21:00)
[2023-10-18] MEDS: FUROSEMIDE 100 MG in NA CHLORIDE 0.9% 90 ML IV SCH (02:06)
[2023-10-18] MEDS: carvediloL 25 MG TAB PO SCH ×2 (05:27→17:28)
[2023-10-18 07:41] LABS: Albumin 3.1 g/dL (3.4-5.0); Phosphorus 3.7 mg/dL (2.5-4.9); Potassium 3.5 mEq/L (3.5-5.1)
[2023-10-18] MEDS: HYDRALAZINE HCL 25 MG TABLET PO SCH ×3 (08:51→21:17)
[2023-10-18] MEDS: SPIRONOLACTONE 25 MG TABLET PO SCH ×3 (08:51→21:17)
[2023-10-18] MEDS: ISOSORBIDE MONO SR 30 MG TAB PO SCH (08:52)
[2023-10-18] MEDS: AMLODIPINE 10 MG TAB PO SCH (08:52)
[2023-10-18] MEDS: lisinopriL 20 MG TAB PO SCH ×2 (08:53→10:00)
[2023-10-18] MEDS: APIXABAN 5 MG TABLET PO SCH ×2 (08:54→21:17)
[2023-10-18] MEDS: ASPIRIN EC 81 MG TAB PO SCH (08:54)
--- NOTE | 2023-10-18 12:27 | P.PN ---
(S) BP low this AM, lasix gtt stopped. Pt reports sig improvement in CANALES and swelling General: Alert, Cooperative HEENT: Atraumatic, Normocephalic Neck: Supple Respiratory: Normal air movement, Other (Non tachypnec,no rales) Cardiovascular: Other (Distant heart sounds, non tachy) Gastrointestinal: Other (Obese, NT) Musculoskeletal: No tenderness, No warmth, Swelling improved, legs do not feel tight Integumentary: Other (Xerosis) Neurological: Normal speech, Normal tone, Normal affect Conclusions/Impression: A/P) 1. Serum Cr raised above normal limits/reference range but pt has larger body habitus and build. Trend renal function closely on diuretics. 2. Hypertensive urgency, malignant HTN -BP initially accelerated now lower with diuresis, multiple agents including ACEi and CCB ordered, re-timed some and placed holding parameter with lower BP this AM. 3. Acute on chronic diastolic CHF, fluid overload, peripheral edema -improved on lasix gtt. Home PO lasix dose will have to be increased Cont Spironolactone dose 4. Monitor lytes closely. 5. Metab alkalosis with CHF, diuresis -trend closely
--- NOTE | 2023-10-18 15:41 | P.PN ---
Subjective Date of Service: 10/18/23 Chief Complaint: Acute on chronic diastolic heart failure Patient denies any shortness of breath. Progressive improvement in lower extremity edema. He had significant urine output over the past 24 hours. Blood pressure readings have been soft today as compared to hypertension yesterday Physical Examination - Vital Signs Temperature: 97.4 F Blood Pressure: 94/51 Pulse: 68 Respirations: 16 Pulse Ox (%): 94 Assessment And Plan - Current Problems (Diagnosis) (1) Acute on chronic diastolic (congestive) heart failure Current Visit: Yes Status: Acute (2) AF (paroxysmal atrial fibrillation) Current Visit: Yes Status: Acute (3) Hypertension Current Visit: Yes Status: Acute (4) Obesity Current Visit: Yes Status: Acute - Plan Acute on chronic diastolic heart failure Patient is tolerating room air. Marked urine output with Lasix drip. Patient currently with soft blood pressure. Case discussed with nephrology. Lasix drip on hold for today. Renal function is stable for now. Continue to monitor. Fluid restriction to 1500 ml per day ordered. Malignant hypertension Blood pressure readings have been fluctuating. Partly secondary to i nappropriate blood pressure cuff. Blood pressure readings have been soft today. Continue current home medications, timing of antihypertensives readjusted by nephrology. Paroxysmal atrial fibrillation. Continue Coreg and Eliquis. Continue telemetry DVT prophylaxis: Eliquis
[2023-10-18] MEDS: ATORVASTATIN 40 MG TAB PO SCH (21:17)
[2023-10-19 05:19] VITALS: BMI 44.8
[2023-10-19] MEDS: carvediloL 25 MG TAB PO SCH (06:32)
[2023-10-19 07:06] VITALS: BP 142/65; TEMP 97.9
[2023-10-19 08:07] LABS: Albumin 2.9 g/dL (3.4-5.0); Potassium 4.2 mEq/L (3.5-5.1)
[2023-10-19] MEDS: ISOSORBIDE MONO SR 30 MG TAB PO SCH (08:47)
[2023-10-19] MEDS: APIXABAN 5 MG TABLET PO SCH (08:47)
[2023-10-19] MEDS: SPIRONOLACTONE 25 MG TABLET PO SCH (08:47)
[2023-10-19] MEDS: AMLODIPINE 10 MG TAB PO SCH (08:47)
[2023-10-19] MEDS: HYDRALAZINE HCL 25 MG TABLET PO SCH (08:47)
[2023-10-19] MEDS: ASPIRIN EC 81 MG TAB PO SCH (08:47)
[2023-10-19] MEDS: lisinopriL 20 MG TAB PO SCH (08:48)
[2023-10-19 10:05] VITALS: O2SAT 97
--- NOTE | 2023-10-19 10:31 | P.DS ---
Admission Date: 10/15/23 Discharge Date: 10/19/23 Disposition: ROUTINE DISCHARGE Discharge Condition: FAIR Reason for Admission: Acute on chronic diastolic heart failure - Problems (1) Acute on chronic diastolic (congestive) heart failure Status: Acute (2) AF (paroxysmal atrial fibrillation) Status: Acute (3) Hypertension Status: Acute (4) Obesity Status: Acute Brief History of Present Illness: 68-year-old male with history of multiple medical problems including chronic diastolic heart failure, paroxysmal atrial fibrillation, hypertension presented to the emergency department with complaints of shortness of breath. Symptoms started approximately 3 days back. Gradually got worse. Associated with increaed lower extremity swelling and orthopnea. The patient was evaluated in the ED and found to be in atrial fibrillation with heart rate around 100/min, pulmonary edema on chest x-ray. He received Lasix 40 mg IV x 1 dose, diltiazem 10 mg IV x 1 dose and admitted for further management. Hospital Course: Patient admitted to the medical floor and the following medical problems addressed: Acute on chronic diastolic heart failure Patient tolerated room air throughout the hospital stay. He was started on IV Lasix and transition to Lasix drip He had marked urine output with Lasix drip, lost weight by diuresis. His shortness of breath resolved and bilateral lower extremity edema significantly improved His blood pressure became soft briefly so Lasix drip held for 1 day. Gasoline Pump Installer evaluated patient and assisted with management. Renal function stable with diuresis. Overall patient is clinically improved, vitals are stable for discharge. His home dose Lasix increased from 40 mg daily to 80 mg daily on discharge. Malignant hypertension Blood pressure readings fluctuated, partly secondary to inappropriate blood pressure cuff. Blood pressure becomes soft so Lasix drip was held briefly. Home antihypertensives resumed on discharge Paroxysmal atrial fibrillation. Continued Coreg and Eliquis. Vital Signs/Physical Exam: Temp Pulse Resp BP Pulse Ox 97.9 F 80 18 142/65 H 94 10/19/23 06:59 10/19/23 06:59 10/19/23 06:59 10/19/23 06:59 10/19/23 06:59 General: Alert, In no apparent distress, Oriented x3 HEENT: Mucous membr. moist/pink Neck: Supple, JVD not distended Respiratory: Clear to auscultation bilaterally, Normal air movement Cardiovascular: Regular rate/rhythm, Normal S1 S2, Edema Gastrointestinal: Normal bowel sounds, Soft and benign, Non-distended, No tenderness Musculoskeletal: No tenderness Integumentary: No cyanosis Neurological: Normal strength at 5/5 x4 extr Laboratory Data at Discharge: WBC 6.10 thou/uL (4.3-10.9) 10/16/23 03:32 Hgb 12.2 g/dL (13.6-17.9) L D 10/16/23 03:32 Hct 37.4 % (39.6-49.0) L 10/16/23 03:32 Plt Count 259 thou/uL (152-406) 10/16/23 03:32 PT 15.8 SECONDS (9.5-12.5) H 10/15/23 01:27 INR 1.45 10/15/23 01:27 Sodium 140 mEq/L (136-145) 10/19/23 07:43 Potassium 4.2 mEq/L (3.5-5.1) D 10/19/23 07:43 BUN 20 mg/dL (7-18) H 10/19/23 07:43 Creatinine 1.33 mg/dL (0.70-1.30) H 10/19/23 07:43 Glucose 96 mg/dL (74-106) 10/19/23 07:43 Phosphorus 3.0 mg/dL (2.5-4.9) 10/19/23 07:43 Magnesium 2.3 mg/dL (1.6-2.4) 10/17/23 01:49 Total Bilirubin 1.7 mg/dL (0.2-1.0) H 10/15/23 01:27 AST 19 U/L (15-37) 10/15/23 01:27 ALT 18 U/L (16-61) 10/15/23 01:27 Alkaline Phosphatase 77 U/L (45-117) 10/15/23 01:27 Lipase 23 U/L (13-75) 10/15/23 01:27 Home Medications: Amlodipine Besylate 10 mg PO DAILY 04/08/23 Apixaban [Eliquis] 5 mg PO DAILY 04/08/23 Atorvastatin Calcium 40 mg PO BEDTIME 04/08/23 Carvedilol [Coreg] 25 mg PO BID 04/08/23 Hydralazine HCl 50 mg PO TID 04/08/23 Isosorbide Mononitrate [Isosorbide Mononitrate ER] 30 mg PO DAILY 04/08/23 Lisinopril [Zestril] 40 mg PO DAILY 04/08/23 Spironolactone 25 mg PO DAILY 04/08/23 Aspirin Chewable [Aspirin Chewable*] 81 mg PO DAILY #30 tab.chew 08/12/23 Furosemide [Lasix] 80 mg PO DAILY #30 tab 10/19/23 New Medications: Furosemide [Lasix] 80 mg PO DAILY #30 tab Physician Discharge Instructions: PROBLEM: CHF, Shortness of breath, Fluid overload GOAL: Clear understanding of disease process INSTRUCTIONS: Please your legs elevated above your hip level in the lying or sitting position Follow up as directed with your PCP in 1-2 weeks. Take medications as prescribed. Return to ER for any emergency Lasix prescription was sent to [facility] Diet: AHA Activity: Ad ciarra Diet: AHA Activity: Ad ciarra Followup: Logan Christianson [ACTIVE - CAN ADMIT] - (Within 2 weeks) Jamar Ferguson MD [ACTIVE - CAN ADMIT] - (Within 2 to 4 weeks) Time spent managing pt's care (in minutes): 38
== END 2023-10-19 11:35 | disposition home or self-care (01) | DRG 291 ==
LOC: ER 23:35 → ERHOLD 10-15 05:08 → 4TH 10-15 18:44
PROVIDERS: ADMIT Internal Medicine; ATTEND Internal Medicine
DX: I11.0 Hypertensive heart disease with heart failure (principal); I50.33 Acute on chronic diastolic (congestive) heart failure; J96.01 Acute respiratory failure with hypoxia; Z68.41 Body mass index [BMI] 40.0-44.9, adult; N17.9 Acute kidney failure, unspecified; E87.3 Alkalosis; I1A.0 Resistant hypertension; I48.0 Paroxysmal atrial fibrillation; Z79.01 Long term (current) use of anticoagulants; Z90.49 Acquired absence of other specified parts of digestive tract; E66.01 Morbid (severe) obesity due to excess calories; E78.5 Hyperlipidemia, unspecified; I16.0 Hypertensive urgency
CPT/HCPCS: 36415; 71045; 74176; 80048; 80069; 80076; 83690; 83735; 83880; 84484; 85025; 85610; 87635; 87804; 93005; 96374; 96375; 99285; J0360; J1940; J2405

== ENCOUNTER 2023-11-28 19:00 | Inpatient (IN) | payer OTHER ==
--- OUTSIDE RECORDS SUMMARY | 2023-11-28 19:08 | XMS REPORT | Continuity of Care Document ---
Author Name Unknown Address [address] [facility] [address] [place] [address] [facility] thconnect Address [address] [facility] [address] [place] [address] Care Team Providers Care Cam Maker Name Role Phone Rubina An Primary Care Physician + [phone] MILLER CANO K.HBrendon Attending Clinician Unavailveronika Caon MD, Miller K.H. Attending Clinician + [phone] Rubina An Attending Clinician [phone] Kyung Rubio Attending Clinician Carmela vailable Paul Montenegro MD Attending Clinician [phone] PAUL MONTENEGRO Attending Clinician Unavailabl e Lab, Ang - Db Attending Clinician Unavailable RUBINA FRANCISCO Attending Clinician Unavailable Kenzie Alanis Attending Clinician [phone] KENZIE DEWITT Attending Clinician Unavailable Doctor Unassigned, [place] Attending Clinician U navailable Vaccine, [facility] Family [facility] Attending Clinician Unavailable Carlito Lane MD Attending Clinician [phone] Attending Clinician Unavailable Ayaan MYRICK, Saranya Attending Clinician [phone] Pob, Adc Lab Main Attending Clinician UnavailJOURDAN Hogan Attending Clinician Unavail able Nurse, Adc Pob Immunization Attending Clinician Unavailable Jourdan Condon DO Attending Clinician [facility] [place], Taina Mera Attending Clinician [phone] Flora RN, Peg Mera Attending Clinician Unavail zeinab White SLD EDUCATIONAL AIDE, Karoline Pinzon Attending Clinician [phone] Manuel Akers DO Attending Clinician [phone] Therapy, Ang [facility] Covid Attending Clinician Vanita Fields Attending Clinician [phone] RADHA CARRANZA Attending Clinician Unavailable PATRICIA BILLY Attending Clinician Unavailable OBED [place] Attending Clinician PAUL Nath Admitting Clinician UnavailMILLER Davis Admitting Clinician UnavailManuel Roque DO Admitting Clinician [phone] Payers Payer Name Policy Type Policy Number Effective Date Expirati on Date Source [employer] [id number] 2020 00:00:00 COMMERCIAL NON-CONTRACT GENERIC [id number] 2019 00:00:00 [employer] [id number] 2018 00:00:00 Problems Condition Name Condition Details Condition Category Status Onset Date Resolution Date Last Treatment Date Treating Clinician Comments Source Hospital discharge follow-up Hospital discharge follow-up Disease Active 04-15 00:00: 00 [facility] Cellulitis of left lower extremity Cellulitis of left lower extremity Disease Active 04-15 00:00: 00 [facility] Paroxysmal atrial fibrillati on with RVR Paroxysmal atrial fibrillati on with RVR Disease Active 07-09 00:00: 00 [facility] Acute on chronic diastolic congestive heart failure Acute on chronic diastolic congestive heart failure Disease Active 07-09 00:00: 00 [facility] Troponin I above reference range Troponin I above reference range Disease Active 07-09 00:00: 00 [facility] COVID-19 virus infection COVID-19 virus infection Disease Active 07-09 00:00: 00 [facility] Morbid obesity with body mass index of 40.0-49.9 Morbid obesity with body mass index of 40.0-49.9 Disease Active 18 00:00: 00 [facility] Hypertensi ve emergency Hypertensi ve emergency Disease Active 07-08 00:00: 00 [facility] Rash Rash Disease Active -21 00:00: 00 [facility] Uncontroll ed hypertensi on Uncontroll ed hypertensi on Disease Active 2017-10 00:00: 00 [facility] CANALES (dyspnea on exertion) CANALES (dyspnea on exertion) Disease Active 2017-10 00:00: 00 [facility] Abnormal EKG Abnormal EKG Disease Active 2017-10 00:00: 00 [facility] Bilateral lower extremity edema Bilateral lower extremity edema Disease Active 2017-10 00:00: 00 [facility] History of asbestosis History of asbestosis Disease Active 2017-10 00:00: 00 [facility] Snoring Snoring Disease Active 2017-10 00:00: 00 [facility] Obesity (BMI 30-39.9) Obesity (BMI 30-39.9) Disease Active 2017-10 00:00: 00 [facility] Allergies, Adverse Reactions, Alerts Allergy Name Allergy Type Status Severity Reaction(s) Onset Date Inactive Date Treating Clinician Comments Source NO KNOWN ALLERGIE S Drug Class Active [facility] Social History Social Habit Start Date Stop Date Quantity Comments Source Gender identity [facility] Alcohol Frequency [facility] History SDOH Alcohol Std Drinks [facility] History SDOH Alcohol Binge [facility] Alcohol intake 2023-05-05 00:00:00 2023-05-05 00:00:00 Ex-drinker (finding) [facility] Exposure to SARS-CoV-2 (event) 2023-02-22 00:00:00 2023-03-04 14:11:00 Not sure [facility] History of Social function 2023-03-04 00:00:00 2023-03-04 00:00:00 [facility] Tobacco use and exposure 2023-03-04 00:00:00 2023-03-04 00:00:00 Smokeless tobacco non-user [facility] Alcohol Comment 2018-07-25 00:00:00 2018-07-25 00:00:00 socially [facility] Sex Ass[birth year] At 1955 00:00:00 1955 00:00:00 [facility] Smoking Status Start Date Stop Date Source Never smoked tobacco [facility] Medications Ordered Medication Name Filled Medication Name Start Date Stop Date Current Medication? Ordering Clinician Indication Dosage Frequency Signature (SIG) Comments Components Source ISOSORBIDE MONONITRATE 30 mg 24 hr tablet 0 8-10 00:00: 00 Yes [id number] 30mg TAKE 1 TABLET BY MOUTH IN THE MORNING [facility] HYDRALAZINE 50 mg tablet 2022-0 8-10 00:00: 00 Yes [id number] 50mg TAKE 1 TABLET BY MOUTH EVERY 8 HOURS [facility] isosorbide mononitrate 30 mg 24 hr tablet 2022-0 8-10 00:00: 00 Yes [id number] 30mg Take 1 tablet by mouth in the morning. [facility] hydrALAZINE 50 mg tablet 2022-0 8-10 00:00: 00 Yes [id number] 50mg Take 1 tablet by mouth every 8 (eight) hours. [facility] isosorbide mononitrate 30 mg 24 hr tablet 2022-0 8-10 00:00: 00 Yes [id number] 30mg Take 1 tablet by mouth in the morning. [facility] hydrALAZINE 50 mg tablet 2022-0 8-10 00:00: 00 Yes [id number] 50mg Take 1 tablet by mouth every 8 (eight) hours. [facility] isosorbide mononitrate 30 mg 24 hr tablet 2022-0 8-10 00:00: 00 Yes [id number] 30mg Take 1 tablet by mouth in the morning. [facility] hydrALAZINE 50 mg tablet 3-0 8-10 00:00: 00 Yes [id number] 50mg Take 1 tablet by mouth every 8 (eight) hours. [facility] isosorbide mononitrate 30 mg 24 hr tablet 2022-0 8-10 00:00: 00 Yes [id number] 30mg Take 1 tablet by mouth in the morning. [facility] hydrALAZINE 50 mg tablet 0 8-10 00:00: 00 Yes [id number] 50mg Take 1 tablet by mouth every 8 (eight) hours. [facility] ISOSORBIDE MONONITRATE 30 mg 24 hr tablet 0 8-10 00:00: 00 05-30 00:00 :00 No [id number] 30mg TAKE 1 TABLET BY MOUTH IN THE MORNING [facility] HYDRALAZINE 50 mg tablet 8-10 00:00: 00 05-30 00:00 :00 No [id number] 50mg TAKE 1 TABLET BY MOUTH EVERY 8 HOURS [facility] ISOSORBIDE MONONITRATE 30 mg 24 hr tablet 8-10 00:00: 00 05-30 00:00 :00 No [id number] 30mg TAKE 1 TABLET BY MOUTH IN THE MORNING [facility] HYDRALAZINE 50 mg tablet 8-10 00:00: 00 05-30 00:00 :00 No [id number] 50mg TAKE 1 TABLET BY MOUTH EVERY 8 HOURS [facility] isosorbide mononitrate 30 mg 24 hr tablet 8-10 00:00: 00 05-30 00:00 :00 No [id number] 30mg Take 1 tablet by mouth in the morning. [facility] hydrALAZINE 50 mg tablet 0 8-10 00:00: 00 05-30 00:00 :00 No [id number] 50mg Take 1 tablet by mouth every 8 (eight) hours. [facility] furosemide (LASIX) 40 mg tablet 7-16 00:00: 00 Yes [id number] 40mg Take 1 tablet by mouth in the morning. [facility] potassium chloride 10 mEq CR tablet 716 00:00: 00 Yes [id number] 10meq Take 1 tablet by mouth in the morning. [facility] furosemide (LASIX) 40 mg tablet 2022-0 7-16 00:00: 00 Yes [id number] 40mg Take 1 tablet by mouth in the morning. [facility] potassium chloride 10 mEq CR tablet 2022-0 7-16 00:00: 00 Yes [id number] 10meq Take 1 tablet by mouth in the morning. [facility] furosemide (LASIX) 40 mg tablet 2022-0 7-16 00:00: 00 Yes [id number] 40mg Take 1 tablet by mouth in the morning. [facility] potassium chloride 10 mEq CR tablet 2022-0 7-16 00:00: 00 Yes [id number] 10meq Take 1 tablet by mouth in the morning. [facility] furosemide (LASIX) 40 mg tablet 2022-0 -16 00:00: 00 Yes [id number] 40mg Take 1 tablet by mouth in the morning. [facility] potassium chloride 10 mEq CR tablet 2022-0 -16 00:00: 00 Yes [id number] 10meq Take 1 tablet by mouth in the morning. [facility] furosemide (LASIX) 40 mg tablet 2022-0 -16 00:00: 00 Yes [id number] 40mg Take 1 tablet by mouth in the morning. [facility] potassium chloride 10 mEq CR tablet 2022-0 -16 00:00: 00 Yes [id number] 10meq Take 1 tablet by mouth in the morning. [facility] furosemide (LASIX) 40 mg tablet 2022-0 -16 00:00: 00 Yes [id number] 40mg Take 1 tablet by mouth in the morning. [facility] potassium chloride 10 mEq CR tablet 3-0 7-16 00:00: 00 Yes [id number] 10meq Take 1 tablet by mouth in the morning. [facility] furosemide (LASIX) 40 mg tablet 3-0 7-16 00:00: 00 Yes [id number] 40mg Take 1 tablet by mouth in the morning. [facility] potassium chloride 10 mEq CR tablet 3-0 7-16 00:00: 00 Yes [id number] 10meq Take 1 tablet by mouth in the morning. [facility] furosemide (LASIX) 40 mg tablet 2022-0 7-16 00:00: 00 Yes [id number] 40mg Take 1 tablet by mouth in the morning. [facility] potassium chloride 10 mEq CR tablet 2022-0 -16 00:00: 00 Yes [id number] 10meq Take 1 tablet by mouth in the morning. [facility] furosemide (LASIX) 40 mg tablet 2022-0 -16 00:00: 00 Yes [id number] 40mg Take 1 tablet by mouth in the morning. [facility] potassium chloride 10 mEq CR tablet 2022-0 7-16 00:00: 00 Yes [id number] 10meq Take 1 tablet by mouth in the morning. [facility] furosemide (LASIX) 40 mg tablet 2022-0 -16 00:00: 00 Yes [id number] 40mg Take 1 tablet by mouth in the morning. [facility] potassium chloride 10 mEq CR tablet 0 16 00:00: 00 Yes [id number] 10meq Take 1 tablet by mouth in the morning. [facility] furosemide (LASIX) 40 mg tablet 2022-0 16 00:00: 00 Yes [id number] 40mg Take 1 tablet by mouth in the morning. [facility] potassium chloride 10 mEq CR tablet 2022-0 -16 00:00: 00 Yes [id number] 10meq Take 1 tablet by mouth in the morning. [facility] furosemide (LASIX) 40 mg tablet 2022-0 -16 00:00: 00 Yes [id number] 40mg Take 1 tablet by mouth in the morning. [facility] potassium chloride 10 mEq CR tablet 2022-0 7-16 00:00: 00 Yes [id number] 10meq Take 1 tablet by mouth in the morning. [facility] furosemide (LASIX) 40 mg tablet 3-0 7-16 00:00: 00 Yes [id number] 40mg Take 1 tablet by mouth in the morning. [facility] potassium chloride 10 mEq CR tablet 3-0 7-16 00:00: 00 Yes [id number] 10meq Take 1 tablet by mouth in the morning. [facility] econazole nitrate 1 % cream 2022-0 14 00:00: 00 Yes [id number] Apply daily x 4 weeks [facility] econazole nitrate 1 % cream 2022-0 14 00:00: 00 Yes [id number] Apply daily x 4 weeks [facility] econazole nitrate 1 % cream 2022-0 14 00:00: 00 Yes [id number] Apply daily x 4 weeks [facility] econazole nitrate 1 % cream 2022-0 14 00:00: 00 Yes [id number] Apply daily x 4 weeks [facility] econazole nitrate 1 % cream 2022-0 14 00:00: 00 Yes [id number] Apply daily x 4 weeks [facility] econazole nitrate 1 % cream 2022-0 14 00:00: 00 Yes [id number] Apply daily x 4 weeks [facility] econazole nitrate 1 % cream 2022-0 14 00:00: 00 Yes [id number] Apply daily x 4 weeks [facility] econazole nitrate 1 % cream 2022-0 14 00:00: 00 Yes [id number] Apply daily x 4 weeks [facility] econazole nitrate 1 % cream 2022-0 14 00:00: 00 Yes [id number] Apply daily x 4 weeks [facility] econazole nitrate 1 % cream 2022-0 14 00:00: 00 Yes [id number] Apply daily x 4 weeks [facility] econazole nitrate 1 % cream 2022-0 14 00:00: 00 Yes [id number] Apply daily x 4 weeks [facility] econazole nitrate 1 % cream 2022-0 14 00:00: 00 Yes [id number] Apply daily x 4 weeks [facility] econazole nitrate 1 % cream 2022-0 -14 00:00: 00 Yes [id number] Apply daily x 4 weeks [facility] econazole nitrate 1 % cream 2022-0 -14 00:00: 00 Yes [id number] Apply daily x 4 weeks [facility] econazole nitrate 1 % cream 7-14 00:00: 00 Yes [id number] Apply daily x 4 weeks [facility] furosemide (LASIX) 40 mg tablet 0 630 00:00: 00 Yes [id number] BID for 5 days, then daily [facility] potassium chloride 10 mEq CR tablet 2022-0 30 00:00: 00 Yes [id number] 10meq Take 1 tablet by mouth in the morning. [facility] furosemide (LASIX) 40 mg tablet 2022-0 30 00:00: 00 Yes [id number] BID for 5 days, then daily [facility] potassium chloride 10 mEq CR tablet 2022-0 30 00:00: 00 Yes [id number] 10meq Take 1 tablet by mouth in the morning. [facility] furosemide (LASIX) 40 mg tablet 2022-0 04-19 00:00: 00 Yes [id number] BID for 5 days, then daily [facility] potassium chloride 10 mEq CR tablet 2022-0 04-19 00:00: 00 Yes [id number] 10meq Take 1 tablet by mouth in the morning. [facility] furosemide (LASIX) 40 mg tablet 2022-0 30 00:00: 00 Yes [id number] BID for 5 days, then daily [facility] potassium chloride 10 mEq CR tablet 2022-0 30 00:00: 00 Yes [id number] 10meq Take 1 tablet by mouth in the morning. [facility] furosemide (LASIX) 40 mg tablet 2022-0 30 00:00: 00 Yes [id number] BID for 5 days, then daily [facility] potassium chloride 10 mEq CR tablet 2022-0 630 00:00: 00 Yes [id number] 10meq Take 1 tablet by mouth in the morning. [facility] furosemide (LASIX) 40 mg tablet 3-0 30 00:00: 00 Yes [id number] BID for 5 days, then daily [facility] potassium chloride 10 mEq CR tablet 2022-0 6-30 00:00: 00 Yes [id number] 10meq Take 1 tablet by mouth in the morning. [facility] furosemide (LASIX) 40 mg tablet 0 04-19 00:00: 00 05-05 00:00 :00 No [id number] BID for 5 days, then daily [facility] potassium chloride 10 mEq CR tablet 04-19 00:00: 00 05-05 00:00 :00 No [id number] 10meq Take 1 tablet by mouth in the morning. [facility] furosemide (LASIX) 40 mg tablet 04-19 00:00: 00 05-05 00:00 :00 No [id number] BID for 5 days, then daily [facility] potassium chloride 10 mEq CR tablet 04-19 00:00: 00 05-05 00:00 :00 No [id number] 10meq Take 1 tablet by mouth in the morning. [facility] furosemide (LASIX) 40 mg tablet 04-19 00:00: 00 05-05 00:00 :00 No [id number] BID for 5 days, then daily [facility] potassium chloride 10 mEq CR tablet 04-19 00:00: 00 05-05 00:00 :00 No [id number] 10meq Take 1 tablet by mouth in the morning. [facility] furosemide (LASIX) 40 mg tablet 04-19 00:00: 00 04-19 00:00 :00 No [id number] 40mg Take 1 tablet by mouth in the morning. [facility] furosemide (LASIX) 40 mg tablet 04-19 00:00: 00 04-19 00:00 :00 No [id number] 40mg Take 1 tablet by mouth in the morning. [facility] apixaban 5 mg tablet 04-15 09:43: 48 Yes 5mg Take 1 tablet by mouth in the morning and 1 tablet in the evening. [facility] apixaban 5 mg tablet 2023-0 6-26 09:43: 48 Yes 5mg Take 1 tablet by mouth in the morning and 1 tablet in the evening. [facility] apixaban 5 mg tablet 2023-0 6-26 09:43: 48 Yes 5mg Take 1 tablet by mouth in the morning and 1 tablet in the evening. [facility] apixaban 5 mg tablet 2023-0 6-26 09:43: 48 Yes 5mg Take 1 tablet by mouth in the morning and 1 tablet in the evening. [facility] apixaban 5 mg tablet 2023-0 6-26 09:43: 48 Yes 5mg Take 1 tablet by mouth in the morning and 1 tablet in the evening. [facility] apixaban 5 mg tablet 2023-0 6-26 09:43: 48 Yes 5mg Take 1 tablet by mouth in the morning and 1 tablet in the evening. [facility] apixaban 5 mg tablet 2023-0 6-26 09:43: 48 Yes 5mg Take 1 tablet by mouth in the morning and 1 tablet in the evening. [facility] apixaban 5 mg tablet 2023-0 6-26 09:43: 48 Yes 5mg Take 1 tablet by mouth in the morning and 1 tablet in the evening. [facility] apixaban 5 mg tablet 2023-0 6-26 09:43: 48 Yes 5mg Take 1 tablet by mouth in the morning and 1 tablet in the evening. [facility] apixaban 5 mg tablet 2023-0 6-26 09:43: 48 Yes 5mg Take 1 tablet by mouth in the morning and 1 tablet in the evening. [facility] apixaban 5 mg tablet 2023-0 6-26 09:43: 48 Yes 5mg Take 1 tablet by mouth in the morning and 1 tablet in the evening. [facility] apixaban 5 mg tablet 2023-0 6-26 09:43: 48 Yes 5mg Take 1 tablet by mouth in the morning and 1 tablet in the evening. [facility] apixaban 5 mg tablet 2023-0 6-26 09:43: 48 Yes 5mg Take 1 tablet by mouth in the morning and 1 tablet in the evening. [facility] apixaban 5 mg tablet 2023-0 6-26 09:43: 48 Yes 5mg Take 1 tablet by mouth in the morning and 1 tablet in the evening. [facility] mg tablet 2023-0 6-26 09:43: 48 Yes 5mg Take 1 tablet by mouth in the morning and 1 tablet in the evening. [facility] ap[facility]aban 5 mg tablet 2023-0 6-26 09:43: 48 Yes 5mg Take 1 tablet by mouth in the morning and 1 tablet in the evening. [facility] apixaban 5 mg tablet 3-0 6-26 09:43: 48 Yes 5mg Take 1 tablet by mouth in the morning and 1 tablet in the evening. [facility] apixaban 5 mg tablet 3-0 6-26 09:43: 48 Yes 5mg Take 1 tablet by mouth in the morning and 1 tablet in the evening. [facility] apixaban 5 mg tablet 3-0 6-26 09:43: 48 Yes 5mg Take 1 tablet by mouth in the morning and 1 tablet in the evening. [facility] apixaban 5 mg tablet 3-0 6-26 09:43: 48 Yes 5mg Take 1 tablet by mouth in the morning and 1 tablet in the evening. [facility] apixaban 5 mg tablet 3-0 6-26 09:43: 48 Yes 5mg Take 1 tablet by mouth in the morning and 1 tablet in the evening. [facility] apixaban 5 mg tablet 3-0 6-26 09:43: 48 Yes 5mg Take 1 tablet by mouth in the morning and 1 tablet in the evening. [facility] apixaban 5 mg tablet 3-0 6-26 09:43: 48 Yes 5mg Take 1 tablet by mouth in the morning and 1 tablet in the evening. [facility] apixaban 5 mg tablet 3-0 6-26 09:43: 48 Yes 5mg Take 1 tablet by mouth in the morning and 1 tablet in the evening. [facility] apixaban 5 mg tablet 3-0 6-26 09:43: 48 Yes 5mg Take 1 tablet by mouth in the morning and 1 tablet in the evening. [facility] apixaban 5 mg tablet 04-15 09:43: 48 Yes 5mg Take 1 tablet by mouth in the morning and 1 tablet in the evening. [facility] furosemide (LASIX) 20 mg tablet 04-15 00:00: 00 Yes [id number] 20mg Take 1 tablet by mouth in the morning. [facility] furosemide (LASIX) 20 mg tablet 04-15 00:00: 00 Yes [id number] 20mg Take 1 tablet by mouth in the morning. [facility] furosemide (LASIX) 20 mg tablet 04-15 00:00: 00 Yes [id number] 20mg Take 1 tablet by mouth in the morning. [facility] furosemide (LASIX) 20 mg tablet 04-15 00:00: 00 Yes [id number] 20mg Take 1 tablet by mouth in the morning. [facility] furosemide (LASIX) 20 mg tablet 04-15 00:00: 00 Yes [id number] 20mg Take 1 tablet by mouth in the morning. [facility] furosemide (LASIX) 20 mg tablet 04-15 00:00: 00 04-19 00:00 :00 No [id number] 20mg Take 1 tablet by mouth in the morning. [facility] furosemide (LASIX) 20 mg tablet 04-15 00:00: 00 04-19 00:00 :00 No [id number] 20mg Take 1 tablet by mouth in the morning. [facility] doxycycline hyclate 100 mg capsule 04-10 00:00: 00 Yes 100mg Take 1 capsule by mouth in the morning and 1 capsule in the evening. [facility] doxycycline hyclate 100 mg capsule 04-10 00:00: 00 Yes 100mg Take 1 capsule by mouth in the morning and 1 capsule in the evening. [facility] doxycycline hyclate 100 mg capsule 04-10 00:00: 00 Yes 100mg Take 1 capsule by mouth in the morning and 1 capsule in the evening. [facility] doxycycline hyclate 100 mg capsule 2023-0 6- 00:00: 00 Yes 100mg Take 1 capsule by mouth in the morning and 1 capsule in the evening. [facility] doxycycline hyclate 100 mg capsule 2023-0 - 00:00: 00 Yes 100mg Take 1 capsule by mouth in the morning and 1 capsule in the evening. [facility] doxycycline hyclate 100 mg capsule 2023-0 6- 00:00: 00 Yes 100mg Take 1 capsule by mouth in the morning and 1 capsule in the evening. [facility] doxycycline hyclate 100 mg capsule 3-0 6- 00:00: 00 Yes 100mg Take 1 capsule by mouth in the morning and 1 capsule in the evening. [facility] doxycycline hyclate 100 mg capsule 3-0 - 00:00: 00 Yes 100mg Take 1 capsule by mouth in the morning and 1 capsule in the evening. [facility] doxycycline hyclate 100 mg capsule 3-0 6- 00:00: 00 Yes 100mg Take 1 capsule by mouth in the morning and 1 capsule in the evening. [facility] doxycycline hyclate 100 mg capsule 3-0 - 00:00: 00 Yes 100mg Take 1 capsule by mouth in the morning and 1 capsule in the evening. [facility] doxycycline hyclate 100 mg capsule 2023-0 - 00:00: 00 Yes 100mg Take 1 capsule by mouth in the morning and 1 capsule in the evening. [facility] doxycycline hyclate 100 mg capsule 2023-0 - 00:00: 00 Yes 100mg Take 1 capsule by mouth in the morning and 1 capsule in the evening. [facility] doxycycline hyclate 100 mg capsule 2023-0 6- 00:00: 00 Yes 100mg Take 1 capsule by mouth in the morning and 1 capsule in the evening. [facility] doxycycline hyclate 100 mg capsule 2023-0 6- 00:00: 00 Yes 100mg Take 1 capsule by mouth in the morning and 1 capsule in the evening. [facility] doxycycline hyclate 100 mg capsule 2023-0 04-10 00:00: 00 Yes 100mg Take 1 capsule by mouth in the morning and 1 capsule in the evening. [facility] doxycycline hyclate 100 mg capsule 3-0 04-10 00:00: 00 Yes 100mg Take 1 capsule by mouth in the morning and 1 capsule in the evening. [facility] doxycycline hyclate 100 mg capsule 3-0 04-10 00:00: 00 Yes 100mg Take 1 capsule by mouth in the morning and 1 capsule in the evening. [facility] doxycycline hyclate 100 mg capsule 3-0 04-10 00:00: 00 Yes 100mg Take 1 capsule by mouth in the morning and 1 capsule in the evening. [facility] doxycycline hyclate 100 mg capsule 3-0 04-10 00:00: 00 Yes 100mg Take 1 capsule by mouth in the morning and 1 capsule in the evening. [facility] doxycycline hyclate 100 mg capsule 3-0 04-10 00:00: 00 Yes 100mg Take 1 capsule by mouth in the morning and 1 capsule in the evening. [facility] doxycycline hyclate 100 mg capsule 3-0 04-10 00:00: 00 Yes 100mg Take 1 capsule by mouth in the morning and 1 capsule in the evening. [facility] doxycycline hyclate 100 mg capsule 3-0 04-10 00:00: 00 Yes 100mg Take 1 capsule by mouth in the morning and 1 capsule in the evening. [facility] doxycycline hyclate 100 mg capsule 3-0 04-10 00:00: 00 Yes 100mg Take 1 capsule by mouth in the morning and 1 capsule in the evening. [facility] doxycycline hyclate 100 mg capsule 3-0 04-10 00:00: 00 Yes 100mg Take 1 capsule by mouth in the morning and 1 capsule in the evening. [facility] doxycycline hyclate 100 mg capsule 3-0 04-10 00:00: 00 Yes 100mg Take 1 capsule by mouth in the morning and 1 capsule in the evening. [facility] apixaban (ELIQUIS) 5 mg tablet 2023-0 5-15 15:03: 01 Yes 5mg Take 1 tablet by mouth in the morning and 1 tablet in the evening. [facility] apixaban (ELIQUIS) 5 mg tablet 2022-0 15 15:03: 01 Yes 5mg Take 1 tablet by mouth in the morning and 1 tablet in the evening. [facility] apixaban (ELIQUIS) 5 mg tablet 2022-0 -15 15:03: 01 Yes 5mg Take 1 tablet by mouth in the morning and 1 tablet in the evening. [facility] apixaban (ELIQUIS) 5 mg tablet 2022-0 15 15:03: 01 Yes 5mg Take 1 tablet by mouth in the morning and 1 tablet in the evening. [facility] apixaban (ELIQUIS) 5 mg tablet 2022-0 15 15:03: 01 Yes 5mg Take 1 tablet by mouth in the morning and 1 tablet in the evening. [facility] atorvastati n 40 mg tablet 03-04 00:00: 00 Yes [id number] 40mg Take 1 tablet by mouth at bedtime. [facility] carvediloL 25 mg tablet 03-04 00:00: 00 Yes [id number] 25mg Take 1 tablet by mouth in the morning and 1 tablet in the evening. Take with meals. [facility] lisinopriL 40 mg tablet 0 03-04 00:00: 00 Yes [id number] 40mg Take 1 tablet by mouth in the morning. [facility] spironolact one 25 mg tablet 0 03-04 00:00: 00 Yes [id number] 25mg Take 1 tablet by mouth every morning. [facility] amLODIPine 10 mg tablet 0 03-04 00:00: 00 Yes [id number] 10mg Take 1 tablet by mouth in the morning. [facility] isosorbide mononitrate 30 mg 24 hr tablet 2022-0 15 00:00: 00 Yes [id number] 30mg Take 1 tablet by mouth in the morning. [facility] hydrALAZINE 50 mg tablet 0 5-15 00:00: 00 Yes [id number] 50mg Take 1 tablet by mouth every 8 (eight) hours. [facility] atorvastati n 40 mg tablet 2022-0 -15 00:00: 00 Yes [id number] 40mg Take 1 tablet by mouth at bedtime. [facility] carvediloL 25 mg tablet 2022-0 5-15 00:00: 00 Yes [id number] 25mg Take 1 tablet by mouth in the morning and 1 tablet in the evening. Take with meals. [facility] lisinopriL 40 mg tablet 2022-0 -15 00:00: 00 Yes [id number] 40mg Take 1 tablet by mouth in the morning. [facility] spironolact one 25 mg tablet 2022-0 -15 00:00: 00 Yes [id number] 25mg Take 1 tablet by mouth every morning. [facility] amLODIPine 10 mg tablet 0 -15 00:00: 00 Yes [id number] 10mg Take 1 tablet by mouth in the morning. [facility] isosorbide mononitrate 30 mg 24 hr tablet 2022-0 -15 00:00: 00 Yes [id number] 30mg Take 1 tablet by mouth in the morning. [facility] hydrALAZINE 50 mg tablet 2022-0 -15 00:00: 00 Yes [id number] 50mg Take 1 tablet by mouth every 8 (eight) hours. [facility] atorvastati n 40 mg tablet 2022-0 -15 00:00: 00 Yes [id number] 40mg Take 1 tablet by mouth at bedtime. [facility] carvediloL 25 mg tablet 2022-0 -15 00:00: 00 Yes [id number] 25mg Take 1 tablet by mouth in the morning and 1 tablet in the evening. Take with meals. [facility] lisinopriL 40 mg tablet 2022-0 5-15 00:00: 00 Yes [id number] 40mg Take 1 tablet by mouth in the morning. [facility] spironolact one 25 mg tablet 2022-0 -15 00:00: 00 Yes [id number] 25mg Take 1 tablet by mouth every morning. [facility] amLODIPine 10 mg tablet 2022-0 -15 00:00: 00 Yes [id number] 10mg Take 1 tablet by mouth in the morning. [facility] isosorbide mononitrate 30 mg 24 hr tablet 2022-0 5-15 00:00: 00 Yes [id number] 30mg Take 1 tablet by mouth in the morning. [facility] hydrALAZINE 50 mg tablet 2022-0 5-15 00:00: 00 Yes [id number] 50mg Take 1 tablet by mouth every 8 (eight) hours. [facility] atorvastati n 40 mg tablet 2022-0 5-15 00:00: 00 Yes [id number] 40mg Take 1 tablet by mouth at bedtime. [facility] carvediloL 25 mg tablet 2022-0 -15 00:00: 00 Yes [id number] 25mg Take 1 tablet by mouth in the morning and 1 tablet in the evening. Take with meals. [facility] lisinopriL 40 mg tablet 2022-0 -15 00:00: 00 Yes [id number] 40mg Take 1 tablet by mouth in the morning. [facility] spironolact one 25 mg tablet 2022-0 -15 00:00: 00 Yes [id number] 25mg Take 1 tablet by mouth every morning. [facility] amLODIPine 10 mg tablet 2022-0 -15 00:00: 00 Yes [id number] 10mg Take 1 tablet by mouth in the morning. [facility] isosorbide mononitrate 30 mg 24 hr tablet 2022-0 -15 00:00: 00 Yes [id number] 30mg Take 1 tablet by mouth in the morning. [facility] hydrALAZINE 50 mg tablet 2022-0 5-15 00:00: 00 Yes [id number] 50mg Take 1 tablet by mouth every 8 (eight) hours. [facility] atorvastati n 40 mg tablet 2022-0 5-15 00:00: 00 Yes [id number] 40mg Take 1 tablet by mouth at bedtime. [facility] carvediloL 25 mg tablet 2022-0 5-15 00:00: 00 Yes [id number] 25mg Take 1 tablet by mouth in the morning and 1 tablet in the evening. Take with meals. [facility] lisinopriL 40 mg tablet 2022-0 5-15 00:00: 00 Yes [id number] 40mg Take 1 tablet by mouth in the morning. [facility] spironolact one 25 mg tablet 2022-0 5-15 00:00: 00 Yes [id number] 25mg Take 1 tablet by mouth every morning. [facility] amLODIPine 10 mg tablet 2022-0 5-15 00:00: 00 Yes [id number] 10mg Take 1 tablet by mouth in the morning. [facility] isosorbide mononitrate 30 mg 24 hr tablet 2022-0 5-15 00:00: 00 Yes [id number] 30mg Take 1 tablet by mouth in the morning. [facility] hydrALAZINE 50 mg tablet 2022-0 5-15 00:00: 00 Yes [id number] 50mg Take 1 tablet by mouth every 8 (eight) hours. [facility] atorvastati n 40 mg tablet 2022-0 -15 00:00: 00 Yes [id number] 40mg Take 1 tablet by mouth at bedtime. [facility] carvediloL 25 mg tablet 2022-0 5-15 00:00: 00 Yes [id number] 25mg Take 1 tablet by mouth in the morning and 1 tablet in the evening. Take with meals. [facility] lisinopriL 40 mg tablet 2022-0 -15 00:00: 00 Yes [id number] 40mg Take 1 tablet by mouth in the morning. [facility] spironolact one 25 mg tablet 2022-0 5-15 00:00: 00 Yes [id number] 25mg Take 1 tablet by mouth every morning. [facility] amLODIPine 10 mg tablet 2022-0 5-15 00:00: 00 Yes [id number] 10mg Take 1 tablet by mouth in the morning. [facility] isosorbide mononitrate 30 mg 24 hr tablet 2022-0 5-15 00:00: 00 Yes [id number] 30mg Take 1 tablet by mouth in the morning. [facility] hydrALAZINE 50 mg tablet 2022-0 5-15 00:00: 00 Yes [id number] 50mg Take 1 tablet by mouth every 8 (eight) hours. [facility] atorvastati n 40 mg tablet 2022-0 5-15 00:00: 00 Yes [id number] 40mg Take 1 tablet by mouth at bedtime. [facility] carvediloL 25 mg tablet 2022-0 5-15 00:00: 00 Yes [id number] 25mg Take 1 tablet by mouth in the morning and 1 tablet in the evening. Take with meals. [facility] lisinopriL 40 mg tablet 2022-0 5-15 00:00: 00 Yes [id number] 40mg Take 1 tablet by mouth in the morning. [facility] spironolact one 25 mg tablet 2022-0 5-15 00:00: 00 Yes [id number] 25mg Take 1 tablet by mouth every morning. [facility] amLODIPine 10 mg tablet 2022-0 5-15 00:00: 00 Yes [id number] 10mg Take 1 tablet by mouth in the morning. [facility] isosorbide mononitrate 30 mg 24 hr tablet 2022-0 5-15 00:00: 00 Yes [id number] 30mg Take 1 tablet by mouth in the morning. [facility] hydrALAZINE 50 mg tablet 2022-0 -15 00:00: 00 Yes [id number] 50mg Take 1 tablet by mouth every 8 (eight) hours. [facility] atorvastati n 40 mg tablet 2022-0 5-15 00:00: 00 Yes [id number] 40mg Take 1 tablet by mouth at bedtime. [facility] carvediloL 25 mg tablet 2022-0 5-15 00:00: 00 Yes [id number] 25mg Take 1 tablet by mouth in the morning and 1 tablet in the evening. Take with meals. [facility] lisinopriL 40 mg tablet 2022-0 5-15 00:00: 00 Yes [id number] 40mg Take 1 tablet by mouth in the morning. [facility] spironolact one 25 mg tablet 2022-0 -15 00:00: 00 Yes [id number] 25mg Take 1 tablet by mouth every morning. [facility] amLODIPine 10 mg tablet 2022-0 -15 00:00: 00 Yes [id number] 10mg Take 1 tablet by mouth in the morning. [facility] isosorbide mononitrate 30 mg 24 hr tablet 2022-0 -15 00:00: 00 Yes [id number] 30mg Take 1 tablet by mouth in the morning. [facility] hydrALAZINE 50 mg tablet 2022-0 -15 00:00: 00 Yes [id number] 50mg Take 1 tablet by mouth every 8 (eight) hours. [facility] atorvastati n 40 mg tablet 2022-0 15 00:00: 00 Yes [id number] 40mg Take 1 tablet by mouth at bedtime. [facility] carvediloL 25 mg tablet 2022-0 -15 00:00: 00 Yes [id number] 25mg Take 1 tablet by mouth in the morning and 1 tablet in the evening. Take with meals. [facility] lisinopriL 40 mg tablet 2022-0 -15 00:00: 00 Yes [id number] 40mg Take 1 tablet by mouth in the morning. [facility] spironolact one 25 mg tablet 2022-0 -15 00:00: 00 Yes [id number] 25mg Take 1 tablet by mouth every morning. [facility] amLODIPine 10 mg tablet 2022-0 -15 00:00: 00 Yes [id number] 10mg Take 1 tablet by mouth in the morning. [facility] isosorbide mononitrate 30 mg 24 hr tablet 2022-0 -15 00:00: 00 Yes [id number] 30mg Take 1 tablet by mouth in the morning. [facility] hydrALAZINE 50 mg tablet 2022-0 5-15 00:00: 00 Yes [id number] 50mg Take 1 tablet by mouth every 8 (eight) hours. [facility] atorvastati n 40 mg tablet 2022-0 -15 00:00: 00 Yes [id number] 40mg Take 1 tablet by mouth at bedtime. [facility] carvediloL 25 mg tablet 2022-0 -15 00:00: 00 Yes [id number] 25mg Take 1 tablet by mouth in the morning and 1 tablet in the evening. Take with meals. [facility] lisinopriL 40 mg tablet 2022-0 -15 00:00: 00 Yes [id number] 40mg Take 1 tablet by mouth in the morning. [facility] spironolact one 25 mg tablet 0 -15 00:00: 00 Yes [id number] 25mg Take 1 tablet by mouth every morning. [facility] amLODIPine 10 mg tablet 2022-0 -15 00:00: 00 Yes [id number] 10mg Take 1 tablet by mouth in the morning. [facility] isosorbide mononitrate 30 mg 24 hr tablet 0 -15 00:00: 00 Yes [id number] 30mg Take 1 tablet by mouth in the morning. [facility] hydrALAZINE 50 mg tablet 0 -15 00:00: 00 Yes [id number] 50mg Take 1 tablet by mouth every 8 (eight) hours. [facility] atorvastati n 40 mg tablet 2022-0 -15 00:00: 00 Yes [id number] 40mg Take 1 tablet by mouth at bedtime. [facility] carvediloL 25 mg tablet 2022-0 -15 00:00: 00 Yes [id number] 25mg Take 1 tablet by mouth in the morning and 1 tablet in the evening. Take with meals. [facility] lisinopriL 40 mg tablet 2022-0 -15 00:00: 00 Yes [id number] 40mg Take 1 tablet by mouth in the morning. [facility] spironolact one 25 mg tablet 2022-0 -15 00:00: 00 Yes [id number] 25mg Take 1 tablet by mouth every morning. [facility] amLODIPine 10 mg tablet 0 -15 00:00: 00 Yes [id number] 10mg Take 1 tablet by mouth in the morning. [facility] isosorbide mononitrate 30 mg 24 hr tablet 0 -15 00:00: 00 Yes [id number] 30mg Take 1 tablet by mouth in the morning. [facility] hydrALAZINE 50 mg tablet 0 -15 00:00: 00 Yes [id number] 50mg Take 1 tablet by mouth every 8 (eight) hours. [facility] atorvastati n 40 mg tablet 2022-0 -15 00:00: 00 Yes [id number] 40mg Take 1 tablet by mouth at bedtime. [facility] carvediloL 25 mg tablet 0 -15 00:00: 00 Yes [id number] 25mg Take 1 tablet by mouth in the morning and 1 tablet in the evening. Take with meals. [facility] lisinopriL 40 mg tablet 0 15 00:00: 00 Yes [id number] 40mg Take 1 tablet by mouth in the morning. [facility] spironolact one 25 mg tablet 0 15 00:00: 00 Yes [id number] 25mg Take 1 tablet by mouth every morning. [facility] amLODIPine 10 mg tablet 0 -15 00:00: 00 Yes [id number] 10mg Take 1 tablet by mouth in the morning. [facility] isosorbide mononitrate 30 mg 24 hr tablet 0 -15 00:00: 00 Yes [id number] 30mg Take 1 tablet by mouth in the morning. [facility] hydrALAZINE 50 mg tablet 2022-0 -15 00:00: 00 Yes [id number] 50mg Take 1 tablet by mouth every 8 (eight) hours. [facility] atorvastati n 40 mg tablet 2022-0 5-15 00:00: 00 Yes [id number] 40mg Take 1 tablet by mouth at bedtime. [facility] carvediloL 25 mg tablet 2022-0 5-15 00:00: 00 Yes [id number] 25mg Take 1 tablet by mouth in the morning and 1 tablet in the evening. Take with meals. [facility] lisinopriL 40 mg tablet 2022-0 15 00:00: 00 Yes [id number] 40mg Take 1 tablet by mouth in the morning. [facility] spironolact one 25 mg tablet 2022-0 -15 00:00: 00 Yes [id number] 25mg Take 1 tablet by mouth every morning. [facility] amLODIPine 10 mg tablet 2022-0 15 00:00: 00 Yes [id number] 10mg Take 1 tablet by mouth in the morning. [facility] isosorbide mononitrate 30 mg 24 hr tablet 2022-0 -15 00:00: 00 Yes [id number] 30mg Take 1 tablet by mouth in the morning. [facility] hydrALAZINE 50 mg tablet 2022-0 15 00:00: 00 Yes [id number] 50mg Take 1 tablet by mouth every 8 (eight) hours. [facility] atorvastati n 40 mg tablet 2022-0 15 00:00: 00 Yes [id number] 40mg Take 1 tablet by mouth at bedtime. [facility] carvediloL 25 mg tablet 2022-0 15 00:00: 00 Yes [id number] 25mg Take 1 tablet by mouth in the morning and 1 tablet in the evening. Take with meals. [facility] lisinopriL 40 mg tablet 2022-0 15 00:00: 00 Yes [id number] 40mg Take 1 tablet by mouth in the morning. [facility] spironolact one 25 mg tablet 2022-0 15 00:00: 00 Yes [id number] 25mg Take 1 tablet by mouth every morning. [facility] amLODIPine 10 mg tablet 2022-0 -15 00:00: 00 Yes [id number] 10mg Take 1 tablet by mouth in the morning. [facility] isosorbide mononitrate 30 mg 24 hr tablet 2022-0 -15 00:00: 00 Yes [id number] 30mg Take 1 tablet by mouth in the morning. [facility] hydrALAZINE 50 mg tablet 2022-0 5-15 00:00: 00 Yes [id number] 50mg Take 1 tablet by mouth every 8 (eight) hours. [facility] atorvastati n 40 mg tablet 3-0 5-15 00:00: 00 Yes [id number] 40mg Take 1 tablet by mouth at bedtime. [facility] carvediloL 25 mg tablet 2022-0 5-15 00:00: 00 Yes [id number] 25mg Take 1 tablet by mouth in the morning and 1 tablet in the evening. Take with meals. [facility] lisinopriL 40 mg tablet 2022-0 5-15 00:00: 00 Yes [id number] 40mg Take 1 tablet by mouth in the morning. [facility] spironolact one 25 mg tablet 2022-0 5-15 00:00: 00 Yes [id number] 25mg Take 1 tablet by mouth every morning. [facility] amLODIPine 10 mg tablet 2022-0 5-15 00:00: 00 Yes [id number] 10mg Take 1 tablet by mouth in the morning. [facility] isosorbide mononitrate 30 mg 24 hr tablet 2022-0 5-15 00:00: 00 Yes [id number] 30mg Take 1 tablet by mouth in the morning. [facility] hydrALAZINE 50 mg tablet 2022-0 5-15 00:00: 00 Yes [id number] 50mg Take 1 tablet by mouth every 8 (eight) hours. [facility] atorvastati n 40 mg tablet 2022-0 5-15 00:00: 00 Yes [id number] 40mg Take 1 tablet by mouth at bedtime. [facility] carvediloL 25 mg tablet 2022-0 5-15 00:00: 00 Yes [id number] 25mg Take 1 tablet by mouth in the morning and 1 tablet in the evening. Take with meals. [facility] lisinopriL 40 mg tablet 3-0 5-15 00:00: 00 Yes [id number] 40mg Take 1 tablet by mouth in the morning. [facility] spironolact one 25 mg tablet 0 -15 00:00: 00 Yes [id number] 25mg Take 1 tablet by mouth every morning. [facility] amLODIPine 10 mg tablet 0 -15 00:00: 00 Yes [id number] 10mg Take 1 tablet by mouth in the morning. [facility] isosorbide mononitrate 30 mg 24 hr tablet 0 15 00:00: 00 Yes [id number] 30mg Take 1 tablet by mouth in the morning. [facility] hydrALAZINE 50 mg tablet 0 -15 00:00: 00 Yes [id number] 50mg Take 1 tablet by mouth every 8 (eight) hours. [facility] atorvastati n 40 mg tablet 0 15 00:00: 00 Yes [id number] 40mg Take 1 tablet by mouth at bedtime. [facility] carvediloL 25 mg tablet 0 15 00:00: 00 Yes [id number] 25mg Take 1 tablet by mouth in the morning and 1 tablet in the evening. Take with meals. [facility] lisinopriL 40 mg tablet 0 15 00:00: 00 Yes [id number] 40mg Take 1 tablet by mouth in the morning. [facility] spironolact one 25 mg tablet 0 15 00:00: 00 Yes [id number] 25mg Take 1 tablet by mouth every morning. [facility] amLODIPine 10 mg tablet 0 -15 00:00: 00 Yes [id number] 10mg Take 1 tablet by mouth in the morning. [facility] isosorbide mononitrate 30 mg 24 hr tablet 0 -15 00:00: 00 Yes [id number] 30mg Take 1 tablet by mouth in the morning. [facility] hydrALAZINE 50 mg tablet 2022-0 -15 00:00: 00 Yes [id number] 50mg Take 1 tablet by mouth every 8 (eight) hours. [facility] atorvastati n 40 mg tablet 0 -15 00:00: 00 Yes [id number] 40mg Take 1 tablet by mouth at bedtime. [facility] carvediloL 25 mg tablet 2022-0 5-15 00:00: 00 Yes [id number] 25mg Take 1 tablet by mouth in the morning and 1 tablet in the evening. Take with meals. [facility] lisinopriL 40 mg tablet 2022-0 5-15 00:00: 00 Yes [id number] 40mg Take 1 tablet by mouth in the morning. [facility] spironolact one 25 mg tablet 2022-0 -15 00:00: 00 Yes [id number] 25mg Take 1 tablet by mouth every morning. [facility] amLODIPine 10 mg tablet 2022-0 -15 00:00: 00 Yes [id number] 10mg Take 1 tablet by mouth in the morning. [facility] isosorbide mononitrate 30 mg 24 hr tablet 2022-0 -15 00:00: 00 Yes [id number] 30mg Take 1 tablet by mouth in the morning. [facility] hydrALAZINE 50 mg tablet 2022-0 -15 00:00: 00 Yes [id number] 50mg Take 1 tablet by mouth every 8 (eight) hours. [facility] atorvastati n 40 mg tablet 2022-0 -15 00:00: 00 Yes [id number] 40mg Take 1 tablet by mouth at bedtime. [facility] carvediloL 25 mg tablet 2022-0 -15 00:00: 00 Yes [id number] 25mg Take 1 tablet by mouth in the morning and 1 tablet in the evening. Take with meals. [facility] lisinopriL 40 mg tablet 2022-0 -15 00:00: 00 Yes [id number] 40mg Take 1 tablet by mouth in the morning. [facility] spironolact one 25 mg tablet 2022-0 5-15 00:00: 00 Yes [id number] 25mg Take 1 tablet by mouth every morning. [facility] amLODIPine 10 mg tablet 2022-0 5-15 00:00: 00 Yes [id number] 10mg Take 1 tablet by mouth in the morning. [facility] isosorbide mononitrate 30 mg 24 hr tablet 0 15 00:00: 00 Yes [id number] 30mg Take 1 tablet by mouth in the morning. [facility] hydrALAZINE 50 mg tablet 0 -15 00:00: 00 Yes [id number] 50mg Take 1 tablet by mouth every 8 (eight) hours. [facility] atorvastati n 40 mg tablet 0 15 00:00: 00 Yes [id number] 40mg Take 1 tablet by mouth at bedtime. [facility] carvediloL 25 mg tablet 0 15 00:00: 00 Yes [id number] 25mg Take 1 tablet by mouth in the morning and 1 tablet in the evening. Take with meals. [facility] lisinopriL 40 mg tablet 0 15 00:00: 00 Yes [id number] 40mg Take 1 tablet by mouth in the morning. [facility] spironolact one 25 mg tablet 0 15 00:00: 00 Yes [id number] 25mg Take 1 tablet by mouth every morning. [facility] amLODIPine 10 mg tablet 0 15 00:00: 00 Yes [id number] 10mg Take 1 tablet by mouth in the morning. [facility] isosorbide mononitrate 30 mg 24 hr tablet 0 15 00:00: 00 Yes [id number] 30mg Take 1 tablet by mouth in the morning. [facility] hydrALAZINE 50 mg tablet 0 15 00:00: 00 Yes [id number] 50mg Take 1 tablet by mouth every 8 (eight) hours. [facility] atorvastati n 40 mg tablet 0 15 00:00: 00 Yes [id number] 40mg Take 1 tablet by mouth at bedtime. [facility] carvediloL 25 mg tablet 2022-0 -15 00:00: 00 Yes [id number] 25mg Take 1 tablet by mouth in the morning and 1 tablet in the evening. Take with meals. [facility] lisinopriL 40 mg tablet 2022-0 5-15 00:00: 00 Yes [id number] 40mg Take 1 tablet by mouth in the morning. [facility] spironolact one 25 mg tablet 2022-0 5-15 00:00: 00 Yes [id number] 25mg Take 1 tablet by mouth every morning. [facility] amLODIPine 10 mg tablet 2022-0 5-15 00:00: 00 Yes [id number] 10mg Take 1 tablet by mouth in the morning. [facility] isosorbide mononitrate 30 mg 24 hr tablet 2022-0 5-15 00:00: 00 Yes [id number] 30mg Take 1 tablet by mouth in the morning. [facility] hydrALAZINE 50 mg tablet 2022-0 5-15 00:00: 00 Yes [id number] 50mg Take 1 tablet by mouth every 8 (eight) hours. [facility] atorvastati n 40 mg tablet 2022-0 5-15 00:00: 00 Yes [id number] 40mg Take 1 tablet by mouth at bedtime. [facility] carvediloL 25 mg tablet 2022-0 5-15 00:00: 00 Yes [id number] 25mg Take 1 tablet by mouth in the morning and 1 tablet in the evening. Take with meals. [facility] lisinopriL 40 mg tablet 2022-0 5-15 00:00: 00 Yes [id number] 40mg Take 1 tablet by mouth in the morning. [facility] spironolact one 25 mg tablet 2022-0 5-15 00:00: 00 Yes [id number] 25mg Take 1 tablet by mouth every morning. [facility] amLODIPine 10 mg tablet 2022-0 5-15 00:00: 00 Yes [id number] 10mg Take 1 tablet by mouth in the morning. [facility] isosorbide mononitrate 30 mg 24 hr tablet 3-0 5-15 00:00: 00 Yes [id number] 30mg Take 1 tablet by mouth in the morning. [facility] hydrALAZINE 50 mg tablet 2022-0 5-15 00:00: 00 Yes [id number] 50mg Take 1 tablet by mouth every 8 (eight) hours. [facility] [facility] at[facility] n 40 mg tablet 2022-0 5-15 00:00: 00 Yes [id number] 40mg Take 1 tablet by mouth at bedtime. [facility] carvediloL 25 mg tablet 2022-0 5-15 00:00: 00 Yes [id number] 25mg Take 1 tablet by mouth in the morning and 1 tablet in the evening. Take with meals. [facility] lisinopriL 40 mg tablet 2022-0 5-15 00:00: 00 Yes [id number] 40mg Take 1 tablet by mouth in the morning. [facility] spironolact one 25 mg tablet 2022-0 5-15 00:00: 00 Yes [id number] 25mg Take 1 tablet by mouth every morning. [facility] amLODIPine 10 mg tablet 2022-0 5-15 00:00: 00 Yes [id number] 10mg Take 1 tablet by mouth in the morning. [facility] isosorbide mononitrate 30 mg 24 hr tablet 2022-0 5-15 00:00: 00 Yes [id number] 30mg Take 1 tablet by mouth in the morning. [facility] hydrALAZINE 50 mg tablet 2022-0 5-15 00:00: 00 Yes [id number] 50mg Take 1 tablet by mouth every 8 (eight) hours. [facility] atorvastati n 40 mg tablet 2022-0 5-15 00:00: 00 Yes [id number] 40mg Take 1 tablet by mouth at bedtime. [facility] carvediloL 25 mg tablet 2022-0 5-15 00:00: 00 Yes [id number] 25mg Take 1 tablet by mouth in the morning and 1 tablet in the evening. Take with meals. [facility] lisinopriL 40 mg tablet 2022-0 5-15 00:00: 00 Yes [id number] 40mg Take 1 tablet by mouth in the morning. [facility] spironolact one 25 mg tablet 2023-0 5-15 00:00: 00 Yes [id number] 25mg Take 1 tablet by mouth every morning. [facility] amLODIPine 10 mg tablet 0 15 00:00: 00 Yes [id number] 10mg Take 1 tablet by mouth in the morning. [facility] isosorbide mononitrate 30 mg 24 hr tablet 0 -15 00:00: 00 Yes [id number] 30mg Take 1 tablet by mouth in the morning. [facility] hydrALAZINE 50 mg tablet 0 15 00:00: 00 Yes [id number] 50mg Take 1 tablet by mouth every 8 (eight) hours. [facility] atorvastati n 40 mg tablet 0 15 00:00: 00 Yes [id number] 40mg Take 1 tablet by mouth at bedtime. [facility] carvediloL 25 mg tablet 0 15 00:00: 00 Yes [id number] 25mg Take 1 tablet by mouth in the morning and 1 tablet in the evening. Take with meals. [facility] lisinopriL 40 mg tablet 0 15 00:00: 00 Yes [id number] 40mg Take 1 tablet by mouth in the morning. [facility] spironolact one 25 mg tablet 15 00:00: 00 Yes [id number] 25mg Take 1 tablet by mouth every morning. [facility] amLODIPine 10 mg tablet 0 15 00:00: 00 Yes [id number] 10mg Take 1 tablet by mouth in the morning. [facility] isosorbide mononitrate 30 mg 24 hr tablet 0 15 00:00: 00 Yes [id number] 30mg Take 1 tablet by mouth in the morning. [facility] hydrALAZINE 50 mg tablet 0 15 00:00: 00 Yes [id number] 50mg Take 1 tablet by mouth every 8 (eight) hours. [facility] atorvastati n 40 mg tablet 0 -15 00:00: 00 Yes [id number] 40mg Take 1 tablet by mouth at bedtime. [facility] carvediloL 25 mg tablet 2022-0 5-15 00:00: 00 Yes [id number] 25mg Take 1 tablet by mouth in the morning and 1 tablet in the evening. Take with meals. [facility] lisinopriL 40 mg tablet 2022-0 5-15 00:00: 00 Yes [id number] 40mg Take 1 tablet by mouth in the morning. [facility] spironolact one 25 mg tablet 2022-0 5-15 00:00: 00 Yes [id number] 25mg Take 1 tablet by mouth every morning. [facility] amLODIPine 10 mg tablet 2022-0 5-15 00:00: 00 Yes [id number] 10mg Take 1 tablet by mouth in the morning. [facility] isosorbide mononitrate 30 mg 24 hr tablet 2022-0 5-15 00:00: 00 Yes [id number] 30mg Take 1 tablet by mouth in the morning. [facility] hydrALAZINE 50 mg tablet 2022-0 5-15 00:00: 00 Yes [id number] 50mg Take 1 tablet by mouth every 8 (eight) hours. [facility] atorvastati n 40 mg tablet 2022-0 5-15 00:00: 00 Yes [id number] 40mg Take 1 tablet by mouth at bedtime. [facility] carvediloL 25 mg tablet 2022-0 5-15 00:00: 00 Yes [id number] 25mg Take 1 tablet by mouth in the morning and 1 tablet in the evening. Take with meals. [facility] lisinopriL 40 mg tablet 2022-0 5-15 00:00: 00 Yes [id number] 40mg Take 1 tablet by mouth in the morning. [facility] spironolact one 25 mg tablet 2022-0 5-15 00:00: 00 Yes [id number] 25mg Take 1 tablet by mouth every morning. [facility] amLODIPine 10 mg tablet 2022-0 5-15 00:00: 00 Yes [id number] 10mg Take 1 tablet by mouth in the morning. [facility] atorvastati n 40 mg tablet 3-0 5-15 00:00: 00 Yes [id number] 40mg Take 1 tablet by mouth at bedtime. [facility] carvediloL 25 mg tablet 3-0 5-15 00:00: 00 Yes [id number] 25mg Take 1 tablet by mouth in the morning and 1 tablet in the evening. Take with meals. [facility] lisinopriL 40 mg tablet 3-0 5-15 00:00: 00 Yes [id number] 40mg Take 1 tablet by mouth in the morning. [facility] spironolact one 25 mg tablet 3-0 5-15 00:00: 00 Yes [id number] 25mg Take 1 tablet by mouth every morning. [facility] amLODIPine 10 mg tablet 3-0 5-15 00:00: 00 Yes [id number] 10mg Take 1 tablet by mouth in the morning. [facility] atorvastati n 40 mg tablet 3-0 5-15 00:00: 00 Yes [id number] 40mg Take 1 tablet by mouth at bedtime. [facility] carvediloL 25 mg tablet 3-0 5-15 00:00: 00 Yes [id number] 25mg Take 1 tablet by mouth in the morning and 1 tablet in the evening. Take with meals. [facility] lisinopriL 40 mg tablet 3-0 5-15 00:00: 00 Yes [id number] 40mg Take 1 tablet by mouth in the morning. [facility] spironolact one 25 mg tablet 3-0 5-15 00:00: 00 Yes [id number] 25mg Take 1 tablet by mouth every morning. [facility] amLODIPine 10 mg tablet 3-0 5-15 00:00: 00 Yes [id number] 10mg Take 1 tablet by mouth in the morning. [facility] atorvastati n 40 mg tablet 3-0 5-15 00:00: 00 Yes [id number] 40mg Take 1 tablet by mouth at bedtime. [facility] carvediloL 25 mg tablet 3-0 5-15 00:00: 00 Yes [id number] 25mg Take 1 tablet by mouth in the morning and 1 tablet in the evening. Take with meals. [facility] lisinopriL 40 mg tablet 2022-0 -15 00:00: 00 Yes [id number] 40mg Take 1 tablet by mouth in the morning. [facility] spironolact one 25 mg tablet 2022-0 -15 00:00: 00 Yes [id number] 25mg Take 1 tablet by mouth every morning. [facility] amLODIPine 10 mg tablet 0 -15 00:00: 00 Yes [id number] 10mg Take 1 tablet by mouth in the morning. [facility] atorvastati n 40 mg tablet 0 -15 00:00: 00 Yes [id number] 40mg Take 1 tablet by mouth at bedtime. [facility] carvediloL 25 mg tablet 0 -15 00:00: 00 Yes [id number] 25mg Take 1 tablet by mouth in the morning and 1 tablet in the evening. Take with meals. [facility] lisinopriL 40 mg tablet 0 -15 00:00: 00 Yes [id number] 40mg Take 1 tablet by mouth in the morning. [facility] spironolact one 25 mg tablet 0 -15 00:00: 00 Yes [id number] 25mg Take 1 tablet by mouth every morning. [facility] amLODIPine 10 mg tablet 0 15 00:00: 00 Yes [id number] 10mg Take 1 tablet by mouth in the morning. [facility] isosorbide mononitrate 30 mg 24 hr tablet 0 -15 00:00: 00 05-30 00:00 :00 No [id number] 30mg Take 1 tablet by mouth in the morning. [facility] hydrALAZINE 50 mg tablet 2022-0 -15 00:00: 00 05-30 00:00 :00 No [id number] 50mg Take 1 tablet by mouth every 8 (eight) hours. [facility] isosorbide mononitrate 30 mg 24 hr tablet 0 5-15 00:00: 00 05-30 00:00 :00 No [id number] 30mg Take 1 tablet by mouth in the morning. [facility] hydrALAZINE 50 mg tablet 0 5-15 00:00: 00 05-30 00:00 :00 No [id number] 50mg Take 1 tablet by mouth every 8 (eight) hours. [facility] isosorbide mononitrate 30 mg 24 hr tablet 0 5-15 00:00: 00 05-30 00:00 :00 No [id number] 30mg Take 1 tablet by mouth in the morning. [facility] hydrALAZINE 50 mg tablet 5-15 00:00: 00 05-30 00:00 :00 No [id number] 50mg Take 1 tablet by mouth every 8 (eight) hours. [facility] ATORVASTATI N 40 mg tablet 2021-10 00:00: 00 Yes [id number] 40mg TAKE 1 TABLET BY MOUTH AT BEDTIME [facility] SPIRONOLACT ONE 25 mg tablet 2021-10 00:00: 00 Yes [id number] TAKE 1 TABLET BY MOUTH DAILY [facility] LISINOPRIL 40 mg tablet 2021-10 00:00: 00 Yes [id number] 40mg TAKE 1 TABLET BY MOUTH DAILY [facility] CARVEDILOL 25 mg tablet 2021-10 00:00: 00 Yes [id number] TAKE 1 TABLET BY MOUTH TWICE DAILY WITH MEALS [facility] ATORVASTATI N 40 mg tablet 2021-10 00:00: 00 Yes [id number] 40mg TAKE 1 TABLET BY MOUTH AT BEDTIME [facility] SPIRONOLACT ONE 25 mg tablet 2021-10 00:00: 00 Yes [id number] TAKE 1 TABLET BY MOUTH DAILY [facility] LISINOPRIL 40 mg tablet 2021-10 00:00: 00 Yes [id number] 40mg TAKE 1 TABLET BY MOUTH DAILY [facility] CARVEDILOL 25 mg tablet 2021-10 00:00: 00 Yes [id number] TAKE 1 TABLET BY MOUTH TWICE DAILY WITH MEALS [facility] ATORVASTATI N 40 mg tablet 2021-10 00:00: 00 Yes [id number] 40mg TAKE 1 TABLET BY MOUTH AT BEDTIME [facility] SPIRONOLACT ONE 25 mg tablet 2021-10 00:00: 00 Yes [id number] TAKE 1 TABLET BY MOUTH DAILY [facility] LISINOPRIL 40 mg tablet 2021-10 00:00: 00 Yes [id number] 40mg TAKE 1 TABLET BY MOUTH DAILY [facility] CARVEDILOL 25 mg tablet 2021-10 00:00: 00 Yes [id number] TAKE 1 TABLET BY MOUTH TWICE DAILY WITH MEALS [facility] ATORVASTATI N 40 mg tablet 2021-10 00:00: 00 Yes [id number] 40mg TAKE 1 TABLET BY MOUTH AT BEDTIME [facility] SPIRONOLACT ONE 25 mg tablet 2021-10 00:00: 00 Yes [id number] TAKE 1 TABLET BY MOUTH DAILY [facility] LISINOPRIL 40 mg tablet 2021-10 00:00: 00 Yes [id number] 40mg TAKE 1 TABLET BY MOUTH DAILY [facility] CARVEDILOL 25 mg tablet 2021-10 00:00: 00 Yes [id number] TAKE 1 TABLET BY MOUTH TWICE DAILY WITH MEALS [facility] SPIRONOLACT ONE 25 mg tablet 2021-10 00:00: 00 03-04 00:00 :00 No [id number] TAKE 1 TABLET BY MOUTH DAILY [facility] LISINOPRIL 40 mg tablet 2021-10 00:00: 00 03-04 00:00 :00 No [id number] 40mg TAKE 1 TABLET BY MOUTH DAILY [facility] CARVEDILOL 25 mg tablet 2021-10 00:00: 00 03-04 00:00 :00 No [id number] TAKE 1 TABLET BY MOUTH TWICE DAILY WITH MEALS [facility] ATORVASTATI N 40 mg tablet 2021-10 2 00:00: 00 03-04 00:00 :00 No [id number] 40mg TAKE 1 TABLET BY MOUTH AT BEDTIME [facility] SPIRONOLACT ONE 25 mg tablet 2021-10 2 00:00: 00 03-04 00:00 :00 No [id number] TAKE 1 TABLET BY MOUTH DAILY [facility] LISINOPRIL 40 mg tablet 2021-10 2 00:00: 00 03-04 00:00 :00 No [id number] 40mg TAKE 1 TABLET BY MOUTH DAILY [facility] CARVEDILOL 25 mg tablet 2021-10 00:00: 00 03-04 00:00 :00 No [id number] TAKE 1 TABLET BY MOUTH TWICE DAILY WITH MEALS [facility] ATORVASTATI N 40 mg tablet 2021-10 00:00: 00 03-04 00:00 :00 No [id number] 40mg TAKE 1 TABLET BY MOUTH AT BEDTIME [facility] SPIRONOLACT ONE 25 mg tablet 2021-10 2 00:00: 00 03-04 00:00 :00 No [id number] TAKE 1 TABLET BY MOUTH DAILY [facility] LISINOPRIL 40 mg tablet 2021-10 2 00:00: 00 03-04 00:00 :00 No [id number] 40mg TAKE 1 TABLET BY MOUTH DAILY [facility] CARVEDILOL 25 mg tablet 2021-10 2 00:00: 00 03-04 00:00 :00 No [id number] TAKE 1 TABLET BY MOUTH TWICE DAILY WITH MEALS [facility] ATORVASTATI N 40 mg tablet 2021-10 2 00:00: 00 03-04 00:00 :00 No [id number] 40mg TAKE 1 TABLET BY MOUTH AT BEDTIME [facility] SPIRONOLACT ONE 25 mg tablet 2021-10 2 00:00: 00 03-04 00:00 :00 No [id number] TAKE 1 TABLET BY MOUTH DAILY [facility] LISINOPRIL 40 mg tablet 2021-10 00:00: 00 03-04 00:00 :00 No [id number] 40mg TAKE 1 TABLET BY MOUTH DAILY [facility] CARVEDILOL 25 mg tablet 2021-10 00:00: 00 03-04 00:00 :00 No [id number] TAKE 1 TABLET BY MOUTH TWICE DAILY WITH MEALS [facility] ATORVASTATI N 40 mg tablet 2021-10 00:00: 00 03-04 00:00 :00 No [id number] 40mg TAKE 1 TABLET BY MOUTH AT BEDTIME [facility] lisinopriL 40 mg tablet 2021-10 00:00: 00 Yes [id number] 40mg TAKE 1 TABLET BY MOUTH DAILY [facility] spironolact one 25 mg tablet 2021-10 00:00: 00 Yes TAKE 1 TABLET BY MOUTH DAILY [facility] atorvastati n 40 mg tablet 2021-10 00:00: 00 Yes [id number] 40mg TAKE 1 TABLET BY MOUTH AT BEDTIME [facility] carvediloL 25 mg tablet 2021-10 00:00: 00 Yes [id number] TAKE 1 TABLET BY MOUTH TWICE DAILY WITH MEALS [facility] lisinopriL 40 mg tablet 2021-10 00:00: 00 Yes [id number] 40mg TAKE 1 TABLET BY MOUTH DAILY [facility] spironolact one 25 mg tablet 2021-10 00:00: 00 Yes TAKE 1 TABLET BY MOUTH DAILY [facility] atorvastati n 40 mg tablet 2021-10 00:00: 00 Yes [id number] 40mg TAKE 1 TABLET BY MOUTH AT BEDTIME [facility] carvediloL 25 mg tablet 2021-10 00:00: 00 Yes [id number] TAKE 1 TABLET BY MOUTH TWICE DAILY WITH MEALS [facility] isosorbide mononitrate 30 mg 24 hr tablet 2021-10 00:00: 00 Yes [id number] 30mg TAKE 1 TABLET BY MOUTH DAILY [facility] amLODIPine 10 mg tablet 2021-10 00:00: 00 Yes [id number] 10mg TAKE 1 TABLET BY MOUTH DAILY [facility] isosorbide mononitrate 30 mg 24 hr tablet 2021-10 00:00: 00 Yes [id number] 30mg TAKE 1 TABLET BY MOUTH DAILY [facility] amLODIPine 10 mg tablet 2021-10 00:00: 00 Yes [id number] 10mg TAKE 1 TABLET BY MOUTH DAILY [facility] isosorbide mononitrate 30 mg 24 hr tablet 2021-10 00:00: 00 Yes [id number] 30mg TAKE 1 TABLET BY MOUTH DAILY [facility] amLODIPine 10 mg tablet 2021-10 00:00: 00 Yes [id number] 10mg TAKE 1 TABLET BY MOUTH DAILY [facility] isosorbide mononitrate 30 mg 24 hr tablet 2021-10 00:00: 00 Yes [id number] 30mg TAKE 1 TABLET BY MOUTH DAILY [facility] amLODIPine 10 mg tablet 2021-10 00:00: 00 Yes [id number] 10mg TAKE 1 TABLET BY MOUTH DAILY [facility] isosorbide mononitrate 30 mg 24 hr tablet 2021-10 00:00: 00 Yes [id number] 30mg TAKE 1 TABLET BY MOUTH DAILY [facility] amLODIPine 10 mg tablet 2021-10 00:00: 00 Yes [id number] 10mg TAKE 1 TABLET BY MOUTH DAILY [facility] isosorbide mononitrate 30 mg 24 hr tablet 2021-10 00:00: 00 Yes [id number] 30mg TAKE 1 TABLET BY MOUTH DAILY [facility] amLODIPine 10 mg tablet 2021-10 00:00: 00 Yes [id number] 10mg TAKE 1 TABLET BY MOUTH DAILY [facility] isosorbide mononitrate 30 mg 24 hr tablet 2021-10 00:00: 00 03-04 00:00 :00 No [id number] 30mg TAKE 1 TABLET BY MOUTH DAILY [facility] amLODIPine 10 mg tablet 2021-10 00:00: 00 03-04 00:00 :00 No [id number] 10mg TAKE 1 TABLET BY MOUTH DAILY [facility] isosorbide mononitrate 30 mg 24 hr tablet 2021-10 00:00: 00 03-04 00:00 :00 No [id number] 30mg TAKE 1 TABLET BY MOUTH DAILY [facility] amLODIPine 10 mg tablet 2021-10 00:00: 00 03-04 00:00 :00 No [id number] 10mg TAKE 1 TABLET BY MOUTH DAILY [facility] isosorbide mononitrate 30 mg 24 hr tablet 2021-10 00:00: 00 03-04 00:00 :00 No [id number] 30mg TAKE 1 TABLET BY MOUTH DAILY [facility] amLODIPine 10 mg tablet 2021-10 00:00: 00 03-04 00:00 :00 No [id number] 10mg TAKE 1 TABLET BY MOUTH DAILY [facility] isosorbide mononitrate 30 mg 24 hr tablet 2021-10 00:00: 00 03-04 00:00 :00 No [id number] 30mg TAKE 1 TABLET BY MOUTH DAILY [facility] amLODIPine 10 mg tablet 2021-10 00:00: 00 03-04 00:00 :00 No [id number] 10mg TAKE 1 TABLET BY MOUTH DAILY [facility] ISOSORBIDE MONONITRATE 30 mg 24 hr tablet 03-12 00:00: 00 Yes [id number] 30mg TAKE 1 TABLET BY MOUTH DAILY [facility] LISINOPRIL 40 mg tablet 03-12 00:00: 00 Yes [id number] 40mg TAKE 1 TABLET BY MOUTH DAILY [facility] SPIRONOLACT ONE 25 mg tablet 03-12 00:00: 00 Yes TAKE 1 TABLET BY MOUTH DAILY [facility] ATORVASTATI N 40 mg tablet 03-12 00:00: 00 Yes [id number] 40mg TAKE 1 TABLET BY MOUTH AT BEDTIME [facility] CARVEDILOL 25 mg tablet 03-12 00:00: 00 Yes [id number] TAKE 1 TABLET BY MOUTH TWICE DAILY WITH MEALS [facility] AMLODIPINE 10 mg tablet 03-12 00:00: 00 Yes [id number] 10mg TAKE 1 TABLET BY MOUTH DAILY [facility] ISOSORBIDE MONONITRATE 30 mg 24 hr tablet 03-12 00:00: 00 Yes [id number] 30mg TAKE 1 TABLET BY MOUTH DAILY [facility] LISINOPRIL 40 mg tablet 03-12 00:00: 00 Yes [id number] 40mg TAKE 1 TABLET BY MOUTH DAILY [facility] SPIRONOLACT ONE 25 mg tablet 03-12 00:00: 00 Yes TAKE 1 TABLET BY MOUTH DAILY [facility] ATORVASTATI N 40 mg tablet 03-12 00:00: 00 Yes [id number] 40mg TAKE 1 TABLET BY MOUTH AT BEDTIME [facility] CARVEDILOL 25 mg tablet 03-12 00:00: 00 Yes [id number] TAKE 1 TABLET BY MOUTH TWICE DAILY WITH MEALS [facility] AMLODIPINE 10 mg tablet 03-12 00:00: 00 Yes [id number] 10mg TAKE 1 TABLET BY MOUTH DAILY [facility] ISOSORBIDE MONONITRATE 30 mg 24 hr tablet 03-12 00:00: 00 Yes [id number] 30mg TAKE 1 TABLET BY MOUTH DAILY [facility] LISINOPRIL 40 mg tablet 03-12 00:00: 00 Yes [id number] 40mg TAKE 1 TABLET BY MOUTH DAILY [facility] SPIRONOLACT ONE 25 mg tablet 03-12 00:00: 00 Yes TAKE 1 TABLET BY MOUTH DAILY [facility] ATORVASTATI N 40 mg tablet 03-12 00:00: 00 Yes [id number] 40mg TAKE 1 TABLET BY MOUTH AT BEDTIME [facility] CARVEDILOL 25 mg tablet 03-12 00:00: 00 Yes [id number] TAKE 1 TABLET BY MOUTH TWICE DAILY WITH MEALS [facility] AMLODIPINE 10 mg tablet 03-12 00:00: 00 Yes [id number] 10mg TAKE 1 TABLET BY MOUTH DAILY [facility] LISINOPRIL 40 mg tablet 03-12 00:00: 00 09-20 00:00 :00 No [id number] 40mg TAKE 1 TABLET BY MOUTH DAILY [facility] SPIRONOLACT ONE 25 mg tablet 03-12 00:00: 00 09-20 00:00 :00 No TAKE 1 TABLET BY MOUTH DAILY [facility] ATORVASTATI N 40 mg tablet 03-12 00:00: 00 09-20 00:00 :00 No [id number] 40mg TAKE 1 TABLET BY MOUTH AT BEDTIME [facility] CARVEDILOL 25 mg tablet 03-12 00:00: 00 09-20 00:00 :00 No [id number] TAKE 1 TABLET BY MOUTH TWICE DAILY WITH MEALS [facility] ISOSORBIDE MONONITRATE 30 mg 24 hr tablet 03-12 00:00: 00 09-18 00:00 :00 No [id number] 30mg TAKE 1 TABLET BY MOUTH DAILY [facility] AMLODIPINE 10 mg tablet 03-12 00:00: 00 09-18 00:00 :00 No [id number] 10mg TAKE 1 TABLET BY MOUTH DAILY [facility] hydrALAZINE 50 mg tablet 10-24 00:00: 00 Yes [id number] 50mg Take 1 tablet by mouth every 8 (eight) hours. [facility] hydrALAZINE 50 mg tablet 10-24 00:00: 00 Yes [id number] 50mg Take 1 tablet by mouth every 8 (eight) hours. [facility] hydrALAZINE 50 mg tablet 10-24 00:00: 00 Yes [id number] 50mg Take 1 tablet by mouth every 8 (eight) hours. [facility] hydrALAZINE 50 mg tablet 2-0 1-04 00:00: 00 Yes [id number] 50mg Take 1 tablet by mouth every 8 (eight) hours. [facility] hydrALAZINE 50 mg tablet 2021-0 1-04 00:00: 00 Yes [id number] 50mg Take 1 tablet by mouth every 8 (eight) hours. [facility] hydrALAZINE 50 mg tablet 2021-0 1-04 00:00: 00 Yes [id number] 50mg Take 1 tablet by mouth every 8 (eight) hours. [facility] hydrALAZINE 50 mg tablet 2021-0 1-04 00:00: 00 Yes [id number] 50mg Take 1 tablet by mouth every 8 (eight) hours. [facility] hydrALAZINE 50 mg tablet 2021-0 -04 00:00: 00 Yes [id number] 50mg Take 1 tablet by mouth every 8 (eight) hours. [facility] hydrALAZINE 50 mg tablet 2021-0 -04 00:00: 00 Yes [id number] 50mg Take 1 tablet by mouth every 8 (eight) hours. [facility] hydrALAZINE 50 mg tablet 2021-0 -04 00:00: 00 Yes [id number] 50mg Take 1 tablet by mouth every 8 (eight) hours. [facility] hydrALAZINE 50 mg tablet 2021-0 -04 00:00: 00 Yes [id number] 50mg Take 1 tablet by mouth every 8 (eight) hours. [facility] hydrALAZINE 50 mg tablet 2021-0 -04 00:00: 00 Yes [id number] 50mg Take 1 tablet by mouth every 8 (eight) hours. [facility] hydrALAZINE 50 mg tablet 2021-0 1-04 00:00: 00 Yes [id number] 50mg Take 1 tablet by mouth every 8 (eight) hours. [facility] hydrALAZINE 50 mg tablet 2-0 1-04 00:00: 00 03-04 00:00 :00 No [id number] 50mg Take 1 tablet by mouth every 8 (eight) hours. [facility] hydrALAZINE 50 mg tablet 1- 00:00: 00 03-04 00:00 :00 No [id number] 50mg Take 1 tablet by mouth every 8 (eight) hours. [facility] hydrALAZINE 50 mg tablet - 00:00: 00 03-04 00:00 :00 No [id number] 50mg Take 1 tablet by mouth every 8 (eight) hours. [facility] hydrALAZINE 50 mg tablet - 00:00: 00 03-04 00:00 :00 No [id number] 50mg Take 1 tablet by mouth every 8 (eight) hours. [facility] spironolact one 25 mg tablet 2020-10 00:00: 00 Yes 25mg Take 25 mg by mouth every morning. [facility] spironolact one 25 mg tablet 2020-10 00:00: 00 Yes 25mg Take 25 mg by mouth every morning. [facility] spironolact one 25 mg tablet 2020-10 00:00: 00 Yes 25mg Take 25 mg by mouth every morning. [facility] spironolact one 25 mg tablet 2020-10 00:00: 00 Yes 25mg Take 25 mg by mouth every morning. [facility] spironolact one 25 mg tablet 2020-10 00:00: 00 03-12 00:00 :00 No 25mg Take 25 mg by mouth every morning. [facility] carvediloL 25 mg tablet 2020-10 00:00: 00 Yes [id number] 25mg Take 1 tablet by mouth 2 (two) times daily with meals. [facility] amLODIPine 10 mg tablet 2020-10 00:00: 00 Yes [id number] 10mg Take 1 tablet by mouth daily. [facility] atorvastati n 40 mg tablet 2020-10 00:00: 00 Yes [id number] 40mg Take 1 tablet by mouth at bedtime. [facility] isosorbide mononitrate 30 mg 24 hr tablet 2020-10 00:00: 00 Yes [id number] 30mg Take 1 tablet by mouth daily. [facility] lisinopriL 40 mg tablet 2020-10 00:00: 00 Yes [id number] 40mg Take 1 tablet by mouth daily. [facility] carvediloL 25 mg tablet 2020-10 00:00: 00 Yes [id number] 25mg Take 1 tablet by mouth 2 (two) times daily with meals. [facility] amLODIPine 10 mg tablet 2020-10 00:00: 00 Yes [id number] 10mg Take 1 tablet by mouth daily. [facility] atorvastati n 40 mg tablet 2020-10 00:00: 00 Yes [id number] 40mg Take 1 tablet by mouth at bedtime. [facility] isosorbide mononitrate 30 mg 24 hr tablet 2020-10 00:00: 00 Yes [id number] 30mg Take 1 tablet by mouth daily. [facility] lisinopriL 40 mg tablet 2020-10 00:00: 00 Yes [id number] 40mg Take 1 tablet by mouth daily. [facility] carvediloL 25 mg tablet 2020-10 00:00: 00 Yes [id number] 25mg Take 1 tablet by mouth 2 (two) times daily with meals. [facility] amLODIPine 10 mg tablet 2020-10 00:00: 00 Yes [id number] 10mg Take 1 tablet by mouth daily. [facility] atorvastati n 40 mg tablet 2020-10 00:00: 00 Yes [id number] 40mg Take 1 tablet by mouth at bedtime. [facility] isosorbide mononitrate 30 mg 24 hr tablet 2020-10 00:00: 00 Yes [id number] 30mg Take 1 tablet by mouth daily. [facility] lisinopriL 40 mg tablet 2020-10 00:00: 00 Yes [id number] 40mg Take 1 tablet by mouth daily. [facility] carvediloL 25 mg tablet 2020-10 00:00: 00 Yes [id number] 25mg Take 1 tablet by mouth 2 (two) times daily with meals. [facility] amLODIPine 10 mg tablet 2020-10 00:00: 00 Yes [id number] 10mg Take 1 tablet by mouth daily. [facility] atorvastati n 40 mg tablet 2020-10 00:00: 00 Yes [id number] 40mg Take 1 tablet by mouth at bedtime. [facility] isosorbide mononitrate 30 mg 24 hr tablet 2020-10 00:00: 00 Yes [id number] 30mg Take 1 tablet by mouth daily. [facility] lisinopriL 40 mg tablet 2020-10 00:00: 00 Yes [id number] 40mg Take 1 tablet by mouth daily. [facility] carvediloL 25 mg tablet 2020-10 00:00: 00 03-12 00:00 :00 No [id number] 25mg Take 1 tablet by mouth 2 (two) times daily with meals. [facility] amLODIPine 10 mg tablet 2020-10 00:00: 00 03-12 00:00 :00 No [id number] 10mg Take 1 tablet by mouth daily. [facility] atorvastati n 40 mg tablet 2020-10 00:00: 00 03-12 00:00 :00 No [id number] 40mg Take 1 tablet by mouth at bedtime. [facility] isosorbide mononitrate 30 mg 24 hr tablet 2020-10 00:00: 00 03-12 00:00 :00 No [id number] 30mg Take 1 tablet by mouth daily. [facility] lisinopriL 40 mg tablet 2020-10 00:00: 00 03-12 00:00 :00 No [id number] 40mg Take 1 tablet by mouth daily. [facility] apixaban (ELIQUIS) 5 mg tablet 2020-10 00:00: 00 11-24 05:59 :00 No 5mg Take 1 tablet by mouth 2 (two) times daily for 90 days. Indication s: PAF [facility] apixaban (ELIQUIS) 5 mg tablet 2020-10 00:00: 00 11-24 05:59 :00 No 5mg Take 1 tablet by mouth 2 (two) times daily for 90 days. Indication s: PAF [facility] aspirin 81 mg EC tablet 07-13 00:00: 00 Yes [id number] 81mg Take 1 tablet by mouth daily. [facility] aspirin 81 mg EC tablet 07-13 00:00: 00 Yes [id number] 81mg Take 1 tablet by mouth daily. [facility] aspirin 81 mg EC tablet 07-13 00:00: 00 Yes [id number] 81mg Take 1 tablet by mouth daily. [facility] aspirin 81 mg EC tablet 07-13 00:00: 00 Yes [id number] 81mg Take 1 tablet by mouth daily. [facility] aspirin 81 mg EC tablet 07-13 00:00: 00 Yes [id number] 81mg Take 1 tablet by mouth daily. [facility] aspirin 81 mg EC tablet 07-13 00:00: 00 Yes [id number] 81mg Take 1 tablet by mouth daily. [facility] aspirin 81 mg EC tablet 07-13 00:00: 00 Yes [id number] 81mg Take 1 tablet by mouth daily. [facility] aspirin 81 mg EC tablet 07-13 00:00: 00 Yes [id number] 81mg Take 1 tablet by mouth daily. [facility] aspirin 81 mg EC tablet 07-13 00:00: 00 Yes [id number] 81mg Take 1 tablet by mouth daily. [facility] aspirin 81 mg EC tablet 07-13 00:00: 00 Yes [id number] 81mg Take 1 tablet by mouth daily. [facility] aspirin 81 mg EC tablet 07-13 00:00: 00 Yes [id number] 81mg Take 1 tablet by mouth daily. [facility] aspirin 81 mg EC tablet 07-13 00:00: 00 Yes [id number] 81mg Take 1 tablet by mouth daily. [facility] aspirin 81 mg EC tablet 07-13 00:00: 00 Yes [id number] 81mg Take 1 tablet by mouth daily. [facility] aspirin 81 mg EC tablet 07-13 00:00: 00 Yes [id number] 81mg Take 1 tablet by mouth daily. [facility] aspirin 81 mg EC tablet 07-13 00:00: 00 Yes [id number] 81mg Take 1 tablet by mouth daily. [facility] aspirin 81 mg EC tablet 07-13 00:00: 00 Yes [id number] 81mg Take 1 tablet by mouth daily. [facility] aspirin 81 mg EC tablet 07-13 00:00: 00 Yes [id number] 81mg Take 1 tablet by mouth daily. [facility] aspirin 81 mg EC tablet 07-13 00:00: 00 Yes [id number] 81mg Take 1 tablet by mouth daily. [facility] aspirin 81 mg EC tablet 07-13 00:00: 00 Yes [id number] 81mg Take 1 tablet by mouth daily. [facility] aspirin 81 mg EC tablet 07-13 00:00: 00 Yes [id number] 81mg Take 1 tablet by mouth daily. [facility] aspirin 81 mg EC tablet 07-13 00:00: 00 Yes [id number] 81mg Take 1 tablet by mouth daily. [facility] aspirin 81 mg EC tablet 07-13 00:00: 00 Yes [id number] 81mg Take 1 tablet by mouth daily. [facility] aspirin 81 mg EC tablet 07-13 00:00: 00 Yes [id number] 81mg Take 1 tablet by mouth daily. [facility] aspirin 81 mg EC tablet 07-13 00:00: 00 Yes [id number] 81mg Take 1 tablet by mouth daily. [facility] aspirin 81 mg EC tablet 07-13 00:00: 00 Yes [id number] 81mg Take 1 tablet by mouth daily. [facility] aspirin 81 mg EC tablet 07-13 00:00: 00 Yes [id number] 81mg Take 1 tablet by mouth daily. [facility] aspirin 81 mg EC tablet 07-13 00:00: 00 Yes [id number] 81mg Take 1 tablet by mouth daily. [facility] aspirin 81 mg EC tablet 07-13 00:00: 00 Yes [id number] 81mg Take 1 tablet by mouth daily. [facility] aspirin 81 mg EC tablet 07-13 00:00: 00 Yes [id number] 81mg Take 1 tablet by mouth daily. [facility] aspirin 81 mg EC tablet 07-13 00:00: 00 Yes [id number] 81mg Take 1 tablet by mouth daily. [facility] aspirin 81 mg EC tablet 07-13 00:00: 00 Yes [id number] 81mg Take 1 tablet by mouth daily. [facility] aspirin 81 mg EC tablet 07-13 00:00: 00 Yes [id number] 81mg Take 1 tablet by mouth daily. [facility] aspirin 81 mg EC tablet 07-13 00:00: 00 Yes [id number] 81mg Take 1 tablet by mouth daily. [facility] aspirin 81 mg EC tablet 07-13 00:00: 00 Yes [id number] 81mg Take 1 tablet by mouth daily. [facility] aspirin 81 mg EC tablet 07-13 00:00: 00 Yes [id number] 81mg Take 1 tablet by mouth daily. [facility] aspirin 81 mg EC tablet 07-13 00:00: 00 Yes [id number] 81mg Take 1 tablet by mouth daily. [facility] aspirin 81 mg EC tablet 07-13 00:00: 00 Yes [id number] 81mg Take 1 tablet by mouth daily. [facility] aspirin 81 mg EC tablet 07-13 00:00: 00 Yes [id number] 81mg Take 1 tablet by mouth daily. [facility] aspirin 81 mg EC tablet 07-13 00:00: 00 Yes [id number] 81mg Take 1 tablet by mouth daily. [facility] aspirin 81 mg EC tablet 07-13 00:00: 00 Yes [id number] 81mg Take 1 tablet by mouth daily. [facility] aspirin 81 mg EC tablet 07-13 00:00: 00 Yes [id number] 81mg Take 1 tablet by mouth daily. [facility] aspirin 81 mg EC tablet 07-13 00:00: 00 Yes [id number] 81mg Take 1 tablet by mouth daily. [facility] aspirin 81 mg EC tablet 07-13 00:00: 00 Yes [id number] 81mg Take 1 tablet by mouth daily. [facility] aspirin 81 mg EC tablet 07-13 00:00: 00 Yes [id number] 81mg Take 1 tablet by mouth daily. [facility] cholecalcif mg, vitamin D3, 25 mcg (1,000 unit) tablet 07-13 00:00: 00 11-10 00:00 :00 No [id number] 2000U Take 2 tablets by mouth daily. [facility] cholecalcif mg, vitamin D3, 25 mcg (1,000 unit) tablet 07-13 00:00: 00 11-10 00:00 :00 No [id number] 2000U Take 2 tablets by mouth daily. [facility] Immunizations Ordered Immunization Name Filled Immunization Name Date Status Comments Source SARS-COV-2 COVID-19 JEANIE-SUCROSE VACCINE 12 YRS+, BIVALENT 0.3ML, IM, ([facility]) 2022-07-13 00:00:00 Completed [facility] SARS-COV-2 COVID-19 JEANIE-SUCROSE VACCINE 12 YRS+, BIVALENT 0.3ML, IM, ([facility]) 2022-07-13 00:00:00 Completed [facility] SARS-COV-2 COVID-19 JEANIE-SUCROSE VACCINE 12 YRS+, BIVALENT 0.3ML, IM, ([facility]) 2022-07-13 00:00:00 Completed [facility] SARS-COV-2 COVID-19 JEANIE-SUCROSE VACCINE 12 YRS+, BIVALENT 0.3ML, IM, ([facility]) 2022-07-13 00:00:00 Completed [facility] SARS-COV-2 COVID-19 JEANIE-SUCROSE VACCINE 12 YRS+, BIVALENT 0.3ML, IM, ([facility]) 2022-07-13 00:00:00 Completed [facility] SARS-COV-2 COVID-19 JEANIE-SUCROSE VACCINE 12 YRS+, BIVALENT 0.3ML, IM, ([facility]) 2022-07-13 00:00:00 Completed [facility] SARS-COV-2 COVID-19 JEANIE-SUCROSE VACCINE 12 YRS+, BIVALENT 0.3ML, IM, ([facility]) 2022-07-13 00:00:00 Completed [facility] SARS-COV-2 COVID-19 JEANIE-SUCROSE VACCINE 12 YRS+, BIVALENT 0.3ML, IM, ([facility]) 2022-07-13 00:00:00 Completed [facility] SARS-COV-2 COVID-19 JEANIE-SUCROSE VACCINE 12 YRS+, BIVALENT 0.3ML, IM, ([facility]) 2022-07-13 00:00:00 Completed [facility] SARS-COV-2 COVID-19 JEANIE-SUCROSE VACCINE 12 YRS+, BIVALENT 0.3ML, IM, ([facility]) 2022-07-13 00:00:00 Completed [facility] SARS-COV-2 COVID-19 JEANIE-SUCROSE VACCINE 12 YRS+, BIVALENT 0.3ML, IM, ([facility]) 2022-07-13 00:00:00 Completed [facility] SARS-COV-2 COVID-19 JEANIE-SUCROSE VACCINE 12 YRS+, BIVALENT 0.3ML, IM, ([facility]) 2022-07-13 00:00:00 Completed [facility] SARS-COV-2 COVID-19 JEANIE-SUCROSE VACCINE 12 YRS+, BIVALENT 0.3ML, IM, ([facility]) 2022-07-13 00:00:00 Completed [facility] SARS-COV-2 COVID-19 JEANIE-SUCROSE VACCINE 12 YRS+, BIVALENT 0.3ML, IM, ([facility]) 2022-07-13 00:00:00 Completed [facility] SARS-COV-2 COVID-19 JEANIE-SUCROSE VACCINE 12 YRS+, BIVALENT 0.3ML, IM, ([facility]) 2022-07-13 00:00:00 Completed [facility] SARS-COV-2 COVID-19 JEANIE-SUCROSE VACCINE 12 YRS+, BIVALENT 0.3ML, IM, ([facility]) 2022-07-13 00:00:00 Completed [facility] SARS-COV-2 COVID-19 JEANIE-SUCROSE VACCINE 12 YRS+, BIVALENT 0.3ML, IM, ([facility]) 2022-07-13 00:00:00 Completed [facility] SARS-COV-2 COVID-19 JEANIE-SUCROSE VACCINE 12 YRS+, BIVALENT 0.3ML, IM, ([facility]) 2022-07-13 00:00:00 Completed [facility] SARS-COV-2 COVID-19 JEANIE-SUCROSE VACCINE 12 YRS+, BIVALENT 0.3ML, IM, ([facility]) 2022-07-13 00:00:00 Completed [facility] SARS-COV-2 COVID-19 JEANIE-SUCROSE VACCINE 12 YRS+, BIVALENT 0.3ML, IM, ([facility]) 2022-07-13 00:00:00 Completed [facility] SARS-COV-2 COVID-19 JEANIE-SUCROSE VACCINE 12 YRS+, BIVALENT 0.3ML, IM, ([facility]) 2022-07-13 00:00:00 Completed [facility] SARS-COV-2 COVID-19 JEANIE-SUCROSE VACCINE 12 YRS+, BIVALENT 0.3ML, IM, ([facility]) 2022-07-13 00:00:00 Completed [facility] SARS-COV-2 COVID-19 JEANIE-SUCROSE VACCINE 12 YRS+, BIVALENT 0.3ML, IM, ([facility]) 2022-07-13 00:00:00 Completed [facility] SARS-COV-2 COVID-19 JEANIE-SUCROSE VACCINE 12 YRS+, BIVALENT 0.3ML, IM, ([facility]) 2022-07-13 00:00:00 Completed [facility] SARS-COV-2 COVID-19 JEANIE-SUCROSE VACCINE 12 YRS+, BIVALENT 0.3ML, IM, ([facility]) 2022-07-13 00:00:00 Completed [facility] SARS-COV-2 COVID-19 JEANIE-SUCROSE VACCINE 12 YRS+, BIVALENT 0.3ML, IM, ([facility]) 2022-07-13 00:00:00 Completed [facility] SARS-COV-2 COVID-19 JEANIE-SUCROSE VACCINE 12 YRS+, BIVALENT 0.3ML, IM, ([facility]) 2022-07-13 00:00:00 Completed [facility] SARS-COV-2 COVID-19 JEANIE-SUCROSE VACCINE 12 YRS+, BIVALENT 0.3ML, IM, ([facility]) 2022-07-13 00:00:00 Completed [facility] SARS-COV-2 COVID-19 JEANIE-SUCROSE VACCINE 12 YRS+, BIVALENT 0.3ML, IM, ([facility]) 2022-07-13 00:00:00 Completed [facility] SARS-COV-2 COVID-19 JEANIE-SUCROSE VACCINE 12 YRS+, BIVALENT 0.3ML, IM, ([facility]) 2022-07-13 00:00:00 Completed [facility] SARS-COV-2 COVID-19 JEANIE-SUCROSE VACCINE 12 YRS+, BIVALENT 0.3ML, IM, ([facility]) 2022-07-13 00:00:00 Completed [facility] SARS-COV-2 COVID-19 JEANIE-SUCROSE VACCINE 12 YRS+, BIVALENT 0.3ML, IM, ([facility]) 2022-07-13 00:00:00 Completed [facility] SARS-COV-2 COVID-19 JEANIE-SUCROSE VACCINE 12 YRS+, BIVALENT 0.3ML, IM, ([facility]) 2022-07-13 00:00:00 Completed [facility] SARS-COV-2 COVID-19 JEANIE-SUCROSE VACCINE 12 YRS+, BIVALENT 0.3ML, IM, ([facility]) 2022-07-13 00:00:00 Completed [facility] SARS-COV-2 COVID-19 JEANIE-SUCROSE VACCINE 12 YRS+, BIVALENT 0.3ML, IM, ([facility]) 2022-07-13 00:00:00 Completed [facility] SARS-COV-2 COVID-19 JEANIE-SUCROSE VACCINE 12 YRS+, BIVALENT 0.3ML, IM, ([facility]) 2022-07-13 00:00:00 Completed [facility] SARS-COV-2 COVID-19 JEANIE-SUCROSE VACCINE 12 YRS+, BIVALENT 0.3ML, IM, ([facility]) 2022-07-13 00:00:00 Completed [facility] SARS-COV-2 COVID-19 JEANIE-SUCROSE VACCINE 12 YRS+, BIVALENT 0.3ML, IM, ([facility]) 2022-07-13 00:00:00 Completed [facility] SARS-COV-2 COVID-19 PFIZER VACCINE 2021-08-25 00:00:00 Completed [facility] SARS-COV-2 COVID-19 PFIZER VACCINE 2021-08-25 00:00:00 Completed [facility] SARS-COV-2 COVID-19 PFIZER VACCINE 2021-08-25 00:00:00 Completed [facility] SARS-COV-2 COVID-19 PFIZER VACCINE 2021-08-25 00:00:00 Completed [facility] SARS-COV-2 COVID-19 PFIZER VACCINE 2021-08-25 00:00:00 Completed [facility] SARS-COV-2 COVID-19 PFIZER VACCINE 2021-08-25 00:00:00 Completed [facility] SARS-COV-2 COVID-19 PFIZER VACCINE 2021-08-25 00:00:00 Completed [facility] SARS-COV-2 COVID-19 PFIZER VACCINE 2021-08-25 00:00:00 Completed [facility] SARS-COV-2 COVID-19 PFIZER VACCINE 2021-08-25 00:00:00 Completed [facility] SARS-COV-2 COVID-19 PFIZER VACCINE 2021-08-25 00:00:00 Completed [facility] SARS-COV-2 COVID-19 PFIZER VACCINE 2021-08-25 00:00:00 Completed [facility] SARS-COV-2 COVID-19 PFIZER VACCINE 2021-08-25 00:00:00 Completed [facility] SARS-COV-2 COVID-19 PFIZER VACCINE 2021-08-25 00:00:00 Completed [facility] SARS-COV-2 COVID-19 PFIZER VACCINE 2021-08-25 00:00:00 Completed [facility] SARS-COV-2 COVID-19 PFIZER VACCINE 2021-08-25 00:00:00 Completed [facility] SARS-COV-2 COVID-19 PFIZER VACCINE 2021-08-25 00:00:00 Completed [facility] SARS-COV-2 COVID-19 PFIZER VACCINE 2021-08-25 00:00:00 Completed [facility] SARS-COV-2 COVID-19 PFIZER VACCINE 2021-08-25 00:00:00 Completed [facility] SARS-COV-2 COVID-19 PFIZER VACCINE 2021-08-25 00:00:00 Completed [facility] SARS-COV-2 COVID-19 PFIZER VACCINE 2021-08-25 00:00:00 Completed [facility] SARS-COV-2 COVID-19 PFIZER VACCINE 2021-08-25 00:00:00 Completed [facility] SARS-COV-2 COVID-19 PFIZER VACCINE 2021-08-25 00:00:00 Completed [facility] SARS-COV-2 COVID-19 PFIZER VACCINE 2021-08-25 00:00:00 Completed [facility] SARS-COV-2 COVID-19 PFIZER VACCINE 2021-08-25 00:00:00 Completed [facility] SARS-COV-2 COVID-19 PFIZER VACCINE 2021-08-25 00:00:00 Completed [facility] SARS-COV-2 COVID-19 PFIZER VACCINE 2021-08-25 00:00:00 Completed [facility] SARS-COV-2 COVID-19 PFIZER VACCINE 2021-08-25 00:00:00 Completed [facility] SARS-COV-2 COVID-19 PFIZER VACCINE 2021-08-25 00:00:00 Completed [facility] SARS-COV-2 COVID-19 PFIZER VACCINE 2021-08-25 00:00:00 Completed [facility] SARS-COV-2 COVID-19 PFIZER VACCINE 2021-08-25 00:00:00 Completed [facility] SARS-COV-2 COVID-19 PFIZER VACCINE 2021-08-25 00:00:00 Completed [facility] SARS-COV-2 COVID-19 PFIZER VACCINE 2021-08-25 00:00:00 Completed [facility] SARS-COV-2 COVID-19 PFIZER VACCINE 2021-08-25 00:00:00 Completed [facility] SARS-COV-2 COVID-19 PFIZER VACCINE 2021-08-25 00:00:00 Completed [facility] SARS-COV-2 COVID-19 PFIZER VACCINE 2021-08-25 00:00:00 Completed [facility] SARS-COV-2 COVID-19 PFIZER VACCINE 2021-08-25 00:00:00 Completed [facility] SARS-COV-2 COVID-19 PFIZER VACCINE 2021-08-25 00:00:00 Completed [facility] SARS-COV-2 COVID-19 PFIZER VACCINE 2021-08-25 00:00:00 Completed [facility] SARS-COV-2 COVID-19 PFIZER VACCINE 2021-08-25 00:00:00 Completed [facility] SARS-COV-2 COVID-19 PFIZER VACCINE 2021-08-25 00:00:00 Completed [facility] SARS-COV-2 COVID-19 PFIZER VACCINE 2021-08-25 00:00:00 Completed [facility] SARS-COV-2 COVID-19 PFIZER VACCINE 2021-08-25 00:00:00 Completed [facility] SARS-COV-2 COVID-19 PFIZER VACCINE 2021-08-25 00:00:00 Completed [facility] SARS-COV-2 COVID-19 PFIZER VACCINE 2020-12-23 00:00:00 Completed [facility] SARS-COV-2 COVID-19 PFIZER VACCINE 2020-12-23 00:00:00 Completed [facility] SARS-COV-2 COVID-19 PFIZER VACCINE 2020-12-23 00:00:00 Completed [facility] SARS-COV-2 COVID-19 PFIZER VACCINE 2020-12-23 00:00:00 Completed [facility] SARS-COV-2 COVID-19 PFIZER VACCINE 2020-12-23 00:00:00 Completed [facility] SARS-COV-2 COVID-19 PFIZER VACCINE 2020-12-23 00:00:00 Completed [facility] SARS-COV-2 COVID-19 PFIZER VACCINE 2020-12-23 00:00:00 Completed [facility] SARS-COV-2 COVID-19 PFIZER VACCINE 2020-12-23 00:00:00 Completed [facility] SARS-COV-2 COVID-19 PFIZER VACCINE 2020-12-23 00:00:00 Completed [facility] SARS-COV-2 COVID-19 PFIZER VACCINE 2020-12-23 00:00:00 Completed [facility] SARS-COV-2 COVID-19 PFIZER VACCINE 2020-12-23 00:00:00 Completed [facility] SARS-COV-2 COVID-19 PFIZER VACCINE 2020-12-23 00:00:00 Completed [facility] SARS-COV-2 COVID-19 PFIZER VACCINE 2020-12-23 00:00:00 Completed [facility] SARS-COV-2 COVID-19 PFIZER VACCINE 2020-12-23 00:00:00 Completed [facility] SARS-COV-2 COVID-19 PFIZER VACCINE 2020-12-23 00:00:00 Completed [facility] SARS-COV-2 COVID-19 PFIZER VACCINE 2020-12-23 00:00:00 Completed [facility] SARS-COV-2 COVID-19 PFIZER VACCINE 2020-12-23 00:00:00 Completed [facility] SARS-COV-2 COVID-19 PFIZER VACCINE 2020-12-23 00:00:00 Completed [facility] SARS-COV-2 COVID-19 PFIZER VACCINE 2020-12-23 00:00:00 Completed [facility] SARS-COV-2 COVID-19 PFIZER VACCINE 2020-12-23 00:00:00 Completed [facility] SARS-COV-2 COVID-19 PFIZER VACCINE 2020-12-23 00:00:00 Completed [facility] SARS-COV-2 COVID-19 PFIZER VACCINE 2020-12-23 00:00:00 Completed [facility] SARS-COV-2 COVID-19 PFIZER VACCINE 2020-12-23 00:00:00 Completed [facility] SARS-COV-2 COVID-19 PFIZER VACCINE 2020-12-23 00:00:00 Completed [facility] SARS-COV-2 COVID-19 PFIZER VACCINE 2020-12-23 00:00:00 Completed [facility] SARS-COV-2 COVID-19 PFIZER VACCINE 2020-12-23 00:00:00 Completed [facility] SARS-COV-2 COVID-19 PFIZER VACCINE 2020-12-23 00:00:00 Completed [facility] SARS-COV-2 COVID-19 PFIZER VACCINE 2020-12-23 00:00:00 Completed [facility] SARS-COV-2 COVID-19 PFIZER VACCINE 2020-12-23 00:00:00 Completed [facility] SARS-COV-2 COVID-19 PFIZER VACCINE 2020-12-23 00:00:00 Completed [facility] SARS-COV-2 COVID-19 PFIZER VACCINE 2020-12-23 00:00:00 Completed [facility] SARS-COV-2 COVID-19 PFIZER VACCINE 2020-12-23 00:00:00 Completed [facility] SARS-COV-2 COVID-19 PFIZER VACCINE 2020-12-23 00:00:00 Completed [facility] SARS-COV-2 COVID-19 PFIZER VACCINE 2020-12-23 00:00:00 Completed [facility] SARS-COV-2 COVID-19 PFIZER VACCINE 2020-12-23 00:00:00 Completed [facility] SARS-COV-2 COVID-19 PFIZER VACCINE 2020-12-23 00:00:00 Completed [facility] SARS-COV-2 COVID-19 PFIZER VACCINE 2020-12-23 00:00:00 Completed [facility] SARS-COV-2 COVID-19 PFIZER VACCINE 2020-12-23 00:00:00 Completed [facility] SARS-COV-2 COVID-19 PFIZER VACCINE 2020-12-23 00:00:00 Completed [facility] SARS-COV-2 COVID-19 PFIZER VACCINE 2020-12-23 00:00:00 Completed [facility] SARS-COV-2 COVID-19 PFIZER VACCINE 2020-12-23 00:00:00 Completed [facility] SARS-COV-2 COVID-19 PFIZER VACCINE 2020-12-23 00:00:00 Completed [facility] SARS-COV-2 COVID-19 PFIZER VACCINE 2020-12-23 00:00:00 Completed [facility] SARS-COV-2 COVID-19 PFIZER VACCINE 2020-12-02 00:00:00 Completed [facility] SARS-COV-2 COVID-19 PFIZER VACCINE 2020-12-02 00:00:00 Completed [facility] SARS-COV-2 COVID-19 PFIZER VACCINE 2020-12-02 00:00:00 Completed [facility] SARS-COV-2 COVID-19 PFIZER VACCINE 2020-12-02 00:00:00 Completed [facility] SARS-COV-2 COVID-19 PFIZER VACCINE 2020-12-02 00:00:00 Completed [facility] SARS-COV-2 COVID-19 PFIZER VACCINE 2020-12-02 00:00:00 Completed [facility] SARS-COV-2 COVID-19 PFIZER VACCINE 2020-12-02 00:00:00 Completed [facility] SARS-COV-2 COVID-19 PFIZER VACCINE 2020-12-02 00:00:00 Completed [facility] SARS-COV-2 COVID-19 PFIZER VACCINE 2020-12-02 00:00:00 Completed [facility] SARS-COV-2 COVID-19 PFIZER VACCINE 2020-12-02 00:00:00 Completed [facility] SARS-COV-2 COVID-19 PFIZER VACCINE 2020-12-02 00:00:00 Completed [facility] SARS-COV-2 COVID-19 PFIZER VACCINE 2020-12-02 00:00:00 Completed [facility] SARS-COV-2 COVID-19 PFIZER VACCINE 2020-12-02 00:00:00 Completed [facility] SARS-COV-2 COVID-19 PFIZER VACCINE 2020-12-02 00:00:00 Completed [facility] SARS-COV-2 COVID-19 PFIZER VACCINE 2020-12-02 00:00:00 Completed [facility] SARS-COV-2 COVID-19 PFIZER VACCINE 2020-12-02 00:00:00 Completed [facility] [facility] SARS-COV-2 COVID-19 PFIZER VACCINE 2020-12-02 00:00:00 Completed [facility] SARS-COV-2 COVID-19 PFIZER VACCINE 2020-12-02 00:00:00 Completed [facility] SARS-COV-2 COVID-19 PFIZER VACCINE 2020-12-02 00:00:00 Completed [facility] SARS-COV-2 COVID-19 PFIZER VACCINE 2020-12-02 00:00:00 Completed [facility] SARS-COV-2 COVID-19 PFIZER VACCINE 2020-12-02 00:00:00 Completed [facility] SARS-COV-2 COVID-19 PFIZER VACCINE 2020-12-02 00:00:00 Completed [facility] SARS-COV-2 COVID-19 PFIZER VACCINE 2020-12-02 00:00:00 Completed [facility] SARS-COV-2 COVID-19 PFIZER VACCINE 2020-12-02 00:00:00 Completed [facility] SARS-COV-2 COVID-19 PFIZER VACCINE 2020-12-02 00:00:00 Completed [facility] SARS-COV-2 COVID-19 PFIZER VACCINE 2020-12-02 00:00:00 Completed [facility] SARS-COV-2 COVID-19 PFIZER VACCINE 2020-12-02 00:00:00 Completed [facility] SARS-COV-2 COVID-19 PFIZER VACCINE 2020-12-02 00:00:00 Completed [facility] SARS-COV-2 COVID-19 PFIZER VACCINE 2020-12-02 00:00:00 Completed [facility] SARS-COV-2 COVID-19 PFIZER VACCINE 2020-12-02 00:00:00 Completed [facility] SARS-COV-2 COVID-19 PFIZER VACCINE 2020-12-02 00:00:00 Completed [facility] SARS-COV-2 COVID-19 PFIZER VACCINE 2020-12-02 00:00:00 Completed [facility] SARS-COV-2 COVID-19 PFIZER VACCINE 2020-12-02 00:00:00 Completed [facility] SARS-COV-2 COVID-19 PFIZER VACCINE 2020-12-02 00:00:00 Completed [facility] SARS-COV-2 COVID-19 PFIZER VACCINE 2020-12-02 00:00:00 Completed [facility] SARS-COV-2 COVID-19 PFIZER VACCINE 2020-12-02 00:00:00 Completed [facility] SARS-COV-2 COVID-19 PFIZER VACCINE 2020-12-02 00:00:00 Completed [facility] SARS-COV-2 COVID-19 PFIZER VACCINE 2020-12-02 00:00:00 Completed [facility] SARS-COV-2 COVID-19 PFIZER VACCINE 2020-12-02 00:00:00 Completed [facility] SARS-COV-2 COVID-19 PFIZER VACCINE 2020-12-02 00:00:00 Completed [facility] SARS-COV-2 COVID-19 PFIZER VACCINE 2020-12-02 00:00:00 Completed [facility] SARS-COV-2 COVID-19 PFIZER VACCINE 2020-12-02 00:00:00 Completed [facility] SARS-COV-2 COVID-19 PFIZER VACCINE 2020-12-02 00:00:00 Completed [facility] SARS-COV-2 COVID-19 PFIZER VACCINE Unknown Completed [facility] SARS-COV-2 COVID-19 PFIZER VACCINE Unknown Completed [facility] SARS-COV-2 COVID-19 PFIZER VACCINE Unknown Completed [facility] SARS-COV-2 COVID-19 JEANIE-SUCROSE VACCINE 12 YRS+, BIVALENT 0.3ML, IM, (PFIZER LEON TOP) Unknown Completed [facility] Vital Signs Vital Name Observation Time Observation Value Comments S ource Systolic blood pressure 2023-05-03 16:36:00 130 mm[Hg] [facility] Diastolic blood pressure 2023-05-03 16:36:00 80 mm[Hg] [facility] Heart rate 2023-05-03 16:36:00 72 /min Unive [facility] Body temperature 2023-05-03 16:36:00 36.89 Laly [facility] Body height 2023-05-03 16:36:00 180.3 cm [facility] 2023-05-03 16:36:00 143.881 kg [facility] BMI 2023-05-03 16:36:00 44.24 kg/m2 [facility] Oxygen saturation in Arterial blood by Pulse oximetry 2023-05-03 16:36:00 96 /min [facility] Systolic blood pressure 2023-04-19 15:35:00 125 mm[Hg] [facility] Diastolic blood pressure 2023-04-19 15:35:00 79 mm[Hg] [facility] Heart rate 2023-04-19 15:35:00 81 /min Unive [facility] Respiratory rate 2023-04-19 15:35:00 18 /min [facility] Body height 2023-04-19 15:35:00 180.3 cm [facility] Body weight 2023-04-19 15:35:00 147.238 kg General acute hospital BMI 2023-04-19 15:35:00 45.27 kg/m2 [facility] Oxygen saturation in Arterial blood by Pulse oximetry 2023-04-19 15:35:00 97 /min [facility] Systolic blood pressure 2023-04-15 14:31:00 132 mm[Hg] [facility] Diastolic blood pressure 2023-04-15 14:31:00 67 mm[Hg] [facility] Heart rate 2023-04-15 14:31:00 75 /min Unive [facility] Body temperature 2023-04-15 14:31:00 36.89 Laly [facility] Body height 2023-04-15 14:31:00 180.3 cm [facility] weight 2023-04-15 14:31:00 142.883 kg [facility] BMI 2023-04-15 14:31:00 43.93 kg/m2 [facility] acute hospital Oxygen saturation in Arterial blood by Pulse oximetry 2023-04-15 14:31:00 96 /min [facility] Systolic blood pressure 2023-03-04 19:37:00 138 mm[Hg] [facility] Diastolic blood pressure 2023-03-04 19:37:00 84 mm[Hg] [facility] Heart rate 2023-03-04 19:37:00 87 /min Unive [facility] Respiratory rate 2023-03-04 19:37:00 19 /min [facility] Body height 2023-03-04 19:37:00 180.3 cm [facility] acute hospital Body weight 2023-03-04 19:37:00 148.825 kg [facility] acute hospital BMI 2023-03-04 19:37:00 45.76 kg/m2 [facility] acute hospital Oxygen saturation in Arterial blood by Pulse oximetry 2023-03-04 19:37:00 95 /min [facility] Systolic blood pressure 2021-11-10 15:27:00 123 mm[Hg] [facility] Diastolic blood pressure 2021-11-10 15:27:00 68 mm[Hg] [facility] Heart rate 2021-11-10 15:27:00 73 /min Unive [facility] Body height 2021-11-10 15:27:00 180.3 cm [facility] Body weight 2021-11-10 15:27:00 138.347 kg [facility] acute hospital BMI 2021-11-10 15:27:00 42.54 kg/m2 [facility] Procedures Procedure Date / Time Performed Performing Clinician Source BASIC METABOLIC PANEL (NA, K, CL, CO2, GLUCOSE, BUN, CREATININE, CA) 2023-05-03 17:46:00 Rubina Francisco [facility] N-TERMINAL PRO-BNP 2023-05-03 17:46:00 Rubina Francisco [facility] RADIOLOGY DOCUMENTATION 2023-04-12 05:01:00 Doct or Unassigned, [place]antilly [facility] HB ECG ROUTINE & RHYTHM STRIP 2023-03-04 19:40:15 Miller Cano [facility] ASSIGNMENT OF BENEFITS 2023-03-04 19:12:42 Docto r Unassigned, [place]illy [facility] MEDICATION CORRESPONDENCE 2022-08-27 06:01:00 Do ctor Unassigned, [place]antilly [facility] SARS-COV-2 COVID-19 JEANIE-SUCROSE VACCINE 12 YRS+, BIVALENT 0.3ML, IM, (PFIZER LEON TOP BOOSTER) 2022-07-13 19:27:21 Doctor Unassigned, [place]antilly [facility] DME/SUPPLY JUSTIFICATION 2021-11-10 06:01:00 Doc tor Unassigned, [place]antilly [facility] Encounters Start Date/Time End Date/Time Encounter Type Admission Type Attending [facility] Care Facility Care Department Encounter ID Source 2021-08-21 23:37:17 Emergency [facility] [id number] [facility] 2023-12-12 13:00:00 2023-12-12 13:00:00 Outpatient R MILLER CANO [facility] [id number] [facility] 2023-11-28 00:00:00 2023-11-28 00:00:00 Telephone Miller Cano [facility] 1.2.840.114 350.1.13.10 4.2.7.2.686 [id number] [id number] [facility] 2023-05-30 00:00:00 2023-05-30 00:00:00 Refill Miller Cano [facility] 1.2.840.114 350.1.13.10 4.2.7.2.686 [id number] [id number] [facility] 2023-05-30 00:00:00 2023-05-30 00:00:00 Telephone Miller Cano [facility] 1.2.840.114 350.1.13.10 4.2.7.2.686 [id number] [id number] [facility] 2023-05-14 00:00:00 2023-05-14 00:00:00 Telephone Parish Franciscoliailyn Banda [facility] 1.2.840.114 350.1.13.10 4.2.7.2.686 [id number] [facility] 2023-05-10 00:00:00 2023-05-10 00:00:00 Telephone Rubina Francisco [facility] 1.2.840.114 350.1.13.10 4.2.7.2.686 [id number] 044 [id number] [facility] 2023-05-08 00:00:00 2023-05-08 00:00:00 Letter (Out) Kyung Rubio - [facility] MED[facility] 1.2.840.114 350.1.13.10 4.2.7.2.686 [id number] [id number] [facility] 2023-05-06 10:36:00 2023-05-06 23:59:00 [facility] 1.2.840.114 350.1.13.10 4.2.7.2.686 [id number] [facility] 2023-05-06 00:00:00 2023-05-06 23:59:00 Outpatient R PAUL MONTENEGRO [facility] [id number] [facility] 2023-05-06 00:00:00 2023-05-06 00:00:00 Telephone Rubina Francisco [facility] 1.2.840.114 350.1.13.10 4.2.7.2.686 [id number] [facility] 2023-05-05 00:00:00 2023-05-05 00:00:00 Refill Rubina Francisco Veronika [facility] 1.84.114 350.1.13.10 4.2.7.2.686 [id number] [facility] 2023-05-03 13:30:00 2023-05-03 13:30:00 Core Feeder Visit Lab, Everette Krishnamurthy Rubina Francisco [facility] 1.84114 350.1.13.10 4.2.7.2.686 [id number] [facility] 2023-05-03 13:30:00 2023-05-03 12:59:00 Outpatient R MARYAMRUBINA [facility] [id number] [facility] 2023-05-03 11:30:00 2023-05-03 12:58:21 Office Visit Maryam Rubina Banda [facility] 1.84.114 350.1.13.10 4.2.7.2.686 [id number] [facility] 2023-04-22 11:30:00 2023-04-22 11:45:00 Core Feeder Visit Lab, Everette FarrarKenzie banda [facility] 1.84.114 350.1.13.10 4.2.7.2.686 [id number] [facility] 2023-04-22 11:30:00 2023-04-22 11:30:00 Outpatient R KENZIE DEWITT [facility] [id number] [facility] 2023-04-20 00:00:00 2023-04-20 00:00:00 Telephone Mor Kenzie [facility] 1.84.114 350.1.13.10 4.2.7.2.686 [id number] [id number] [facility] 2023-04-19 10:30:00 2023-04-19 10:57:29 Outpatient R SAIMAKENZIE Banda [facility] [id number] [facility] 2023-04-19 10:30:00 2023-04-19 10:57:29 Office Visit SaimaKenzie banda [facility] 1.2.840.114 350.1.13.10 4.2.7.2.686 [id number] [facility] 2023-04-18 00:00:00 2023-04-18 00:00:00 [facility]phone [facility] 1.2.840.114 350.1.13.10 4.2.7.2.686 [id number] [facility] 2023-04-16 00:00:00 2023-04-16 00:00:00 Telephone SaimaKenzie banda [facility] 1..840.114 350.1.13.10 4.2.7.2.686 [id number] [facility] 2023-04-15 10:15:00 2023-04-15 10:30:00 Core Feeder Visit Lab, Ang - Db SaimaKenzie banda [facility]?NATHALIEVeronika [facility] 1.2.840.114 350.1.13.10 4.2.7.2.686 [id number] [facility] 2023-04-15 09:30:00 2023-04-15 10:05:42 Outpatient R SAIMAKENZIE Banda [facility] [id number] [facility] 2023-04-15 09:30:00 2023-04-15 10:05:42 Office Visit MorKenzie [facility] 1.2.840.114 350.1.13.10 4.2.7.2.686 [id number] [facility] 2023-04-12 00:00:00 2023-04-12 00:00:00 Orders Only Doctor Unassigned, Chantilly [facility] 1.2840.114 350.1.13.10 4.2.7.2.686 [id number] [facility] 2023-04-12 00:00:00 2023-04-12 00:00:00 Telephone Rubina Francisco [facility] 1.84114 350.1.13.10 4.2.7.2.686 [id number] [facility] 2023-03-04 14:00:00 2023-03-04 15:55:42 Outpatient R MILLER CANO [facility] [id number] [facility] 2023-03-04 14:00:00 2023-03-04 15:55:42 Office Visit Miller CanoHBrendon [facility] 1.84.114 350.1.13.10 4.2.7.2.686 [id number] [facility] 2023-03-04 00:00:00 2023-03-04 00:00:00 Orders Only Doctor Unassigned, Chantilly [facility] 1.2.114 350.1.13.10 4.2.7.2.686 [id number] [facility] 2023-01-18 09:00:00 2023-01-18 09:00:00 Outpatient R MILLER CANO [facility] [id number] [facility] 2022-10-26 00:00:00 2022-10-26 00:00:00 Telephone Miller CanoHBrendon [facility] 1.84.114 350.1.13.10 4.2.7.2.686 [id number] [facility] 2022-10-19 00:00:00 2022-10-19 00:00:00 RefMiller Snow [facility] 1.2.840.114 350.1.13.10 4.2.7.2.686 [id number] [id number] [facility] 2022-09-20 00:00:00 2022-09-20 00:00:00 RefMiller Snow [facility] BUILD[facility] 1.2.840.114 350.1.13.10 4.2.7.2.686 [id number] [facility] 2022-09-16 00:00:00 2022-09-16 00:00:00 Miller Matthews [facility] 1.2.840.114 350.1.13.10 4.2.7.2.686 [id number] [facility] 2022-08-27 00:00:00 2022-08-27 00:00:00 Orders Only Doctor Unassigned, Chantilly [facility] 1.2.840.114 350.1.13.10 4.2.7.2.686 [id number] [facility] 2022-07-13 14:00:00 2022-07-13 14:10:00 Imm/Inj Visit Vaccine, Adc Family Medicine Carlito Lane [facility] 1.2.840.114 350.1.13.10 4.2.7.2.686 [id number] [facility] 2022-07-13 14:00:00 2022-07-13 14:00:[address] [facility] [id number] [facility] 2022-03-12 00:00:00 2022-03-12 00:00:00 Refill Miller Cano [facility] 1..840.114 350.1.13.10 4.2.7.2.686 [id number] [facility] 2022-01-21 00:00:00 2022-01-21 00:00:00 Telephone Miller Cano [facility] 1.840.114 350.1.13.10 4.2.7.2.686 [id number] [facility] 2022-01-19 10:00:00 2022-01-19 10:00:00 Outpatient R MILLER CANO [facility] [id number] [facility] 2022-01-19 10:00:00 2022-01-19 10:00:00 Outpatient R MILLER CANO [facility] [id number] [facility] 2021-11-10 09:00:00 2021-11-10 09:52:02 Outpatient R MILLER CANO [facility] [id number] [facility] 2021-11-10 09:00:00 2021-11-10 09:52:02 Office Visit Miller Cano [facility] 1..840.114 350.1.13.10 4.2.7.2.686 [id number] [facility] 2021-11-10 00:00:00 2021-11-10 00:00:00 Orders Only Doctor Unassigned, Chantilly [facility] 1.840.114 350.1.13.10 4.2.7.2.686 [id number] [facility] 2021-10-24 00:00:00 2021-10-24 00:00:00 Telephone Miller Cano [facility] 1.840.114 350.1.13.10 4.2.7.2.686 [id number] [facility] 2021-10-24 00:00:00 2021-10-24 00:00:00 Telephone Saranya Kuo [facility] 1.2.840.114 350.1.13.10 4.2.7.2.686 [id number] [id number] [facility] 2021-10-05 14:47:27 2021-10-05 23:59:00 Outpatient R MILLER CANO [facility] [id number] [facility] 2021-10-05 14:47:27 2021-10-05 23:59:00 Hospital Encounter Miller Cano [facility] BUILD[facility] 1.2.840.114 350.1.13.10 4.2.7.2.686 [id number] [facility] 2021-09-27 00:00:00 2021-09-27 00:00:00 Telephone Miller Cano [facility] 1.2.840.114 350.1.13.10 4.2.7.2.686 [id number] [facility] 2021-09-24 00:00:00 2021-09-24 00:00:00 Refill Miller Cano [facility]ILD[facility] 1.2.840.114 350.1.13.10 4.2.7.2.686 [id number] [facility] 2021-08-31 14:00:00 2021-08-31 14:32:22 Outpatient R MILLER CANO [facility] [id number] [facility] 2021-08-31 13:45:53 2021-08-31 14:32:22 Office Visit Miller Cano [facility] 1.2.840.114 350.1.13.10 4.2.7.2.686 [id number] [facility] 2021-08-31 14:00:00 2021-08-31 14:00:00 Outpatient R MILLER CANO [facility] [id number] [facility] 2021-08-30 00:00:00 2021-08-30 00:00:00 Telephone Miller Cano [facility] 1.2.840.114 350.1.13.10 4.2.7.2.686 [id number] [id number] [facility] 2021-08-25 14:17:20 2021-08-25 14:32:20 Core Feeder Visit Jeny, Scott Lab Main Miller Cano [facility] 1..840.114 350.1.13.10 4.2.7.2.686 [id number] [facility] 2021-08-25 14:15:00 2021-08-25 14:15:00 Outpatient R MILLER CANO [facility] [id number] [facility] 2021-08-25 10:40:00 2021-08-25 10:21:07 Outpatient JOURDAN MORENO [facility] [id number] [facility] 2021-08-25 10:20:41 2021-08-25 10:21:07 Imm/Inj Visit Nurse, Scott Fermin Immunizatio Jourdan Camarena [facility] 1.2.840.114 350.1.13.10 4.2.7.2.686 [id number] [facility] 2021-08-25 00:00:00 2021-08-25 00:00:00 Telephone Miller Cano [facility] 1.2.840.114 350.1.13.10 4.2.7.2.686 [id number] [facility] 2021-08-25 00:00:00 2021-08-25 00:00:00 Orders Only Doctor Unassigned, Chantilly [facility] 1.284.114 350.1.13.10 4.2.7.2.686 [id number] [facility] 2021-08-02 13:38:33 2021-08-02 14:09:24 Office Visit Miller Cano [facility] 1.2.840.114 350.1.13.10 4.2.7.2.686 [id number] [facility] 2021-08-02 13:30:00 2021-08-02 14:09:24 Outpatient R MILLER CANO [facility] [id number] [facility] 2021-08-02 13:30:00 2021-08-02 13:30:00 Outpatient R MILLER CANO [facility] [id number] [facility] 2021-08-02 00:00:00 2021-08-02 00:00:00 Patient Outreach Taina Reddy [facility] 1..840.114 350.1.13.10 4.2.7.2.686 [id number] [facility] 2021-08-02 00:00:00 2021-08-02 00:00:00 Patient Outreach Taina Reddy [facility] 1.2.840.114 350.1.13.10 4.2.7.2.686 [id number] [facility] 2021-07-27 10:49:45 2021-07-27 13:13:58 Office Visit Rubina Francisco [facility] 1..840.114 350.1.13.10 4.2.7.2.686 [id number] [facility] 2021-07-27 11:00:00 2021-07-27 11:00:00 Outpatient R RUBINA FRANCISCO [facility] [id number] [facility] 2021-07-27 00:00:00 2021-07-27 00:00:00 Orders Only Doctor Unassigned, Chantilly [facility] 1.2840.114 350.1.13.10 4.2.7.2.686 [id number] [facility] 2021-07-14 00:00:00 2021-07-14 00:00:00 Transition of Care Peg Hines 1.840.114 350.1.13.10 4.2.7.2.686 [id number] [facility] 2021-07-08 12:53:00 2021-07-12 16:30:00 Hospital Encounter Karoline White [facility] 1.284.114 350.1.13.10 4.2.7.2.686 [id number] [facility] 2021-06-13 11:24:52 2021-06-13 12:24:52 Nurse Visit Therapy, Vanita Marquez [facility] 1..840.114 350.1.13.10 4.2.7.2.686 [id number] [facility] 2021-06-13 11:30:00 2021-06-13 11:30:00 Outpatient R [facility] [id number] [facility] 2021-06-13 00:00:00 2021-06-13 00:00:00 Orders Only Doctor Unassigned, Chantilly [facility] 1.2.840.114 350.1.13.10 4.2.7.2.686 [id number] [facility] 2021-06-11 17:30:00 2021-06-11 17:30:00 Outpatient R [facility] [id number] [facility] 2021-06-05 09:10:00 2021-06-05 09:10:00 Outpatient R [facility] [id number] [facility] 2020-12-23 10:15:00 2020-12-23 10:15:00 Outpatient RADHA CARRANZA [facility] [id number] [facility] 2020-12-02 10:20:00 2020-12-02 10:20:00 Outpatient PATRICIA FUNG [facility] [id number] [facility] 2020-11-25 09:11:35 2020-11-25 09:46:46 Office Visit Rubina Francisco [facility] 1.2.840.114 350.1.13.10 4.2.7.2.686 [id number] 2020-11-25 09:00:00 2020-11-25 09:00:00 Outpatient RUBINA MOTT [facility] [id number] [facility] 2020-05-05 14:00:00 2020-05-05 14:00:00 Outpatient MILLER COLON [facility] [id number] [facility] 2020-05-03 13:15:00 2020-05-03 13:15:00 Outpatient OBDE OCASIO [facility] [id number] [facility] Results Test Description Test Time Test Comments Results Result Co mments Source [id number] 22:17:27* Test Item Value Reference Range Interpretation Comme nts NT-proBNP (test code = 48522-2) 435 pg/mL <=125 JUANITO (test code = JUANITO) Result Indeterminate-Consid er causes of NT-proBNP elevation other than Heart failure such as acute coronary syndrome, pulmonary embolism, pulmonary hypertension, sepsis, stroke, and renal dysfunction. Lab Interpretation (test code = 75635-0) Abnormal [facility] METABOLIC PANEL (NA, K, CL, CO2, GLUCOSE, BUN, CREATININE, CA)2023-05-03 22:17:27* Test Item Value Reference Range Interpretation Comme nts NA (test code = 8126198491) 142 mmol/L 135-145 K (test code = 4355257051) 4.4 mmol/L 3.5-5.0 CL (test code = 4158498571) 106 mmol/L 98-108 CO2 TOTAL (test code = 9622419710) 26 mmol/L 23-31 AGAP (test code = 9083594565) 10 2-16 BUN (test code = 8989103879) 25 mg/dL 7-23 H GLUCOSE (test code = 3855457971) 80 mg/dL 70-110 CREATININE (test code = 5717542546) 1.40 mg/dL 0.60-1.25 H CALCIUM (test code = 7272559823) 9.1 mg/dL 8.6-10.6 eGFR (test code = 2256134845) 50.9 mL/min/1.73m2 JUANITO (test code = JUANITO) [...] imaging tests). Lab Interpretation (test code = 43606-2) [id number] 22:17:27* Test Item Value Reference Range Interpretation Comme nts NT-proBNP (test code = 42282-1) 435 pg/mL <=125 JUANITO (test code = JUANITO) Result Indeterminate-Consid er causes of NT-proBNP elevation other than Heart failure such as acute coronary syndrome, pulmonary embolism, pulmonary hypertension, sepsis, stroke, and renal dysfunction. Lab Interpretation (test code = 60789-4) Abnormal [facility] Notes Date/Time Note Provider Source 2023-11-28 16:38:09 Jt6u5FFWdjiG16+d5aWk Pz80OrrRb6XJx U4RfJ0mdPZ4FNkaTx8RmeP3CHgZBoX402 14-12-07T16:38:09 Chart reviewed. Seen by me dated 03/09/2023. His EF was severely reduced based upon the last echocardiogram dated in 2020. He unfortunately does not have part B coverage to outpatient workup. Hence he has not completed any cardiac testing as outpatient due to that particular issue.He only has part A coverage [facility] the hospital.Prefer coming to the hospital and then he can be admitted adequately diuresed and transferred to [facility] or [facility] for invasive coronary angiogram and further evaluation for ICD placement by EP. 25028-3Merbkvsgl encounter MlyxTT6641-53-70A80:44:24Telephon e encounter NoteTXT1.2.840.849670.1.13.104.2. 7.2.465029|[id number] for patient xnxb00400-4BjopSUHBTRGHWJSYnvszad ed C-CDA narrative textUT[id number] 222XKLPDUOUNMSRSXEZTLZOBA0633-64- 08T16:44:241.2.840.646580.1.72.3. 15|1.2.840.427447.1.13.104.2.7.2. [id number] [facility] 2023-11-28 16:25:20 96L+VqqP7g44xaVApSrb [facility]/4vl6NAHP VdxoXCAqaA5OUysyjd8DbosE/YCA7wI50 14-12-07T16:25:20 Patient was scheduled sooner with Dr. Cano on 12/12/23, which was soonest appointment.Patient states he has been to the ER 3-4 times in the last 3-4 months.He states that he has been feeling short of breath with minimal activity. Even walking from living room to bathroom has him feeling winded. He states that he also has a cough worse with eating or drinking. He denies any other symptoms including chest pain.He plans to go to the ER today after he gets off of work. Agreed with patient's plan to go to ER for shortness of breath.Will route to Dr. Cano to notify of patient concerns 61765-0Cgsdhdbhq encounter NugcCP2566-29-57B05:29:14Telephon e encounter NoteTXT1.2.840.515464.1.13.104.2. 7.2.765327|[id number] for patient qzoc41425-3KarxOHPATRVZSGWJtunytj ed C-CDA narrative [id number] Sheavly RNUT[address]TXTX[address] 585QYLDTXSOBKCDTUWUOHYVZO3541-01- 08T16:29:141.2.840.612572.1.72.3. 15|1.2.840.012702.1.13.104.2.7.2. [id number] Cortney Torres RN [facility] 2023-11-28 11:17:19 zC+0ZaGrQ1lmw5rLnKuB SjAg4XQJ93xfn SfJuGnlpZz+Vtv5vyy+HtYCSjLEhAhz13 14-12-071:17:19 Manuel Connolly is a 68 year old malePatient called and is requesting a sooner appointment due to trouble breathing which has worsening. He is requesting to speak with a nurse as well. He stated he has been in the ER over 4 times for this and will probably go today as well. I scheduled him to next available appt and placed him on the waitlist. Please contact patient. 40356-8Sepzwfevt encounter WfgwZF0257-06-17L61:19:33Telephon e encounter NoteTXT1.2.840.213568.1.13.104.2. 7.2.920471|[id number] for patient dode20626-7AlpaTVWADGSKNKBZunllnj ed C-CDA narrative vbjt268452808Odlq [address] IgrmMwxlsmwoyLkgxnjivmVAEO8787653 215MBBIRSNTUATFTJQUWGSHTR7252-49- 08T11:19:331.2.840.355715.1.72.3. 15|1.2.840.963897.1.13.104.2.7.2. 727879_[id number] Maricarmen Merchant [facility] 2023-05-30 09:28:02 gT3Djer3xGHAAXqCQR3O 7ObcCsjY2DQOr DiI8lsKJjdFus9qdpROH0rwQmsRQpES18 12-06-10T09:28:02 Addended by: ZACH LOPEZ on: 05/30/2023 09:28 AM Modules accepted: Orders 72618-6Nwkjtikw BxiekeaqCP4696-75-92U53:28:02Adde ndum DocumentTXT1.2.840.596977.1.13.10 4.2.7.2.094656|[id number] [facility] dhyt71916-2UtueLFBRGBNBHC[address] WpfsRqozolmusHtkwnfcevKRKZ8811991 534MTYRDVFPXHBAXCJZRGKJZR2746-92- 10T09:28:021.2.840.106902.1.72.3. 15|1.2.840.069210.1.13.104.2.7.2. 727879_[id number] [facility] 2023-05-30 09:25:56 YnO+QUjlt+Ek4Bn84kNc RPnga3z9U4NOU MXQct8QIH9rq9aJmLjqrYpnsGQG/ffw20 12-06-10T09:25:56 Called the pharmacy and they state their system was down earlier. Refills resentisosorbide mononitrate 30 mg 24 hr tablet 30 tablet 2 05/30/2023 -- Sig: Take 1 tablet by mouth in the morning. Sent to pharmacy as: isosorbide mononitrate ER 30 mg tablet,extended release 24 hr (IMDUR) Class: eRX Route: Oral Order: [id number] Date/Time Signed: 05/30/2023 09:26 E-Prescribing Status: Receipt confirmed by pharmacy (05/30/2023 9:27 AM CDT) hydrALAZINE 50 mg tablet 90 tablet 2 05/30/2023 -- Sig: Take 1 tablet by mouth every 8 (eight) hours. Sent to pharmacy as: hydrALAZINE 50 mg tablet (APRESOLINE) Class: eRX Route: Oral Order: [id number] Date/Time Signed: 05/30/2023 09:26 E-Prescribing Status: Receipt confirmed by pharmacy (05/30/2023 9:27 AM CDT) 40204-6Yzzzonobt encounter MdqqVE8718-70-02G82:27:51Telephon e encounter NoteTXT1.2.840.110514.1.13.104.2. 7.2.901693|[id number] for patient ckih17085-6CwtiSJAREWIAIV[address]TXTX[address] 355LSBUXBOYFAVELCBDPHRWPQ4318-63- 10T09:27:511.2.840.651389.1.72.3. 15|1.2.840.767442.1.13.104.2.7.2. 727879_[id number] [facility] 2023-05-30 08:56:22 H2v0U2mYouJGeRNSbVHP NufqGfICF+PO4 SJnhtcVymp9Od6EDkfuZdylOegNFwQX90 12-06-1008:56:22 Addended by: ZACH LOPEZ on: 05/30/2023 08:56 AM Modules accepted: Orders 51274-9Wbwjkwhw CcxibttxHP7888-96-66L93:56:22Adde ndum DocumentTXT1.2.840.533771.1.13.10 4.2.7.2.362092|[id number] ble for patient ajka47154-1JpmiNZXJZCUWPS98 [address]TXTX[address] 319DZZFQPCVAYGIFNYTCAJTVF5102-47- 10T08:56:221.2.840.062378.1.72.3. 15|1.2.840.180368.1.13.104.2.7.2. 727879_[id number] [facility] 2023-05-30 08:49:25 eXFAKPfnAP5siqmuCpPw ES/KFRZv6yI YTXLeOd/4V+6O2k2nZB5PeEUKf+KQ+B20 12-06-10T08:49:25 Resent refills as transmission to pharmacy failed. 2nd refill failed as well. Attempted to call the pharmacy but they are closed at this time. Will try again later. Disp Refills Start End ISOSORBIDE MONONITRATE 30 mg 24 hr tablet 30 tablet 2 05/30/2023 Sig - Route: TAKE 1 TABLET BY MOUTH IN THE MORNING - Oral Sent to pharmacy as: isosorbide mononitrate ER 30 mg tablet,extended release 24 hr (IMDUR) Class: eRX E-Prescribing Status: Transmission to pharmacy failed (05/30/2023 7:57 AM CDT) HYDRALAZINE 50 mg tablet 90 tablet 2 05/30/2023 Sig - Route: TAKE 1 TABLET BY MOUTH EVERY 8 HOURS - Oral Sent to pharmacy as: hydrALAZINE 50 mg tablet (APRESOLINE) Class: eRX E-Prescribing Status: Transmission to pharmacy failed (05/30/2023 7:57 AM CDT) 44483-9Gqhagiehx encounter BihqFZ9989-11-41S84:56:01Telephon e encounter NoteTXT1.2.840.503471.1.13.104.2. 7.2.800764|[id number] for patient gchr51054-6QlgsHHVXVWTXUO[address] LijiMnmivufyyGjqcfovekPAKF8903635 340NRCRVSGIMRMJAROSFOCBOX8697-12- 10T08:56:011.2.840.942939.1.72.3. 15|1.2.840.704310.1.13.104.2.7.2. 727879_[id number] [facility] 2023-05-30 07:56:07 gJmID59ZpSZm8wIYY7/D BiRbWvUcCMqlD b0ESUmvr2AyneL4fFcyXj8q0Uvkd9/Q20 12-06-1007:56:07 Images from the original note were not included.Refilled per cardiology protocol Name from pharmacy: ISOSORBIDE MONONITRATE 30MG ER TABS Will file in chart as: ISOSORBIDE MONONITRATE 30 mg 24 hr tablet Sig: Take 1 tablet by mouth in the morning. Original sig: TAKE 1 TABLET BY MOUTH IN THE MORNING Disp: 30 tablet ? Refills: 2 (Pharmacy requested: Not specified) Start: 05/30/2023 Class: eRX For: Cardiomyopathy, unspecified type Last ordered: 2 months ago (03/04/2023) by Miller Cano MD Last refill: 03/04/2023 Rx #: [id number]|1|0|1 Cardiovascular: ?Nitrates Passed 05/30/2023 05:44 AM Protocol Details Valid encounter within last 12 months 19241-0Ymofnlztf encounter QnwbWL1178-21-53V87:56:07Telephon e encounter NoteTXT1.2.840.454659.1.13.104.2. 7.2.051481|[id number] for patient dhrz34101-5JwlqWG992472659Eiogryh Isael FOFANA[address] NiahGsynblmmtRwpwgndyuIEDU4127248 940FOEAAFAUAIMNBNUYGHQWMS9051-90- 10T07:56:071.2.840.049768.1.72.3. 15|1.2.840.072054.1.13.104.2.7.2. 727879_[id number] Carole Kirkland MA [facility] 2023-05-15 15:09:19 Gtgm7+BFy3FEUROUO/fI CZHjaZuRDo9/j z1p8MFPxgfAfJoshRqC7ntI14IJ93Kd52 12-05-26T15:09:19 Estefany Knight MA 05/15/2023 9:18 AM CDT Back to Top Patient has been notified of test results/ recommendations per Rubina Francisco Gave verbal understanding 79916-1Yijtacyvo encounter OufcAE1245-52-41J76:09:26Telephon e encounter NoteTXT1.2.840.041036.1.13.104.2. 7.2.710280|[id number] for patient [address] 676CWKEEQRNZYCATCNKPSMORY0980-53- 26T15:09:261.2.840.154475.1.72.3. 15|1.2.840.418590.1.13.104.2.7.2. 727879_[id number] [facility] 2023-05-14 09:09:04 LlU41eyITEWuQeSafrEz 8N9XhYhw6/gNp aI1AptgfPNA8RZJoPSBvln1DtAL73LY64 12-05-25T09:09:04 Per pt is returning nurse call. 58592-2Oucasnrkf encounter UdpbXW4067-83-28N96:09:35Telephon e encounter NoteTXT1.2.840.296141.1.13.104.2. 7.2.374770|[id number] for patient znyj427165461Ugubnnx [address]TX[address] 232IRECZEEFSRNSBZFBJVEHRF3170-79- 25T09:09:351.2.840.217132.1.72.3. 15|1.2.840.773814.1.13.104.2.7.2. [id number] Carey iMller [facility] 2023-05-03 13:30:00 vcI7CxsVQ0IRWWgi6Bqe cUmUBPY5PqHsx ZP7pyBa0PxBhXmlEIq+cgRVJ8Bj1FKl45 12-05-14T13:30:00 Images from the original note were not included.Patient provided with 1 FIT KIT collection kit and associated instructions for home collection. Hiwot Arauz 05/03/2023 12:48 PMPatient will schedule labs for Miller Cano MD closer to the appointment date. Hiwot Arauz 05/03/2023 12:49 PMVenipuncture collection performed by clean technique on the right anticubitus. Total of 1 attempts were made. Slight pressure and a bandage/dressing were applied to the site(s). The patient experienced no complications. The following specimens were processed according to instructions and sent to [facility] laboratories per lab order on 05/03/2023 LT BLUE SST 1 RED LAV PPT DK GREEN (LiHep) DK GREEN (SodH) LEON DK BLUE (K2) DK BLUE (S) ACD Blood Culture NIPT/NTD 97980-1Htlbb UagiLH4888-35-99J94:50:41Nurse NoteTXT1.2.840.679850.1.13.104.2. 7.2.662430|[id number] for patient careUT[address] IganGvkzlcnyvEqzncxrkiHWQG0548592 094SWVTUJQYKOMAIYECSRXLWJ2058-22- 14T12:50:411.2.840.137194.1.72.3. 15|1.2.840.356165.1.13.104.2.7.2. [id number] [facility]"
[2023-11-28 21:27] LABS: SARS-CoV-2 Antigen Rapid Res Negative (Negative)
--- NOTE | 2023-11-28 21:47 | RAD REPORT ---
EXAM DESCRIPTION: Ana Single View11/28/2023 9:22 pm CLINICAL HISTORY: Shortness of breath COMPARISON: September 2023 FINDINGS: The lungs appear clear of acute infiltrate. The heart is moderately to markedly enlarged Small pleural effusions
[2023-11-28 21:59] LABS: Absolute Lymphocytes (CBC) 0.9 K/uL (0.7-4.9); Hematocrit 36.6 % (39.6-49.0); Lymphocytes % 14.4 % (15.3-44.8); MCV 91.3 fL (80-100); MPV 8.3 fL (7.6-11.3); Platelets 225 thou/uL (152-406); RBC Red Blood Cell Count 4.01 M/uL (4.33-5.43)
[2023-11-28 22:05] LABS: Protime INR 1.78
[2023-11-28 22:18] LABS: Albumin 3.2 g/dL (3.4-5.0); Bilirubin Direct 0.5 mg/dL (0-0.2); Bilirubin Indirect, Calculated 2.9 mg/dL (0.2-0.8); Bilirubin Total 3.4 mg/dL (0.2-1.0); Magnesium 2.2 mg/dL (1.6-2.4); Potassium 3.2 mEq/L (3.5-5.1); Protein, Total 7.1 g/dL (6.4-8.2); Troponin High Sensitivity 39.9 pg/mL (<58.9)
[2023-11-28] MEDS ORDERED: POTASSIUM 25 MEQ EFFERV TAB ONE (23:04)
[2023-11-28] MEDS ORDERED: FUROSEMIDE 40 MG/4 ML VIAL ONE (23:04)
--- NOTE | 2023-11-28 23:06 | EDPHYS ---
Physician Documentation [facility] Name: Don Connolly Age: 68 yrs Sex: Male : 1955 Arrival Date: 11/28/2023 Time: 19:00 Bed 14 Private MD: ED Physician Ovidio Perez HPI: 11/28 20:35 This 68 yrs old Black Male presents to ER via Wheelchair with complaints of Shortness cp Of Breath. 20:35 The patient has shortness of breath with light activity. Onset: The symptoms/episode cp began/occurred gradually. 20:35 Duration: The symptoms are continuous, and are steadily getting worse. Associated signs cp and symptoms: Pertinent negatives: chest pain, diaphoresis, dizziness, fever, hemoptysis. Severity of symptoms: in the emergency department the symptoms are unchanged despite home interventions. Historical: - Allergies: 19:32 No Known Allergies; bp - Home Meds: 19:32 Eliquis oral [Active]; bp - PMHx: 19:32 Atrial fibrillation; Hypertensive disorder; Congestive heart failure; bp - PSHx: 19:32 Appendectomy; bp - Immunization history:: Adult Immunizations up to date. - Social history:: Smoking status: Patient denies any tobacco usage or history of. ROS: 20:40 Constitutional: Negative for body aches, chills, fever, poor PO intake, cp 20:40 Eyes: Negative for injury, pain, redness, and discharge, cp 20:40 ENT: Negative for drainage from ear(s), ear pain, sore throat, difficulty swallowing, difficulty handling secretions, 20:40 Cardiovascular: Positive for edema, Negative for chest pain, 20:40 Respiratory: Positive for orthopnea, shortness of breath, on exertion. Negative for wheezing, 20:40 Abdomen/GI: Positive for abdominal distension, 20:40 Skin: Negative for cellulitis, 20:40 Neuro: Negative for altered mental status, headache, syncope, weakness, 20:40 All other systems are negative, Exam: 20:45 Constitutional: The patient appears in no acute distress, alert, awake, cp non-diaphoretic, non-toxic, well developed, well nourished, obese, uncomfortable, 20:45 Head/Face: Normocephalic, atraumatic. cp 20:45 Eyes: Periorbital structures: appear normal, Conjunctiva: normal, no exudate, no injection, Sclera: no appreciated abnormality, Lids and lashes: appear normal, bilaterally, 20:45 ENT: External ear(s): are unremarkable, Nose: is normal, Mouth: Lips: moist, Oral mucosa: pink and intact, moist, Posterior pharynx: is normal, airway is patent, no erythema, no exudate, 20:45 Neck: ROM/movement: is normal, is supple, without pain, no range of motions limitations, no meningismus, no nuchal rigidity, 20:45 Chest/axilla: Inspection: normal, 20:45 Cardiovascular: Rate: tachycardic, Rhythm: regular, Edema: ankle edema, that is marked, JVD: is not appreciated, 20:45 Respiratory: the patient does not display signs of respiratory distress, Respirations: labored breathing, that is mild, shallow respirations, that is mild, Breath sounds: decreased breath sounds, that are moderate, throughout, stridor, is not appreciated, wheezing: is not appreciated, 20:45 Abdomen/GI: Inspection: distension, obese Bowel sounds: active, all quadrants, Palpation: abdomen is soft and non-tender, in all quadrants, 20:45 Back: pain, is absent, ROM is normal, 20:45 Skin: cellulitis, is not appreciated, 20:45 Neuro: Orientation: to person, place \T\ time. Mentation: is normal, Motor: moves all fours, strength is normal, Sensation: is normal, 21:05 ECG was reviewed by the Attending Physician. cp Vital Signs: 19:32 BP 150 / 86; Pulse 42; Resp 24; Temp 97.8; Pulse Ox 91% ; bp 20:30 BP 185 / 128; Pulse 92; Resp 23; Pulse Ox 97% on 2 lpm NC; tl4 21:17 BP 187 / 116; Pulse 92; Resp 27; Pulse Ox 95% on 2 lpm NC; tl4 21:51 BP 174 / 111; Pulse 95; Resp 26; Pulse Ox 95% on 2 lpm NC; tl4 21:51 BP 192 / 134; Pulse 89; Resp 25; Pulse Ox 97% on 2 lpm NC; tl4 22:30 BP 198 / 120; Pulse 96; Resp 25; Pulse Ox 96% on 2 lpm NC; tl4 02/09 00:53 BP 202 / 140; Pulse 106; Resp 22; Temp 97.1; Pulse Ox 98% on 2 lpm NC; cg3 01:04 BP 177 / 107; vc1 01:50 BP 148 / 82; Pulse 108; Resp 25; Pulse Ox 98% on NC; FiO2 2 %; vc1 MDM: 11/28 20:01 Patient medically screened. cp 21:00 Differential diagnosis: CHF exacerbation, Myocardial Infarction pneumonia, Pneumothorax cp pulmonary edema, Pulmonary Embolism Sepsis Unstable Angina. 23:05 Data reviewed: vital signs, nurses notes, lab test result(s), EKG, radiologic studies, cp plain films. 23:05 Consideration of Admission/Observation Patient was admitted/placed on observation. cp Management of patient was discussed with the following: Hospitalist: DR Shannon will admit after discussion. I considered the following discharge prescriptions or medication management in the emergency department Medications were administered in the Emergency Department. See MAR. Independent interpretation of the following test(s) in the Emergency Department EKG: See my EKG interpretation above. Care significantly affected by the following chronic conditions: Hypertension, Congestive Heart Failure, Obesity. 11/28 20:29 Order name: Basic Metabolic Panel; Complete Time: 22:20 cp 11/28 22:54 Interpretation: Normal except: K 3.2; BUN 24; GFR 62. cp 11/28 20:29 Order name: CBC with Diff; Complete Time: 22:00 cp 11/28 22:01 Interpretation: Normal except: RBC 4.01; HGB 12.0; HCT 36.6; LYM% 14.4. cp 11/28 20:29 Order name: LFT's; Complete Time: 22:20 cp 11/28 22:54 Interpretation: Normal except: BILIT 3.4; BILID 0.5; IBILI, CALC 2.9; ALB 3.2; GLOB cp 3.9; A/G 0.8. 11/28 20:29 Order name: Magnesium; Complete Time: 22:20 cp 11/28 20:29 Order name: NT PRO-BNP; Complete Time: 22:20 cp 11/28 22:54 Interpretation: Abnormal: NT PRO-BNP 3209. cp 11/28 20:29 Order name: PT-INR; Complete Time: 22:20 cp 11/28 20:29 Order name: Troponin HS; Complete Time: 22:20 cp 11/28 20:29 Order name: Lactate w/ 2H reflex if indic.; Complete Time: 22:20 cp 11/28 20:29 Order name: SARS RAPID; Complete Time: 22:00 cp 11/28 20:29 Order name: Influenza Screen (a \T\ B); Complete Time: 22:00 cp 11/28 22:55 Order name: Lipase cp 11/29 00:52 Order name: Urinalysis W/Microscopic cp 11/29 02:10 Order name: Urinalysis W/Microscopic EDMS 11/28 20:29 Order name: XRAY Chest (1 view); Complete Time: 22:00 cp 11/28 22:55 Order name: CT Abd/Pelvis - IV Contrast Only cp 11/29 13:39 Order name: CT EDMS 11/28 20:29 Order name: EKG; Complete Time: 20:29 cp 11/28 20:29 Order name: Cardiac monitoring; Complete Time: 20:43 cp 11/28 20:29 Order name: EKG - Nurse/Tech; Complete Time: 21:04 cp 11/28 20:29 Order name: IV Saline Lock; Complete Time: 21:47 cp 11/28 20:29 Order name: Labs collected and sent; Complete Time: 21:48 cp 11/28 20:29 Order name: O2 Per Protocol; Complete Time: 20:43 cp 11/28 20:29 Order name: O2 Sat Monitoring; Complete Time: 20:43 cp EC:05 Rate is 101 beats/min. Rhythm is irregular. QRS interval is prolonged at 130 msec. QT cp interval is normal. Interpreted by me. Reviewed by me. Administered Medications: 23:11 Drug: Potassium PO Effervescent Tablet 50 mEq PO once; dissolve in 4 ounces of water or tl4 juice Route: PO; 23:11 Drug: Furosemide IVP 40 mg IVP once; give over 2 minutes Route: IVP; Infused Over: 2 tl4 mins; Site: right antecubital; 23:23 Drug: hydrALAZINE IVP 10 mg IVP once Route: IVP; Site: right antecubital; tl4 11/29 01:15 CANCELLED (Physician Discretion): vvevlyrwclq76 mg IVP once; For SBP > 140 mmHg. Hold cp if less than 120 mmHg. 01:26 Drug: hydrALAZINE IVP 10 mg IVP once Route: IVP; Site: right antecubital; vc1 01:50 Drug: Rocephin IV 1 grams IV at calculated rate once; Given slow IV push per pharmacy vc1 instructions Route: IV; Rate: calculated rate; Site: right antecubital; Disposition Summary: 11/28/23 23:05 Hospitalization Ordered Notes: Hospitalization Status: Inpatient Admission cp Provider: Sal Shannon cp Condition: Stable cp Problem: an acute exacerbation cp Symptoms: have improved cp Bed/Room Type: Standard cp Location: Telemetry/MedSurg (Inpatient)(11/29/23 12:36) eb Room Assignment: 213(11/29/23 12:36) eb Diagnosis - Dyspnea cp - Chronic atrial fibrillation cp - Hypertensive heart disease with heart failure cp Forms: - Medication Reconciliation Form cp - SBAR form cp - Leadership Thank You Letter cp Signatures: Dispatcher [employer] EDMS Ovidio Johnson PA PA cp Jaun Infante, RN RN Tayler Porter eb Clark Vang RN RN as6 Carey Romero RN RN vc1 LogCarlos church RN RN tl4 Corrections: (The following items were deleted from the chart) 11/28 23:58 23:05 Telemetry/MedSurg (Inpatient) cp as6 23:58 23:05 cp as6 11/29 00:56 11/28 23:05 Unspecified combined systolic (congestive) and diastolic (congestive) heart cp failure cp 11/29 01:15 00:54 hydrALAZINE IVP 20 mg IVP once; For SBP > 140 mmHg. Hold if less than 120 mmHg. cp ordered. cp 12:36 11/28 23:58 [facility] ER HOLD as6 eb 11/29 12:36 11/28 23:58 ERHOLD- as6 eb
--- NOTE | 2023-11-28 23:06 | ER ---
Nurse's Notes [facility] Name: Don Connolly Age: 68 yrs Sex: Male : 1955 Arrival Date: 11/28/2023 Time: 19:00 Bed 14 Private MD: Diagnosis: Dyspnea;Chronic atrial fibrillation;Hypertensive heart disease with heart failure Presentation: 11/28 19:32 Chief complaint: Patient's son or daughter states: COUGH AND SOB SINCE LAST D/C ON bp GEORGE. Coronavirus screen: At this time, the client does not indicate any symptoms associated with coronavirus-19. Ebola Screen: No symptoms or risks identified at this time. Initial Sepsis Screen: Does the patient meet any 2 criteria? No. Patient's initial sepsis screen is negative. Does the patient have a suspected source of infection? No. Patient's initial sepsis screen is negative. Risk Assessment: Do you want to hurt yourself or someone else? Patient reports no desire to harm self or others. Onset of symptoms is unknown. 19:32 Method Of Arrival: Wheelchair bp 19:32 Acuity: JITENDRA 3 bp Triage Assessment: 19:32 General: Appears distressed, ill, Behavior is calm, cooperative, appropriate for age. bp Pain: Denies pain. Respiratory: Reports shortness of breath cough that is Onset: The symptoms/episode began/occurred at an unknown time. the patient has moderate shortness of breath. Historical: - Allergies: 19:32 No Known Allergies; bp - Home Meds: 19:32 Eliquis oral [Active]; bp - PMHx: 19:32 Atrial fibrillation; Hypertensive disorder; Congestive heart failure; bp - PSHx: 19:32 Appendectomy; bp - Immunization history:: Adult Immunizations up to date. - Social history:: Smoking status: Patient denies any tobacco usage or history of. Screenin:06 [facility] ED Fall Risk Assessment (Adult) History of falling in the last 3 months, tl4 including since admission No falls in past 3 months (0 pts) Confusion or Disorientation No (0 pts) Intoxicated or Sedated No (0 pts) Impaired Gait No (0 pts) Mobility Assist Device Used No (0 pt) Altered Elimination No (0 pt) Score/Fall Risk Level 0 - 2 = Low Risk Oriented to surroundings, Maintained a safe environment, Educated pt \T\ family on fall prevention, incl call for assistance when getting out of bed, Assessed \T\ reinforced patient's understanding of fall precautions, Provided non-skid footwear, Hourly rounding (assess needs \T\ fall precautionary measures) done, Used ambulatory aids as needed (educated on \T\ assisted with), Used gait belt as appropriate. Abuse screen: Denies threats or abuse. Denies injuries from another. Nutritional screening: No deficits noted. Tuberculosis screening: No symptoms or risk factors identified. Assessment: 21:04 Reassessment: No changes from previously documented assessment. Patient and/or family tl4 updated on plan of care and expected duration. Pain level reassessed. Patient is alert, oriented x 3, equal unlabored respirations, skin warm/dry/pink. Cardiovascular: Denies chest pain, diaphoresis, lightheadedness, palpitations, Rhythm is sinus rhythm. Respiratory: Airway is patent Respiratory effort is even, unlabored, Respiratory pattern is regular, Breath sounds are clear bilaterally. 22:19 Reassessment: No changes from previously documented assessment. Patient and/or family tl4 updated on plan of care and expected duration. Pain level reassessed. Patient is alert, oriented x 3, equal unlabored respirations, skin warm/dry/pink. 23:12 Reassessment: Patient and/or family updated on plan of care and expected duration. Pain tl4 level reassessed. Patient is alert, oriented x 3, equal unlabored respirations, skin warm/dry/pink. Patient states symptoms have not improved. 11/29 00:00 Reassessment: No changes from previously documented assessment. Patient and/or family vc1 updated on plan of care and expected duration. Pain level reassessed. Patient is alert, oriented x 3, equal unlabored respirations, skin warm/dry/pink. Vital Signs: 11/28 19:32 BP 150 / 86; Pulse 42; Resp 24; Temp 97.8; Pulse Ox 91% ; bp 20:30 BP 185 / 128; Pulse 92; Resp 23; Pulse Ox 97% on 2 lpm NC; tl4 21:17 BP 187 / 116; Pulse 92; Resp 27; Pulse Ox 95% on 2 lpm NC; tl4 21:51 BP 174 / 111; Pulse 95; Resp 26; Pulse Ox 95% on 2 lpm NC; tl4 21:51 BP 192 / 134; Pulse 89; Resp 25; Pulse Ox 97% on 2 lpm NC; tl4 22:30 BP 198 / 120; Pulse 96; Resp 25; Pulse Ox 96% on 2 lpm NC; tl4 11/29 00:53 BP 202 / 140; Pulse 106; Resp 22; Temp 97.1; Pulse Ox 98% on 2 lpm NC; cg3 01:04 BP 177 / 107; vc1 01:50 BP 148 / 82; Pulse 108; Resp 25; Pulse Ox 98% on NC; FiO2 2 %; vc1 ED Course: 11/28 19:12 Patient arrived in ED. kj1 19:32 Arm band placed on. bp 19:34 Triage completed. bp 20:01 Ovidio Johnson PA is PHCP. cp 20:01 Ovidio Perez MD is Attending Physician. cp 20:18 Carlos Bowen is Primary Nurse. tl4 21:04 Influenza Screen (a \T\ B) Sent. tl4 21:04 SARS RAPID Sent. tl4 21:07 Patient has correct armband on for positive identification. Placed in gown. Bed in low tl4 position. Call light in reach. Side rails up X2. Adult w/ patient. Provided Education on: ed process. Client placed on continuous cardiac and pulse oximetry monitoring. NIBP monitoring applied. wheel and axle inspector on. Door closed. Moved to private room. Warm blanket given. 21:07 No provider procedures requiring assistance completed. tl4 21:23 Influenza Screen (a \T\ B) Sent. tl4 21:23 SARS RAPID Sent. tl4 21:24 XRAY Chest (1 view) In Process Unspecified. EDMS 21:48 Basic Metabolic Panel Sent. tl4 21:48 CBC with Diff Sent. tl4 21:48 LFT's Sent. tl4 21:48 Magnesium Sent. tl4 21:48 NT PRO-BNP Sent. tl4 21:48 PT-INR Sent. tl4 21:48 Troponin HS Sent. tl4 21:48 Lactate w/ 2H reflex if indic. Sent. tl4 21:48 Inserted saline lock: 20 gauge in right antecubital area, using aseptic technique. tl4 Blood collected. 23:01 Lipase Sent. tl4 23:04 Sal Shannon MD is Hospitalizing Provider. cp 11/29 04:53 Patient admitted, IV remains in place. vc1 Administered Medications: 11/28 23:11 Drug: Potassium PO Effervescent Tablet 50 mEq PO once; dissolve in 4 ounces of water or tl4 juice Route: PO; 23:11 Drug: Furosemide IVP 40 mg IVP once; give over 2 minutes Route: IVP; Infused Over: 2 tl4 mins; Site: right antecubital; 23:23 Drug: hydrALAZINE IVP 10 mg IVP once Route: IVP; Site: right antecubital; tl4 11/29 01:15 CANCELLED (Physician Discretion): [id number] mg IVP once; For SBP > 140 mmHg. Hold cp if less than 120 mmHg. 01:26 Drug: hydrALAZINE IVP 10 mg IVP once Route: IVP; Site: right antecubital; vc1 01:50 Drug: Rocephin IV 1 grams IV at calculated rate once; Given slow IV push per pharmacy vc1 instructions Route: IV; Rate: calculated rate; Site: right antecubital; Medication: 11/28 21:06 VIS not applicable for this client. tl4 Outcome: 23:05 Decision to Hospitalize by Provider. cp 11/29 00:00 Admitted to ER Hold. Please see [facility] for further documentation. vc1 Condition: good Instructed on the need for admit, 13:41 Patient left the ED. eb Signatures: Dispatcher [employer] EDMS Ovidio Johnson PA PA cp Peltier, Brian, RN RN bp Tayler Evans Kandis kj1 Carey Romero RN RN vc1 Hayley Melendez 3 Carlos Bowen RN RN tl4 Corrections: (The following items were deleted from the chart) 11/28 19:37 19:32 Pulse 42bpm; Resp 24bpm; Pulse Ox 91%; Temp 97.8F; bp bp
[2023-11-28] MEDS ORDERED: HYDRALAZINE HCL 20 MG/ML VIAL ONE (23:20)
[2023-11-28] MEDS ORDERED: IPRATROPIUM BROM 0.5MG/2.5ML NEB PRN (23:27)
[2023-11-28] MEDS ORDERED: ACETAMINOPHEN 325 MG TABLET PO PRN (23:27)
[2023-11-28] MEDS ORDERED: ONDANSETRON 4 MG/2 ML VIAL IV PRN (23:27)
[2023-11-28] MEDS ORDERED: ALBUTEROL 2.5 MG/3 ML NEB SOL NEB PRN (23:27)
--- NOTE | 2023-11-28 23:32 | P.HP ---
Certification for Inpatient Patient admitted to: Inpatient With expected LOS: >2 Midnights Practitioner: I am a practitioner with admitting privileges, knowledge of patient current condition, hospital course, and medical plan of care. Services: Services provided to patient in accordance with Admission requirements found in Title 42 Section 412.3 of the Code of Federal Regulations Patient History Date of Service: 11/29/23 Reason for admission: CHF exacerbation, shortness of breath. History of Present Illness: 68-year-old male patient was evaluated for episode of worsening shortness of breath and lower extremity swelling. He has a medical history significant for chronic atrial fibrillation, hypertension, hyperlipidemia, but obesity, CHF with systolic variety and had been on oral diuretic therapy at home. He is on Lasix therapy at 80 mg p.o. daily. he had complaint of persistent lower extremity swelling and worsening shortness of breath with orthopnea and PND symptoms. Chest x-ray done showed cardiomegaly and pulmonary edema/pleural effusions on x- rays and because of clinical presentation he was admitted for inpatient care. IV diuretic therapy of Lasix was started prior to admission. No overt episode of fever, chills, rigor, nausea given. Allergies No Known Allergies Allergy (Verified 05/08/12 05:40) Home Medications: Amlodipine Besylate 10 mg PO DAILY 04/08/23 Apixaban [Eliquis] 5 mg PO DAILY 04/08/23 Atorvastatin Calcium 40 mg PO BEDTIME 04/08/23 Carvedilol [Coreg] 25 mg PO BID 04/08/23 Hydralazine HCl 50 mg PO TID 04/08/23 Isosorbide Mononitrate [Isosorbide Mononitrate ER] 30 mg PO DAILY 04/08/23 Lisinopril [Zestril] 40 mg PO DAILY 04/08/23 Spironolactone 25 mg PO DAILY 04/08/23 Aspirin Chewable [Aspirin Chewable*] 81 mg PO DAILY #30 tab.chew 08/12/23 Furosemide [Lasix] 80 mg PO DAILY #30 tab 10/19/23 - Past Medical/Surgical History Diabetic: No -: HTN -: HLD -: Afib -: Morbid Obeisty -: appendectomy - Social History Alcohol use: No CD- Drugs: No Caffeine use: Yes Review of Systems General: Unremarkable Eyes: Unremarkable ENT: Unremarkable Respiratory: Shortness of Breath, SOB with Excertion Cardiovascular: Orthopnea, Paroxysmal Noc. Dyspnea, Edema Gastrointestinal: Unremarkable Genitourinary: Unremarkable Musculoskeletal: Unremarkable Integumentary: Unremarkable Neurological: Unremarkable Lymphatics: Unremarkable Physical Examination - Physical Exam General: Alert, Oriented x3, Moderate distress HEENT: Atraumatic Neck: Supple Respiratory: Diminished Cardiovascular: Regular rate/rhythm, Normal S1 S2 Gastrointestinal: Soft and benign Musculoskeletal: Swelling Neurological: Normal speech, Normal strength at 5/5 x4 extr - Studies Laboratory Data (last 24 hrs) 11/28/23 11/28/23 11/28/23 21:42 21:42 21:42 WBC 6.00 Hgb 12.0 L Hct 36.6 L Plt Count 225 PT 19.3 H INR 1.78 Sodium 142 Potassium 3.2 L BUN 24 H Creatinine 1.28 Glucose 103 Magnesium 2.2 Total Bilirubin 3.4 H AST 22 ALT 20 Alkaline Phosphatase 72 Microbiology Data (last 24 hrs): 11/28/23 21:02 Nasopharnyx Influenza Type A Antigen Screen - Final 11/28/23 21:02 Nasopharnyx Influenza Type B Antigen Screen - Final Assessment and Plan - Plan CHF exacerbation: Clinical symptomatology and imaging studies are very concerning for exacerbation. Aggressive IV diuresis with Lasix 40 mg every 8h IV has been started. Will monitor input and output closely. Continue to fluid restrict at 1.2 L/day. Continue low-sodium diet. Switchboard Troubleshooter to evaluate as needed. Hypokalemia: potassium is low at 3.2, we will replete and follow labs. Hypertension: We will monitor vital signs per unit protocol and continue antihypertensive medications. Hyperlipidemia: We will continue statin therapy. Atrial fibrillation: Continue rate control medication and anticoagulation with Eliquis. Morbid obesity: We will continue to encourage weight loss. Prophylaxis: Eliquis will suffice for anticoagulation for A-fib and DVT prophylaxis. CODE STATUS: Full code. Disposition: We will treat his CHF exacerbation and he will be discharged once he is cleared by appropriate services. - Advance Directives Does patient have a Living Will: No Does patient have a Durable POA for Healthcare: No
[2023-11-29] MEDS: FUROSEMIDE 20 MG/ 2ML VIAL IV SCH ×2 (01:00)
[2023-11-29] MEDS ORDERED: HYDRALAZINE HCL 20 MG/ML VIAL ONE (01:18)
[2023-11-29] MEDS ORDERED: CEFTRIAXONE 1000 MG/VIAL ONE (01:38)
[2023-11-29 02:10] LABS: Specific Gravity 1.009 (1.005-1.030); Urine Bacteria None Seen /HPF (<20); Urine Bilirubin NEGATIVE (Negative); Urine Blood Negative (Negative); Urine Clarity Clear (Clear); Urine Color Colorless (Yellow); Urine Glucose NEGATIVE (Negative); Urine Protein NEGATIVE (Negative); Urine RBC <5 /HPF (None Seen); Urine Urobilinogen Normal (Normal); Urine pH 7.5 (5.0-7.0)
[2023-11-29] MEDS: METOLAZONE 5 MG TABLET PO SCH (08:00)
[2023-11-29] MEDS ORDERED: FUROSEMIDE 40 MG/4 ML VIAL ONE (08:05)
[2023-11-29] MEDS ORDERED: APIXABAN 5 MG TABLET ONE (08:05)
[2023-11-29] MEDS: FUROSEMIDE 40 MG/4 ML VIAL IV SCH (08:32)
[2023-11-29] MEDS: APIXABAN 5 MG TABLET PO SCH ×2 (08:32→21:06)
[2023-11-29] MEDS ORDERED: ENOXAPARIN 40 MG/0.4 ML SQ SCH (09:00)
--- NOTE | 2023-11-29 13:38 | RAD REPORT ---
EXAM DESCRIPTION: CT - Abdomen Pelvis W Contrast - 11/29/2023 6:08 am CLINICAL HISTORY: The patient is 68 years old and is Male; EPIGASTRIC PAIN TECHNIQUE: Axial computed tomography images of the abdomen and pelvis with intravenous contrast. S agittal and coronal reformatted images were created and reviewed. This CT exam was performed using one or more of the following dose reduction techniques: automated exposure control, adjustment of t he mA and/or kV according to patient size, and/or use of iterative reconstruction technique. COMPARISON: No relevant prior studies available. FINDINGS: LUNG BASES: Unremarkable. No mass. No consolidation. PLEURAL SPACE: Small bilateral pleural effusions are present, right greater than left. ABDOMEN: LIVER: The liver is enlarged and fatty. GALLBLADDER AND BILE DUCTS: Mild pericholecystic inflammation is suggested. No calcified gallston es are seen. PANCREAS: No ductal dilation. No mass. SPLEEN: Unremarkable. ADRENALS: Hyperplasia of the adrenal glands is noted. KIDNEYS AND URETERS: Unremarkable. The kidneys enhance symmetrically. No obstructing renal or ure teral calculus is seen. No hydronephrosis or hydroureter. No perinephric fluid or stranding. STOMACH AND BOWEL: The stomach is moderately distended with fluid and air. The small bowel is rel atively normal in caliber. Stool is present throughout the colon. There is no mucosal thickening or e vidence of obstruction. PELVIS: APPENDIX: No findings to suggest acute appendicitis. BLADDER: The bladder is decompressed. Diffuse bladder wall thickening is noted. REPRODUCTIVE: Unremarkable as visualized. ABDOMEN and PELVIS: INTRAPERITONEAL SPACE: Unremarkable. No free air. No significant fluid collection. BONES/JOINTS: Intervertebral disc space narrowing and vacuum disc phenomenon with facet arthropat hy at L4-L5 and L5-S1 is present. There is no acute fracture. SOFT TISSUES: Mild diffuse body wall edema is noted. VASCULATURE: Unremarkable. No abdominal aortic aneurysm. LYMPH NODES: Unremarkable. No enlarged lymph nodes. IMPRESSION: 1. Mild pericholecystic inflammation. No calcified gallstones. If there is clinical co ncern for acute gallbladder pathology, findings could be further evaluated with ultrasound or HIDA sc an. 2. Diffuse bladder wall thickening with surrounding inflammation which may be secondary to cystitis . 3. Bilateral small pleural effusions, right greater than left. Electronically signed by: Roxane Lock MD 11/29/2023 12:11 AM PROGRESSIVE CARE NURSE Due to temporary technical issues with the PACS/Fluency reporting system, reports are being signed by the in house radiologists without review as a courtesy to insure prompt reporting. The interpreting radiologist is fully responsible for the content of the report.
--- NOTE | 2023-11-29 14:18 | P.PN ---
Subjective Date of Service: 11/29/23 Chief Complaint: CHF exacerbation, shortness of breath. Patient states he feels better. He stated his shortness of breath is improved. He is no longer orthopneic. Physical Examination - Vital Signs Temperature: 97.8 F Blood Pressure: 180/91 Pulse: 88 Respirations: 19 Pulse Ox (%): 99 - Studies Laboratory Data (last 24 hrs) 11/28/23 11/28/23 11/28/23 21:42 21:42 21:42 WBC 6.00 Hgb 12.0 L Hct 36.6 L Plt Count 225 PT 19.3 H INR 1.78 Sodium Potassium BUN Creatinine Glucose Magnesium Total Bilirubin AST ALT Alkaline Phosphatase Lipase 13 11/28/23 21:42 WBC Hgb Hct Plt Count PT INR Sodium 142 Potassium 3.2 L BUN 24 H Creatinine 1.28 Glucose 103 Magnesium 2.2 Total Bilirubin 3.4 H AST 22 ALT 20 Alkaline Phosphatase 72 Lipase Microbiology Data (last 24 hrs): 11/28/23 21:02 Nasopharnyx Influenza Type A Antigen Screen - Final 11/28/23 21:02 Nasopharnyx Influenza Type B Antigen Screen - Final Assessment And Plan - Plan Physical examination General: Alert and oriented x3, NAD, morbidly obese. HEENT: Anicteric sclera Neck: Supple, no elevated JVD Heart: Heart sounds 1 and 2 normal, regular rhythm, normal rate, 2+ bilateral lower extremity edema. Lungs: Diminished bilaterally, mild bibasilar Rales, no rhonchi Abdomen: Soft, obese abdomen, nondistended, nontender, normal bowel sounds. Extremities: No tenderness, no deformity Skin: No rash, no nodules or ulcers. Neuro: No focal motor deficit. Normal speech. Psychiatry: Normal mood, no agitation. Assessment and plan Acute on chronic diastolic heart failure Malignant hypertension Continue IV Lasix Resume home antihypertensive Hydralazine as needed for BP spike Will monitor input and output closely. Continue to fluid restrict at 1.2 L/day. Low-sodium diet. Continue other home medications. Hypokalemia: Replace and optimize potassium as needed. Monitor renal function. Hyperlipidemia: Continue statin Chronic atrial fibrillation: Continue Coreg and Eliquis. Morbid obesity Weight loss by diet and exercise advised. DVT Prophylaxis: Eliquis. CODE STATUS: Full code.
[2023-11-29] MEDS ORDERED: HYDRALAZINE HCL 20 MG/ML VIAL IV PRN (14:40)
[2023-11-29] MEDS: ISOSORBIDE MONO SR 30 MG TAB PO SCH (14:56)
[2023-11-29] MEDS: lisinopriL 20 MG TAB PO SCH (14:56)
[2023-11-29] MEDS: HYDRALAZINE HCL 25 MG TABLET PO SCH (14:57)
[2023-11-29] MEDS: AMLODIPINE 10 MG TAB PO SCH (14:57)
[2023-11-29] MEDS: carvediloL 25 MG TAB PO SCH (14:57)
[2023-11-29] MEDS: SPIRONOLACTONE 25 MG TABLET PO SCH (14:57)
[2023-11-29] MEDS ORDERED: HOME MED 1 EA UNK (Hydralazine Hcl [Hydralazine Hcl] 50 MG Tablet) PO SCH (21:00)
[2023-11-29] MEDS: ATORVASTATIN 40 MG TAB PO SCH (21:06)
[2023-11-30 03:47] LABS: Absolute Lymphocytes (CBC) 1.2 K/uL (0.7-4.9); Lymphocytes % 17.3 % (15.3-44.8); MCV 91.4 fL (80-100); MPV 8.6 fL (7.6-11.3); Platelets 230 thou/uL (152-406); RBC Red Blood Cell Count 3.94 M/uL (4.33-5.43)
[2023-11-30 04:06] LABS: Potassium 3.3 mEq/L (3.5-5.1)
[2023-11-30 05:40] VITALS: BMI 44.0
[2023-11-30] MEDS: ASPIRIN 81 MG CHEWABLE TABLET PO SCH (08:31)
[2023-11-30] MEDS ORDERED: HOME MED 1 EA UNK (Lisinopril [Zestril] 40 MG Tablet) PO SCH (09:00)
--- NOTE | 2023-11-30 12:24 | P.PN ---
Subjective Date of Service: 11/30/23 Chief Complaint: CHF exacerbation, shortness of breath. Patient denies any shortness of breath today his legs are significantly swollen. He is no longer orthopneic. Physical Examination - Vital Signs Temperature: 97.4 F Blood Pressure: 110/68 Pulse: 78 Respirations: 16 Pulse Ox (%): 91 Assessment And Plan - Plan Physical examination General: Alert and oriented x3, NAD. Neck: Supple, no elevated JVD Heart: Heart sounds 1 and 2 normal, regular rhythm, normal rate, 2+ bilateral lower extremity edema. Lungs: Diminished bilaterally, mild bibasilar Rales, no rhonchi Abdomen: Soft, obese abdomen, nontender, normal bowel sounds. Extremities: No tenderness, no deformity Skin: No rash, no nodules or ulcers. Neuro: No focal motor deficit. Normal speech. Psychiatry: Normal mood. Assessment and plan Acute on chronic diastolic heart failure Malignant hypertension Lower extremity edema Continue IV Lasix for 1 more day and transition to oral Lasix. Blood pressure improved, patient is currently normotensive. Continue home antihypertensive Hydralazine as needed for BP spike Fluid restrict at 1.2 L/day. Low-sodium diet. Continue other home medications. Hypokalemia: Replace and optimize potassium as needed. Monitor renal function. Hyperlipidemia: Continue statin Chronic atrial fibrillation: Continue Coreg and Eliquis. Morbid obesity Weight loss by diet and exercise advised. Metabolic alkalosis/chronic kidney disease stage III Nephrology consult. DVT Prophylaxis: Eliquis. CODE STATUS: Full code.
[2023-11-30] MEDS: CHLORASEPTIC LOZENGES PO PRN (13:54)
[2023-12-01 03:27] LABS: Absolute Lymphocytes (CBC) 1.2 K/uL (0.7-4.9); Hematocrit 38.2 % (39.6-49.0); MPV 8.5 fL (7.6-11.3); Platelets 269 thou/uL (152-406)
[2023-12-01 03:43] LABS: Albumin 3.1 g/dL (3.4-5.0); Phosphorus 4.2 mg/dL (2.5-4.9)
[2023-12-01] MEDS: POTASSIUM CL SA 10 MEQ TAB PO ONE (10:24)
--- NOTE | 2023-12-01 14:20 | P.PN ---
Subjective Date of Service: 12/01/23 Chief Complaint: CHF exacerbation, shortness of breath. Patient denies any shortness of breath. Lower extremity swelling improving Significant urine output-5000 mL over the past 24 hours. Good SaO2 on room air. Physical Examination - Vital Signs Temperature: 97.2 F Blood Pressure: 96/52 Pulse: 83 Respirations: 18 Pulse Ox (%): 93 Assessment And Plan - Plan Physical examination General: Alert and oriented x3, NAD. Obese. Neck: Supple, no elevated JVD Heart: Heart sounds 1 and 2 normal, regular rhythm, normal rate, lower extremity edema improved. Lungs: Diminished bilaterally, clear to auscultation, no rhonchi Abdomen: Soft, obese abdomen, nontender, normal bowel sounds. Extremities: No tenderness, no deformity Neuro: No focal motor deficit. Normal speech. Psychiatry: Normal mood. Assessment and plan Acute on chronic diastolic heart failure Malignant hypertension Lower extremity edema IV Lasix transition to home dose Lasix today. Continue metolazone and Aldactone Continue to monitor intake and output. Continue home antihypertensive Hydralazine as needed for BP spike Fluid restrict at 1.2 L/day. Low-sodium diet. Continue other home medications. Hypokalemia: Replace and optimize potassium as needed. Monitor renal function. Hyperlipidemia: Continue statin Chronic atrial fibrillation: Continue Coreg and Eliquis. Morbid obesity Weight loss by diet and exercise advised. Metabolic alkalosis/chronic kidney disease stage III Nephrology consult. DVT Prophylaxis: Eliquis. CODE STATUS: Full code. Discharge disposition: Possible discharge in a.m.
[2023-12-01] MEDS: POTASSIUM 25 MEQ EFFERV TAB PO ONE (15:33)
[2023-12-01] MEDS: FUROSEMIDE 40 MG TABLET PO SCH (15:33)
--- NOTE | 2023-12-01 19:30 | P.CNS ---
Date of Consult: 12/01/23 Reason for Consult: JARED/ CKD Requesting Physician: khanh pendleton Chief Complaint: CHF exacerbation, shortness of breath. History of Present Illness: 68-year-old male patient was evaluated for episode of worsening shortness of breath and lower extremity swelling. He has a medical history significant for chronic atrial fibrillation, hypertension, hyperlipidemia, but obesity, CHF with systolic variety and had been on oral diuretic therapy at home. He is on Lasix therapy at 80 mg p.o. daily. he had complaint of persistent lower extremity swelling and worsening shortness of breath with orthopnea and PND symptoms. Chest x-ray done showed cardiomegaly and pulmonary edema/pleural effusions on x- rays and because of clinical presentation he was admitted for inpatient care. IV diuretic therapy of Lasix was started prior to admission. No overt episode of fever, chills, rigor, nausea given. 20:35 This 68 yrs old Black Male presents to ER via Wheelchair with complaints of Shortness cp Of Breath. 20:35 The patient has shortness of breath with light activity. Onset: The symptoms/episode cp began/occurred gradually. 20:35 Duration: The symptoms are continuous, and are steadily getting worse. Associated signs cp and symptoms: Pertinent negatives: chest pain, diaphoresis, dizziness, fever, hemoptysis. Severity of symptoms: in the emergency department the symptoms are unchanged despite home interventions. The nurse reports low blood pressures this morning. Allergies No Known Allergies Allergy (Verified 05/08/12 05:40) Home medications list reviewed: Yes Home Medications: Amlodipine Besylate 10 mg PO DAILY 04/08/23 Apixaban [Eliquis] 5 mg PO BID 04/08/23 Atorvastatin Calcium 40 mg PO BEDTIME 04/08/23 Carvedilol [Coreg] 25 mg PO BID 04/08/23 Hydralazine HCl 50 mg PO BID 04/08/23 Isosorbide Mononitrate [Isosorbide Mononitrate ER] 30 mg PO DAILY 04/08/23 Lisinopril [Zestril] 40 mg PO DAILY 04/08/23 Spironolactone 25 mg PO DAILY 04/08/23 Aspirin Chewable [Aspirin Chewable*] 81 mg PO DAILY #30 tab.chew 08/12/23 Furosemide [Lasix] 80 mg PO DAILY #30 tab 10/19/23 - Past Medical/Surgical History Diabetic: No -: HTN -: HLD -: Afib -: CKD III (Dr. Murray/ Dr. Christianson) -: DM II -: Morbid Obeisty -: appendectomy - Social History Smoking Status: Never smoker Alcohol use: No CD- Drugs: No Caffeine use: Yes Place of Residence: Home Review of Systems 10-point ROS is otherwise unremarkable Respiratory: SOB with Excertion Cardiovascular: Edema Physical Examination Temp Pulse Resp BP Pulse Ox 98.5 F 86 18 99/56 L 91 12/01/23 15:39 12/01/23 15:39 12/01/23 15:39 12/01/23 15:39 12/01/23 15:39 General: In no apparent distress, Oriented x3, Cooperative HEENT: Atraumatic Neck: Supple Respiratory: Diminished Cardiovascular: Regular rate/rhythm, Edema Gastrointestinal: Soft and benign, Distended Musculoskeletal: No clubbing, No contractures Integumentary: No rashes, No cyanosis Neurological: Normal speech Blood work reviewed in the chart. Imagings Data: EXAM DESCRIPTION: [facility] Single View11/28/2023 9:22 pm CLINICAL HISTORY: Shortness of breath COMPARISON: September 2023 FINDINGS: The lungs appear clear of acute infiltrate. The heart is moderately to markedly enlarged Small pleural effusions EXAM DESCRIPTION: CT - Abdomen Pelvis W Contrast - 11/29/2023 6:08 am CLINICAL HISTORY: The patient is 68 years old and is Male; EPIGASTRIC PAIN TECHNIQUE: Axial computed tomography images of the abdomen and pelvis with intravenous contrast. Sagittal and coronal reformatted images were created and reviewed. This CT exam was performed using one or more of the following dose reduction techniques: automated exposure control, adjustment of the mA and/or kV according to patient size, and/or use of iterative reconstruction technique. COMPARISON: No relevant prior studies available. FINDINGS: LUNG BASES: Unremarkable. No mass. No consolidation. PLEURAL SPACE: Small bilateral pleural effusions are present, right greater than left. ABDOMEN: LIVER: The liver is enlarged and fatty. GALLBLADDER AND BILE DUCTS: Mild pericholecystic inflammation is suggested. No calcified gallstones are seen. PANCREAS: No ductal dilation. No mass. SPLEEN: Unremarkable. ADRENALS: Hyperplasia of the adrenal glands is noted. KIDNEYS AND URETERS: Unremarkable. The kidneys enhance symmetrically. No obstructing renal or ureteral calculus is seen. No hydronephrosis or hydroureter. No perinephric fluid or stranding. STOMACH AND BOWEL: The stomach is moderately distended with fluid and air. The small bowel is relatively normal in caliber. Stool is present throughout the colon. There is no mucosal thickening or evidence of obstruction. PELVIS: APPENDIX: No findings to suggest acute appendicitis. BLADDER: The bladder is decompressed. Diffuse bladder wall thickening is noted. REPRODUCTIVE: Unremarkable as visualized. ABDOMEN and PELVIS: INTRAPERITONEAL SPACE: Unremarkable. No free air. No significant fluid collection. BONES/JOINTS: Intervertebral disc space narrowing and vacuum disc phenomenon with facet arthropathy at L4-L5 and L5-S1 is present. There is no acute fracture. SOFT TISSUES: Mild diffuse body wall edema is noted. VASCULATURE: Unremarkable. No abdominal aortic aneurysm. LYMPH NODES: Unremarkable. No enlarged lymph nodes. IMPRESSION: 1. Mild pericholecystic inflammation. No calcified gallstones. If there is clinical concern for acute gallbladder pathology, findings could be further evaluated with ultrasound or HIDA scan. 2. Diffuse bladder wall thickening with surrounding inflammation which may be secondary to cystitis. 3. Bilateral small pleural effusions, right greater than left. Conclusions/Impression: Stage I JARED in the setting of diuresis & hypotension CKD III -No NSAIDs Hypokalemia -Replete potassium as ordered -Continue spironolactone Metabolic alkalosis -Maintain potassium -Continue spironolactone HTN with CKD/ CHF complicated by hypotension -Continue Coreg -Continue Amlodipine & Lisinopril; add holding parameters -Discontinue Hydralazine today due to hypotension Diastolic CHF, A/C LE Peripheral Edema -Continue furosemide and spironolactone -Continue Metolazone DM II with CKD A1C 5.1 in March 2023 -No sugar diet Anemia in chronic illness -Monitor H&H Hospitalist and ER notes reviewed Thank you kindly for the consultation
[2023-12-02 06:43] LABS: Albumin 3.1 g/dL (3.4-5.0); Phosphorus 3.7 mg/dL (2.5-4.9); Uric Acid 12.5 mg/dL (3.5-7.2)
[2023-12-02] MEDS ORDERED: HOME MED 1 EA UNK (Furosemide [Lasix] 80 MG Tablet) PO SCH (09:00)
[2023-12-02] MEDS: DOCUSATE NA 100 MG CAP PO SCH (10:15)
--- NOTE | 2023-12-02 13:46 | EKG ---
Test Date: 2023-11-28 Test Time: 20:58:45 Suppository Molding Machine Operator: TL MEASUREMENT RESULTS: Intervals: Rate: 101 [place]: QRSD: 130 QT: 372 QTc: 482 [place]: P: WV: QRS: -47 T: -33 INTERPRETIVE STATEMENTS: Atrial fibrillation Left axis deviation Nonspecific intraventricular block Nonspecific T wave abnormality, probably digitalis effect Abnormal ECG Compared to ECG 10/15/2023 04:42:27 Left-axis deviation now present Right superior axis no longer present T-wave abnormality still present Electronically Signed On 12-02-23 13:36:13 TABLEMAN by Jamar Ferguson
--- NOTE | 2023-12-02 15:19 | P.PN ---
Subjective Date of Service: 12/02/23 Chief Complaint: CHF exacerbation, shortness of breath. Patient denies any shortness of breath. He denies any complaint Lower extremity edema significantly improved. Serum creatinine trended up. Patient has been stable on room air. His blood pressure has been borderline low today. Physical Examination - Vital Signs Temperature: 97.3 F Blood Pressure: 116/71 Pulse: 72 Respirations: 18 Pulse Ox (%): 93 Assessment And Plan - Plan Physical examination General: Alert and oriented x3, NAD. Obese. Neck: Supple, no elevated JVD Heart: Heart sounds 1 and 2 normal, regular rhythm, normal rate, lower extremity edema significantly improved. Lungs: Diminished bilaterally, clear to auscultation, no rhonchi Abdomen: Soft, obese abdomen, nontender, normal bowel sounds. Extremities: No tenderness, no deformity Neuro: No focal motor deficit. Normal speech. Psychiatry: Normal mood. Assessment and plan Acute on chronic diastolic heart failure Malignant hypertension Lower extremity edema IV Lasix transition to home dose Lasix today. Continue metolazone and Aldactone Continue to monitor intake and output. Nephrology input appreciated. Home hydralazine discontinued due to soft blood pressure. Continue amlodipine, lisinopril and Imdur On fluid restriction at 1.2 L/day. Low-sodium diet. Continue other home medications. Hypokalemia: Replace and optimize potassium as needed. Monitor renal function. Hyperlipidemia: Continue statin Chronic atrial fibrillation: Continue Coreg and Eliquis. Morbid obesity Weight loss by diet and exercise advised. Metabolic alkalosis/acute on chronic kidney disease stage III Nephrology input appreciated. Nephrology to follow and manage. Recheck renal function in a.m. Possible discharge tomorrow if serum creatinine remains stable. DVT Prophylaxis: Eliquis. CODE STATUS: Full code. Discharge disposition: Possible discharge in a.m.
[2023-12-03 02:54] VITALS: O2SAT 96
[2023-12-03 04:10] LABS: Albumin 2.9 g/dL (3.4-5.0); Magnesium 2.1 mg/dL (1.6-2.4); Phosphorus 3.7 mg/dL (2.5-4.9); Potassium 4.1 mEq/L (3.5-5.1)
--- NOTE | 2023-12-03 09:02 | P.DS ---
Admission Date: 11/29/23 Discharge Date: 12/03/23 Disposition: ROUTINE DISCHARGE Reason for Admission: CHF exacerbation, shortness of breath. Consultations: Nephrology - Dr. Murray Brief History of Present Illness: 68yo M, PMH: chronic atrial fibrillation, hypertension, hyperlipidemia, but obesity, CHF with systolic variety and had been on oral diuretic therapy at home Patient was evaluated for episode of worsening shortness of breath and lower extremity swelling. He is on Lasix therapy at 80 mg p.o. daily. he had complaint of persistent lower extremity swelling and worsening shortness of breath with orthopnea and PND symptoms. Chest x-ray done showed cardiomegaly and pulmonary edema/pleural effusions on x-rays and because of clinical presentation he was admitted for inpatient care. IV diuretic therapy of Lasix was started prior to admission. No overt episode of fever, chills, rigor, nausea given. Hospital Course: Problem List: Acute on chronic diastolic CHF Malignant hypertension Metabolic alkalosis/JARED on CKD3; ~baseline Chronic a-fib Hypokalemia, improved Hyperlipidemia Morbid obesity Patient presented with worsening shortness of breath, lower extremity edema. Found to have an acute CHF exacerbation. BNP 3k on admission. CXR noted mod- marked cardiomegaly, bilateral pleural effusions. Patient had improvement with Lasix, spironolactone, and metolazone. Diuretics were transitioned to home PO dosage and patient continued to show improvement. Off oxygen supplementation since 12/01. Patient was feeling better, edema improving, breathing more comfortably on room air, and was deemed stable for discharge home. Serum creatinine noted to slightly worsen throughout hospitalization. Nephrology was consulted. Patient has a history of CKD 3 and found to have an JARED secondary to diuresis / hypotension. Creatinine improved slowly with diuresis. Discussed with nephrology and patient should continue regular home dose lasix / spironolactone on discharge. Advised to repeat blood work in ~1 week to monitor renal function. Medications: Stop Hydralazine Hcl (apresoline) Blood pressure has been low to low-normal off patients home hydralazine Hcl. Recommend to stop taking hydralazine Hcl (apresoline) on discharge. Check blood pressure daily. If systolic BP is consistently > 150, can restart. If systolic blood pressure is consistently < 130, advised to stop taking amlodipine. Advised to keep daily logs of BP readings to take to follow up appointments in case antihypertensives need to be adjusted / restarted. Follow up: PCP 3-5 days Nephrology (Dr. Murray) 1-2 weeks Cardiology 2-4 weeks Physical Exam: GEN: Alert, oriented, NAD HEENT: Normal conjunctiva, sclera anicteric CV: Regular rate and rhythm, 1+ bilateral lower extremity edema Pulm: Nonlabored respirations on room air, clear bilaterally ABD: soft, nontender, nondistended Neuro: Normal speech, normal affect Vital Signs/Physical Exam: Temp Pulse Resp BP Pulse Ox 97.7 F 56 18 111/45 L 99 12/03/23 04:00 12/03/23 04:00 12/03/23 04:00 12/03/23 04:00 12/03/23 04:00 Laboratory Data at Discharge: WBC 6.50 thou/uL (4.3-10.9) 12/01/23 03:01 Hgb 12.6 g/dL (13.6-17.9) L D 12/01/23 03:01 Hct 38.2 % (39.6-49.0) L 12/01/23 03:01 Plt Count 269 thou/uL (152-406) 12/01/23 03:01 PT 19.3 SECONDS (9.5-12.5) H 11/28/23 21:42 INR 1.78 11/28/23 21:42 Sodium 134 mEq/L (136-145) L 12/03/23 03:02 Potassium 4.1 mEq/L (3.5-5.1) 12/03/23 03:02 BUN 32 mg/dL (7-18) H 12/03/23 03:02 Creatinine 1.72 mg/dL (0.70-1.30) H 12/03/23 03:02 Glucose 125 mg/dL (74-106) H 12/03/23 03:02 Uric Acid 12.5 mg/dL (3.5-7.2) H 12/02/23 05:35 Phosphorus 3.7 mg/dL (2.5-4.9) 12/03/23 03:02 Magnesium 2.1 mg/dL (1.6-2.4) 12/03/23 03:02 Total Bilirubin 3.4 mg/dL (0.2-1.0) H 11/28/23 21:42 AST 22 U/L (15-37) 11/28/23 21:42 ALT 20 U/L (16-61) 11/28/23 21:42 Alkaline Phosphatase 72 U/L (45-117) 11/28/23 21:42 Lipase 13 U/L (13-75) 11/28/23 21:42 Home Medications: Amlodipine Besylate 10 mg PO DAILY 04/08/23 Apixaban [Eliquis] 5 mg PO BID 04/08/23 Atorvastatin Calcium 40 mg PO BEDTIME 04/08/23 Carvedilol [Coreg] 25 mg PO BID 04/08/23 Isosorbide Mononitrate [Isosorbide Mononitrate ER] 30 mg PO DAILY 04/08/23 Lisinopril [Zestril] 40 mg PO DAILY 04/08/23 Spironolactone 25 mg PO DAILY 04/08/23 Aspirin Chewable [Aspirin Chewable*] 81 mg PO DAILY #30 tab.chew 08/12/23 Furosemide [Lasix] 80 mg PO DAILY #30 tab 10/19/23 Physician Discharge Instructions: Patient presented with worsening shortness of breath, lower extremity edema. Found to have an acute CHF exacerbation. BNP 3k on admission. CXR noted mod- marked cardiomegaly, bilateral pleural effusions. Patient had improvement with Lasix, spironolactone, and metolazone. Diuretics were transitioned to home PO dosage and patient continued to show improvement. Off oxygen supplementation since 12/01. Patient was feeling better, edema improving, breathing more comfortably on room air, and was deemed stable for discharge home. Serum creatinine noted to slightly worsen throughout hospitalization. Nephrology was consulted. Patient has a history of CKD 3 and found to have an JARED secondary to diuresis / hypotension. Creatinine improved slowly with diuresis. Discussed with nephrology and patient should continue regular home dose lasix / spironolactone on discharge. Advised to repeat blood work in ~1 week to monitor renal function. Medications: Stop Hydralazine Hcl (apresoline) Blood pressure has been low to low-normal off patients home hydralazine Hcl. Recommend to stop taking hydralazine Hcl (apresoline) on discharge. Check blood pressure daily. If systolic BP is consistently > 150, can restart. If systolic blood pressure is consistently < 130, advised to stop taking amlodipine. Advised to keep daily logs of BP readings to take to follow up appointments in case antihypertensives need to be adjusted / restarted. Follow up: PCP 3-5 days Nephrology ( Dr. Murray) 1-2 weeks Cardiology 2-4 weeks Followup: Cole Murray DO [ACTIVE - CAN ADMIT] - 1-2 Weeks Jamar Ferguson MD [ACTIVE - CAN ADMIT] - (F/U in 2-4 weeks) Rubina Owens PA [Primary Care Provider] - 2-3 Days Time spent managing pt's care (in minutes): 45
[2023-12-03] MEDS: ISOSORBIDE MONO SR 30 MG TAB PO SCH (09:30)
[2023-12-03] MEDS: AMLODIPINE 10 MG TAB PO SCH (09:31)
[2023-12-03 09:42] VITALS: BP 102/66; TEMP 97.4
--- NOTE | 2023-12-03 20:44 | P.PN ---
Date of Service: 12/03/23 Vital Signs Temp Pulse Resp BP Pulse Ox 97.4 F 79 20 102/66 97 12/03/23 08:00 12/03/23 09:31 12/03/23 08:00 12/03/23 09:31 12/03/23 08:00 Microbiology Results 11/28/23 21:02 Nasopharnyx Influenza Type A Antigen Screen - Final 11/28/23 21:02 Nasopharnyx Influenza Type B Antigen Screen - Final Assessment/ Plan: Nephrology No dyspnea No chest pain Feeling better and wants to go home No acute events overnight Vitals, medications, blood work and imaging reviewed in the chart General: In no apparent distress, Oriented x3, Cooperative HEENT: Atraumatic Neck: Supple Respiratory: Diminished Cardiovascular: Regular rate/rhythm, Edema Gastrointestinal: Soft and benign, Distended Musculoskeletal: No clubbing, No contractures Integumentary: No rashes, No cyanosis Neurological: Normal speech Blood work reviewed in the chart. Imagings Data: [facility] 9:22 pm CLINICAL HISTORY: Shortness of breath COMPARISON: September 2023 FINDINGS: The lungs appear clear of acute infiltrate. The heart is moderately to markedly enlarged Small pleural effusions EXAM DESCRIPTION: CT - Abdomen Pelvis W Contrast - 11/29/2023 6:08 am CLINICAL HISTORY: The patient is 68 years old and is Male; EPIGASTRIC PAIN TECHNIQUE: Axial computed tomography images of the abdomen and pelvis with intravenous contrast. Sagittal and coronal reformatted images were created and reviewed. This CT exam was performed using one or more of the following dose reduction techniques: automated exposure control, adjustment of the mA and/or kV according to patient size, and/or use of iterative reconstruction technique. COMPARISON: No relevant prior studies available. FINDINGS: LUNG BASES: Unremarkable. No mass. No consolidation. PLEURAL SPACE: Small bilateral pleural effusions are present, right greater than left. ABDOMEN: LIVER: The liver is enlarged and fatty. GALLBLADDER AND BILE DUCTS: Mild pericholecystic inflammation is suggested. No calcified gallstones are seen. PANCREAS: No ductal dilation. No mass. SPLEEN: Unremarkable. ADRENALS: Hyperplasia of the adrenal glands is noted. KIDNEYS AND URETERS: Unremarkable. The kidneys enhance symmetrically. No obstructing renal or ureteral calculus is seen. No hydronephrosis or hydroureter. No perinephric fluid or stranding. STOMACH AND BOWEL: The stomach is moderately distended with fluid and air. The small bowel is relatively normal in caliber. Stool is present throughout the colon. There is no mucosal thickening or evidence of obstruction. PELVIS: APPENDIX: No findings to suggest acute appendicitis. BLADDER: The bladder is decompressed. Diffuse bladder wall thickening is noted. REPRODUCTIVE: Unremarkable as visualized. ABDOMEN and PELVIS: INTRAPERITONEAL SPACE: Unremarkable. No free air. No significant fluid collection. BONES/JOINTS: Intervertebral disc space narrowing and vacuum disc phenomenon with facet arthropathy at L4-L5 and L5-S1 is present. There is no acute fracture. SOFT TISSUES: Mild diffuse body wall edema is noted. VASCULATURE: Unremarkable. No abdominal aortic aneurysm. LYMPH NODES: Unremarkable. No enlarged lymph nodes. IMPRESSION: 1. Mild pericholecystic inflammation. No calcified gallstones. If there is clinical concern for acute gallbladder pathology, findings could be further evaluated with ultrasound or HIDA scan. 2. Diffuse bladder wall thickening with surrounding inflammation which may be secondary to cystitis. 3. Bilateral small pleural effusions, right greater than left. Conclusions/Impression: Stage I JARED in the setting of diuresis & hypotension CKD III -No NSAIDs Hypokalemia -Replete potassium prn -Continue spironolactone Metabolic alkalosis -Maintain potassium -Continue spironolactone HTN with CKD/ CHF complicated by hypotension -Continue Coreg -Continue Amlodipine & Lisinopril; add holding parameters Diastolic CHF, A/C LE Peripheral Edema -Continue furosemide and spironolactone -Continue Metolazone DM II with CKD A1C 5.1 in March 2023 -No sugar diet Anemia in chronic illness -Monitor H&H Hospitalist note reviewed Case reviewed with Dr. Lantigua
== END 2023-12-03 10:55 | disposition home or self-care (01) | DRG 291 ==
LOC: ER 19:00 → ERHOLD 23:27 → 2ND 11-29 13:23 → OBSVTOIN 11-29 13:26
PROVIDERS: ADMIT Internal Medicine Nephrology; ATTEND Hospitalist
DX: I13.0 Hypertensive heart and chronic kidney disease with heart failure and stage 1 through stage 4 chronic kidney disease, or unspecified chronic kidney disease (principal); I50.33 Acute on chronic diastolic (congestive) heart failure; I48.20 Chronic atrial fibrillation, unspecified; Z68.42 Body mass index [BMI] 45.0-49.9, adult; E87.3 Alkalosis; N17.9 Acute kidney failure, unspecified; E66.01 Morbid (severe) obesity due to excess calories; N18.30 Chronic kidney disease, stage 3 unspecified; E11.22 Type 2 diabetes mellitus with diabetic chronic kidney disease; D63.1 Anemia in chronic kidney disease; E87.6 Hypokalemia; E78.5 Hyperlipidemia, unspecified; Z11.52 Encounter for screening for COVID-19; Z79.01 Long term (current) use of anticoagulants; Z79.02 Long term (current) use of antithrombotics/antiplatelets; Z90.49 Acquired absence of other specified parts of digestive tract; Z79.82 Long term (current) use of aspirin; Z79.899 Other long term (current) drug therapy
CPT/HCPCS: 36415; 71045; 74177; 80048; 80069; 80076; 81001; 83605; 83690; 83735; 83880; 84132; 84484; 84550; 85025; 85610; 87804; 87811; 93005; 96374; 96375; 99285; G0378; J0360; J0696; J1940; Q9967